=== PATIENT | female | born 1950 | race Caucasian/White ===

== ENCOUNTER → 2023-05-03 08:07 | Outpatient (REF) | payer OTHER, SELFPAY | LOC: HWRAD 08:07 | PROVIDERS: ATTENDING PHYSICIAN Orthopaedic Surgery; FAMILY PHYSICIAN Family Medicine | DX: M25.552 Pain in left hip (principal) | CPT/HCPCS: 72192 ==

== ENCOUNTER → 2023-05-06 12:30 | Outpatient (REF) | payer OTHER, SELFPAY ==
--- NOTE | 2023-05-03 11:25 | CM ---
Addendum entered by PERCY Rojas 05/05/23 14:08:
Referral sent to [facility] to inquire about SNF bed if patient cannot go home with home care.
Original Note:
Patient is scheduled for an elective L AMILCAR conversion on 05/12/23. Spoke with patient prior to surgery via telephone. Introduced role of Orthopedic Navigator. Patient reports that she lives with her sister in a one level home. There are 3 steps
up to porch, 2 more to front door and once inside the house 7 steps up to one level living. She currently functions independently.
She had Left femur fracture and Left hip gamm nail, by Dr. Lin, 02/15/23. She was discharged to [facility] for short term rehab.
She went home and had [facility] home care. Her list visit will be on 05/04/23.
She has w/c, quad cane, rolling walker, grabber, leg agronomy supervisor, gait belt, shower seat with rails, raised toilet seat with rails.
PCP is Dr. Celaya
Pharmacy: [facility]
Discussed orthopedic program and post surgical plans. Reviewed anticipated length of stay and that goal is for her to return home at discharge. Also reviewed outpatient PT. Patient prefers to have [facility] home care again at discharge. If she
needed SNF rehab she would agree to go back to [facility].
Patient will complete online education.
PLAN: Orthopedic Navigator will remain available to assist with the care of patient and will reassess discharge needs after surgery.
[2023-05-06 12:24] VITALS: BMI 39.4
[2023-05-06 14:29] LABS: Hematocrit 33.4 % (37.0-47.0); Hemoglobin 10.1 g/dL (12.0-16.0); Mean Corp Hgb Conc. 30.2 g/dL (33.0-37.0); Mean Corpuscular Hgb 27.4 pg (27.0-31.0); Mean Corpuscular Volume 90.8 fL (81.0-99.0); Mean Platelet Volume 9.4 fL (7.4-10.4); Platelet Count 454 10^3/uL (130-400); Red Blood Cell Count 3.68 10^6/uL (4.20-5.40); Red Cell Dist. Width 15.3 % (11.5-14.5); White Blood Cell Count 8.9 10^3/uL (4.8-10.8)
[2023-05-06 14:50] LABS: ALT (SGPT) 14 U/L (0-35); AST (SGOT) 20 U/L (14-36); Albumin 3.6 g/dl (3.5-5.0); Alkaline Phosphatase 125 U/L (38-126); Blood Urea Nitrogen 15 mg/dl (7-17); Calcium 8.7 mg/dl (8.4-10.2); Carbon Dioxide 26 mmol/L (22-30); Chloride 102 mmol/L (98-107); Estimated Creatinine Clearance 49 ml/min; Glucose 189 mg/dl (70-99); Potassium 4.8 mmol/L (3.5-5.1); Sodium 134 mmol/L (135-145); Total Bilirubin 0.6 mg/dl (0.2-1.3); Total Protein 6.3 g/dl (6.3-8.2); eGFR 59.12
[2023-05-06 15:03] LABS: Vitamin D, 25-OH*** 25.5 ng/mL (30-80)
[2023-05-06 15:04] LABS: Erythrocyte Sed Rate 24 mm/hour (0-20)
[2023-05-06 15:17] LABS: TSH 0.57 uIU/ml (0.47-4.68)
[2023-05-06 15:42] VITALS: BMI 39.4
[2023-05-06 16:37] LABS: Iron 43 ug/dl (37-170)
[2023-05-06 16:46] LABS: Percent Saturation 13 % (20-50); Total Iron Binding Capacity 313 ug/dl (265-497)
[2023-05-06 17:17] LABS: Ferritin 60.7 ng/ml (11.1-264.0)
[2023-05-06 17:31] LABS: Vitamin B12 424 pg/ml (239-931)
[2023-05-07 08:44] LABS: Glycohemoglobin (HgbA1c) 6.2 % (4.0-5.6)
--- NOTE | 2023-05-10 11:41 | CM ---
Spoke to Maricarmen in admissions at [facility] today. From looking at her referrals she will have bed Tuesday if needed. Navigator to send updated clinical day of surgery.
--- NOTE | 2023-05-12 13:05 | CM ---
Addendum entered by PERCY Rojas 05/12/23 16:51:
Patient surgery moved to 05/13/23.
Original Note:
Spoke to Maricarmen at [facility]. She will have bed Tuesday or Tuesday for patient. Patient will need [employer] auth.
NPI Dr. Daniel Mattson [id number]
NPI s to use for [facility] [id number] or [id number].
Patient updated by phone that bed available and that there are residents at [facility] with COVID. Patient and sister to discuss if patient will go to SNF or try to go home.
== END ==
LOC: SDSPAT 12:30
PROVIDERS: ATTENDING PHYSICIAN Orthopaedic Surgery; FAMILY PHYSICIAN Family Medicine; OTHER PHYSICIAN Physician Assistant Medical
DX: Z01.810 Encounter for preprocedural cardiovascular examination (principal); Z01.812 Encounter for preprocedural laboratory examination; Z01.818 Encounter for other preprocedural examination; S72.22XA Displaced subtrochanteric fracture of left femur, initial encounter for closed fracture
CPT/HCPCS: 36415; 80053; 82306; 82607; 82728; 83036; 83540; 83550; 84443; 85027; 85652; 86140; 86850; 86900; 86901; 87070; 93005

== ENCOUNTER → 2023-05-10 11:54 | Outpatient (REF) | payer OTHER, SELFPAY ==
[2023-05-10 12:34] VITALS: BP 168/77; BP_SYST 104
[2023-05-10 14:13] LABS: Body Fluid Mononuclear 32.2 %; Body Fluid Polymorphonuclear 67.8 %; Body Fluid WBC 736 /CUMM
[2023-05-10 14:22] LABS: Body Fluid Second Tech SD
== END ==
LOC: RADI 11:54
PROVIDERS: ATTENDING PHYSICIAN Orthopaedic Surgery
DX: T84.52XA Infection and inflammatory reaction due to internal left hip prosthesis, initial encounter (principal); Y79.2 Prosthetic and other implants, materials and accessory orthopedic devices associated with adverse incidents
CPT/HCPCS: 20610; 77002; 87015; 87070; 87075; 87205; 89051

== ENCOUNTER 2023-05-13 12:31 | Inpatient (IN) | payer OTHER, SELFPAY ==
[2023-05-12 15:18] VITALS: BP 181/85
--- NOTE | 2023-05-12 16:38 | ED.ATTNOTE ---
ED Attending Note
ED Attending Note
ED Attending Note:
Pt [facility] because her scheduled procedure was bumped until tomorrow. Pt has severe limitations in her ability to ambulate due to complications from surgery to repair right hip fracture in January. Given
the severe ambulatory dysfx and multiple steps to get into her home ortho feels it is not appropriate for her to be discharged. There is no acute complaint but [facility] could not accommodate her in their area any longer. Pt should not be
billed for ER physician evaluation
-
Portions of this chart may have been created with voice recognition software.� Occasional wrong word or��sound alike� substitutions may have occurred due to the inherent limitations of voice recognition software.
[2023-05-12 17:33] VITALS: BP 144/58
[2023-05-12 17:38] LABS: Glucose - Point of Care 141 mg/dl (70-99)
--- NOTE | 2023-05-12 18:11 | W.PN.UPDATE ---
Update Note
Progress Note Update
Admission orders to observation placed. Plan for OR tomorrow 13 May 2023 w/ Dr. Velasquez
-NWB to LLE; bedrest
-DVT PPX: ASA resume base dose tonight, hold tomorrow; venous foot pumps
-pain regimen placed
-Diet: reg diet, NPO at MN
-HTN: continue current home meds, hold diuretics and GUSTABO/ARBS preop tomorrow
-DM2: continue basal insluin, hold oral diabetic meds, sliding scale and accuchecks.
-Plan for OR tomorrow- ANN-MARIE MARSHALLOR, irrigation ordered, NPO @ MI.
[2023-05-12 19:30] VITALS: BP 169/83
--- NOTE | 2023-05-12 19:30 | PTCARENOTE ---
Pt admitted to 2117 from ED. AAOx3, ambulated with RW from stretcher to bed. Family at bedside. Plan of care discussed. NPO after midnight for OR tomorrow. Call montejo within reach.
[2023-05-12 19:44] VITALS: BMI 41.1
[2023-05-12] MEDS: ASPIR LOW (ENTERIC COATED) 81 MG PO (19:59)
[2023-05-12] MEDS: NORVASC 2.5 MG PO (19:59)
[2023-05-12] MEDS: ROXICODONE 5 MG PO (20:00)
[2023-05-12] MEDS: LIPITOR 10 MG PO (20:04)
[2023-05-12] MEDS: ORETIC 25 MG PO (20:04)
[2023-05-12] MEDS: BACTROBAN 2% OINTMENT 1 APPLIC TOPICAL (21:25)
[2023-05-12] MEDS: LANTUS 0.100000000000000006 UNITS SC (21:25)
[2023-05-12 21:28] LABS: Glucose - Point of Care 166 mg/dl (70-99)
[2023-05-12 23:30] VITALS: BP 165/85
[2023-05-13] VITALS (11 sets, daily range): BP systolic 90–146; BP diastolic 50–69
[2023-05-13] MEDS: TYLENOL 975 MG PO
[2023-05-13] MEDS: NOVOLOG FLEXPEN-MODERATE RESISTANCE SC ×2 (06:14→20:40)
[2023-05-13 06:15] LABS: Glucose - Point of Care 144 mg/dl (70-99)
[2023-05-13 06:30] LABS: Hematocrit 32.8 % (37.0-47.0); Hemoglobin 10.2 g/dL (12.0-16.0)
[2023-05-13 07:02] LABS: Blood Urea Nitrogen 13 mg/dl (7-17); Carbon Dioxide 28 mmol/L (22-30); Chloride 101 mmol/L (98-107); Estimated Creatinine Clearance 49 ml/min; Glucose 142 mg/dl (70-99); Potassium 3.9 mmol/L (3.5-5.1); Sodium 134 mmol/L (135-145); eGFR 59.12
--- NOTE | 2023-05-13 08:11 | CM ---
Addendum entered by Sparkle Hernandez 05/13/23 12:30:
Inpatient admission order noted in medical record. IMM reviewed with, and signed by, patient. Discharge plans were reviewed with patient's sister.
Addendum entered by Sparkle Hernandez 05/13/23 10:13:
Per [facility] at [facility]; weekend Lace Winder to call ict help desk officer ([phone]) at [facility] and ask for nursing egg processing supervisor to provide auth and confirm discharge.
Original Note:
Reviewed chart and discussed with RN. Patient was to have elective L AMILCAR conversion yesterday however surgery postponed to today. Patient is currently observation status.
Met with patient at bedside. Patient reports that she lives with her sister in a one level home. There are 3 steps up to porch, 2 more to front door and once inside the house 7 steps up to one level living. She functioned independently prior to
coming to the hospital. She had Left femur fracture and Left hip gamma nail by Dr. Lin on 02/15/23. She went to [facility] for short term rehab following this. She then had [facility] care. She has w/c, quad cane, rolling walker, grabber, leg welder setter electron beam machine,
shower seat with rails, raised toilet seat with rails. PCP is Dr. Celaya
Pharmacy: [facility]
Observation status explained to patient and form signed.
Discussed orthopedic program and post surgical plans. Reviewed anticipated length of stay and discussed discharge plans. Patient feels she will need SNF rehab due to the steps she has to enter her home. She [facility] to go back to [facility].
Referral and completed PASRR were sent to [facility] at [facility]. Bed will be available on Tuesday, 05/14. Patient will need [employer] auth. (attending will be: Dr. Daniel Mattson ; NPI for [facility] [id number] or [phone].
Patient will need stretcher transport due to hip precautions (medical necessity and transport forms placed on chart). If copay needs to be paid prior to transport; patient's sister, Yaneli. can be contacted for patient.
--- NOTE | 2023-05-13 09:17 | W.PN.UPDATE ---
Update Note
Progress Note Update
Patient for LEFT conversion AMILCAR later today via Dr. Velasquez (~1400). Surgical and blood consents have been signed. Operative site has been marked. She is NPO. Hgb this AM @ 10.2. T&S not entered, therefore placed this AM. ABX/irrigation products on
call.
[2023-05-13] MEDS: ROXICODONE 5 MG PO ×2 (09:20→19:09)
[2023-05-13] MEDS: BACTROBAN 2% OINTMENT 1 APPLIC TOPICAL ×2 (09:21→20:46)
[2023-05-13 11:50] LABS: Glucose - Point of Care 174 mg/dl (70-99)
--- NOTE | 2023-05-13 12:19 | W.PN.ORTHO ---
Today's Communication / Plan
-
d/c when stable
Assessment
.
Distal Motor Intact: Yes
Dressing:
Clean, dry and intact.
Assessment:
L Hip ORIF w/ gamma nail Dr. Lin 01/2023-displacement of hardware due to severe osteoporosis + end stage arthritis--proposed L AMILCAR Conversion Dr. Velasquez 05/13/23
Osteoporosis-recent fracture-TSH in range-Vit D low--supplement Rx pre-op--bone density advised OP w/ Rheumatology ciro; advised
Type 2 IDDM-increase Lantus dosing due to potential for post op hyperglycemia and infection-SSI and resume home meds
-Cefadroxil ppx OP
Anemia-multifactorial due to renal disease and borderliine low iron-Ferrous Sulfate advised to improve stores in the setting of surgery
[id number] prn
Plan
.
Surgery / Date: L AMILCAR Conversion Dr. Velasquez 05/13/23
DVT Prophylaxis: Aspirin
Activity:
Out of bed.
PT/OT
Subjective
.
.:
Patient resting comfortably.
Vital Signs and Labs
.
Vital Signs and Labs:
Lab Results
05/13/23 04:40
05/13/23 04:40
Temp Pulse Resp BP Pulse Ox
98.1 F 94 18 146/65 94
05/13/23 07:45 05/13/23 07:45 05/13/23 07:45 05/13/23 07:45 05/13/23 07:45
[2023-05-13] MEDS: NOVOLOG FLEXPEN-MODERATE RESISTANCE 1 UNITS SC (12:20)
[2023-05-13] MEDS: DILAUDID 0.25 MG IV ×2 (18:33→19:00)
--- NOTE | 2023-05-13 18:36 | OR.RPT ---
Operative Report
Operative Report
Orthopaedic Surgery Operative Note
DATE OF OPERATION: 05/13/2023
PREOPERATIVE DIAGNOSES: Mechanical failure of mechanical device, intertrochanteric femur fracture with cutout of cephalomedullary nail
POSTOPERATIVE DIAGNOSES: Same
OPERATION PERFORMED:
1. Left conversion total hip arthroplasty (CPT 82590 with 22 modifier)
2. Removal of hardware
SURGEON: Jason Velasquez MD
VOLUNTEER SERVICES COORDINATOR: Hector Garrett PA-C who helped with patient and limb positioning and retraction
ANESTHESIA: General
COMPLICATIONS: None.
ESTIMATED BLOOD LOSS: 500 mL.
DRAINS: None
SPECIMEN: None
FINDINGS: Cutout of cephallomedullary device with displacement of head and neck fragments
IMPLANTS:
Biomet G7 Acetabular shell, multihole, size 48
Biomet G7 dual mobility acetabular liner
Radha Trilogy acetabular bone screw x1
Biomet Nataly STS distal stem 150 x 13mm
Biomet Nataly Proximal body A, 60mm, extended offset
Biolox Ceramic Head, size 28mm +0
Biomet G7 dual mobility head 38mm
EXPLANTS:
[place] Gamma nail with lag screw and distal interlocking screw
INDICATIONS: The patient is an sustained a left subtrochanteric femur fracture January 2023 and underwent surgical fixation with a cephalomedullary nail with a colleague. She healed the subtrochanteric fracture but was noted to have cutout of the
lag screw from the femoral head. I reviewed the x-rays with the patient and with her family who were present with her. We discussed treatment options. We discussed that based on her preinjury level of function that nonoperative treatment would
likely lead to persistent pain and rapid degeneration of the joint if not erosion into the pelvis. Shared decision was to proceed with surgical treatment with conversion to a total hip arthroplasty with removal of hardware.
The patient understood the risks which included, but were not limited to, bleeding, infection, failure to relieve pain, more pain than preop, damage to blood vessels and nerves, need for reoperation, mechanical failure of the implants, wound healing
problems, stiffness, instability, blood clot, pulmonary embolism, myocardial infarction, pneumonia, arrhythmia, CVA, and . The patient accepted these risks and wished to proceed. All questions were answered, and informed consent was obtained.
PROCEDURE IN DETAIL: The patient was identified in the preoperative holding area. The left hip was identified as the operative site. The patient was taken in the operating room and transferred to the operative table. General anesthesia was
performed. IV antibiotics and tranexamic acid were administered. The patient was placed in the lateral position with Stulberg hip positioners. Axillary roll was placed. The down leg was well padded. All bony prominences were well padded. The
operative limb was prepped and draped in the usual sterile fashion.
Time out was performed. A posterolateral approach to the hip was used incorporating prior incisions. The skin incision was centered over the greater trochanter. This was taken down sharply through subcutaneous tissues. Marked hematoma was evacuated.
Meticulous hemostasis was achieved throughout the case with electrocautery. We split the fascia marilyn in line with skin incision. I split the gluteus paula bluntly. We cauterized all crossing vessels as we split it. I palpated the sciatic nerve and
made sure it was well posterior in the operative field. It was protected throughout the case. The operative field below the ITB was irregular due to the fracture and healing and granulation tissue. The gluteus medius and minimus were identified and
retracted anteriorly with a cobra retractor. I performed a posterior capsulotomy intact the edge of the capsule to aid in retraction.
Dissection was complicated by the fracture. The lag screw was removed from the femoral head. The distal interlocking screw was removed. The gamma nail was removed. Dissection was carried down to the femoral head. Once the hip capsule was resected, I
gently dislocated the hip posteriorly. The head and neck fragments were identified and mobilized gently so as not to damage surrounding structures. There was a defect in the anterior superior acetabular dome from the lag screw perforation. The
capsule was removed from around the head neck and the head and neck were removed.
I placed a curve hohmann retractor over the anterior lip of the acetabulum between the labrum and the anterior hip capsule. A second retractor was placed inferiorly just distal to the transverse acetabular ligament. Circumferential view of the
acetabulum was achieved. I incised the labrum and pulvinar with electrocautery. I started with a 43 mm reamer and reamed gently down to the medial wall. I then sequentially reamed up to a 47mm reamer. This gave a nice bed of bleeding bone with
excellent column support anteriorly and posteriorly. I impacted the acetabular shell in approximately 40 degrees of abduction and 20 degrees of anteversion. I matched the anteversion of the transverse acetabular ligament. I also made sure that the
anterior rim of the socket was not proud of the anterior wall to minimize the chance of iliopsoas tendinitis. I confirmed the cup was well-seated. I placed 1 ileal screw in the posterior superior quadrant. I then impacted the dual mobility liner and
confirmed it was well seated with the locking mechanism.
On the femoral side, I used a rongeur to open up the medullary canal. I reamed the canal after using long currettes to debride out fibrinous tissue. The size 13 came to a solid stop in the femoral diaphysis and had excellent rotational and axial
stability. The proximal body was reamed and trial was placed over the distal stem. Trial femoral head was placed, and the hip was taken through a complete range of motion. It was noted to be stable in extension without impingement. It was stable in
the position of sleep and in flexion with internal rotation.
I removed the trials. I impacted the proximal femoral body to match the trial version. It had excellent axial and rotational stability. Trial ball head was placed, and I reduced the hip and took the hip through a complete range of motion. There was
no impingement in external rotation and extension. Position of sleep was stable. At 90 degrees of flexion and slight adduction, the hip could be internally rotated to 90 degrees with no subluxation. I palpated the sciatic nerve, which was tension
free and unharmed. The trial ball head was removed, and the final dual mobility head was assembled. The head was impacted onto a clean and dry Chauhan taper. The hip was reduced.
A dilute betadine soak was performed for approximately 3 minutes, and then the hip was copiously irrigated. I repaired the capsule with #2 Ethibond to the abductor tendon and posterior trochanter. Local anesthetic was injected. The vastus lateralis
fascia and tensor fascia were closed with #1 PDS in running fashion. Abductor tendon was repaired side to side with 0 Vicryl. The subcutaneous tissues were closed with 2-0 PDS in running fashion. The skin was reapproximated with 3-0 Monocryl
subcuticular suture. I placed a Prineo dressing followed by a Mepilex Ag dressing. The patient awoke from anesthesia without difficulty. Sponge and instrument counts were correct x2 at the end of the case.
I was present and participated in the entire procedure. I checked leg length at the ankles after transfer on the bed which was equal. The patient was sent to the recovery room in stable condition.
Of note, 22 modifier was added for complexity due to BMI >40kg/m2 which added about 30 minutes of additional time for exposure, positioning, and implanting the components.
Ervin Velasquez MD
[2023-05-13 18:38] LABS: Glucose - Point of Care 228 mg/dl (70-99)
[2023-05-13 18:45] LABS: Hematocrit 32.7 % (37.0-47.0); Hemoglobin 10.7 g/dL (12.0-16.0)
[2023-05-13] MEDS: NOVOLOG vial 4 UNITS SC (18:52)
--- NOTE | 2023-05-13 19:02 | W.PN.UPDATE ---
Update Note
Progress Note Update
Immediate postoperative x-rays were reviewed by me. Fermoal componet appears well fixed and well aligned. The film shows signs of a fracture of the medial wall of the acetabulum. Intraoperatively there was cut out of the cephalomedullary screw
into the anterior column without clear signs of apparent fracture. Acetabular component was stable prior to screw fixation, and the screw was added for added fixation given the context of conversion total hip arthroplasty and osteoporotic bone.
Based on the x-ray findings, recommendation is for touchdown weightbearing of the left lower extremity for 6 weeks with a walker.
[2023-05-13] MEDS: NSS 1000 IV (19:04)
--- NOTE | 2023-05-13 19:45 | PTCARENOTE ---
Received report from [employer] [facility]. Patient transferred into room via bed without difficulties, family updated at bedside. Call ball in place, VSS, safe environment maintained, care ongoing.
--- NOTE | 2023-05-13 19:57 | SUR.PHASEI ---
191 - patient in pacu post op - L total hip, removal of gamma nail. Medicated for pain with dilaudid and Roxicodone 5mg as ordered, lab work drawn and results to Dr Velasquez. glucose post op to Dr Rogel and coverage ordered and given, discharge
to [place] with report, tele, hand off at bedside, family at bedside and updated.
[2023-05-13] MEDS: FARXIGA 10 MG PO (20:43)
[2023-05-13] MEDS: ASPIRIN 325 MG PO (20:43)
[2023-05-13] MEDS: NEURONTIN 300 MG PO (20:43)
[2023-05-13] MEDS: ANCEF 5 IV (20:44)
[2023-05-13] MEDS: COLACE 100 MG PO (20:44)
[2023-05-13] MEDS: LIPITOR 10 MG PO (20:44)
[2023-05-13] MEDS: GLUCOPHAGE 1000 MG PO (20:45)
[2023-05-13] MEDS: NORVASC PO (21:07)
[2023-05-13] MEDS: LIPITOR PO (21:07)
[2023-05-13 22:05] LABS: Glucose - Point of Care 257 mg/dl (70-99)
[2023-05-13] MEDS: LANTUS 0.160000000000000003 UNITS SC (22:30)
[2023-05-14] VITALS (13 sets, daily range): BP systolic 87–140; BP diastolic 48–64; O2SAT 98
[2023-05-14] MEDS: NOVOLOG FLEXPEN-MODERATE RESISTANCE SC ×2 (01:18→06:07)
[2023-05-14] MEDS: ANCEF 5 IV (05:12)
[2023-05-14 06:03] LABS: Glucose - Point of Care 204 mg/dl (70-99)
[2023-05-14] MEDS: NSS 1000 IV ×2 (06:05→20:47)
[2023-05-14 07:13] LABS: % Basophils 0.1 % (0-2); % Immature Granulocytes 0.7 % (0-0.5); % Lymphocytes 5.9 % (20.5-51.1); % Monocytes 6.9 % (1.7-9.3); % Neutrophils 86.4 % (42.2-75.2); Absolute Immature Granulocytes 0.2 10^3/uL (0-0.05); Absolute Lymphocytes 1.3 10^3/uL (1.2-3.4); Absolute Monocytes 1.5 10^3/uL (0.1-0.6); Absolute Neutrophils 18.6 10^3/uL (1.4-6.5); Hematocrit 24.9 % (37.0-47.0); Mean Corp Hgb Conc. 31.7 g/dL (33.0-37.0); Mean Corpuscular Hgb 28.1 pg (27.0-31.0); Mean Corpuscular Volume 88.6 fL (81.0-99.0); Mean Platelet Volume 9.6 fL (7.4-10.4); Nucleated Red Blood Cells % 0 %; Platelet Count 317 10^3/uL (130-400); Red Blood Cell Count 2.81 10^6/uL (4.20-5.40); Red Cell Dist. Width 15.5 % (11.5-14.5); White Blood Cell Count 21.5 10^3/uL (4.8-10.8)
[2023-05-14 07:24] LABS: Blood Urea Nitrogen 20 mg/dl (7-17); Calcium 7.6 mg/dl (8.4-10.2); Carbon Dioxide 22 mmol/L (22-30); Chloride 101 mmol/L (98-107); Estimated Creatinine Clearance 31 ml/min; Glucose 225 mg/dl (70-99); Potassium 5.5 mmol/L (3.5-5.1); Sodium 129 mmol/L (135-145); eGFR 33.63
[2023-05-14 07:56] LABS: Hemoglobin 7.9 g/dL (12.0-16.0)
[2023-05-14 08:35] LABS: Glucose - Point of Care 250 mg/dl (70-99)
--- NOTE | 2023-05-14 11:14 | W.PN.ORTHO ---
Today's Communication / Plan
-
Patient has a symptomatic Hgb of 7.9 this AM (10.7 in PACU yesterday)
Will request 2 units PRBC with a H&H check later today
For now would remain in bed, based on orthostatics this AM
PT/OT tomorrow based on patient's symptoms
THPs x 12 weeks when PT resumed
Anticipate SNF when stable, appreciate CM
ASA 325mg daily x 4 weeks for ppx
Dressings to remain
Pain control
Will continue to follow along
Assessment
.
Distal Motor Intact: Yes
Dressing:
Clean, dry and intact. Dressings in place left thigh
Assessment:
POD#1 Left hip conversion AMILCAR
Not feeling so well this AM
Calf soft, nontender
Plan
.
Surgery / Date: Left Hip conversion AMILCAR May 21 (Eva)
DVT Prophylaxis: Aspirin
Activity:
Out of bed. TDWB x 6 weeks on walker
PT/OT, THPs x 12 weeks
Discharge Plan: SNF
Subjective
.
.:
Patient resting comfortably. A bit lightheaded this AM with PT. Also with orthostatics. Feels better in bed
Vital Signs and Labs
.
Vital Signs and Labs:
Lab Results
05/14/23 06:36
Temp Pulse Resp BP Pulse Ox
98.1 F 107 16 108/59 98
05/14/23 08:15 05/14/23 08:15 05/14/23 08:15 05/14/23 08:15 05/14/23 08:15
Non-invasive Hgb result: 9.9
[2023-05-14 12:08] LABS: Glucose - Point of Care 269 mg/dl (70-99)
[2023-05-14] MEDS: AMARYL 4 MG PO (12:46)
[2023-05-14] MEDS: BACTROBAN 2% OINTMENT 1 APPLIC TOPICAL ×2 (12:47→21:00)
[2023-05-14] MEDS: ASPIRIN 325 MG PO (12:47)
[2023-05-14] MEDS: FEOSOL 325 MG PO (12:48)
[2023-05-14] MEDS: NORVASC 2.5 MG PO (12:48)
[2023-05-14] MEDS: FARXIGA 10 MG PO (12:48)
[2023-05-14] MEDS: COLACE 100 MG PO ×2 (12:48→20:48)
[2023-05-14] MEDS: GLUCOPHAGE 1000 MG PO ×2 (12:48→17:43)
[2023-05-14] MEDS: VITAMIN D3 (cholecalciferol) 25 MCG PO (12:49)
[2023-05-14] MEDS: ORETIC 12.5 MG PO (12:49)
[2023-05-14] MEDS: NOVOLOG FLEXPEN-MODERATE RESISTANCE 5 UNITS SC (13:14)
[2023-05-14] MEDS: MAALOX 30 ML PO (15:41)
[2023-05-14] MEDS: DILAUDID 0.5 MG IV (15:41)
[2023-05-14] MEDS: LIPITOR 10 MG PO (17:43)
[2023-05-14 18:04] LABS: Glucose - Point of Care 213 mg/dl (70-99)
[2023-05-14] MEDS: NOVOLOG FLEXPEN-MODERATE RESISTANCE 3 UNITS SC (18:06)
--- NOTE | 2023-05-14 19:58 | PTCARENOTE ---
Blood infusion: VS were taken at 1754 for the 2nd unit. the 1810 VS that were placed after the 15min of staying with her were some how duplicated for the time of 1724 (have no idea how that happened) All the times were entered correctly at the
appropriate times.
[2023-05-14] MEDS: NEURONTIN 300 MG PO (20:48)
[2023-05-14] MEDS: LANTUS 0.160000000000000003 UNITS SC (20:51)
[2023-05-14 21:31] LABS: Glucose - Point of Care 170 mg/dl (70-99)
[2023-05-14 23:25] LABS: Hemoglobin 9.3 g/dL (12.0-16.0)
[2023-05-15] VITALS (7 sets, daily range): BP systolic 104–162; BP diastolic 46–69; PULSE 104; BMI 43.5
[2023-05-15] MEDS: ROXICODONE 5 MG PO ×2 (01:14→08:55)
[2023-05-15] MEDS: NOVOLOG FLEXPEN-MODERATE RESISTANCE SC (01:42)
[2023-05-15 07:14] LABS: Glucose - Point of Care 148 mg/dl (70-99)
[2023-05-15] MEDS: FARXIGA 10 MG PO (08:51)
[2023-05-15] MEDS: ASPIRIN 325 MG PO (08:51)
[2023-05-15] MEDS: ORETIC 12.5 MG PO (08:52)
[2023-05-15] MEDS: NORVASC 2.5 MG PO (08:52)
[2023-05-15] MEDS: VITAMIN D3 (cholecalciferol) 25 MCG PO (08:52)
[2023-05-15] MEDS: GLUCOPHAGE 1000 MG PO ×2 (08:52→18:15)
[2023-05-15] MEDS: COLACE 100 MG PO ×2 (08:52→20:12)
[2023-05-15] MEDS: FEOSOL 325 MG PO (08:52)
[2023-05-15] MEDS: AMARYL 4 MG PO (08:52)
[2023-05-15] MEDS: BACTROBAN 2% OINTMENT 1 APPLIC TOPICAL ×2 (08:53→20:12)
--- NOTE | 2023-05-15 09:30 | W.PN.ORTHO ---
Today's Communication / Plan
-
Patient feeling better this AM. Some lightheaded after PM PT session yesterday
Hgb 9.3 this AM, will recheck shortly
Will see how PT session tolerated today
When medically stable (Mon/Tu) D/c to [facility] likely, appreciate CM
PT/OT, THPs x 12 weeks
TDWB/partial (flat foot allow)- discussed with PT
ASA 325mg daily x 4 weeks for ppx
Dressings to remain 2 weeks
Outpatient Ortho follow-up in [address] Velasquez
Assessment
.
Distal Motor Intact: Yes
Dressing:
Clean, dry and intact. Mepilex dressing in place left hip. Aquacel dressing distal thigh with mild strikethrough, contained
Assessment:
POD#2 Left conversion AMILCAR
Overall feeling better this AM
Calf soft, nontender
Plan
.
Surgery / Date: Left Hip conversion AMILCAR May 21 (Eva)
DVT Prophylaxis: Aspirin
Activity:
Out of bed. TDWB/partial LLE (july plant full foot)
PT/OT, THPs x 12 weeks
Discharge Plan: SNF
Discharge Information:
[facility]
Subjective
.
.:
Patient resting comfortably. Feels much better this AM. Still a bit dizzy after PT session post transfusion. PT/OT should be in soon
Vital Signs and Labs
.
Vital Signs and Labs:
Lab Results
05/14/23 23:19
05/14/23 06:36
Temp Pulse Resp BP Pulse Ox
97.5 F 107 18 134/59 93
05/15/23 07:20 05/15/23 08:52 05/15/23 07:20 05/15/23 08:52 05/15/23 07:20
Non-invasive Hgb result: 9.9
[2023-05-15 10:06] LABS: Hemoglobin 8.4 g/dL (12.0-16.0)
[2023-05-15] MEDS: NSS 1000 IV (11:15)
[2023-05-15] MEDS: DILAUDID 0.5 MG IV (11:16)
[2023-05-15 11:23] LABS: Glucose - Point of Care 93 mg/dl (70-99)
[2023-05-15] MEDS: ROXICODONE 10 MG PO (15:14)
[2023-05-15] MEDS: MILK OF MAGNESIA 30 ML PO (15:16)
[2023-05-15 17:06] LABS: Glucose - Point of Care 115 mg/dl (70-99)
[2023-05-15] MEDS: LIPITOR 10 MG PO (18:13)
[2023-05-15 21:47] LABS: Glucose - Point of Care 68 mg/dl (70-99)
[2023-05-15] MEDS: NEURONTIN 300 MG PO (21:48)
[2023-05-15] MEDS: LANTUS 0.160000000000000003 UNITS SC (21:48)
[2023-05-15 22:04] LABS: Glucose - Point of Care 60 mg/dl (70-99)
[2023-05-15 22:21] LABS: Glucose - Point of Care 51 mg/dl (70-99)
[2023-05-15] MEDS: DEXTROSE 50% SYRINGE 12.5 GRAMS IV (22:25)
[2023-05-15 22:51] LABS: Glucose - Point of Care 102 mg/dl (70-99)
--- NOTE | 2023-05-15 23:03 | PTCARENOTE ---
Bedside glucose 68, Hypoglycemic protocol initiated. 15min repeat bedside glucose 60, Hypoglycemic protocol in place, 15 min repeat bedside glucose 51. D50 administered as ordered per protocol. Monique NICOLAS notified. Will repeat bedside glucose
Q15min until glucose >100. Bedside glucose currently 102. Will repeat in 2 Hours per protocol. Pt denies any symptoms and remains asymptomatic. Will continue to monitor.
[2023-05-16] VITALS (12 sets, daily range): BP systolic 114–162; BP diastolic 48–69; PULSE 2–105; O2SAT 80–96; BMI 41.3
[2023-05-16 00:21] LABS: Glucose - Point of Care 84 mg/dl (70-99)
[2023-05-16 02:01] LABS: Glucose - Point of Care 76 mg/dl (70-99)
[2023-05-16 05:13] LABS: Glucose - Point of Care 58 mg/dl (70-99)
[2023-05-16] MEDS: ROXICODONE 10 MG PO (05:28)
[2023-05-16 05:51] LABS: Glucose - Point of Care 70 mg/dl (70-99)
--- NOTE | 2023-05-16 05:57 | PTCARENOTE ---
Close glucose monitoring overnight. Pt hypoglycemic this am, and protocol followed accordingly. Repeat glucose 70. Pt sitting up in bed eating penut butter crackers. Pt denies complaints at this time. Pt noted to be drowsy, needs reminders to eat
and drink. POx drops to 88% intermittently while sleeping, 93% while awake. PT complaining of 8/10 left hip pain, pain medication administered as ordered. Pt inc of multiple loose bm overnight. Pt inc of urine. Frequent lashon care provided. NO other
changes in assessment. Will monitor.
[2023-05-16 06:25] LABS: % Basophils 0.2 % (0-2); % Eosinophils 0.1 % (0-6); % Immature Granulocytes 0.8 % (0-0.5); % Lymphocytes 7.3 % (20.5-51.1); % Monocytes 8.2 % (1.7-9.3); % Neutrophils 83.4 % (42.2-75.2); Absolute Immature Granulocytes 0.2 10^3/uL (0-0.05); Absolute Lymphocytes 1.4 10^3/uL (1.2-3.4); Absolute Monocytes 1.5 10^3/uL (0.1-0.6); Absolute Neutrophils 15.6 10^3/uL (1.4-6.5); Hematocrit 26.3 % (37.0-47.0); Hemoglobin 8.4 g/dL (12.0-16.0); Mean Corp Hgb Conc. 31.9 g/dL (33.0-37.0); Mean Corpuscular Hgb 29.1 pg (27.0-31.0); Mean Platelet Volume 9.4 fL (7.4-10.4); Nucleated Red Blood Cells % 0.2 %; Platelet Count 260 10^3/uL (130-400); Red Blood Cell Count 2.89 10^6/uL (4.20-5.40); White Blood Cell Count 18.7 10^3/uL (4.8-10.8)
[2023-05-16 07:50] LABS: Glucose - Point of Care 85 mg/dl (70-99)
[2023-05-16] MEDS: ORETIC 12.5 MG PO (08:04)
[2023-05-16] MEDS: FARXIGA 10 MG PO (08:04)
[2023-05-16] MEDS: FEOSOL 325 MG PO (08:05)
[2023-05-16] MEDS: NORVASC 2.5 MG PO (08:05)
[2023-05-16] MEDS: VITAMIN D3 (cholecalciferol) 25 MCG PO (08:05)
[2023-05-16] MEDS: ASPIRIN 325 MG PO (08:05)
[2023-05-16] MEDS: BACTROBAN 2% OINTMENT 1 APPLIC TOPICAL (08:06)
[2023-05-16] MEDS: AMARYL PO (08:09)
[2023-05-16] MEDS: ROXICODONE 5 MG PO (08:11)
--- NOTE | 2023-05-16 10:02 | W.PN.ORTHO ---
Today's Communication / Plan
-
D/c when clinically stable
Assessment
.
Distal Motor Intact: Yes
Dressing:
Dressings with small areas of old incisional bleeding, unchanged since prior assessment.
Assessment:
Mechanical failure of L hip mechanical device s/p Conversion to L AMILCAR, removal of hardware with Dr. Velasquez 05/13/23
- Previous L intertrochanteric femur fracture due to mechanical fall s/p L hip ORIF with gamma nail, 02/14/2023, by Dr. Lin
- PT/OT, THPs x 12 weeks
- TDWB/partial (flat foot allow)- discussed with PT
- ASA 325mg daily x 4 weeks for ppx
- Dressings to remain 2 weeks
- Outpatient Ortho follow-up in [address] Velasquez
Tachycardia and hypoxia post-op - could be due to underlying anemia - pt denies symptoms
- Will order Chest PE study due to this, changes noted on EKG, and periods of prolonged immobility pre-op
- BNP, weight ordered to r/o fluid overload
- IS, continuous pulse ox, supplemental O2 HS, and referral to sleep study center sent (probable [facility] - pt told by rehab in past her O2 runs low at night)
- Hypoxia could also be result of 15 mg of Oxycodone given within 2.5 hours this AM d/t significant pain - did advise RN and pt to use this narcotic sparingly
- Continue to monitor on tele
HTN - + parameters - monitor BP
CKD 3 - minimize nephrotoxins such as NSAIDs
IDDM w/ associated neuropathy and nephropathy - continue to monitor BS
- Hypoglycemic overnight improving w/ hypoglycemic protocol. Did hold AM Metformin and Glimepiride in light of hypoglycemia. Also decreased Lantus HS back to pre-op dosing (was increased initially to accommodate for surgical stress/IV Decadron in
OR).
- Continue low dose Gabapentin
IBS with diarrhea - loose stools reported 05/16 AM - likely multifactorial due to this, Colace and MOM given yesterday, and Metformin
- Stop Colace. MOM only to be used for constipation prn.
- Metformin held this AM
- Loperamide offered this AM
- Did add low lactose diet to avoid further diarrhea
Anemia - did require 4 units PRBCs during admission - hgb stable today at 8.4 (asymptomatic)
- Repeat CBC in AM
- Continue oral iron daily
Chronic leukocytosis in the setting of fx, surgery - WBC trending down during admission - will continue to trend
- Synovial fluid cultures negative
- Afebrile, asymptomatic
HLD
PAD, mild on ABIs
Osteopenia
Vitamin D deficiency
Morbid obesity, BMI 39.4
Plan
.
Surgery / Date: Left Hip conversion AMILCAR May 21 ([facility])
DVT Prophylaxis: Aspirin
Activity:
Out of bed.
PT/OT
Discharge Plan: SNF
Subjective
.
.:
Patient resting comfortably in bed this AM.
Hypoglycemia overnight - improving w/ hypoglycemic protocol.
Loose stools reported overnight - likely multifactorial.
Tachycardia and hypoxia - work-up ongoing.
Vital Signs and Labs
.
Vital Signs and Labs:
Lab Results
05/16/23 05:14
05/14/23 06:36
Temp Pulse Resp BP Pulse Ox
98.2 F 106 18 158/55 90
05/16/23 07:00 05/16/23 08:05 05/16/23 07:00 05/16/23 08:05 05/16/23 07:00
Non-invasive Hgb result: 9.9
Physical Exam
-
HEENT: No pallor, cyanosis, or jaundice. Throat clear.
NECK: Supple. No JVD.
RESPIRATORY: Lungs clear to auscultation.
CVS: Sinus tachycardia.
ABDOMEN: Soft, non-tender. No distension.
EXTREMITIES: Strength equal, no calf pain with palpation/dorsiflexion. Calves soft. Venous stasis changes noted.
CANE FLUME FEEDING MACHINE OPERATOR: AOx3. No focal deficits. inhalation therapist grossly intact
--- NOTE | 2023-05-16 10:35 | SLEEP.APNEA ---
Sleep Apnea Order
-
Patient screened as High Risk for Sleep Apnea on Stop Bang Questionnaire. Patient referred to [facility] for Pre-Study.

Name: VIKRAM HARRIS
: 1950
Home Phone: Use [email or web address] instead
Cell Phone: [f_Reg Other Phone]
Work Phone:
Address: [address] [place] [address]
City: [facility]
State: [place]
Zip: [f_[facility] Zip]
Family Physician: Gilda Celaya
Height 4 ft 11 in
Actual Weight 92.125 kg
Body Mass Index (BMI) 41.1
Ordering Provider: Kimberley Casas PA-C
[2023-05-16 10:37] LABS: NT-proBNP 6110 pg/ml
--- NOTE | 2023-05-16 10:39 | CM ---
Reviewed chart and discussed with PT, OT and ANN Winters. Met with patient at bedside. Discussed discharge plans. The plan continues to be for patient to go to [facility].
Update provided to Maricarmen at [facility]. Bed will be available for patient tomorrow, 05/17 if patient is medically cleared. Patient will need [employer] auth. (attending will be: Dr. Daniel Mattson ; NPI for [facility] [id number] or [id number].
Patient will need stretcher transport due to hip precautions (medical necessity and transport forms placed on chart). If copay needs to be paid prior to transport; patient's sister, Yaneli. can be contacted for patient.
[2023-05-16 12:02] LABS: Glucose - Point of Care 75 mg/dl (70-99)
--- NOTE | 2023-05-16 12:39 | CON.PUL ---
Consultation
Consultation Request
Date/Time Consultation Requested: 05-16-23
Date/Time Consultation Performed: 05-16-23
Requesting Provider: Hospitalist
Performing Provider: Dr Khoury
Reason for Consultation: hypoxemia
Medical History
-
Chief Complaint: hypoxia
History of Present Illness:
Mrs Rosi Kinney is a 73/W adm 05-12 for planned L hip surgery, received surgery on 05-13, developed postop moderate to severe anemia, received up to 4 U PRBCs.
Pulm consulted for hypoxemia, chest CTA todasy with no PE
Given dose of diuretic earlier today, noted ^BNP, noted above PRBCs tx earlier this adm
Per RN, hypoglycemia earlier today, decreasing frequency of use of oxycodone, dilaudid d/c'ed
At time of visit, eating some lunch, MS still decreased but improving, able to follow commands
LLNS, not on home O2 or BDs
Past Medical History
Past Medical History: Other (see A&P for PMH/PSH)
Social History
Tobacco: Non-smoker
Alcohol: None
Drug: None
Living: With Family
Family History
Family History: Reviewed & Not Pertinent
Allergies / Home Medications
Allergies
Allergy/AdvReac Type Severity Reaction Status Date / Time
ciprofloxacin Allergy Rash Verified 05/12/23 15:48
doxycycline Allergy Rash Verified 05/12/23 15:48
lactose Allergy Diarrhea Verified 05/12/23 15:48
Quinolones Allergy Rash Verified 05/12/23 15:48
Tetracyclines Allergy Rash Verified 05/12/23 15:48
Home Medications
Medication Instructions Recorded Confirmed Last Taken Type
acetaminophen 325 mg tablet 975 mg PO DAILYPRN PRN mild pain 02/14/23 05/12/23 05/12/23 History
(Tylenol)
amlodipine 2.5 mg tablet 2.5 mg PO DAILY Blood Pressure 02/14/23 05/12/23 05/11/23 History
atorvastatin 10 mg tablet 10 mg PO DAILY High Cholesterol 02/14/23 05/12/23 05/11/23 History
dapagliflozin propanediol 10 mg 10 mg PO DAILY Diabetes 02/14/23 05/12/23 05/11/23 History
tablet (Farxiga)
hydrochlorothiazide 25 mg tablet 25 mg PO DAILY Blood Pressure 02/14/23 05/12/23 05/11/23 History
loperamide 2 mg capsule 2 mg PO DAILYPRN PRN diarrhea 02/16/23 05/12/23 2 Days Ago History
~05/10/23
aspirin 81 mg tablet,delayed 81 mg PO QPM 05/04/23 05/12/23 05/11/23 History
release
cholecalciferol (vitamin D3) 25 25 mcg PO DAILY 05/12/23 05/12/23 05/11/23 History
mcg (1,000 unit) tablet
ferrous sulfate 325 mg (65 mg 325 mg PO DAILY 05/12/23 05/12/23 05/11/23 History
iron) tablet
glimepiride 4 mg tablet 4 mg PO DAILY 05/12/23 05/12/23 05/11/23 History
insulin glargine 100 unit/mL (3 10 unit SC DAILY@1999 Diabetes 05/12/23 05/12/23 05/11/23 History
mL) subcutaneous pen (Basaglar
KwikPen U-100 Insulin)
metformin 850 mg tablet 1,700 mg PO DAILY 05/12/23 05/12/23 05/11/23 History
metformin 850 mg tablet 850 mg PO QPM 05/12/23 05/12/23 05/11/23 History
mupirocin 2 % topical ointment 1 applic topical BID apply to B/L 05/12/23 05/12/23 05/12/23 History
nostrils
oxycodone 5 mg tablet 5 mg PO Q4HPRN PRN severe pain 05/12/23 05/12/23 05/12/23 00:00 History
Review of Systems
-
History Source: Patient
All other systems: Negative unless noted
Respiratory: Trouble Breathing
Musculoskeletal: Edema (JESSE since Jan 2023 after L hip fx) and Other (L hip postop pain)
Neuro: Weakness
Vitals / Labs / Diagnostic Testing
Vital Signs
Temp Pulse Resp BP Pulse Ox
98.2 F 92 19 162/57 100
05/16/23 11:28 05/16/23 11:28 05/16/23 11:28 05/16/23 11:28 05/16/23 11:28
Lab Data
05/16/23 05:14
05/14/23 06:36
Diagnostic Testing:
Physical Exam
-
HEENT: Normocephalic and Moist Mucous Membranes
Cardiovascular: Regular Rhythm, Murmur (n), Peripheral Edema (JESSE), Calf Tenderness (n) and JVD (n)
Respiratory: Rhonchi and Accessory Resp Muscle Use (n)
GI: Soft, Non Distended and Non Tender
Neurology: Awake, Oriented and No Motor Deficits
Skin: Dry
General: Respiratory Distress (trace on O2)
Assessment
-
Assessment:
Mrs Rosi Kinney is a 73/W adm 05-12 for planned L hip surgery, received surgery on 05-13, developed postop moderate to severe anemia, received up to 4 U PRBCs.
Impression:
Hypoxemia
Basilar atelectasis
Fluid overload, ^BNP
Left conversion total hip arthroplasty, removal of hardware 05-13
Moderate postop anemia
S/p 4U PRBCS on 05-13 and
Very small pleural effusions
Mild mediastinal LAD
Morbid obesity BNO 43.5
Reported hypoglycemia
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
1. Osteoarthritis.
2. Osteopenia.
3. Morbid obesity, BMI 39.4.
4. 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
5. CKD 3.
6. Anemia.
7. Peripheral arterial disease. Mild on ABIs.
8. Hypertension.
9. Hyperlipidemia.
10. Irritable bowel with diarrhea.
11. Vitamin D deficiency.
12. Left hip ORIF with gamma nail 02/14/2023
Bladder sling
Hysterectomy
Cholecystectomy
Nonsmoker
Plan:
Multifactorial hypoxemia: anemia, atelectasis, fluid overload, opiate, gabapentin
Chest CTA reviewed, no PE, very small pleural effusions and basilar atelectasis
Continue O2 protocol
Not on home O2 or BDs
O2 2L, POx 96% at rest
Asp precs, keep HOB elevated at 30 degree at least
IS: patient and family instructed on correct use of IS
Albuterol nebs prn
Noted s/p 4U PRBCs post surgery and elevated BNP
Some evidence of mosaic pattern on chest CT which indicates increased lung water content
Agree with furosemide dose from earlier today
Check TTE
Rec to use opiate meds judiciously as they will compromise breathing effort, decrease mentation, increase asp risk
Update blood work
Consider IM comanagement, noted rising Cr, reported hypoglycemia
Suspected sleep disorder breathing, will need outpatient evaluation and PSG
D/w patient, RN and family at bedside
TT recs to [facility]
[2023-05-16] MEDS: LASIX 40 MG IV (12:59)
[2023-05-16] MEDS: TYLENOL 500 MG PO (13:00)
[2023-05-16] MEDS: IMODIUM 2 MG PO (13:00)
--- NOTE | 2023-05-16 15:11 | CON.HOSP ---
Consultation
-
Date/Time Consultation Requested: 05/16/23 230 pm
Date/Time Consultation Performed: 05/16/23 3pm
Requesting Provider: Eva
Performing Provider: Chana
Reason for Consultation: Medical co-management, transfer to Medical service
Family Physician
-
Family Physician: Gilda Celaya
Chief Complaint
-
medical co-management
History of Present Illness
73 y/o F, hx of L hip ORIF 02/17 complicated by osteoporosis, end stage arthritis, Type 2 DM, Anemia, Obesity, CKD stage 3, PAD, HTN, HLD, IBS admitted for conversion of prior ORIF to L AMILCAR on 05/13/23. Her postop course was complicated by anemia
requiring 4 units PRBC, increasing O2 requirements. Volume overload, STEPHANIE and hyponatremia along with hypoglycemia. Hospitalist service was consulted for medical management and transfer of service. Patient seen this afternoon, on 2L. Denies any
complaints.
Medical History
Past Medical History
Past Medical History: Reports Other (L hip ORIF 02/17 complicated by osteoporosis, end stage arthritis, Type 2 DM, Anemia, Obesity, CKD stage 3, PAD, HTN, HLD, IBS)
Past Surgical History: Reports Orthopedic
Social History
Tobacco: Non-smoker
Alcohol: None
Drug: None
Family History
Family History: Reviewed & Not Pertinent
Allergies / Home Medications
Allergies reflects when Allergies were last updated in [facility].
Home Medications with original date entered in [facility]
Allergy/Medication List:
Allergies
Allergy/AdvReac Type Severity Reaction Status Date / Time
ciprofloxacin Allergy Rash Verified 05/12/23 15:48
doxycycline Allergy Rash Verified 05/12/23 15:48
lactose Allergy Diarrhea Verified 05/12/23 15:48
Quinolones Allergy Rash Verified 05/12/23 15:48
Tetracyclines Allergy Rash Verified 05/12/23 15:48
Home Medications
acetaminophen 325 mg tablet (Tylenol) 975 mg PO DAILYPRN PRN mild pain 02/14/23
amlodipine 2.5 mg tablet 2.5 mg PO DAILY Blood Pressure 02/14/23
atorvastatin 10 mg tablet 10 mg PO DAILY High Cholesterol 02/14/23
dapagliflozin propanediol 10 mg tablet (Farxiga) 10 mg PO DAILY Diabetes 02/14/23
hydrochlorothiazide 25 mg tablet 25 mg PO DAILY Blood Pressure 02/14/23
loperamide 2 mg capsule 2 mg PO DAILYPRN PRN diarrhea 02/16/23
aspirin 81 mg tablet,delayed release 81 mg PO QPM 05/04/23
cholecalciferol (vitamin D3) 25 mcg (1,000 unit) tablet 25 mcg PO DAILY 05/12/23
ferrous sulfate 325 mg (65 mg iron) tablet 325 mg PO DAILY 05/12/23
glimepiride 4 mg tablet 4 mg PO DAILY 05/12/23
insulin glargine 100 unit/mL (3 mL) subcutaneous pen (Basaglar KwikPen U-100 Insulin) 10 unit SC DAILY@1999 Diabetes 05/12/23
metformin 850 mg tablet 1,700 mg PO DAILY 05/12/23
metformin 850 mg tablet 850 mg PO QPM 05/12/23
mupirocin 2 % topical ointment 1 applic topical BID apply to B/L nostrils 05/12/23
oxycodone 5 mg tablet 5 mg PO Q4HPRN PRN severe pain 05/12/23
Review of Systems
-
A 12 point Review of Systems was completed except as noted: Yes
Physical Exam
Vital Signs
Vital Signs
Temp Pulse Resp BP Pulse Ox
98.2 F 106 19 162/57 96
05/16/23 11:28 05/16/23 12:59 05/16/23 11:28 05/16/23 12:59 05/16/23 13:38
Physical Exam
General: Well Developed and Well Nourished
Respiratory: Negative Wheezes
Cardiac: S1/S2, Regular Rhythm and Tachycardia
Genito-urinary: No Costovertebral Tend
Musculoskeletal: Edema
Neuro: AO x 3
Psych: Calm
Laboratory Results
-
Laboratory Results
05/16/23 05:14
Data Reviewed
-
Total Time Spent with Patient (in minutes): 60
Lab Data: Labs Reviewed
Impression / Plan
-
Assessment:
Acute hypoxic respiratory insufficiency on 2L
- multi-factorial from pain meds, volume overload, post-op atelectasis
- CTA study without PE, small effusions, atelectasis
- start IS/Acapella
- prn nebs
- limit pain meds (see below)
- Pulmonary following
STEPHANIE on CKD stage 3b
Hyponatremia, hypervolemic from volume overload
Hyperkalemia
- hold nephrotoxins as able
- bladder scans
- IV Lasix - requires intensive monitoring, follow BMP
- Lokelma stat now with K+ 6.6
- BNP elevated; check TTE
- Nephrology consulted
Post-op acute blood loss anemia
- s/p 4 units PRBCs
- monitor Hb and signs of bleeding
- will utilize IV iron infusions; noted to be on oral iron
Hypoglycemia likely related to STEPHANIE and poor clearance of meds
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
- holding Glimepiride/Metformin/Farxiga
- hold Lantus
- utilize SSI only for now
- A1c: 6.2 2 weeks ago
Leucocytosis, attributed to stress reaction lashon-operatively
- joint synovial fluid no growth
- check UA, and blood cultures
Hx of Left hip ORIF with gamma nail 02/14/2023; now admitted with Left conversion total hip arthroplasty, removal of hardware 05-13
Underlying osteoarthritis, osteopenia, Vit D deficiency
- follow orthopedics recs
- minimize opiates, gabapentin. use Tylenol TID + prn. Use Tramadol instead of Oxycodone
- continue Vit D
- continue ASA for DVT ppx
- eventual SNF when medically cleared
Super Morbid Obesity d/t excess calories
PAD
- continue ASA/Statin
Essential HTN
- continue Amlodipine
- hold HCTZ
HLD
- statin
IBS with diarrhea
- prn Imodium
Suspected sleep disorder breathing-will need outpatient evaluation and PSG
DVT ppx: ASA
Code: Full
hospitalist service will take over as primary team. TT'd orthopedics service to make aware.
[2023-05-16 15:57] LABS: Blood Urea Nitrogen 56 mg/dl (7-17); Calcium 7.7 mg/dl (8.4-10.2); Carbon Dioxide 20 mmol/L (22-30); Chloride 95 mmol/L (98-107); Glucose 63 mg/dl (70-99); Sodium 125 mmol/L (135-145)
[2023-05-16 16:00] LABS: Potassium 6.6 mmol/L (3.5-5.1)
--- NOTE | 2023-05-16 16:09 | W.CON.NEPH ---
Consultation
-
Date/Time Consultation Requested: 05/16/23 1600
Date/Time Consultation Performed: 05/16/23 1615
Requesting Provider: Dr Chana Williamson
Performing Provider: Claudia Herrera
Reason for Consultation: STEPHANIE, hyperkalemia
Medical History
-
Chief Complaint: A/w hip arthroplasy now STEPHANIE
History of Present Illness:
73 y/o F, hx of L hip ORIF 02/17 complicated by osteoporosis, end stage arthritis, Type 2 DM, Anemia, Obesity, CKD stage 3 baseline cr 1.2-1.5 Dr Etienne, PAD, HTN, HLD, IBS admitted for conversion of prior ORIF to L AMILCAR on 05/13/23 EBL 500cc. Her postop
course was complicated by anemia requiring 4 units PRBC, increasing O2 requirements. TOday she underwent CTA which show no PE. Repeat labs today show cr 4.7, k 6.6. Sodium 125. She recieved lasix this afternoon for Volume overload. She also noted to
have hypoglycemia. Pt reports of decreased UOP with out dysuria. No CP or sob at rest. No h/o NSAIDs or hypotension.
Past Medical History
L hip ORIF 02/17 complicated by osteoporosis, end stage arthritis, Type 2 DM, Anemia, Obesity, CKD stage 3, PAD, HTN, HLD, IBS
Social History
Tobacco: Non-Smoker
Alcohol: None
Family History
no CKD
Family History: Not Pertinent
Allergies / Home Medications
Allergy/AdvReac Type Severity Reaction Status Date / Time
ciprofloxacin Allergy Rash Verified 05/12/23 15:48
doxycycline Allergy Rash Verified 05/12/23 15:48
lactose Allergy Diarrhea Verified 05/12/23 15:48
Quinolones Allergy Rash Verified 05/12/23 15:48
Tetracyclines Allergy Rash Verified 05/12/23 15:48
Medication Instructions Recorded Confirmed Type
acetaminophen 325 mg tablet 975 mg PO DAILYPRN PRN mild pain 02/14/23 05/12/23 History
(Tylenol)
amlodipine 2.5 mg tablet 2.5 mg PO DAILY Blood Pressure 02/14/23 05/12/23 History
atorvastatin 10 mg tablet 10 mg PO DAILY High Cholesterol 02/14/23 05/12/23 History
dapagliflozin propanediol 10 mg 10 mg PO DAILY Diabetes 02/14/23 05/12/23 History
tablet (Farxiga)
hydrochlorothiazide 25 mg tablet 25 mg PO DAILY Blood Pressure 02/14/23 05/12/23 History
loperamide 2 mg capsule 2 mg PO DAILYPRN PRN diarrhea 02/16/23 05/12/23 History
aspirin 81 mg tablet,delayed 81 mg PO QPM 05/04/23 05/12/23 History
release
cholecalciferol (vitamin D3) 25 25 mcg PO DAILY 05/12/23 05/12/23 History
mcg (1,000 unit) tablet
ferrous sulfate 325 mg (65 mg 325 mg PO DAILY 05/12/23 05/12/23 History
iron) tablet
glimepiride 4 mg tablet 4 mg PO DAILY 05/12/23 05/12/23 History
insulin glargine 100 unit/mL (3 10 unit SC DAILY@1999 Diabetes 05/12/23 05/12/23 History
mL) subcutaneous pen (Basaglar
KwikPen U-100 Insulin)
metformin 850 mg tablet 1,700 mg PO DAILY 05/12/23 05/12/23 History
metformin 850 mg tablet 850 mg PO QPM 05/12/23 05/12/23 History
mupirocin 2 % topical ointment 1 applic topical BID apply to B/L 05/12/23 05/12/23 History
nostrils
oxycodone 5 mg tablet 5 mg PO Q4HPRN PRN severe pain 05/12/23 05/12/23 History
Review of Systems
-
All complete 12 point ROS inquired and found negative other than statd in HPI
History Source: Patient
Physical Exam
Vital Signs
Vital Signs
Temp Pulse Resp BP Pulse Ox
98.1 F 97 17 157/69 96
05/16/23 15:45 05/16/23 15:45 05/16/23 15:45 05/16/23 15:45 05/16/23 15:45
Lab Results
WBC 18.7 10^3/uL (4.8-10.8) H 05/16/23 05:14
RBC 2.89 10^6/uL (4.20-5.40) L 05/16/23 05:14
Hgb 8.4 g/dL (12.0-16.0) L 05/16/23 05:14
Hct 26.3 % (37.0-47.0) L 05/16/23 05:14
Plt Count 260 10^3/uL (130-400) 05/16/23 05:14
Sodium 125 mmol/L (135-145) L 05/16/23 14:50
Potassium 6.6 mmol/L (3.5-5.1) H* 05/16/23 14:50
Chloride 95 mmol/L (98-107) L 05/16/23 14:50
Carbon Dioxide 20 mmol/L (22-30) L 05/16/23 14:50
BUN 56 mg/dl (7-17) H 05/16/23 14:50
eGFR 33.63 05/14/23 06:36
Glucose 63 mg/dl (70-99) L 05/16/23 14:50
Calcium 7.7 mg/dl (8.4-10.2) L 05/16/23 14:50
Oje-S-Pyiihmtpgxo Pept 6110 pg/ml 05/16/23 10:06
CT chest PE 05/16:
IMPRESSION:
�
1. � No CT evidence for pulmonary embolism. No right heart strain.
2. � Tiny bilateral pleural effusions with adjacent atelectasis within both posterior lower lobes.
3. � Small focus of tree-in-bud opacities within the posterior right upper lobe suspicious for bronchiolitis, likely inflammatory infectious in nature.
4. � Subtle areas of mosaic attenuation within both lungs which can be associated with small airways disease/air trapping.
5. � Several isolated pulmonary nodules identified measuring up to 3.5 mm. Patient referred to the Pulmonary Nodule Advisory Board for follow-up.
Physical Exam
General: Awake, Alert, Oriented and AOx3
HEENT: EOMI and Anicteric
Respiratory: Wheezes
Cardiac: S1/S2 and Edema
Abdomen: Soft, Nontender and Other (obese)
Musculoskeletal: No Cyanosis and Edema (left 3+, right 2+)
Neuro: Nonfocal/Grossly Intact
Psych: Mood/afflect pleasant and Insight/judgement good
Assessment/Plan
-
IMP:
Acute hypoxic respiratory insufficiency
STEPHANIE on CKD stage 3, baseline cr 1.2-1.5 Dr Etienne
Hyponatremia, hypervolemic from volume overload
severe Hyperkalemia
Post-op acute blood loss anemia- s/p 4 units PRBCs
Hypoglycemia likely related to STEPHANIE and poor clearance of meds
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
Leucocytosis,
Hx of Left hip ORIF with gamma nail 02/14/2023, Left conversion total hip arthroplasty, removal of hardware 05-13
Underlying osteoarthritis, osteopenia, Vit D deficiency
Super Morbid Obesity d/t excess calories
PAD
Essential HTN
HLD
IBS with diarrhea
Suspected sleep disorder breathing-will need outpatient evaluation and PSG
Plan:
Admit for left hip arthroplasty on 05/13
STEPHANIE-no clear etiology
cr sig increase to 4.7, no NSAIDs, no hypotension
but noted sig blood loss in OR and subsequent PRBCs
follow bladder scan, was only 20cc before and check renal US
Pt contrast exposure today too
place [place] suspect need of HD in next 24-48hrs if no improvement seen
hyperkalemia, s/p lasix this am, redose again
insulin, Lokelma course and low k diet
also Kayexalte OR
check Lactic acid
avoid nephrotoxins, holding farxiga and metformin
Hyponatremia-suspect hypervolemia, check U osmo, U na
FR 48 ounces/day
BP are stable with out hypotension
check echo for hypervolemia
follow h/h , IV Fe per primary
d/w pt in detail and she accepts HD if needed
d/w primary, nursing-move pt to IMU
repeat labs later tonight-if k is increasing likely need HD tonight
CC time spent 40min
Data Reviewed
-
Radiology: Image Personally Visualized and interpreted and Report Reviewed by me
Labs: Labs Reviewed by me, Discussed with Physician, Discussed with Nurse and Discussed with Patient
[2023-05-16 16:29] LABS: Estimated Creatinine Clearance 11 ml/min; eGFR 9.23
[2023-05-16 16:59] LABS: ALT (SGPT) 12 U/L (0-35); AST (SGOT) 38 U/L (14-36); Albumin 2.3 g/dl (3.5-5.0); Alkaline Phosphatase 110 U/L (38-126); Total Bilirubin 0.4 mg/dl (0.2-1.3); Total Protein 4.6 g/dl (6.3-8.2)
[2023-05-16] MEDS: LASIX 80 MG IV (17:08)
[2023-05-16] MEDS: LOKELMA 10 GRAM PO ×2 (17:08→18:09)
[2023-05-16 17:27] LABS: Troponin I 0.046 ng/ml
[2023-05-16 17:36] LABS: Glucose - Point of Care 238 mg/dl (70-99)
[2023-05-16] MEDS: FERRLECIT 110 MG IV (17:40)
[2023-05-16] MEDS: NEURONTIN 200 MG PO (17:41)
[2023-05-16] MEDS: LIPITOR 10 MG PO (17:41)
[2023-05-16] MEDS: NOVOLOG FLEXPEN-LOW RESISTANCE SC (17:43)
[2023-05-16] MEDS: TYLENOL 650 MG PO (17:46)
[2023-05-16 17:52] LABS: Lactic Acid 1.9 mmol/L (0.7-2.0)
--- NOTE | 2023-05-16 18:12 | PTCARENOTE ---
Pt drowsy throughout the day, labs drawn and abnormal. MD notified. Meds given per order. Pt to be upgraded per order awaiting bed. Will cont to assess.
[2023-05-16 18:28] LABS: Urine Albumin Trace (Neg - Trace); Urine Bilirubin Negative (Negative); Urine Character Clear (Clear); Urine Color Yellow; Urine Glucose Negative (Negative); Urine Ketone Negative (Negative); Urine Leukocyte 2+ (Negative); Urine Nitrite Negative (Negative); Urine Occult Blood 2+ (Negative); Urine Specific Gravity 1.015 (<1.030); Urine Urobilinogen Negative (Neg - 1+)
[2023-05-16 18:30] LABS: Osmolality Urine 307 mOsm/kg (300-900)
[2023-05-16 18:38] LABS: Urine Red Blood Cell 0-2 /HPF (0-2); Urine White Cell 30-40 /HPF (0-5)
[2023-05-16 18:39] LABS: Urine Bacteria Moderate (Negative); Urine Yeast Many (Negative)
[2023-05-16 18:50] LABS: Protein/creatinine Ratio 1.2; Urine Protein 36 mg/dl; Urine Sodium 111 mmol/L (30-90)
--- NOTE | 2023-05-16 19:10 | PTCARENOTE ---
Pt transferred to IMU due to decline in condition. Assessed on monitor and pulse ox while transporting. Report given to IMU RN.
[2023-05-16 19:26] LABS: Glucose - Point of Care 48 mg/dl (70-99)
[2023-05-16 19:50] LABS: Glucose - Point of Care 47 mg/dl (70-99)
[2023-05-16] MEDS: CALCIUM GLUCONATE 100 IV (19:52)
[2023-05-16] MEDS: NOVOLIN R 0.100000000000000006 UNITS IV (19:53)
[2023-05-16] MEDS: DEXTROSE 50% SYRINGE 25 GRAMS IV (19:53)
[2023-05-16] MEDS: DEXTROSE 50% SYRINGE 12.5 GRAMS IV ×2 (19:53→21:28)
--- NOTE | 2023-05-16 20:03 | PTCARENOTE ---
Received pt from [facility] at change of shift. Pt lethargic and pale. Pt arousable and oriented but when at rest pt appears to just be staring at the wall. Blood sugar check d/t lethargy. Accucheck was 48. Pt drank some juice and ate crackers with
peanut butter. Rechecked sugar 15 mins later per protocol, resulted at 47. Pt too lethargic to drink more juice. Administered 12.5 g IV dextrose per hypoglycemic protocol. Pt was also ordered IV insulin and an additional 12.5 g dextrose to
decreased potassium levels. Will monitor blood sugar levels per protocol.
[2023-05-16 20:28] LABS: Glucose - Point of Care 108 mg/dl (70-99)
[2023-05-16 21:38] LABS: Glucose - Point of Care 45 mg/dl (70-99)
--- NOTE | 2023-05-16 21:49 | PTCARENOTE ---
Rechecked pts sugar after 1 hr. came down from 108 to 45. Administered more dextrose per protocol. Accucheck at 21:45 was 125. [employer] notified. Pt non responsive. BP 114/48 MAP 67 HR 84 pulse ox 98% on 2 L. [employer] ordered 500 ml D10 at 60 ml/hr.
[2023-05-16 21:54] LABS: Blood Urea Nitrogen 56 mg/dl (7-17); Calcium 7.5 mg/dl (8.4-10.2); Carbon Dioxide 20 mmol/L (22-30); Chloride 97 mmol/L (98-107); Glucose 36 mg/dl (70-99); Sodium 125 mmol/L (135-145)
[2023-05-16] MEDS: D10W 500 IV (21:56)
[2023-05-16 21:57] LABS: Glucose - Point of Care 125 mg/dl (70-99)
[2023-05-16 22:03] LABS: Troponin I 0.039 ng/ml
[2023-05-16 22:06] LABS: Estimated Creatinine Clearance 11 ml/min; eGFR 9.47
[2023-05-16] MEDS: KAYEXALATE SUSPENSION 30 GRAMS RECTAL (22:14)
[2023-05-16 22:38] LABS: B.E. -5.5 mmol/L; HCO3 22.8 mmol/L (21-28); O2 Saturation % 98.7 % (94-98); PCO2 61 mmHg (32-35); PO2 92 mmHg (83-108)
[2023-05-16 22:39] LABS: pH 7.18 (7.35-7.45)
[2023-05-16] MEDS: NEURONTIN PO (22:39)
[2023-05-16] MEDS: TYLENOL PO (22:39)
[2023-05-16 23:30] LABS: Glucose - Point of Care 89 mg/dl (70-99)
--- NOTE | 2023-05-16 23:54 | W.PN.UPDATE ---
Addendum entered and electronically signed by FIDENCIO Beatty 05/17/23 06:21:
CT head noted no acute findings. 0500 ABG continues to improve. Blood sugar readings beginning to stabilize. Potassium continues elevated. Kayexalate enema ordered. Creatinine 5.2.
Addendum entered and electronically signed by FIDENCIO Beatty 05/17/23 02:00:
0100 ABG with pH 7.22 and CO2 improved to 56. Bipap increased to 18/8 and will recheck at 0500. Sent for CT head due to only slight improvement in responsiveness. Blood glucose continues to be tenuous. She did receive Farxiga at 0800 05/16 which has
half life of 12.5 hours. Hypoglycemic protocol followed.
Original Note:
Update Note
Progress Note Update
nursing noting a change in patient's responsiveness. VS are stable as is pulse oximetry. ABG done and CO2 61. BIPAP ordered and will recheck ABG at 0100.
[2023-05-17] VITALS (48 sets, daily range): BP systolic 101–154; BP diastolic 44–71; PULSE 2–94; BMI 41.1
[2023-05-17] MEDS: BACTROBAN 2% OINTMENT TOPICAL ×2 (00:39→10:39)
[2023-05-17 00:42] LABS: Glucose - Point of Care 82 mg/dl (70-99)
[2023-05-17 01:05] LABS: B.E. -4.8 mmol/L; HCO3 22.9 mmol/L (21-28); O2 Saturation % 99.5 % (94-98); PCO2 56 mmHg (32-35); PO2 120 mmHg (83-108); pH 7.22 (7.35-7.45)
[2023-05-17] MEDS: DEXTROSE 50% SYRINGE 12.5 GRAMS IV ×2 (01:39→10:39)
[2023-05-17 01:44] LABS: Glucose - Point of Care 74 mg/dl (70-99)
[2023-05-17 03:22] LABS: Glucose - Point of Care 105 mg/dl (70-99)
[2023-05-17 04:08] LABS: Hematocrit 24.6 % (37.0-47.0); Hemoglobin 8.2 g/dL (12.0-16.0); Mean Corp Hgb Conc. 33.3 g/dL (33.0-37.0); Mean Corpuscular Hgb 29.6 pg (27.0-31.0); Mean Corpuscular Volume 88.8 fL (81.0-99.0); Mean Platelet Volume 9.2 fL (7.4-10.4); Platelet Count 258 10^3/uL (130-400); Red Blood Cell Count 2.77 10^6/uL (4.20-5.40); Red Cell Dist. Width 14.9 % (11.5-14.5); White Blood Cell Count 14.3 10^3/uL (4.8-10.8)
[2023-05-17 04:38] LABS: ALT (SGPT) < 10 U/L (0-35); AST (SGOT) 40 U/L (14-36); Albumin 2.4 g/dl (3.5-5.0); Alkaline Phosphatase 113 U/L (38-126); Blood Urea Nitrogen 58 mg/dl (7-17); Calcium 7.7 mg/dl (8.4-10.2); Carbon Dioxide 23 mmol/L (22-30); Chloride 93 mmol/L (98-107); Estimated Creatinine Clearance 10 ml/min; Glucose 120 mg/dl (70-99); Potassium 6.1 mmol/L (3.5-5.1); Sodium 125 mmol/L (135-145); Total Bilirubin 0.4 mg/dl (0.2-1.3); Total Protein 4.7 g/dl (6.3-8.2); eGFR 8.18
[2023-05-17 05:02] LABS: B.E. -3.7 mmol/L; HCO3 23.3 mmol/L (21-28); O2 Saturation % 99.2 % (94-98); PCO2 52 mmHg (32-35); PO2 103 mmHg (83-108); pH 7.26 (7.35-7.45)
[2023-05-17] MEDS: LOKELMA PO ×3 (05:04→17:01)
[2023-05-17 05:35] LABS: Glucose - Point of Care 114 mg/dl (70-99)
[2023-05-17] MEDS: KAYEXALATE SUSPENSION 30 GRAMS RECTAL (06:32)
[2023-05-17 07:11] LABS: Glucose - Point of Care 88 mg/dl (70-99)
--- NOTE | 2023-05-17 07:16 | PN.CDI ---
CDI
- -
CDI:
Physician Documentation Request
Admit Date: 05/13/23 12:31
Dear Doctor Eva,
Please review the following and provide your response in the progress notes.
Clinical Indicators:
H+P:
#CKD 3
#...Anemia, multifactorial due to renal disease and borderline low iron stores.
Surgery, 05/13
EBL: 500 ml
PN, 05/14
#...symptomatic Hgb of 7.9 this AM (10.7 in PACU yesterday)
#Will request 2 units PRBC with a H&H check later today
PN, 05/16
#Anemia - did require 4 units PRBCs during admission - hgb stable today at 8.4
Based on the above, please clarify, in the progress note, which of the following is the most likely type of anemia evaluated, monitored and treated?
Acute blood loss anemia
Acute blood loss anemia with baseline chronic anemia (Specify type)
Anemia of chronic disease - indicate if neoplastic disease, CKD or other
Chronic iron deficiency anemia due to blood loss
Other
Use of terms such as suspected, likely, concern for, or probable (associated with a specific diagnosis that is being evaluated, monitored, or treated as if it exists) are acceptable and can be coded in the inpatient setting, when documented at the
time of discharge.
Thank you,
Sharifa Welsh RN BSN CCDS
CDI Specialist
please contact via tiger text
Please use your independent medical judgment in providing your response.
--- NOTE | 2023-05-17 07:25 | PN.CDI ---
CDI
- -
CDI:
Physician Documentation Request
Admit Date: 05/13/23 12:31
Dear Doctor Eva,
Please review the following and provide your response in the progress notes.
Clinical Indicators:
H+P:
#CKD 3
Laboratory Tests
05/13/23 05/13/23 05/14/23
04:40 04:40 06:36
Creatinine 1.0 1.6 H
eGFR 59.12
05/14/23 05/16/23 05/16/23
06:36 14:50 14:50
Creatinine 4.7 H*
eGFR 33.63 9.23
05/16/23 05/17/23
21:29 03:59
Creatinine 4.6 H* 5.2 H*
eGFR 9.47 8.18
Bases on the above information and the clinical indicators in the record, please clarify in the Progress Notes which of the following most accurately represents the patient's renal status:
Acute kidney injury on baseline CKD, (specify stage of CKD)
Chronic stable CKD, (specify stage)
Progression of underlying CKD, (specify current stage of CKD)
Other
Criteria for STEPHANIE*
1 Increase in serum creatinine by > or = to 0.3 mg/dL (> or = to 26.5 micromol/L) within 48 hours, OR
2 Increase in serum creatinine to > or = to 1.5 times baseline, which is known or presumed to have occurred within 7 days, OR
3 Urine volume < 0.5 nL/kg/hour for six hours
Stages of Chronic Kidney Disease*
Level Description GFR
G1 Normal or High >90
G2 Mildly decreased 60-89
G3a Mildly to moderately decreased 45-59
G3b Moderately to severely decreased 30-44
G4 Severely decreased 15-29
G5 Kidney failure <15
Use of terms such as suspected, likely, concern for, or probable (associated with a specific diagnosis that is being evaluated, monitored, or treated as if it exists) are acceptable and can be coded in the inpatient setting, when documented at the
time of discharge.
Thank you,
Sharifa Welsh RN BSN CCDS
CDI Specialist
please contact via tiger text
Please use your independent medical judgment in providing your response.
*Source: Kidney Disease: Improving Global Outcomes (KDIGO) 2012
--- NOTE | 2023-05-17 07:29 | PN.CDI ---
CDI
- -
CDI:
Physician Documentation Request
Admit Date: 05/13/23 12:31
Dear Doctor Eva,
Please review the following and provide your response in the progress notes.
Clinical Indicators:
Laboratory Tests
05/13/23 05/14/23 05/16/23
04:40 06:36 14:50
Sodium 134 L 129 L 125 L
05/16/23 05/17/23
21:29 03:59
Sodium 125 L 125 L
Based on the above and your clinical assessment, please clarify in the progress notes, the appropriate diagnosis, if significant, that supports the above abnormalities and additional evaluation, monitoring and/or treatment rendered:
Hyponatremia
Abnormal lab value, clinically insignificant
Other
Use of terms such as suspected, likely, concern for, or probable (associated with a specific diagnosis that is being evaluated, monitored, or treated as if it exists) are acceptable and can be coded in the inpatient setting, when documented at the
time of discharge.
Thank you,
Sharifa Welsh RN BSN CCDS
CDI Specialist
please contact via tiger text
Please use your independent medical judgment in providing your response.
--- NOTE | 2023-05-17 07:32 | PN.CDI ---
CDI
- -
CDI:
Physician Documentation Request
Admit Date: 05/13/23 12:31
Dear Doctor Eva,
Please review the following and provide your response in the progress notes.
Clinical Indicators:
Laboratory Tests
05/13/23 05/14/23 05/16/23
04:40 06:36 14:50
Potassium 3.9 5.5 H D 6.6 H*
05/16/23 05/17/23
21:29 03:59
Potassium 6.0 H 6.1 H*
Based on the above and your clinical assessment, please clarify in the progress notes, the appropriate diagnosis, if significant, that supports the above abnormalities and additional evaluation, monitoring and/or treatment rendered:
Hyperkalemia
Abnormal lab value, clinically insignificant
Other
Use of terms such as suspected, likely, concern for, or probable (associated with a specific diagnosis that is being evaluated, monitored, or treated as if it exists) are acceptable and can be coded in the inpatient setting, when documented at the
time of discharge.
Thank you,
Sharifa Welsh RN BSN CCDS
CDI Specialist
please contact via tiger text
Please use your independent medical judgment in providing your response.
--- NOTE | 2023-05-17 07:35 | PN.CDI ---
CDI
- -
CDI:
Physician Documentation Request
Admit Date: 05/13/23 12:31
Dear Doctor Eva,
Please review the following and provide your response in the progress notes.
Clinical Indicators:
Laboratory Tests
05/16/23 05/16/23
16:41 21:29
Troponin I 0.046 H* 0.039 H*
Based on the above and your clinical assessment, please clarify the etiology of the elevated troponin:
Non MS troponin elevation
Abnormal lab value, clinically insignificant
Other
Use of terms such as suspected, likely, concern for, or probable (associated with a specific diagnosis that is being evaluated, monitored, or treated as if it exists) are acceptable and can be coded in the inpatient setting, when documented at the
time of discharge.
Thank you,
Sharifa Welsh RN BSN CCDS
CDI Specialist
please contact via tiger text
Please use your independent medical judgment in providing your response.
[2023-05-17 08:11] LABS: Glucose - Point of Care 78 mg/dl (70-99)
[2023-05-17] MEDS: NOVOLOG FLEXPEN-LOW RESISTANCE SC ×3 (09:24→17:01)
--- NOTE | 2023-05-17 09:30 | W.PN.NEPH.PH ---
Today's Communication / Plan
-
see plan
Assessment/Plan
-
IMP:
Acute hypoxic respiratory insufficiency
STEPHANIE on CKD stage 3, baseline cr 1.2-1.5 Dr Etienne
Hyponatremia, hypervolemic from volume overload
severe Hyperkalemia
Post-op acute blood loss anemia- s/p 4 units PRBCs
Hypoglycemia likely related to STEPHANIE and poor clearance of meds
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
Leucocytosis,
Hx of Left hip ORIF with gamma nail 02/14/2023, Left conversion total hip arthroplasty, removal of hardware 05-13
Underlying osteoarthritis, osteopenia, Vit D deficiency
Super Morbid Obesity d/t excess calories
PAD
Essential HTN
HLD
IBS with diarrhea
Suspected sleep disorder breathing-will need outpatient evaluation and PSG
Plan:
Admit for left hip arthroplasty on 05/13
STEPHANIE-no clear etiology, UA with ?UTI, pending cx and renal US
subnephrotic proteinuria 1.2gm/gm of cr-send serologies and paraprotein w/u
cr cont to peak at 5.2 but UOP improving and non oliguric with plaomino
NOte contrast exposure on 05/16
hyperkalemia, persists, cont recheck, can not take Lokelma with AMS
avoid nephrotoxins, holding farxiga and metformin
Hyponatremia-suspect hypervolemia, U osmo 300, U high with lasix
no change in sodium level
Acute hypercarbic resp failure on BIPAP since last night, remains altered
CT head neg, ABG noted this am mild improvement -may need to be intubated
hypoglycemia-stable now, was on D10 overnight
BP are stable with out hypotension
check echo for hypervolemia
follow h/h , IV Fe course
repeat labs if worsens HD today
d/w nursing
d/w primary and pulm
transfer to ICU
CC time spent 45min
-
-
Date of Service: May 17, 2023
CC / HPI / ROS
-
Chief Complaint:
STEPHANIE, hyperkalemia
History of Present Illness:
cr up at 5.2, non oliguric with palomino 3lit overnight
wt decreasing, sodium unchanged at 125, k 6.1
hypoglycemia neto 36 stable now off IVF , last BG 78 this am
pt remained unresponsive since last night, hypercapnic resp failure PH 7.26, pCO2 52 on BIPAP
3lit if palomino since last night
no fever, WBC improving, penidng cx
Review of Systems:
pt unresponsive
Labs
-
Labs:
WBC 14.3 10^3/uL (4.8-10.8) H 05/17/23 03:59
RBC 2.77 10^6/uL (4.20-5.40) L 05/17/23 03:59
Hgb 8.2 g/dL (12.0-16.0) L 05/17/23 03:59
Hct 24.6 % (37.0-47.0) L 05/17/23 03:59
Plt Count 258 10^3/uL (130-400) 05/17/23 03:59
Sodium 125 mmol/L (135-145) L 05/17/23 03:59
Potassium 6.1 mmol/L (3.5-5.1) H* 05/17/23 03:59
Chloride 93 mmol/L (98-107) L 05/17/23 03:59
Carbon Dioxide 23 mmol/L (22-30) 05/17/23 03:59
BUN 58 mg/dl (7-17) H 05/17/23 03:59
Creatinine 5.2 mg/dL (0.6-1.0) H* 05/17/23 03:59
eGFR 8.18 05/17/23 03:59
Glucose 120 mg/dl (70-99) H 05/17/23 03:59
Calcium 7.7 mg/dl (8.4-10.2) L 05/17/23 03:59
Npg-C-Ylneokkbfzz Pept 6110 pg/ml 05/16/23 10:06
Albumin 2.4 g/dl (3.5-5.0) L 05/17/23 03:59
Physical Exam
-
Vital Signs:
Vital Signs
Temp Pulse Resp BP Pulse Ox
98.2 F 93 14 138/46 98
05/17/23 07:45 05/17/23 06:00 05/17/23 06:00 05/17/23 06:00 05/17/23 04:00
Cardiovascular:: Regular rate and rhythm
Lung Excursion:: Abnormal (decreased on BIPAP)
Abdomen:: Nontender and Soft
Extremity Edema:: +2: Right: and +3: Left:
Palomino Catheter: Yes
[2023-05-17 09:52] LABS: Glucose - Point of Care 123 mg/dl (70-99)
--- NOTE | 2023-05-17 09:54 | W.PN.PUL3 ---
Addendum entered and electronically signed by Cornelius Khoury MD 05/17/23 10:47:
Slowly improving resp acidosis
BPAP increased to 22/8, kept at 4L
D/w Ortho, can AC if needed (pending JESSE doppler report, had negative CTA 05-16)
Original Note:
Today's Communication / Plan
-
BPAP
ABG
TTE
JESSE doppler report
Assessment
-
Assessment:
Mrs Rosi Kinney is a 73/W adm 05-12 for planned L hip surgery, received surgery on 05-13, developed postop moderate to severe anemia, received up to 4 U PRBCs. Pulm consulted 05-16 for hypoxemia, noted need for IM evaluation given worsening renal
function, hyperkalemia, hypoglycemia. Seen by Hospitalist antione and Nephrology on 05-16, adjustment of inpatient regimen, renal management consultant suspected potential need for HD which was discussed and accepted by patient and family. MS deteriorated in late
afternoon/early evening 05-16, transferred to IMU, severe resp acidosis, negative head CT, started on BPAP
Impression:
Respiratory failure
Respiratory acidosis
Basilar atelectasis
Fluid overload, ^BNP
Left conversion total hip arthroplasty, removal of hardware 05-13
Moderate postop anemia
S/p 4U PRBCS on 05-13 and
Very small pleural effusions
Mild mediastinal LAD
Morbid obesity BMI 43.5
Reported hypoglycemia
Conditions [employer]:
1. Osteoarthritis.
2. Osteopenia.
3. Morbid obesity, BMI 39.4.
4. 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
5. CKD 3.
6. Anemia.
7. Peripheral arterial disease. Mild on ABIs.
8. Hypertension.
9. Hyperlipidemia.
10. Irritable bowel with diarrhea.
11. Vitamin D deficiency.
12. Left hip ORIF with gamma nail 02/14/2023
Bladder sling
Hysterectomy
Cholecystectomy
Nonsmoker
Plan:
Multifactorial respiratory failure: anemia, atelectasis, fluid overload, opiate, gabapentin, resp acidosis, worsening renal function
Chest CTA reviewed, no PE, very small pleural effusions and basilar atelectasis
Head CT s/c with no acute findings
Not on home O2 or BDs
Holding opiate meds and gabapentin
Keep asp precs
Remains afebrile and hemodyn stable
Blood and UCx pending
Continue BPAP, currently at 18/8, 4L, POx at high 90s
ABG: pending
CXR: portable, mild pulm vasc congestion, prominent R hilar vessels (no change c/w 2016), no gross infiltrates, no effusion or free air
JESSE doppler: in progress, suspected R posterior tibial DVT, limited study due to JESSE edema, pending official report
TTE: pending
Noted s/p 4U PRBCs post surgery and elevated BNP
Some evidence of mosaic pattern on chest CT which indicates increased lung water content
Diuresed earlier 05-16
Adm wt 203, peaked to 215 on 05-15, currently 210 lb
Following renal function closely
Nephrology following, may need acute HD
D/w Dr Zayas, Dr Huerta and IMU RN
Transfer to ICU, TT Ortho team
Dr Zayas notified family
Full code
Critical care time: 35 min
Subjective Data
-
Date of Service:
Date of Service: May 17, 2023
Chief Complaint: Pulmonary Follow Up
Subjective:
Events noted, decreasing MS in late afternoon, moved to IMU towards change of evening shift, respiratory acidosis, started on BPAP
Hospitalist svce consulted
Evolving case with worsening renal function
Seen at bedside with Dr Zayas and Dr Huerta
Review of Systems
General: Other (lethargic, attempts to follow few simple commands)
Objective Data
Data Reviewed
Vital Signs / I&O / Oxygen:
Vital Signs
Temp Pulse Resp BP Pulse Ox
98.2 F 93 14 138/46 98
05/17/23 07:45 05/17/23 06:00 05/17/23 06:00 05/17/23 06:00 05/17/23 04:00
Intake and Output
05/16/23 05/17/23 05/18/23
06:59 06:59 06:59
Intake Total 800 / 800 1000 / 1000
Output Total 3000 / 3000
Balance 800 / 800 -2000 / -2000
SaO2 98
Nasal Cannula flow liters per 2
minute
Physical Exam
General: Other (acutely ill)
HEENT: Normocephalic and Other (BPAP FFM)
Cardiovascular: Regular Rhythm, Murmur (n) and Peripheral Edema (JESSE)
Respiratory: Crackles (trace basilar ), Accessory Resp Muscle Use (n) and Stridor
GI: Soft and Non Distended
Neurology: Lethargic (attempts to follow simple commands)
Skin: Dry
Labs/Micro/Reports
Lab Data
05/17/23 03:59
Laboratory Results
05/16/23 05/17/23 05/17/23
22:33 00:58 04:55
pH 7.18 L* 7.22 L 7.26 L
pCO2 61 H 56 H 52 H
pO2 92 120 H 103
HCO3 22.8 22.9 23.3
O2 Delivery Level
[2023-05-17 10:18] LABS: HCO3 23.6 mmol/L (21-28); O2 Saturation % 98.8 % (94-98); PCO2 49 mmHg (32-35); PO2 86 mmHg (83-108); pH 7.29 (7.35-7.45)
--- NOTE | 2023-05-17 10:19 | W.PN.HOSP.TC ---
Addendum entered and electronically signed by Clay Zayas MD 05/17/23 15:44:
Volume overload only
Toxic Metabolic Encephalopathy� from opiates, STEPHANIE, hypoxia/hypercapnia
Original Note:
Today's Communication/Plan
-
transfer to ICU
stat XRay, ABG, Echo, venous dopplers
follow stat BMP for potential HD
family updated
Assessment / Plan
Assessment / Plan
Assessment:
Acute hypoxic and hypercarbic respiratory failure
- multi-factorial from pain meds, volume overload, post-op atelectasis
- CTA study without PE, small effusions, atelectasis
- required BIPAP 05/16 into 05/17 for acidosis; serial ABGs with improvement.
- prn nebs
- stop pain meds (see below)
- Pulmonary following
STEPHANIE on CKD stage 3b, worsening
Hyponatremia, hypervolemic from volume overload
Hyperkalemia, worsening
- hold nephrotoxins as able
- bladder scans
- s/p IV Lasix
- s/p severe doses of Lokelma and Kayexalate, K remains high. Repeat labs pending
- BNP elevated; check TTE
- Nephrology consulted
- pending repeat labs, may need acute HD
Post-op acute blood loss anemia
- s/p 4 units PRBCs; Hb 8.2
- monitor Hb and signs of bleeding
- will utilize IV iron infusions; noted to be on oral iron
Hypoglycemia likely related to STEPHANIE and poor clearance of meds
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
- holding Glimepiride/Metformin/Farxiga
- hold Lantus
- utilize SSI only for now
- A1c: 6.2% 2 weeks ago
Leucocytosis, attributed to stress reaction lashon-operatively
- joint synovial fluid no growth
- check UA, and blood cultures
Hx of Left hip ORIF with gamma nail 02/14/2023; now admitted with Left conversion total hip arthroplasty, removal of hardware 05-13
Underlying osteoarthritis, osteopenia, Vit D deficiency
- follow orthopedics recs
- stop all sedating opiates/pain meds with development of hypercarbia. use Tylenol TID + prn.
- continue Vit D
- continue ASA for DVT ppx
- eventual SNF when medically cleared
Super Morbid Obesity d/t excess calories
PAD
- continue ASA/Statin
Essential HTN
- continue Amlodipine
- hold HCTZ
HLD
- statin
IBS with diarrhea
- prn Imodium
Suspected sleep disorder breathing-will need outpatient evaluation and PSG
DVT ppx: ASA
Code: Full
d/w Nephrology and Pulmonary 05/17 AM and with BiPAP requirements, persistent worsening STEPHANIE - will transfer to ICU. Follow repeat labs/ABG.
updated Yaneli (sister) and she states patient has a living will that would allow for full measures in the short term but would not want prolonged intubation/vegetative states if prognosis poor.
Total Critical Care Time 45 minutes. I was immediately available to the patient and staff. I personally examined, reviewed labs, diagnostic images/reports, interpretations, treatment plans, discussed patient care with other providers and family
or caregivers (if patient is unable to make decisions), entered orders as appropriate and documented the medical record.
Anticipated Discharge: > 48 hours
Subjective/Interval History
-
Date of Service: May 17, 2023
overnight events reviewed; patient transferred to IMU around 7pm, noted to be more lethargic, glucose low, stat head CT negative ABG with CO2 retention. BIPAP Was placed
serial ABGs showed some improvement, patient remains on BiPAP currently somnolent.
Objective Data
-
Labs:
Laboratory Results
05/16/23 05/17/23 05/17/23
22:33 00:58 03:59
WBC 14.3 H
Hgb 8.2 L
Hct 24.6 L
Plt Count 258
HCO3 22.8 22.9
Sodium 125 L
Potassium 6.1 H*
Chloride 93 L
Carbon Dioxide 23
BUN 58 H
Creatinine 5.2 H*
Glucose 120 H
Calcium 7.7 L
Total Bilirubin 0.4
AST 40 H
ALT < 10
Alkaline Phosphatase 113
05/17/23 05/17/23 05/17/23
04:55 10:00 10:10
WBC
Hgb
Hct
Plt Count
HCO3 23.3 Pending
Sodium Pending
Potassium Pending
Chloride Pending
Carbon Dioxide Pending
BUN Pending
Creatinine Pending
Glucose Pending
Calcium Pending
Total Bilirubin
AST
ALT
Alkaline Phosphatase
Vital Signs:
Vital Signs
Temp Pulse Resp BP Pulse Ox
98.2 F 91 13 143/55 99
05/17/23 07:45 05/17/23 10:00 05/17/23 10:00 05/17/23 10:00 05/17/23 09:27
I&O
05/16/23 05/17/23 05/18/23
06:59 06:59 06:59
Intake Total 800 / 800 1000 / 1000 0 / 0
Output Total 3000 / 3000 700 / 700
Balance 800 / 800 -2000 / -2000 -700 / -700
Physical Exam
-
General: Appears Chronically Ill and Obese
HEENT: Normocephalic, Atraumatic and Other (+BIPAP)
Respiratory: Rales and Decreased Breath Sounds (shallow)
Cardiac: Regular Rhythm and S1/S2
GI: Soft
Musculoskeletal: Edema, Right Lower Extrem and Edema, Left Lower Extrem
Neuro: Other (arousable, on BiPAP)
Psych: Calm
Data Reviewed
-
Critical Care Time (in minutes): 45
Labs: Labs Reviewed by me
[2023-05-17 10:34] LABS: Blood Urea Nitrogen 54 mg/dl (7-17); Calcium 7.7 mg/dl (8.4-10.2); Carbon Dioxide 25 mmol/L (22-30); Chloride 95 mmol/L (98-107); Estimated Creatinine Clearance 10 ml/min; Glucose 48 mg/dl (70-99); Potassium 6.4 mmol/L (3.5-5.1); Sodium 125 mmol/L (135-145); eGFR 8.57
[2023-05-17] MEDS: ASPIRIN PO (10:38)
[2023-05-17] MEDS: TYLENOL PO (10:38)
[2023-05-17] MEDS: NORVASC PO (10:38)
[2023-05-17] MEDS: NEURONTIN PO (10:38)
[2023-05-17] MEDS: VITAMIN D3 (cholecalciferol) PO (10:39)
[2023-05-17 10:46] LABS: Glucose - Point of Care 43 mg/dl (70-99)
[2023-05-17 11:04] LABS: Glucose - Point of Care 82 mg/dl (70-99)
--- NOTE | 2023-05-17 11:36 | STATUS ---
SITUATION:
Critical labs noted and mentation poor all d/w Dr. Zayas at change of shift
BACKGROUND:
recent left hip repair, DM2, multiple medical hx
ASSESSMENT:
Received this am on Bipap, BP 140s/50s ST 90s on tele afebrile. Lethargic/ Drowsy - she nods intermittently. Shallow / diminished breath sounds 98% on bipap. Abdomen distended / non tender. Marrufo maintained -over adequate clear yellow urine
output. Incontinent mod amt brown loose stool. Dressings left hip were reinforced overnight and remain CDI. Weak pp- marked.
RECOMMENDATION: Transfer to ICU
--- NOTE | 2023-05-17 11:38 | CM ---
Chart reviewed.
Increased oxygen needs/renal failure
Pt transferred to ICU
CM will follow for needs
[2023-05-17 12:02] LABS: Glucose - Point of Care 102 mg/dl (70-99)
[2023-05-17 12:31] LABS: INR 1.09; PT 13.9 Sec (11.4-14.6)
[2023-05-17 12:33] LABS: APTT 34.8 Sec (23.4-35.0)
--- NOTE | 2023-05-17 12:36 | W.PN.UPDATE ---
Update Note
Progress Note Update
Reviewed clinical course
Reviewed with primary service, nephrology and pulmonary (Trista Zayas, Iraida, Bradley)
Patient currently is more awake, following commands, moving extremities. Remains on BiPAP /, Vt 500, RR 12
Vt ranges between 200-700
Chest exam with adequate breath sounds
Chest x-ray with very mild left basilar effusion
Small effusions on CT chest 05/16, no PE
Doppler study with small segment occlusive thrombus right posterior tibial vein
Presently, saturation 99%
ABG 7.29/49/86
EKG with normal sinus rhythm, low voltage
Blood sugar 102--->54
Moving forward
Calcium carbonate, D50, insulin will be given as able. Given persistent hypoglycemia, insulin therapy will be difficult. Patient was receiving metformin over the last few days, now held.
Start D10 with saline, follow blood sugars closely
Follow potassium, sodium
Fortunately, urine output is good
Will consider heparin therapy without bolus given short segment occlusive thrombus
Patient is complaining of shortness of breath, but denies chest pain. Will plan to start heparin therapy post HD catheter placement
For HD catheter placement today
Continue to hold all narcotic therapy
Continue to hold all nephrotoxic agents, hypoglycemic agents, sedation
Reviewed with critical care nursing, respiratory care
Reviewed at length with multiple family members at bedside (daughter, sister, son, friend)
TCCT 35 min
[2023-05-17] MEDS: DEXTROSE 50% SYRINGE 25 GRAMS IV (12:37)
[2023-05-17] MEDS: OFIRMEV 100 IV ×3 (12:41→23:35)
[2023-05-17] MEDS: CALCIUM GLUCONATE 100 IV (12:42)
[2023-05-17 12:43] LABS: Glucose - Point of Care 54 mg/dl (70-99)
[2023-05-17] MEDS: SODIUM CHLORIDE 1038.5 MEQ IV (12:52)
[2023-05-17 13:17] LABS: Glucose - Point of Care 133 mg/dl (70-99)
--- NOTE | 2023-05-17 13:24 | W.PN.UPDATE ---
Update Note
Progress Note Update
met family at bedside
reviewed recent labs cr remains high and persistent hyperkalemia though non oliguric
s/p Lokelma, Kayexalate and lasix last night made no difference in K
She remains altered but responding better now
family agrees with HD , expect it is temporary
IR consulted for temp catheter
d/w primary, Dr Burgess
[2023-05-17 14:19] LABS: Glucose - Point of Care 115 mg/dl (70-99)
--- NOTE | 2023-05-17 14:37 | PN.CDI ---
CDI
- -
CDI:
Physician Documentation Request
Admit Date: 05/13/23 12:31
Dear Doctor Chana,
Please review the following and provide your response in the progress notes.
Clinical Indicators:
Pt admitted with hardware failure of left hip s/p surgical removal of hardware/ replacement 05/13
Pulm consult 05/16, ' MS still decreased but improving, able to follow commands....'
Update note 05/16 @ 3106,' nursing noting a change in patient's responsiveness....0100 ABG with pH 7.22 and CO2 improved to 56. Bipap increased to 18/8 and will recheck at 0500. Sent for CT head due to only slight improvement in responsiveness. ...'
Update note 05/17,'reviewed recent labs cr remains high and persistent hyperkalemia though non oliguric She remains altered but responding better now ..'
Patient care note 05/16 @ 0557,' Pt noted to be drowsy, needs reminders to eat and drink. POx drops to 88% intermittently while sleeping, 93% while awake...'
patent care note @ 2002, ' Pt lethargic and pale. Pt arousable and oriented but when at rest pt appears to just be staring at the wall. Blood sugar check d/t lethargy...'
Based on the above, could you clarify in the Progress Notes and Discharge Summary which, if any of the following, is the most likely etiology of the lethargy /altered mental status.
Toxic Metabolic Encephalopathy
Metabolic Encephalopathy
Other
Use of terms such as suspected, likely, concern for, or probable (associated with a specific diagnosis that is being evaluated, monitored, or treated as if it exists) are acceptable and can be coded in the inpatient setting, when documented at the
time of discharge.
Thank you,
Nichole Tse RN
CDI Specialist
[place] [facility]
Please use your independent medical judgment in providing your response.
--- NOTE | 2023-05-17 14:40 | PN.CDI ---
CDI
- -
CDI:
Physician Documentation Request
Admit Date: 05/13/23 12:31
Dear Doctor Bradley,
Please review the following and provide your response in the progress notes.
Clinical Indicators:
Pt admitted with hardware failure of left hip s/p surgical removal of hardware/ replacement 05/13
Nephrology consult, ' Pt reports of decreased UOP with out dysuria...STEPHANIE on CKD stage 3, baseline cr 1.2-1.5 Dr Etienne...'
Nephrology note 05/17 update note,' reviewed recent labs cr remains high and persistent hyperkalemia though non oliguric...family agrees with HD , expect it is temporary IR consulted for temp catheter ....'
05/13/23 05/14/23 05/16/23
04:40 06:36 14:50
Creatinine 1.0 1.6 H 4.7 H*
05/16/23 05/17/23 05/17/23
21:29 03:59 10:00
Creatinine 4.6 H* 5.2 H* 5.0 H*
Clarify which of the following accurately represents the patient's renal status/Need for HD:
STEPHANIE with ATN on CKD 3
STEPHANIE on CKD 3 only
Other
Use of terms such as suspected, likely, concern for, or probable (associated with a specific diagnosis that is being evaluated, monitored, or treated as if it exists) are acceptable and can be coded in the inpatient setting, when documented at the
time of discharge.
Thank you,
Nichole Tse RN
CDI Specialist
[place] [facility]
Please use your independent medical judgment in providing your response.
*Source: Kidney Disease: Improving Global Outcomes (KDIGO) 2012
[2023-05-17] MEDS: FERRLECIT 110 MG IV (14:43)
--- NOTE | 2023-05-17 14:51 | PN.CDI ---
CDI
- -
CDI:
Physician Documentation Request
Admit Date: 05/13/23 12:31
Dear Doctor Chana,
Please review the following and provide your response in the progress notes.
Clinical Indicators:
Pt admitted with hardware failure of left hip s/p surgical removal of hardware/ replacement 05/13
Pulmonology consult, ' Pulm consulted for hypoxemia, chest CTA today with no PE Given dose of diuretic earlier today, noted ^BNP, noted above PRBCs tx earlier this adm...'
Progress note 05/17, ' Acute hypoxic and hypercarbic respiratory failure multi-factorial from pain meds, volume overload, post-op atelectasis CTA study without PE, small effusions, atelectasis... BNP elevated..'
ECHO 05/17,' LV ejection fraction is 55-60%....'
Per MAR did get IV Lasix 40 mg x1 on 05/16 and 80 mg IV Lasix x 1 on 05/16 /BNP 6110
Please provide a diagnosis for the above findings and treatment of IV Lasix :
Acute Diastolic CHF
Volume overload only
Other
Use of terms such as suspected, likely, concern for, or probable (associated with a specific diagnosis that is being evaluated, monitored, or treated as if it exists) are acceptable and can be coded in the inpatient setting, when documented at the
time of discharge.
Thank you,
Nichole Tse RN
CDI Specialist
[place] [facility]
Please use your independent medical judgment in providing your response.
--- NOTE | 2023-05-17 15:04 | PTCARENOTE ---
Pt admitted as an upgrade from IMU. Awakens to touch but drifts off without stimulation. Follows commands, nods appropriately. On BiPAP 22/8/4L NC. Tachypneic with shallow breaths. Crackles in bases. Sinus rhythm with 2+ anasarca. BP WNL. BG 54. 1
amp D50, calcium gluconate given. Started D10NS @80/hr. Family at bedside. Nephrology, President & Founder to bedside. Discussed plan of care with family.
[2023-05-17 15:12] LABS: Glucose - Point of Care 115 mg/dl (70-99)
--- NOTE | 2023-05-17 15:25 | W.PN.UPDATE ---
Update Note
Progress Note Update
Did attempt to see patient earlier; however, she was being transferred from IMU to ICU.
Unfortunately, the patient's post operative course has been complicated due to post-op anemia requiring 4 units PRBCs, fluid overload, ongoing hypoglycemia, STEPHANIE w/ underlying CKD, multifactorial respiratory failure/respiratory acidosis, electrolyte
abnormalities, and now an occlusive thrombus of the right posterior tibial vein dx by U/S 05/17.
We appreciate the hospitalist service for taking this patient onto their service.
We also appreciate pulmonary, nephrology, and the hand tapper in their care of this patient.
Given her newly diagnosed right posterior tibial vein and prolonged immobility, ortho is OK with switch from ASA 325 to a stronger form of OAC. Pulmonary made aware.
Continue pain relief w/ Tylenol. Minimize opioids and gabapentin due to her current mental status and respiratory failure. No NSAIDs w/ STEPHANIE.
With clinical improvement, will plan to have patient work with both PT and OT again. Likely will need new orders if remaining in ICU/IMU.
[2023-05-17 16:04] LABS: Potassium 6.1 mmol/L (3.5-5.1)
[2023-05-17 16:38] LABS: Hepatitis B Surface Antigen Negative (Negative)
[2023-05-17 16:57] LABS: Hepatitis B Core Ab, Total Negative (Negative); Hepatitis C Antibody Negative (Negative)
[2023-05-17 17:09] LABS: Glucose - Point of Care 157 mg/dl (70-99)
[2023-05-17] MEDS: HEPARIN 500 UNITS IV ×2 (17:10→18:11)
[2023-05-17] MEDS: RETACRIT 6000 UNITS IV (17:19)
[2023-05-17] MEDS: FLEXBUMIN 25% FOR HEMODIALYSIS 12.5 GRAMS IV ×2 (17:19→18:12)
[2023-05-17] MEDS: MANNITOL 12.5 GRAMS IV ×2 (17:19→18:11)
--- NOTE | 2023-05-17 17:43 | W.PN.NEPH.HD ---
Assessment
-
pt seen during HD
she remains on BIPAP and awake
follow labs post HD
HD again tomorrow
since she is non oliguric no UF is done
ok to use IVF if needed
Progress Note - Hemodialysis
-
Date of Service: May 17, 2023
Duration: 2 hours
Potassium Bath: 2
Calcium Bath: 2.5
Opti-Dialyzer: 160
Ultrafiltration: Other (0)
Blood Flow: 250
Dialysate Flow: Other (400)
Heparin: yesx2
EPO: 6000
[2023-05-17] MEDS: HEPARIN 25000 UNITS/250 ML IV (17:52)
[2023-05-17 17:58] LABS: Hematocrit 24.2 % (37.0-47.0); Hemoglobin 7.9 g/dL (12.0-16.0); Mean Corp Hgb Conc. 32.6 g/dL (33.0-37.0); Mean Corpuscular Hgb 28.5 pg (27.0-31.0); Mean Corpuscular Volume 87.4 fL (81.0-99.0); Platelet Count 270 10^3/uL (130-400); Red Blood Cell Count 2.77 10^6/uL (4.20-5.40); White Blood Cell Count 11.7 10^3/uL (4.8-10.8)
[2023-05-17 18:00] LABS: Hepatitis B Surface Antibody Indeterminate
--- NOTE | 2023-05-17 18:16 | PTCARENOTE ---
Trialysis cath placed by IR in [facility]. Pt tolerated well. HD began at bedside.
[2023-05-17] MEDS: HEPARIN 3000 UNITS INTRACATH (19:25)
[2023-05-17 19:35] LABS: Glucose - Point of Care 125 mg/dl (70-99)
--- NOTE | 2023-05-17 20:00 | PTCARENOTE ---
Rec'd pt resting in bed, lethargic but arousable, follows simple commands- moves toes, + hand grasps, denies pain at present dialysis finished, SR, bp stable, weak distal pulses, + anasarca,O2 via BIPAP 22/8 w/ 4 liters, decr breath sounds, sat 99,
hypo bowel sounds, abd obese/soft, npo, palomino draining yellow urine, hep gtt at 1700 units
[2023-05-17] MEDS: BACTROBAN 2% OINTMENT 1 APPLIC TOPICAL (20:09)
--- NOTE | 2023-05-17 20:34 | PTCARENOTE ---
report given to floor RN, transferred to rm [id number] via on tele pack accomp by self
[2023-05-17 21:49] LABS: Hematocrit 21.9 % (37.0-47.0); Hemoglobin 7.3 g/dL (12.0-16.0)
--- NOTE | 2023-05-17 22:11 | PTCARENOTE ---
Rene Mae NP aware of hgb 7.3
--- NOTE | 2023-05-17 23:37 | PTCARENOTE ---
Addendum entered by Hilaria Leon RN 05/17/23 23:52:
Bipap 14/11 w/ 4 liters by resp
Original Note:
sys reviewed, changes noted
[2023-05-17 23:52] LABS: Glucose - Point of Care 106 mg/dl (70-99)
[2023-05-18] VITALS (28 sets, daily range): BP systolic 123–172; BP diastolic 46–86; PULSE 2–100; O2SAT 99; BMI 39.8
[2023-05-18 00:10] LABS: APTT > 200 Sec (23.4-35.0)
--- NOTE | 2023-05-18 00:15 | PTCARENOTE ---
ptt > 200- B LAMBERTO Mae notified, hep gtt off x 2 hr per protocal
[2023-05-18] MEDS: SODIUM CHLORIDE 1038.5 MEQ IV ×2 (00:38→14:17)
--- NOTE | 2023-05-18 04:16 | DOWNTIME ---
There was a [employer] Client Straight Ruling Machine Operator Downtime on 05/18/2023 from 0111 to 05/18/2023 at 0405. Downtime documentation of patient's care, including medication administrations, has been reconciled in the electronic record per guidelines. Refer to the
patient's paper chart under the miscellaneous tab to see printed paper medication records and downtime forms.
--- NOTE | 2023-05-18 04:16 | PTCARENOTE ---
sys reviewed, changes noted, CHG bath done, linens changed
[2023-05-18 04:17] LABS: Hematocrit 21.1 % (37.0-47.0)
[2023-05-18 04:20] LABS: Glucose - Point of Care 87 mg/dl (70-99)
[2023-05-18 05:16] LABS: Blood Urea Nitrogen 33 mg/dl (7-17); Calcium 7.1 mg/dl (8.4-10.2); Carbon Dioxide 29 mmol/L (22-30); Chloride 96 mmol/L (98-107); Estimated Creatinine Clearance 18 ml/min; Glucose 74 mg/dl (70-99); Potassium 4.3 mmol/L (3.5-5.1); Sodium 128 mmol/L (135-145); eGFR 17.18
[2023-05-18 06:03] LABS: B.E. 3.6 mmol/L; HCO3 30.4 mmol/L (21-28); O2 Saturation % 98.3 % (94-98); PCO2 55 mmHg (32-35); PO2 88 mmHg (83-108); pH 7.35 (7.35-7.45)
[2023-05-18] MEDS: OFIRMEV 100 IV (06:04)
[2023-05-18] MEDS: LOKELMA PO (06:07)
[2023-05-18 06:10] LABS: Mean Corpuscular Volume 89.8 fL (81.0-99.0); Red Blood Cell Count 2.35 10^6/uL (4.20-5.40); White Blood Cell Count 9.5 10^3/uL (4.8-10.8)
[2023-05-18 06:11] LABS: % Basophils 0.3 % (0-2); % Eosinophils 4.1 % (0-6); % Immature Granulocytes 0.7 % (0-0.5); % Neutrophils 72.9 % (42.2-75.2); Absolute Eosinophils 0.4 10^3/uL (0-0.7); Absolute Immature Granulocytes 0.1 10^3/uL (0-0.05); Absolute Lymphocytes 1.1 10^3/uL (1.2-3.4); Absolute Monocytes 1.1 10^3/uL (0.1-0.6); Absolute Neutrophils 6.9 10^3/uL (1.4-6.5); Mean Corp Hgb Conc. 33.2 g/dL (33.0-37.0); Mean Corpuscular Hgb 29.8 pg (27.0-31.0); Mean Platelet Volume 9.3 fL (7.4-10.4); Nucleated Red Blood Cells % 0.3 %; Platelet Count 271 10^3/uL (130-400)
--- NOTE | 2023-05-18 07:49 | W.PN.INTV ---
Today's Communication / Plan
Recommendations
BiPAP intermittently
Continue to avoid narcotics/sedation as able
Tylenol for pain
Follow-up hemoglobin, continue heparin drip
Discontinue Lokelma
Assessment
-
Mrs Rosi Kinney is a 73/W adm 05-12 for planned L hip surgery, received surgery on 05-13, developed postop moderate to severe anemia, received up to 4 U PRBCs. Pulm consulted 05-16 for hypoxemia, noted need for IM evaluation given worsening renal
function, hyperkalemia, hypoglycemia. Seen by Hospitalist antione and Nephrology on 05-16, adjustment of inpatient regimen, renal sap plant maintenance consultant suspected potential need for HD which was discussed and accepted by patient and family. MS deteriorated in late
afternoon/early evening 05-16, transferred to IMU, severe resp acidosis, negative head CT, started on BPAP
Acute hypercapnic respiratory failure
Required BiPAP
Transferred to ICU 05/17/2023
Acute right lower extremity DVT
Heparin started without bolus 05/17/2023
Acute renal failure requiring hemodialysis 05/17/2023
S/p Left conversion total hip arthroplasty, removal of hardware 05-13
Moderate postop anemia
S/p 4U PRBCS on 05-13 and
Mild mediastinal LAD
Morbid obesity BMI 43.5
Persistent hypoglycemia
Requiring D10 IV fluids
Conditions JOCKEY VALET:
1. Osteoarthritis.
2. Osteopenia.
3. Morbid obesity, BMI 39.4.
4. 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
5. CKD 3.
6. Anemia.
7. Peripheral arterial disease. Mild on ABIs.
8. Hypertension.
9. Hyperlipidemia.
10. Irritable bowel with diarrhea.
11. Vitamin D deficiency.
12. Left hip ORIF with gamma nail 02/14/2023
Bladder sling
Hysterectomy
Cholecystectomy
Nonsmoker
Plan/recommendations
At this time, patient remains critically ill but overall improved objectively and subjectively
Mental status has improved, has been maintained on BiPAP now for 24 hours
ABG reviewed, improved respiratory acidemia
Completed HD 05/17, creatinine improved
Hypoglycemia stabilized on D10/normal saline
Sodium slightly improved to 128
Weight down 5 kg since yesterday
Hemoglobin trending down but stabilized at 7.2
Moving forward
Okay to continue BiPAP intermittently during the day, nightly
Minimize narcotic therapy as able
Incentive spirometry, PT/OT, out of bed to chair as able
Reconsulted PT
Tylenol for pain [id number], will ramp up as able noting risk for hypercapnia
Continue to hold gabapentin
Urine output brisk
Creatinine improved, potassium improved
Right IJ HD catheter/pigtail in place
Nephrology following. No plans for HD today
Hypoglycemic agents have been held
Discontinue Lokelma
Blood sugar stabilized, remains on D10/normal saline
Okay to advance diet
Continue to follow blood sugars closely, will discontinue/modify fluids when able
Remains afebrile and hemodyn stable
Blood and UCx pending
No indication for antibiotics at this time
Echocardiogram normal biventricular function, technically difficult, normal PA pressure
Follow weights, nephrology following
Noted s/p 4U PRBCs post surgery and elevated BNP
Follow hemoglobin, prefer not to transfuse unless absolutely necessary, hemoglobin less than 7
Maintain active type and screen
Encourage PT/OT, out of bed per orthopedic surgery
Reviewed with critical care nursing, respiratory care, pharmacy
TCCT 31 min
Subjective Dataa
Subjective Data
Date of Service:
Date of Service: May 18, 2023
Subjective:
Overall, patient appears to be improved. Mental status improved, tolerated BiPAP since yesterday. Completed dialysis yesterday. Remains on D10/normal saline, blood sugars has stabilized. Patient complaining of mild left hip discomfort but denies
chest pain
Objective Data
Data Reviewed
Vital Signs / I&O / Oxygen:
Vital Signs
Temp Pulse Resp BP Pulse Ox
98.8 F 99 15 146/53 98
05/18/23 07:02 05/18/23 06:00 05/18/23 06:00 05/18/23 06:00 05/18/23 06:00
Intake and Output
05/17/23 05/18/23 05/19/23
06:59 06:59 06:59
Intake Total 1000 / 1000 2204 / 2204
Output Total 3000 / 3000 3015 / 3015
Balance -2000 / -2000 -811 / -811
SaO2 98
Nasal Cannula flow liters per 4
minute
Physical Exam
General: Comfortable, Other (Right IJ/pigtail catheter) and Other (Large neck)
HEENT: Normocephalic and Anicteric
Cardiovascular: S1-S2, Regular Rhythm, Murmur (n), Rub (n), Peripheral Edema (n) and Calf Tenderness (n)
Respiratory: Wheeze (n), Crackles (n), Rhonchi (n), Stridor (n) and Egophony (n)
GI: Soft, Non Distended (Obese) and Non Tender
Neurology: Awake, Alert, Oriented and No Motor Deficits (Moves all extremities, generally weak)
Skin: Cyanosis (n), Jaundice (n) and Rash (n)
Labs/Micro/Reports
Lab Data
05/18/23 03:20
Laboratory Results
05/17/23 05/17/23 05/17/23
10:10 12:15 17:26
PT 13.9
INR 1.09
APTT 34.8 Cancelled
pH 7.29 L
pCO2 49 H
pO2 86
HCO3 23.6
O2 Delivery Level Not Reportable
05/17/23 05/18/23
23:33 05:51
PT
INR
APTT > 200 H*
pH 7.35
pCO2 55 H
pO2 88
HCO3 30.4 H
O2 Delivery Level
Microbiology
05/16/23 17:30 Blood/Venous Blood Culture - Preliminary
No Growth in 24 hours- Final report to follow
05/16/23 16:41 Blood/Venous Blood Culture - Preliminary
No Growth in 24 hours- Final report to follow
05/16/23 18:19 Urine Urine Culture - Preliminary
Sparse growth, too young to be identified. Further results
to follow.
--- NOTE | 2023-05-18 08:01 | W.PN.UPDATE ---
Addendum entered and electronically signed by Jason Velasquez MD 05/19/23 16:55:
I agree with above note. I evaluated the patient at bedside evening of 05/18/23. Dressing CDI after change 05/18/23. She was mobilized upright with PT. Pain well controlled.
Original Note:
Update Note
Progress Note Update
Ms. Kinney is resting comfortably in bed this morning. She is sleepy, but arousable. She denied any pain at rest, but did grimace when left lower extremity was moved. Proximal dressing saturated, but this did not appear to be fresh blood. The
dressing was removed to reveal well approximated surgical incision with Prineo intact. No active drainage, bleeding or purulence. New Aquacel dressing was placed. Thigh soft and compressible. Calf soft and nontender. Patient able to wiggle toes,
plantar and dorsiflex ankle. NVID.
[2023-05-18 08:09] LABS: Glucose - Point of Care 90 mg/dl (70-99)
[2023-05-18 08:10] LABS: Hematocrit 21.7 % (37.0-47.0); Hemoglobin 7.2 g/dL (12.0-16.0)
--- NOTE | 2023-05-18 08:30 | PTCARENOTE ---
Rec'd pt resting in bed, lethargic but arousable, follows simple commands- moves toes, + hand grasps, denies pain at present. SR, bp stable, weak distal pulses, +3 anasarca,O2 via BIPAP 22/8 w/ 4 liters, Rhonchi, crackles, wheezes. sat 99, hypo
bowel sounds, abd obese/soft, npo, palomino draining yellow urine, hep gtt at 1300 units. L hip dressing changed by Ortho team.
[2023-05-18 08:41] LABS: APTT > 200 Sec (23.4-35.0)
[2023-05-18 08:55] LABS: Iron 49 ug/dl (37-170)
[2023-05-18 09:04] LABS: Percent Saturation 24 % (20-50); Total Iron Binding Capacity 201 ug/dl (265-497)
[2023-05-18] MEDS: NOVOLOG FLEXPEN-LOW RESISTANCE SC ×3 (09:13→16:17)
[2023-05-18] MEDS: NORVASC PO (09:39)
[2023-05-18] MEDS: ASPIRIN PO (09:39)
[2023-05-18] MEDS: VITAMIN D3 (cholecalciferol) PO (09:39)
[2023-05-18] MEDS: BACTROBAN 2% OINTMENT TOPICAL (09:51)
[2023-05-18 10:09] LABS: Folate 6.3 ng/ml (2.76-20); Vitamin B12 405 pg/ml (239-931)
--- NOTE | 2023-05-18 10:26 | PTCARENOTE ---
PiPAP removed to 5L NC. Pt verbalizing needs, no complaints of SOB. tolerating ice chips, Juice. Family at bedside, updated on care plan. HD on hold for today due to improving labs and UOP.
[2023-05-18] MEDS: LASIX 60 MG IV (10:53)
--- NOTE | 2023-05-18 11:26 | W.PN.HOSP.TC ---
Today's Communication/Plan
-
Monitor vital signs and see plan
Monitor hemoglobin
HD per nephrology
BiPAP as needed
Assessment / Plan
Assessment / Plan
Assessment:
Acute hypoxic and hypercarbic respiratory failure
- multi-factorial from pain meds, volume overload, post-op atelectasis
- CTA study without PE, small effusions, atelectasis
- required BIPAP for acidosis; serial ABGs with improvement. now bipap prn
- prn nebs
- stop pain meds (see below)
- Pulmonary following; transfer to ICU 05/17 due to persistent worsening acute kidney injury now requiring dialysis
STEPHANIE With suspected ATN on CKD stage 3b, worsening
Hyponatremia, hypervolemic from volume overload
Hyperkalemia, worsening
- hold nephrotoxins as able
- bladder scans
- s/p IV Lasix
Now started on hemodialysis
- BNP elevated; TTE 05/17 with normal EF. Volume overloaded only. No signs of CHF
- Nephrology following
Toxic Metabolic Encephalopathy� from opiates, STEPHANIE, hypoxia/hypercapnia
suspect acute on chronic as on PO iron; exacerbated by Post-op acute blood loss anemia
- s/p 4 units PRBCs; Hb 7.2
- monitor Hb and signs of bleeding
- will utilize IV iron infusions; noted to be on oral iron
check iron panel
Hyponatremia
Being managed by dialysis
Hypoglycemia likely related to STEPHANIE and poor clearance of meds
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
- holding Glimepiride/Metformin/Farxiga
- hold Lantus
- utilize SSI only for now
- A1c: 6.2% 2 weeks ago
Acute right lower extremity DVT
Heparin started without bolus 05/17/2023
Leukocytosis, attributed to stress reaction lashon-operatively
- joint synovial fluid no growth
-UA dirty with some yeast, gram-negative bacilli but only 6000. Will monitor off antibiotic
Hx of Left hip ORIF with gamma nail 02/14/2023; now admitted with Left conversion total hip arthroplasty, removal of hardware 05-13
Underlying osteoarthritis, osteopenia, Vit D deficiency
- follow orthopedics recs
- stop all sedating opiates/pain meds with development of hypercarbia. use Tylenol TID + prn.
- continue Vit D
- continue ASA for DVT ppx
- eventual SNF when medically cleared
Super Morbid Obesity d/t excess calories
PAD
- continue ASA/Statin
Essential HTN
- continue Amlodipine
- hold HCTZ
HLD
- statin
IBS with diarrhea
- prn Imodium
Suspected sleep disorder breathing-will need outpatient evaluation and PSG
DVT ppx: ASA
Code: Full
General: Appears Chronically Ill and Obese
HEENT: Normocephalic, Atraumatic and O2 (NC)
Respiratory: CTA; no wheezing
Cardiac: Regular Rhythm and S1/S2
GI: Soft
Musculoskeletal: Edema, Right Lower Extrem and Edema, Left Lower Extrem
Neuro: AAOX2
Psych: Calm
I spent a total of 53 minutes with the patient or on the floor. More than 50% of this time involved counseling and coordination of care.
Anticipated Discharge: > 48 hours
Subjective/Interval History
-
Date of Service: May 18, 2023
Denies pain, complaining of fatigue
Objective Data
-
Labs:
Laboratory Results
05/17/23 05/18/23 05/18/23
23:33 03:20 05:51
WBC 9.5
Hgb 7.0 L
Hct 21.1 L
Plt Count 271
APTT > 200 H*
HCO3 30.4 H
Sodium 128 L
Potassium 4.3 D
Chloride 96 L
Carbon Dioxide 29
BUN 33 H
Creatinine 2.8 H
Glucose 74
Calcium 7.1 L
05/18/23 05/18/23 05/18/23
06:00 07:56 15:15
WBC Cancelled
Hgb Cancelled 7.2 L Pending
Hct Cancelled 21.7 L Pending
Plt Count Cancelled
APTT > 200 H*
HCO3
Sodium
Potassium
Chloride
Carbon Dioxide
BUN
Creatinine
Glucose
Calcium
05/18/23
18:00
WBC
Hgb
Hct
Plt Count
APTT Pending
HCO3
Sodium
Potassium
Chloride
Carbon Dioxide
BUN
Creatinine
Glucose
Calcium
Vital Signs:
Vital Signs
Temp Pulse Resp BP Pulse Ox
98.8 F 95 20 145/62 98
05/18/23 07:02 05/18/23 10:00 05/18/23 10:00 05/18/23 10:00 05/18/23 10:00
I&O
05/17/23 05/18/23 05/19/23
06:59 06:59 06:59
Intake Total 1000 / 1000 2204 / 2297 361 / 361
Output Total 3000 / 3000 3015 / 3015 525 / 525
Balance -2000 / -2000 -811 / -718 -164 / -164
[2023-05-18 11:53] LABS: Glucose - Point of Care 151 mg/dl (70-99)
[2023-05-18] MEDS: TYLENOL 650 MG PO ×2 (12:17→17:05)
[2023-05-18] MEDS: FERRLECIT 110 MG IV (14:17)
--- NOTE | 2023-05-18 14:54 | W.PN.NEPH.PH ---
Today's Communication / Plan
-
- no HD today
- eval for tomorrow
Assessment/Plan
-
IMP:
Acute hypoxic respiratory insufficiency
STEPHANIE on CKD stage 3, baseline cr 1.2-1.5 Dr Etienne
Hyponatremia, hypervolemic from volume overload
severe Hyperkalemia
Post-op acute blood loss anemia- s/p 4 units PRBCs
Hypoglycemia likely related to STEPHANIE and poor clearance of meds
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
Leucocytosis,
Hx of Left hip ORIF with gamma nail 02/14/2023, Left conversion total hip arthroplasty, removal of hardware 05-13
Underlying osteoarthritis, osteopenia, Vit D deficiency
Super Morbid Obesity d/t excess calories
PAD
Essential HTN
HLD
IBS with diarrhea
Suspected sleep disorder breathing-will need outpatient evaluation and PSG
Plan:
Admit for left hip arthroplasty on 05/13
STEPHANIE-no clear etiology, UA with ?UTI, pending cx and renal US
subnephrotic proteinuria 1.2gm/gm of cr-send serologies and paraprotein w/u
cr cont to peak at 5.2 but UOP improving and non oliguric with palomino. Cr downtrended to 5.0 yesterday, recieved HD and down to 2.8 today
note contrast exposure on 05/16
hyperK improved s/p HD, given 1 dose lasix today to augment UOP
avoid nephrotoxins, holding farxiga and metformin
Hyponatremia-suspect hypervolemia, U osmo 300, U high with lasix
Na improved to 128 s/p HD
Acute hypercarbic resp failure
previously on BiPAP, on midflow NC this AM
hypoglycemia-stable now, was on D10 overnight
BP are stable with out hypotension
check echo for hypervolemia
follow h/h , IV Fe course
recieved HD x1 on 05/17, held today as UOP improving significantly
CTM
-
-
Date of Service: May 18, 2023
CC / HPI / ROS
-
Chief Complaint:
STEPHANIE, hyperkalemia
History of Present Illness:
cr improved to 2.8, non oliguric with palomino 3lit overnight
wt down, Na imporved at 128, K at 4.8
pt mentation improved
3lit if palomino since last night
no fever, WBC improving, penidng cx
Review of Systems:
patient feeling improved this AM
Labs
-
Labs:
WBC Cancelled 05/18/23 06:00
RBC Cancelled 05/18/23 06:00
Hgb Cancelled 05/18/23 15:15
Hct Cancelled 05/18/23 15:15
Plt Count Cancelled 05/18/23 06:00
Sodium 128 mmol/L (135-145) L 05/18/23 03:20
Potassium 4.3 mmol/L (3.5-5.1) D 05/18/23 03:20
Chloride 96 mmol/L (98-107) L 05/18/23 03:20
Carbon Dioxide 29 mmol/L (22-30) 05/18/23 03:20
BUN 33 mg/dl (7-17) H 05/18/23 03:20
Creatinine 2.8 mg/dL (0.6-1.0) H 05/18/23 03:20
eGFR 17.18 05/18/23 03:20
Glucose 74 mg/dl (70-99) 05/18/23 03:20
Calcium 7.1 mg/dl (8.4-10.2) L 05/18/23 03:20
Sxw-N-Bxtziyxhcdq Pept 6110 pg/ml 05/16/23 10:06
Albumin 2.4 g/dl (3.5-5.0) L 05/17/23 03:59
Physical Exam
-
Vital Signs:
Vital Signs
Temp Pulse Resp BP Pulse Ox
99.8 F 97 18 166/55 99
05/18/23 13:00 05/18/23 14:00 05/18/23 14:00 05/18/23 14:00 05/18/23 13:00
Cardiovascular:: Regular rate and rhythm
Respiratory:: Bilateral: Coarse
Lung Excursion:: Normal
Abdomen:: Nontender and Soft
Bowel Sounds:: Normal
Extremity Edema:: None: Bilateral:
Palomino Catheter: Yes
[2023-05-18 16:12] LABS: Glucose - Point of Care 214 mg/dl (70-99)
--- NOTE | 2023-05-18 16:19 | PTCARENOTE ---
Pt increasingly alert and interactive. Sat on side of bed with PT-see note. D10 gtt stopped after BG 214.
[2023-05-18] MEDS: HEPARIN 25000 UNITS/250 ML IV (17:09)
[2023-05-18 18:27] LABS: APTT 61.9 Sec (23.4-35.0)
--- NOTE | 2023-05-18 21:00 | PTCARENOTE ---
Pt resting comfortably with no c/o pain. Alert/oriented/following commands. CAICEDO with generalized weakness. Afebrile. NSR on monitor. Anasarca. IV lines flushed/patent. Right trialysis capped. Heparin gtt as ordered. Bipap ordered HS, RT made aware.
Tolerating diet. Marrufo to gravity with 850cc clear yellow urine. Will monitor.
[2023-05-18] MEDS: TYLENOL PO (22:48)
[2023-05-19] VITALS (31 sets, daily range): BP systolic 101–157; BP diastolic 47–97; PULSE 2–101; O2SAT 94; BMI 38.4
[2023-05-19] MEDS: TYLENOL 650 MG PO ×5 (00:27→21:00)
[2023-05-19 00:36] LABS: % Basophils 0.5 % (0-2); % Eosinophils 6.3 % (0-6); % Immature Granulocytes 2.8 % (0-0.5); % Lymphocytes 16.7 % (20.5-51.1); % Monocytes 11.9 % (1.7-9.3); % Neutrophils 61.8 % (42.2-75.2); Absolute Basophils 0.1 10^3/uL (0-0.2); Absolute Eosinophils 0.7 10^3/uL (0-0.7); Absolute Immature Granulocytes 0.3 10^3/uL (0-0.05); Absolute Lymphocytes 1.8 10^3/uL (1.2-3.4); Absolute Monocytes 1.3 10^3/uL (0.1-0.6); Absolute Neutrophils 6.6 10^3/uL (1.4-6.5); Hematocrit 22.9 % (37.0-47.0); Hemoglobin 7.6 g/dL (12.0-16.0); Mean Corp Hgb Conc. 33.2 g/dL (33.0-37.0); Mean Corpuscular Hgb 29.1 pg (27.0-31.0); Mean Corpuscular Volume 87.7 fL (81.0-99.0); Mean Platelet Volume 8.7 fL (7.4-10.4); Nucleated Red Blood Cells % 0.2 %; Platelet Count 308 10^3/uL (130-400); Red Blood Cell Count 2.61 10^6/uL (4.20-5.40); Red Cell Dist. Width 14.9 % (11.5-14.5); White Blood Cell Count 10.6 10^3/uL (4.8-10.8)
[2023-05-19 00:47] LABS: APTT 96.6 Sec (23.4-35.0); Blood Urea Nitrogen 41 mg/dl (7-17); Calcium 7.7 mg/dl (8.4-10.2); Carbon Dioxide 32 mmol/L (22-30); Chloride 89 mmol/L (98-107); Estimated Creatinine Clearance 19 ml/min; Glucose 209 mg/dl (70-99); Potassium 3.9 mmol/L (3.5-5.1); Sodium 127 mmol/L (135-145); eGFR 17.95
--- NOTE | 2023-05-19 04:00 | PTCARENOTE ---
No change in previous assessment. PTT within normal limits. Tolerating Bipap. Will monitor.
[2023-05-19] MEDS: TYLENOL PO (05:00)
[2023-05-19 05:16] LABS: Complement C3 95 mg/dl (88-165)
[2023-05-19 06:59] LABS: APTT 98.2 Sec (23.4-35.0)
[2023-05-19 07:01] LABS: Blood Urea Nitrogen 37 mg/dl (7-17); Calcium 7.8 mg/dl (8.4-10.2); Carbon Dioxide 32 mmol/L (22-30); Chloride 93 mmol/L (98-107); Estimated Creatinine Clearance 20 ml/min; Glucose 161 mg/dl (70-99); Potassium 3.6 mmol/L (3.5-5.1); Sodium 130 mmol/L (135-145); eGFR 19.69
--- NOTE | 2023-05-19 07:38 | W.PN.INTV ---
Today's Communication / Plan
Recommendations
Continue nocturnal BiPAP decrease pressure
PT/OT, out of bed to chair
Continue heparin without bolus
Tylenol for pain
Follow blood sugars
Assessment
-
Mrs Rosi Kinney is a 73/W adm 05-12 for planned L hip surgery, received surgery on 05-13, developed postop moderate to severe anemia, received up to 4 U PRBCs. Pulm consulted 05-16 for hypoxemia, noted need for IM evaluation given worsening renal
function, hyperkalemia, hypoglycemia. Seen by Hospitalist antione and Nephrology on 05-16, adjustment of inpatient regimen, renal travel consultant suspected potential need for HD which was discussed and accepted by patient and family. MS deteriorated in late
afternoon/early evening 05-16, transferred to IMU, severe resp acidosis, negative head CT, started on BPAP
Acute hypercapnic respiratory failure
Required BiPAP
Transferred to ICU 05/17/2023
Acute right lower extremity DVT
Heparin started without bolus 05/17/2023
Acute renal failure requiring hemodialysis 05/17/2023
S/p Left conversion total hip arthroplasty, removal of hardware 05-13
Moderate postop anemia
S/p 4U PRBCS on 05-13 and
Mild mediastinal LAD
Morbid obesity BMI 43.5
Persistent hypoglycemia
Requiring D10 IV fluids
Conditions CLOTH BALER:
1. Osteoarthritis.
2. Osteopenia.
3. Morbid obesity, BMI 39.4.
4. 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
5. CKD 3.
6. Anemia.
7. Peripheral arterial disease. Mild on ABIs.
8. Hypertension.
9. Hyperlipidemia.
10. Irritable bowel with diarrhea.
11. Vitamin D deficiency.
12. Left hip ORIF with gamma nail 02/14/2023
Bladder sling
Hysterectomy
Cholecystectomy
Nonsmoker
Plan/recommendations
At this time, patient appears to be improved objectively and subjectively
Mental status has improved, tolerated BiPAP overnight
[place] pressures were high
Completed HD 05/17, creatinine improved since
Hypoglycemia stabilized, now off D10
Sodium level noted at 127
Hemoglobin trending down but stabilized at 7.6
Remains on heparin drip without bolus
Moving forward
Hopefully out of bed to chair, PT/OT per orthopedic protocol
Minimize narcotic therapy as able
Continue Tylenol for pain
Incentive spirometry, PT/OT, out of bed to chair as able
will ramp up as able noting risk for hypercapnia
Continue to hold gabapentin
Continue nocturnal BiPAP, will decrease pressures
Check ABG in a.m. on room air
Mild wheezing on exam, improved with cough
Incentive spirometry
Urine output brisk
Creatinine improved, potassium improved
Right IJ HD catheter/pigtail in place
Nephrology following. No plans for HD today
Hyperglycemia noted
Restart standing insulin
Follow blood sugars
Off D10
Tolerating diet
Remains afebrile and hemodyn stable
Blood and UCx pending
No indication for antibiotics at this time
Echocardiogram normal biventricular function, technically difficult, normal PA pressure
Follow weights, nephrology following
Noted s/p 4U PRBCs post surgery and elevated BNP
Follow hemoglobin, prefer not to transfuse unless absolutely necessary, hemoglobin less than 7
Maintain active type and screen
Encourage PT/OT, out of bed per orthopedic surgery
Reviewed with critical care nursing, respiratory care, pharmacy
Keep in ICU for now
Subjective Dataa
Subjective Data
Date of Service:
Date of Service: May 19, 2023
Subjective:
Patient appears to be improved. She has an adequate cough. She tolerated BiPAP overnight. Hemoglobin noted at 7.6, no evidence of active bleeding. Elevated blood sugars noted. Remains on heparin drip
Objective Data
Data Reviewed
Vital Signs / I&O / Oxygen:
Vital Signs
Temp Pulse Resp BP Pulse Ox
98.6 F 90 15 123/56 95
05/19/23 04:00 05/19/23 06:00 05/19/23 06:00 05/19/23 06:00 05/19/23 06:00
Intake and Output
05/18/23 05/19/23 05/20/23
06:59 06:59 06:59
Intake Total 2204 / 2297 1260 / 1260
Output Total 3015 / 3015 5360 / 5360
Balance -811 / -718 -4100 / -4100
SaO2 95
Nasal Cannula flow liters per 3
minute
Physical Exam
General: Comfortable, Other (Right IJ/pigtail catheter) and Other (Large neck)
HEENT: Normocephalic and Anicteric
Cardiovascular: S1-S2, Regular Rhythm, Murmur (n), Rub (n), Peripheral Edema (tr) and Calf Tenderness (n)
Respiratory: Wheeze (Mild with cough), Crackles (n), Rhonchi (n), Stridor (n) and Egophony (n)
GI: Soft, Non Distended (Obese) and Non Tender
Neurology: Awake, Alert, Oriented and No Motor Deficits (Moves all extremities, generally weak)
Skin: Cyanosis (n), Jaundice (n) and Rash (n)
Labs/Micro/Reports
Lab Data
05/19/23 00:26
05/19/23 06:30
Laboratory Results
05/18/23 05/18/23 05/19/23
07:56 18:04 00:26
APTT > 200 H* 61.9 H 96.6 H
05/19/23
06:30
APTT 98.2 H
Microbiology
05/16/23 17:30 Blood/Venous Blood Culture - Preliminary
No Growth in 48 hours- Final report to follow
05/16/23 16:41 Blood/Venous Blood Culture - Preliminary
No Growth in 48 hours- Final report to follow
05/16/23 18:19 Urine Urine Culture - Final
Yeast
Gram negative bacilli
[2023-05-19 07:39] LABS: Glucose - Point of Care 183 mg/dl (70-99)
[2023-05-19] MEDS: VITAMIN D3 (cholecalciferol) 25 MCG PO (08:33)
[2023-05-19] MEDS: NORVASC 2.5 MG PO (08:34)
[2023-05-19] MEDS: NOVOLOG FLEXPEN-LOW RESISTANCE 1 UNITS SC (09:43)
[2023-05-19 11:49] LABS: Glucose - Point of Care 272 mg/dl (70-99)
--- NOTE | 2023-05-19 11:52 | W.PN.HOSP.TC ---
Today's Communication/Plan
-
monitor vitals
see plan
lantus
wean o2 as tolerated
HD per nephro
bipap as needed
Assessment / Plan
Assessment / Plan
Assessment:
Acute hypoxic and hypercarbic respiratory failure
- multi-factorial from pain meds, volume overload, post-op atelectasis
- CTA study without PE, small effusions, atelectasis
- required BIPAP for acidosis; serial ABGs with improvement. now bipap prn and mainly at night
- prn nebs
- stop pain meds (see below)
- Pulmonary following; transfer to ICU 05/17 due to persistent worsening acute kidney injury now requiring dialysis
STEPHANIE With suspected ATN on CKD stage 3b, worsening
Hyponatremia, hypervolemic from volume overload
Hyperkalemia, worsening
- hold nephrotoxins as able
- bladder scans
- s/p IV Lasix
Now started on hemodialysis
- BNP elevated; TTE 05/17 with normal EF. Volume overloaded only. No signs of CHF
- Nephrology following; will see if needed further dialysis
Toxic Metabolic Encephalopathy� from opiates, STEPHANIE, hypoxia/hypercapnia
suspect acute on chronic as on PO iron; exacerbated by Post-op acute blood loss anemia
- s/p 4 units PRBCs; Hb 7.6
- monitor Hb and signs of bleeding
- will utilize IV iron infusions; noted to be on oral iron
good iron stores
Hyponatremia
Being managed by dialysis
Hypoglycemia likely related to STEPHANIE and poor clearance of meds
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
- holding Glimepiride/Metformin/Farxiga
- utilize SSI only for now
- A1c: 6.2% 2 weeks ago
now off D10; started back on lantus
Acute right lower extremity DVT
Heparin started without bolus 05/17/2023
Leukocytosis, attributed to stress reaction lashon-operatively
- joint synovial fluid no growth
-UA dirty with some yeast, gram-negative bacilli but only 6000. Will monitor off antibiotic
Hx of Left hip ORIF with gamma nail 02/14/2023; now admitted with Left conversion total hip arthroplasty, removal of hardware 05-13
Underlying osteoarthritis, osteopenia, Vit D deficiency
- follow orthopedics recs
- stop all sedating opiates/pain meds with development of hypercarbia. use Tylenol TID + prn.
- continue Vit D
- on hep gtt for DVT ppx
- eventual SNF when medically cleared
Super Morbid Obesity d/t excess calories
PAD
- continue ASA/Statin
Essential HTN
- continue Amlodipine
- hold HCTZ
HLD
- statin
IBS with diarrhea
- prn Imodium
Suspected sleep disorder breathing-will need outpatient evaluation and PSG
DVT ppx: heparin
Code: Full
General: Appears Chronically Ill and Obese
HEENT: Normocephalic, Atraumatic and O2 (NC)
Respiratory: CTA; no wheezing
Cardiac: Regular Rhythm and S1/S2
GI: Soft
Musculoskeletal: Edema, Right Lower Extrem and Edema, Left Lower Extrem
Neuro: AAOX2
Psych: Calm
I spent a total of 53 minutes with the patient or on the floor. More than 50% of this time involved counseling and coordination of care.
Anticipated Discharge: > 48 hours
Subjective/Interval History
-
Date of Service: May 19, 2023
denies pain
Objective Data
-
Labs:
Laboratory Results
05/19/23 05/19/23
00:26 06:30
WBC 10.6
Hgb 7.6 L
Hct 22.9 L
Plt Count 308
APTT 96.6 H 98.2 H
Sodium 127 L 130 L
Potassium 3.9 3.6
Chloride 89 L 93 L
Carbon Dioxide 32 H 32 H
BUN 41 H 37 H
Creatinine 2.7 H 2.5 H
Glucose 209 H 161 H
Calcium 7.7 L 7.8 L
Vital Signs:
Vital Signs
Temp Pulse Resp BP Pulse Ox
98.7 F 96 17 136/63 97
05/19/23 11:17 05/19/23 09:00 05/19/23 09:00 05/19/23 09:00 05/19/23 09:00
I&O
05/18/23 05/19/23 05/20/23
06:59 06:59 06:59
Intake Total 2204 / 2297 1260 / 1271 33 / 33
Output Total 3015 / 3015 5360 / 5360 400 / 400
Balance -811 / -718 -4100 / -4089 -367 / -367
[2023-05-19] MEDS: NOVOLOG FLEXPEN-LOW RESISTANCE 3 UNITS SC ×2 (13:02→17:54)
--- NOTE | 2023-05-19 13:29 | CM ---
CM following re: discharge planning.
Discussed in Rounds, reviewed pt's chart, met with pt. Per Rounds meeting, pt is treating for Acute hypercapnic respiratory failure. Required BiPA. Transferred to ICU 05/17/2023. Requires 2L NC of O2.
PT and OT recommend SNF level of care.
The plan continues to be for patient to go to [facility] and according to [facility] admissions department [facility] pt will be accepted when medically stable and based on bed availability on the day of discharge.
NPI for [facility]: [id number] or [id number].
Admitting physician: Dr. Daniel Mattson
Patient will need stretcher transport due to hip precautions (medical necessity and transport forms on chart).
D/C plan: [facility]
CM will follow to assist pt with discharge to [facility]
[2023-05-19] MEDS: FERRLECIT 110 MG IV (14:05)
--- NOTE | 2023-05-19 14:14 | W.PN.NEPH.PH ---
Today's Communication / Plan
-
- continue to monitor
- likely in autodiuretic phase of ATN
Assessment/Plan
-
IMP:
Acute hypoxic respiratory insufficiency
STEPHANIE on CKD stage 3, baseline cr 1.2-1.5 Dr Etienne
Hyponatremia, hypervolemic from volume overload
severe Hyperkalemia
Post-op acute blood loss anemia- s/p 4 units PRBCs
Hypoglycemia likely related to STEPHANIE and poor clearance of meds
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
Leucocytosis,
Hx of Left hip ORIF with gamma nail 02/14/2023, Left conversion total hip arthroplasty, removal of hardware 05-13
Underlying osteoarthritis, osteopenia, Vit D deficiency
Super Morbid Obesity d/t excess calories
PAD
Essential HTN
HLD
IBS with diarrhea
Suspected sleep disorder breathing-will need outpatient evaluation and PSG
Plan:
Admit for left hip arthroplasty on 05/13
STEPHANIE-no clear etiology, KUS unremarkable
subnephrotic proteinuria 1.2gm/gm of cr-send serologies and paraprotein w/u. complements wnl. hep B negative
Cr down to 2.5 today (peak 5.2)
excellent UOP with almost 4L out over 24 hours
hold off on lasix
no further hyperK
avoid nephrotoxins, holding farxiga and metformin
Hyponatremia-suspect hypervolemia, U osmo 300, U high with lasix
Na improved to 128 s/p H, now up to 130.
likely autodiuresing in the setting of ATN
Acute hypercarbic resp failure
previously on BiPAP, on midflow NC this AM
hypoglycemia-stable now
BP are stable with out hypotension
check echo for hypervolemia
follow h/h , IV Fe course
recieved HD x1 on 05/17, held today as UOP improving significantly
CTM
-
-
Date of Service: May 19, 2023
CC / HPI / ROS
-
Chief Complaint:
STEPHANIE, hyperkalemia
History of Present Illness:
cr improved to 2.5, non oliguric with palomino 4L overnight
wt down, Na imporved at 130, K 3.6
pt mentation improved
4L via palomino
no fever, WBC improving, penidng cx
Review of Systems:
patient feeling improved this AM
Labs
-
Labs:
WBC 10.6 10^3/uL (4.8-10.8) 05/19/23 00:26
RBC 2.61 10^6/uL (4.20-5.40) L 05/19/23 00:26
Hgb 7.6 g/dL (12.0-16.0) L 05/19/23 00:26
Hct 22.9 % (37.0-47.0) L 05/19/23 00:26
Plt Count 308 10^3/uL (130-400) 05/19/23 00:26
Sodium 130 mmol/L (135-145) L 05/19/23 06:30
Potassium 3.6 mmol/L (3.5-5.1) 05/19/23 06:30
Chloride 93 mmol/L (98-107) L 05/19/23 06:30
Carbon Dioxide 32 mmol/L (22-30) H 05/19/23 06:30
BUN 37 mg/dl (7-17) H 05/19/23 06:30
Creatinine 2.5 mg/dL (0.6-1.0) H 05/19/23 06:30
eGFR 19.69 05/19/23 06:30
Glucose 161 mg/dl (70-99) H 05/19/23 06:30
Calcium 7.8 mg/dl (8.4-10.2) L 05/19/23 06:30
Ljp-G-Enmrvoizihx Pept 6110 pg/ml 05/16/23 10:06
Albumin 2.4 g/dl (3.5-5.0) L 05/17/23 03:59
Physical Exam
-
Vital Signs:
Vital Signs
Temp Pulse Resp BP Pulse Ox
98.7 F 91 17 143/55 97
05/19/23 11:17 05/19/23 12:00 05/19/23 12:00 05/19/23 12:00 05/19/23 12:00
Cardiovascular:: Regular rate and rhythm
Respiratory:: Bilateral: Coarse
Lung Excursion:: Normal
Abdomen:: Nontender and Soft
Bowel Sounds:: Normal
Extremity Edema:: +2: Bilateral:
[place] Catheter: Yes
[2023-05-19] MEDS: HEPARIN 25000 UNITS/250 ML IV (16:00)
--- NOTE | 2023-05-19 16:55 | W.PN.UPDATE ---
Update Note
Progress Note Update
I evaluated the patient at bedside today
The patient reports well controlled pain in left hip. Was able to mobilize with physical therapy. No HD today as labs are improving
Dressing CDI. Fires ehl/fhl/ta/gs. Brisk cap refill
AP:
73F sp left conversion AMILCAR 05/13/2023
- Pain control
- Touch down weight bearing LLE x6 weeks
- She may follow up 2 weeks post operatively for xrays and incision check. Keep dressings in place until then.
- DVT: Eliquis
- ABX: ancef complete
- Continue PT/OT while inpatient
[2023-05-19 17:09] LABS: Glucose - Point of Care 257 mg/dl (70-99)
--- NOTE | 2023-05-19 17:51 | PTCARENOTE ---
Patient received in AM with assessment as noted. Continues alert, oriented and pleasant. OOB to chair for 1.5 hrs and transfers with 2 person moderate assist and left foot partial weight bearing maintained. NSR on monitor. Afebrile. B/P's stable.
Lungs coarse with scattered exp wheezes. Sao2 95% on 2lnc. Occasional loose cough. Hypo BS. Appetite fair. No bowel movement today. Marrufo draining yellow urine. Family into visit and updated to patient condition. Patient currently in bed with call
montejo and telephone in reach.
--- NOTE | 2023-05-19 20:30 | PTCARENOTE ---
Pt resting comfortably with family at bedside. More alert/oriented. No c/o pain, Tylenol ordered atc. Afebrile. NSR on monitor. IV lines flushed and patent. Heparin gtt therapeutic at this time. PTT in am. Anasarca +2. Bipap HS. Lungs
coarse/diminished. Tolerating diet. Marrufo to gravity. Skin as documented. Will monitor.
[2023-05-19] MEDS: LANTUS 0.100000000000000006 UNITS SC (21:30)
[2023-05-19 23:23] LABS: Glucose - Point of Care 196 mg/dl (70-99)
[2023-05-20] VITALS (26 sets, daily range): BP systolic 112–151; BP diastolic 40–104; PULSE 2–98; O2SAT 90–98; BMI 38.2
[2023-05-20 00:07] LABS: Transferrin 142 mg/dL (200-360)
[2023-05-20] MEDS: TYLENOL PO ×2 (01:01→04:05)
[2023-05-20 01:10] LABS: ANA, IgG Reflex to HEp-2 None Detected (None Detected)
--- NOTE | 2023-05-20 04:00 | PTCARENOTE ---
Labs sent and resulted. PTT therapeutic. No change in previous assessment. Bipap off, ABG drawn on room air. Sat currently 88%, 2L placed NC. Will monitor.
[2023-05-20 06:03] LABS: B.E. 9.3 mmol/L; HCO3 33.5 mmol/L (21-28); O2 Saturation % 96.4 % (94-98); PCO2 44 mmHg (32-35); PO2 69 mmHg (83-108); pH 7.49 (7.35-7.45)
[2023-05-20 06:09] LABS: % Basophils 0.3 % (0-2); % Eosinophils 4.1 % (0-6); % Immature Granulocytes 4.1 % (0-0.5); % Lymphocytes 19.4 % (20.5-51.1); % Monocytes 8.7 % (1.7-9.3); % Neutrophils 63.4 % (42.2-75.2); Absolute Basophils 0.1 10^3/uL (0-0.2); Absolute Eosinophils 0.6 10^3/uL (0-0.7); Absolute Immature Granulocytes 0.6 10^3/uL (0-0.05); Absolute Lymphocytes 2.8 10^3/uL (1.2-3.4); Absolute Monocytes 1.3 10^3/uL (0.1-0.6); Absolute Neutrophils 9.2 10^3/uL (1.4-6.5); Hematocrit 23.1 % (37.0-47.0); Hemoglobin 7.7 g/dL (12.0-16.0); Mean Corp Hgb Conc. 33.3 g/dL (33.0-37.0); Mean Corpuscular Hgb 29.8 pg (27.0-31.0); Mean Corpuscular Volume 89.5 fL (81.0-99.0); Mean Platelet Volume 8.9 fL (7.4-10.4); Nucleated Red Blood Cells % 0.1 %; Platelet Count 357 10^3/uL (130-400); Red Blood Cell Count 2.58 10^6/uL (4.20-5.40); Red Cell Dist. Width 14.8 % (11.5-14.5); White Blood Cell Count 14.5 10^3/uL (4.8-10.8)
[2023-05-20 06:09] LABS: O2 Therapy ROOM AIR
[2023-05-20 06:15] LABS: APTT 85.7 Sec (23.4-35.0)
[2023-05-20 06:34] LABS: Blood Urea Nitrogen 38 mg/dl (7-17); Calcium 8.3 mg/dl (8.4-10.2); Carbon Dioxide 34 mmol/L (22-30); Chloride 90 mmol/L (98-107); Estimated Creatinine Clearance 27 ml/min; Glucose 147 mg/dl (70-99); Potassium 3.5 mmol/L (3.5-5.1); Sodium 130 mmol/L (135-145)
--- NOTE | 2023-05-20 07:14 | W.PN.INTV ---
Today's Communication / Plan
Recommendations
Out of bed to chair, PT/OT
Consider discontinuing Marrufo catheter
Heparin therapy continues, eventual transition to oral anticoagulation for right DVT
Follow blood sugars, consider restarting glipizide
Okay for transfer out of ICU. Pulmonary will continue to follow
Assessment
-
Mrs Rosi Kinney is a 73/W adm 05-12 for planned L hip surgery, received surgery on 05-13, developed postop moderate to severe anemia, received up to 4 U PRBCs. Pulm consulted 05-16 for hypoxemia, noted need for IM evaluation given worsening renal
function, hyperkalemia, hypoglycemia. Seen by Hospitalist antione and Nephrology on 05-16, adjustment of inpatient regimen, renal pci security consultant suspected potential need for HD which was discussed and accepted by patient and family. MS deteriorated in late
afternoon/early evening 05-16, transferred to IMU, severe resp acidosis, negative head CT, started on BPAP
Acute hypercapnic respiratory failure
Required BiPAP
Transferred to ICU 05/17/2023
Acute right lower extremity DVT
Heparin started without bolus 05/17/2023
Acute renal failure requiring hemodialysis 05/17/2023
S/p Left conversion total hip arthroplasty, removal of hardware 05-13
Moderate postop anemia
S/p 4U PRBCS on 05-13 and
Mild mediastinal LAD
Morbid obesity BMI 43.5
Persistent hypoglycemia
Requiring D10 IV fluids
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
1. Osteoarthritis.
2. Osteopenia.
3. Morbid obesity, BMI 39.4.
4. 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
5. CKD 3.
6. Anemia.
7. Peripheral arterial disease. Mild on ABIs.
8. Hypertension.
9. Hyperlipidemia.
10. Irritable bowel with diarrhea.
11. Vitamin D deficiency.
12. Left hip ORIF with gamma nail 02/14/2023
Bladder sling
Hysterectomy
Cholecystectomy
Nonsmoker
Plan/recommendations
At this time, patient appears to be improved objectively and subjectively
Tolerating BiPAP overnight, mental status improved
Hemoglobin stable, acid-base status improved
ABG this morning 7.49// on room air
Completed HD 05/17, creatinine improved, no HD since
Hypoglycemia stabilized, now off D10
Sodium improved to 130
Remains on heparin drip without bolus
Moving forward
Continue with out of bed to chair, PT/OT per orthopedic protocol
Minimize narcotic therapy as able
Continue Tylenol for pain, patient feels this is adequate
Incentive spirometry, PT/OT, out of bed to chair as able
Continue to hold gabapentin, would discontinue
If she does not require narcotic therapy, gabapentin, will discontinue BiPAP
Mild wheezing on exam, improved with cough
Incentive spirometry
Strongly recommend outpatient sleep evaluation
Remains on heparin drip for right DVT
Eventual transition to oral anticoagulation. Hold for now given ongoing renal issues
Urine output brisk
Creatinine improved, potassium improved
Right IJ HD catheter/pigtail in place
Nephrology following. No plans for HD today
Hyperglycemia noted
Restarted standing insulin, consider restarting glipizide
Follow blood sugars
Off D10 for greater than 48 hours
Tolerating diet
Remains afebrile and hemodyn stable
Blood culture pending
Urine culture yeast with gram-negative bacilli. Marrufo catheter in place
Consider discontinuing Marrufo if okay with nephrology
Defer any antibiotics to primary service
Echocardiogram normal biventricular function, technically difficult, normal PA pressure
Follow weights, nephrology following
Noted s/p 4U PRBCs post surgery and elevated BNP
Follow hemoglobin, prefer not to transfuse unless absolutely necessary, hemoglobin less than 7
Maintain active type and screen
Encourage PT/OT, out of bed per orthopedic surgery
Reviewed with critical care nursing, respiratory care, pharmacy
Okay for transfer out of ICU from pulmonary standpoint
Pulmonary will continue to follow
Subjective Dataa
Subjective Data
Date of Service:
Date of Service: May 20, 2023
Subjective:
Patient appears to be comfortable. She denies chest pain. She does have a mild cough. Denies nausea, abdominal pain. Tolerated BiPAP overnight. Negative fluid status noted
Objective Data
Data Reviewed
Vital Signs / I&O / Oxygen:
Vital Signs
Temp Pulse Resp BP Pulse Ox
97.6 F 90 18 131/60 96
05/20/23 03:22 05/20/23 07:00 05/20/23 07:00 05/20/23 07:00 05/20/23 07:00
Intake and Output
05/19/23 05/20/23 05/21/23
06:59 06:59 06:59
Intake Total 1260 / 1271 914 / 914
Output Total 5360 / 5360 2125 / 2125
Balance -4100 / -4089 -1211 / -1211
SaO2 96
Nasal Cannula flow liters per 2
minute
Physical Exam
General: Comfortable, Other (Right IJ/pigtail catheter) and Other (Large neck)
HEENT: Normocephalic and Anicteric
Cardiovascular: S1-S2, Regular Rhythm, Murmur (n), Rub (n), Peripheral Edema (tr) and Calf Tenderness (n)
Respiratory: Wheeze (Mild with cough), Crackles (n), Rhonchi (n) and Stridor (n)
GI: Soft, Non Distended (Obese) and Non Tender
Neurology: Awake, Alert and No Motor Deficits (Moves all extremities, generally weak)
Skin: Cyanosis (n), Jaundice (n) and Rash (n)
Labs/Micro/Reports
Lab Data
05/20/23 05:28
05/20/23 05:28
Laboratory Results
05/20/23 05/20/23
05:28 05:52
APTT 85.7 H
pH 7.49 H
pCO2 44 H
pO2 69 L
HCO3 33.5 H
O2 Delivery Level Room air
Microbiology
05/16/23 17:30 Blood/Venous Blood Culture - Preliminary
No Growth in 72 hours- Final report to follow
05/16/23 16:41 Blood/Venous Blood Culture - Preliminary
No Growth in 72 hours- Final report to follow
05/16/23 18:19 Urine Urine Culture - Final
Yeast
Gram negative bacilli
[2023-05-20 07:44] LABS: Glucose - Point of Care 172 mg/dl (70-99)
[2023-05-20] MEDS: NORVASC PO (07:55)
[2023-05-20] MEDS: VITAMIN D3 (cholecalciferol) 25 MCG PO (07:55)
[2023-05-20] MEDS: TYLENOL 650 MG PO ×4 (07:55→20:47)
[2023-05-20] MEDS: ASPIR LOW (ENTERIC COATED) 81 MG PO (07:56)
[2023-05-20] MEDS: NOVOLOG FLEXPEN-LOW RESISTANCE 1 UNITS SC (08:14)
--- NOTE | 2023-05-20 08:19 | WOUNDNOTE ---
[facility] RN NOTE: Patient visited for new stage 3 PI of left upper posterior thigh. On assessment patient has +2-+3 edema from radiating from thighs to feet. There is a .5x.5.x.1 stage 3 PI on thigh that is likely a combination of pressure and moisture
as the wound as found in the thigh fold. Base of wound is white, no erythema or induration noted around wound. No drainage noted on foam dressing. Wound was appropriately treated by RN who noted the wound on 05/17. Patient has several co-morbidities
including hypoxia, DM, and obesity, and poor mobility. She requires the assistance of 2 people to turn in bed. Will recommend PRN medi-honey and foam dressing to wound. Patient remains on air bed and was positioned on left-semi side lying position.
Marrufo intact for moisture management and heels intact. Patient is on a low sodium diet and states her appetite is fair. Will continue to follow as needed.
--- NOTE | 2023-05-20 08:35 | PTCARENOTE ---
Rec'd pt at 0730 awake alert and oriented resting in bed. Overall states she feels ok. Speech is clear. Denies dizziness or headache. CAICEDO but is generally weak. Limited movement of the L lower leg but good CMS checks to L leg. Skin is pale pink wm
and dry. L hip aquacell dressing is D+I. L knee aquacell dressing with small area of old drainage. L posterior thigh wound with pink wound bed. Respirs are unlabored- Initally rec'd pt on 2L nc- with sats of 96%- tried on RA initally sats 90-91% but
then was dipping down to 87-88% and 1L NC applied with sats of 96%. Pt with moist non-prod cough. BS are sl coarse with exp wheezing posteriorly. Getting about [id number] on IS. Encouraged pt to do IS q1hr. Monitior SR with PAC's . + pulses. PT and
DP pulses with the doppler. +1 generalized anasarca. Denies chest pain. VS as documented. Abd is obese/round with + SL hypoactive BS. Denies nausea. Marrufo intact for yellow urine. Capped RIJ HD cath with pigtail intact-site wnl. Heparin gtt infusing
via R forearm int at 1100 units/hr. Capped int inact L arm. Sites wnl. Pt turned and repositioned. Will admit to L hip/leg soreness with movement but not so much at rest. Did not want anything stronger this am then her scheduled Tylenol. Ready to
eat breakfast currently. Call montejo in reach. Plan of care reviewed with pt. Will monitor.
--- NOTE | 2023-05-20 09:43 | W.PN.UPDATE ---
Update Note
Progress Note Update
Pt underwent a Conversion to L AMILCAR w/ Dr Velasquez 05/13/23.
Pt appears to be doing very well this AM. Is conversational and pleasant.
Notable improvement in her BMP compared to previous assessments.
Hgb remaining stable at 7.6. Would prefer not to transfuse unless hgb <7 or patient symptomatic.
Proximal dressing remaining C/D/I. Distal dressing w/ area of old incisional bleeding, unchanged since prior assessment (circled for comparison).
L thigh and calf soft/NTTP. No pain w/ dorsiflexion of L foot. No visible hematoma. Able to wiggle toes b/l.
She should continue touch down weight bearing LLE x6 weeks.
She may follow up w/ [facility] 2 weeks post operatively for x-rays and an incision check. Keep dressings in place until then.
Currently on Heparin 2* right posterior tibial thrombus. Consider alternative forms of anti-coagulation once d/c.
Laura-op antibiotics w/ Ancef complete.
Continue PT/OT as able. Would encourage OOB as much as tolerated.
Probable move off ICU floor today considering how well shes doing. I commended her for her significant progress.
--- NOTE | 2023-05-20 10:18 | W.PN.NEPH.PH ---
Today's Communication / Plan
-
d/c palomino and HD catheter
Assessment/Plan
-
IMP:
Acute hypoxic respiratory insufficiency
STEPHANIE on CKD stage 3, baseline cr 1.2-1.5 Dr Etienne
Hyponatremia, hypervolemic from volume overload
severe Hyperkalemia
Post-op acute blood loss anemia- s/p 4 units PRBCs
Hypoglycemia likely related to STEPHANIE and poor clearance of meds
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
Leucocytosis,
Hx of Left hip ORIF with gamma nail 02/14/2023, Left conversion total hip arthroplasty, removal of hardware 05-13
Underlying osteoarthritis, osteopenia, Vit D deficiency
Super Morbid Obesity d/t excess calories
PAD
Essential HTN
HLD
IBS with diarrhea
Suspected sleep disorder breathing-will need outpatient evaluation and PSG
Plan:
Admit for left hip arthroplasty on 05/13
STEPHANIE-no clear etiology, KUS unremarkable , HD x1 05/17
subnephrotic proteinuria 1.2gm/gm of cr-send serologies and paraprotein w/u. FÁTIMA and complements wnl. hep B negative
Cr down to 1.8 today (peak 5.2)
post ATN diuresis phase seem to improving, non oliguric
ok to d/c palomino and HD catheter
may resume lasix in next 1-2days
avoid nephrotoxins, holding farxiga and metformin
Hyponatremia-suspect hypervolemia, U osmo 300, U high with lasix
Na stable at 130.
BP are stable with out hypotension, echo normal EF
follow h/h , IV Fe course
on heparin gtt per ICU for DVT
d/w nursing and ICU
-
-
Date of Service: May 20, 2023
CC / HPI / ROS
-
Chief Complaint:
STEPHANIE, hyperkalemia
History of Present Illness:
cr improved to 1.8, non oliguric with palomino
wt down, Na stable at 130,
pt mentation improved to baseline
WBC up today
hb remains low 7.7
sodium at 130
Review of Systems:
no cp
slept well last night with BIPAP
no fever
Labs
-
Labs:
WBC 14.5 10^3/uL (4.8-10.8) H 05/20/23 05:28
RBC 2.58 10^6/uL (4.20-5.40) L 05/20/23 05:28
Hgb 7.7 g/dL (12.0-16.0) L 05/20/23 05:28
Hct 23.1 % (37.0-47.0) L 05/20/23 05:28
Plt Count 357 10^3/uL (130-400) 05/20/23 05:28
Sodium 130 mmol/L (135-145) L 05/20/23 05:28
Potassium 3.5 mmol/L (3.5-5.1) 05/20/23 05:28
Chloride 90 mmol/L (98-107) L 05/20/23 05:28
Carbon Dioxide 34 mmol/L (22-30) H 05/20/23 05:28
BUN 38 mg/dl (7-17) H 05/20/23 05:28
Creatinine 1.8 mg/dL (0.6-1.0) H 05/20/23 05:28
eGFR 29.20 05/20/23 05:28
Glucose 147 mg/dl (70-99) H 05/20/23 05:28
Calcium 8.3 mg/dl (8.4-10.2) L 05/20/23 05:28
Irg-F-Xriybstdfbg Pept 6110 pg/ml 05/16/23 10:06
Albumin 2.4 g/dl (3.5-5.0) L 05/17/23 03:59
Physical Exam
-
Vital Signs:
Vital Signs
Temp Pulse Resp BP Pulse Ox
98.9 F 91 18 148/55 93
05/20/23 08:00 05/20/23 09:00 05/20/23 09:00 05/20/23 09:00 05/20/23 09:00
Cardiovascular:: Regular rate and rhythm
Respiratory:: Bilateral: Coarse and Bilateral: Wheeze
Lung Excursion:: Normal
Abdomen:: Nontender and Soft
Extremity Edema:: +1: Right: and +2: Left:
Palomino Catheter: Yes
--- NOTE | 2023-05-20 10:36 | WOUNDNOTE ---
[facility] RN NOTE: Patient visited for a stage 3 PI of left upper posterior thigh. On assessment patient has +2-+3 edema from radiating from thighs to feet. There is a .5x.5.x.1 stage 3 PI on thigh that is likely a combination of pressure and moisture as
the wound as found in the thigh fold. Patient stated she has had this wound since January. Base of wound is white, no erythema or induration noted around wound. No drainage noted on foam dressing. Wound was appropriately treated by RN who noted the
wound on 05/17. Patient has several co-morbidities including hypoxia, DM, and obesity, and poor mobility. She requires the assistance of 2 people to turn in bed. Will recommend PRN medi-honey and foam dressing to wound. Patient remains on air bed
and was positioned on left-semi side lying position. Marrufo intact for moisture management and heels intact. Patient is on a low sodium diet and states her appetite is fair. Will continue to follow as needed.
--- NOTE | 2023-05-20 10:38 | WOUNDNOTE ---
LEFT POSTERIOR THIGH
--- NOTE | 2023-05-20 10:43 | W.PN.HOSP.TC ---
Today's Communication/Plan
-
Monitor vital signs see plan
Continue with heparin drip for now, switch to oral anticoagulation when hemoglobin stable
Monitor renal function, Marrufo per nephrology
Renal function improving
Wean oxygen as tolerated
BiPAP as necessary
Restart glimepiride, continue Lantus
PT/OT
Transfer out of ICU
Assessment / Plan
Assessment / Plan
Assessment:
Acute hypoxic and hypercarbic respiratory failure
- multi-factorial from pain meds, volume overload, post-op atelectasis
- CTA study without PE, small effusions, atelectasis
- required BIPAP for acidosis; serial ABGs with improvement. now bipap prn and mainly at night; wean o2 as tolerated
- prn nebs
- stop pain meds (see below)
- Pulmonary following; slowly getting better. Wean oxygen as tolerated. Transfer out of ICU
STEPHANIE With suspected ATN on CKD stage 3b
Hyponatremia, hypervolemic from volume overload
Hyperkalemia,now improving
- hold nephrotoxins as able
-DC Marrufo catheter per nephrology
- s/p IV Lasix
Received HD 05/17. Now appears to be auto diuresing and creatinine improving. No plans for further dialysis.
- BNP elevated; TTE 05/17 with normal EF. Volume overloaded only. No signs of CHF
- Nephrology following
Toxic Metabolic Encephalopathy� from opiates, STEPHANIE, hypoxia/hypercapnia
improved
suspect acute on chronic as on PO iron; exacerbated by Post-op acute blood loss anemia
- s/p 4 units PRBCs; Hb 7.7
- monitor Hb and signs of bleeding
- will utilize IV iron infusions; noted to be on oral iron
good iron stores
Hyponatremia
monitor
Hypoglycemia likely related to STEPHANIE and poor clearance of meds
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
- holding Glimepiride/Metformin/Farxiga
- utilize SSI only for now
- A1c: 6.2% 2 weeks ago
now off D10; started back on lantus. would stop metformin at this time. Slowly restart farxiga and glimepiride
Acute right lower extremity DVT
Heparin started without bolus 05/17/2023
Leukocytosis, attributed to stress reaction lashon-operatively
- joint synovial fluid no growth
-UA dirty with some yeast, gram-negative bacilli but only 6000. Will monitor off antibiotic
Hx of Left hip ORIF with gamma nail 02/14/2023; now admitted with Left conversion total hip arthroplasty, removal of hardware 05-13
Underlying osteoarthritis, osteopenia, Vit D deficiency
- follow orthopedics recs
- stop all sedating opiates/pain meds with development of hypercarbia. use Tylenol TID + prn.
- continue Vit D
- on hep gtt for DVT ppx; switch to PO AC if hgb continues to be stable
- eventual SNF when medically cleared
Super Morbid Obesity d/t excess calories
PAD
- continue ASA/Statin
Essential HTN
- continue Amlodipine
- hold HCTZ
HLD
- statin
IBS with diarrhea
- prn Imodium
Suspected sleep disorder breathing-will need outpatient evaluation and PSG
DVT ppx: heparin
Code: Full
General: Appears Chronically Ill and Obese
HEENT: Normocephalic, Atraumatic
Respiratory: CTA; no wheezing
Cardiac: Regular Rhythm and S1/S2
GI: Soft
Musculoskeletal: Edema, Right Lower Extrem and Edema, Left Lower Extrem
Neuro: AAOX2
Psych: Calm
I spent a total of 52 minutes with the patient or on the floor. More than 50% of this time involved counseling and coordination of care.
Anticipated Discharge: > 48 hours
Subjective/Interval History
-
Date of Service: May 20, 2023
Denies pain
Objective Data
-
Labs:
Laboratory Results
05/20/23 05/20/23
05:28 05:52
WBC 14.5 H
Hgb 7.7 L
Hct 23.1 L
Plt Count 357
APTT 85.7 H
HCO3 33.5 H
Sodium 130 L
Potassium 3.5
Chloride 90 L
Carbon Dioxide 34 H
BUN 38 H
Creatinine 1.8 H
Glucose 147 H
Calcium 8.3 L
Vital Signs:
Vital Signs
Temp Pulse Resp BP Pulse Ox
98.9 F 91 18 148/55 93
05/20/23 08:00 05/20/23 09:00 05/20/23 09:00 05/20/23 09:00 05/20/23 09:00
I&O
05/19/23 05/20/23 05/21/23
06:59 06:59 06:59
Intake Total 1260 / 1271 914 / 925 233 / 233
Output Total 5360 / 5360 2125 / 2125 250 / 250
Balance -4100 / -4089 -1211 / -1200 -
--- NOTE | 2023-05-20 10:45 | PTCARENOTE ---
Good appetite overall for breakfast. Talked to her sister via phone in [place]. Wound RN here and wound care done to L posterior thigh wound as documented. Complete CHG bath given as pt was sweaty. Hair washed and pt did her own oral care.
Bradley in and candelario dc'd at 1030 per md order. Purewick placed for now. Will dc HD cath this afternoon after her dose of Venofer. Turned and repositioned. Awaiting PT/OT. No other changes.
[2023-05-20 11:08] LABS: Myeloperoxidase Antibody 0 AU/mL (0-19); Serine Protease-3, IgG 3 AU/mL (0-19)
[2023-05-20 11:41] LABS: Glucose - Point of Care 215 mg/dl (70-99)
[2023-05-20] MEDS: GLUCOTROL 2.5 MG PO (12:32)
[2023-05-20] MEDS: NOVOLOG FLEXPEN-LOW RESISTANCE 300 UNITS SC (12:33)
--- NOTE | 2023-05-20 13:00 | PTCARENOTE ---
Assessment overall is unchanged. Currently PT in to see pt and with assist of 2-3 assisted pt oob to the chair. Gait is very weak. Used a walker. Limited movement of the L leg. Per MD order. Partial wt bearing on the L leg. Currently ready to have
lunch. Call montejo in reach. Will continue to monitor.
--- NOTE | 2023-05-20 13:40 | PTCARENOTE ---
Has taken O2 back off when pt got oob as she was on 1l and sats remained 90-92% however dozed off in the chair and sats dipped to 80%- placed back on the 1l nc with sats up to 95%
--- NOTE | 2023-05-20 13:44 | CM ---
CM following re: discharge planning.
Discussed in Rounds, reviewed pt's chart, met with pt. Per Rounds meeting, pt is treating for Acute hypercapnic respiratory failure. Required BiPAP. Requires 2L NC of O2, has been improving and will be downgraded from ICU level of care.
PT and OT recommend SNF level of care.
The plan continues to be for patient to go to [facility] and according to [facility] admissions department [facility] pt will be accepted when medically stable and based on bed availability on the day of discharge.
NPI for [facility]: [phone] or [phone].
Admitting physician: Dr. Daniel Mattson
Patient will need stretcher transport due to hip precautions (medical necessity and transport forms on chart).
D/C plan: [facility] based on bed availability on the day of discharge.
CM will follow to assist pt with discharge to [facility]
[2023-05-20] MEDS: FERRLECIT 110 MG IV (14:31)
[2023-05-20] MEDS: FLUSH (NSS) 2 FLUSH IV (14:31)
--- NOTE | 2023-05-20 14:46 | PTCARENOTE ---
Remains sitting oob in the chair. No complaints offered currently. Chary sen and when infusion is completed will get pt back to bed and have RIJ Hemodialyis catheter removed. HNV since palomino removed
[2023-05-20] MEDS: HEPARIN 25000 UNITS/250 ML IV (15:46)
--- NOTE | 2023-05-20 16:00 | PTCARENOTE ---
Assisted with Assist of 2 back to bed using a walker. Gait remains weak and is doing the partial wt bearing on the L leg although need direction when she is standing to move her feet- especially her L foot. VS as documented. Pt has not voided since
palomino removed BLadder scanned for 114 mls-Aware that pt is on a 1500 ml fluid restriction but did encourage pt to drink a little more than what she has been today. Purewick replaced. Repositioned. Will continue to monitor.
[2023-05-20 16:38] LABS: Glucose - Point of Care 243 mg/dl (70-99)
[2023-05-20] MEDS: NOVOLOG FLEXPEN-LOW RESISTANCE 2 UNITS SC (17:55)
--- NOTE | 2023-05-20 18:00 | PTCARENOTE ---
No changes in assessment. Family in to visit. Eating dinner currently
--- NOTE | 2023-05-20 18:00 | PTCARENOTE ---
IV team in at 1700 and RIJ HD removed per MD request. Pt flat for 30-40 min and now HOB elevated. Dressing with small amt of blood but no swelling. No other changes in assessment. Family at the bedside. Ready to eat dinner.
--- NOTE | 2023-05-20 21:15 | PTCARENOTE ---
Assumed care of pt at 1900. Pt is IMU level of care. Pt is A/O x4, pleasant and cooperative with care. Received pt on Heparin drip at 1100 units/hr, PTT has been therapeutic and will be drawn next in AM. Pt reports pain to left hip with
movement/turning, medicated with scheduled Tylenol, see EMAR. SR 70s-80s on monitor, SpO2 94% on 1LNC. Pt attempted to have BM on bedpan but was unsuccessful. Laura care done and new Purewick placed on patient. Left hip and left lateral thigh
dressings are dry and intact, distal dressing with old drainage noted. Physical assessment completed, see nursing shift assessment flowsheet for full details. Call montejo and personal items within reach.
[2023-05-20] MEDS: LANTUS 0.100000000000000006 UNITS SC (21:46)
[2023-05-20 21:49] LABS: Glucose - Point of Care 183 mg/dl (70-99)
[2023-05-21] VITALS (17 sets, daily range): BP systolic 117–147; BP diastolic 45–60; PULSE 2–78; BMI 37.7
[2023-05-21] MEDS: TYLENOL PO (00:29)
[2023-05-21] MEDS: ROBITUSSIN 200 MG PO (01:48)
[2023-05-21 02:56] LABS: 24 Hour Urine Total Volume Random mL; Urine Collection Length Random hr; Urine Free Kappa Light Chains 102.02 mg/L (0.00-32.90); Urine Free Lambda Light Chains 34.73 mg/L (0.00-3.79)
[2023-05-21] MEDS: TYLENOL 650 MG PO ×5 (03:55→20:45)
[2023-05-21 04:11] LABS: Hematocrit 22.7 % (37.0-47.0); Hemoglobin 7.7 g/dL (12.0-16.0); Mean Corp Hgb Conc. 33.9 g/dL (33.0-37.0); Mean Corpuscular Hgb 29.4 pg (27.0-31.0); Mean Corpuscular Volume 86.6 fL (81.0-99.0); Mean Platelet Volume 8.4 fL (7.4-10.4); Platelet Count 369 10^3/uL (130-400); Red Blood Cell Count 2.62 10^6/uL (4.20-5.40); Red Cell Dist. Width 15.2 % (11.5-14.5); White Blood Cell Count 18.1 10^3/uL (4.8-10.8)
[2023-05-21 04:27] LABS: APTT 138.4 Sec (23.4-35.0)
[2023-05-21 04:29] LABS: Absolute Neutrophils -Man Diff 13.2 10^3/uL (1.4-6.5); Band Neutrophils 3 % (0-3); Eosinophils 1 % (0-6); Lymphocytes 20 % (20-51); Metamyelocytes 2 % (-); Monocytes 2 % (2-9); Myelocytes 2 % (-); Segmented Neutrophils 70 % (42-75)
[2023-05-21 04:30] LABS: Anisocytosis Slight; Normal RBC Morphology No; Platelets Checked Yes; Polychromasia Slight; Total Cells Counted 100
[2023-05-21 04:43] LABS: Blood Urea Nitrogen 35 mg/dl (7-17); Calcium 8.5 mg/dl (8.4-10.2); Carbon Dioxide 33 mmol/L (22-30); Chloride 93 mmol/L (98-107); Estimated Creatinine Clearance 32 ml/min; Glucose 132 mg/dl (70-99); Potassium 3.2 mmol/L (3.5-5.1); Sodium 131 mmol/L (135-145); eGFR 36.34
--- NOTE | 2023-05-21 05:14 | PTCARENOTE ---
Throughout the shift pt has gotten very little sleep. On and off bedpan 3 or 4 times to attempt to have a BM with no success. Laura care done and purewick changed again at around 0415, this has been working well and draining serena urine. SR 70s on
monitor. Was on bipap for part of shift but wanted to come off around 0130 and remain off, has been on 1LNC. Remains on heparin drip, supratherapeutic with AM labs and is currently on hold, will resume at 800 units/hr when restarted.
--- NOTE | 2023-05-21 07:10 | W.PN.INTV ---
Today's Communication / Plan
Recommendations
Leukocytosis noted, follow-up per primary
Marrufo catheter removed
Urine culture noted, defer antibiotics to primary
Continue BiPAP
Follow-up in the sleep clinic, information left in chart
We will sign off. Please call with questions
Assessment
-
Mrs Rosi Kinney is a 73/W adm 05-12 for planned L hip surgery, received surgery on 05-13, developed postop moderate to severe anemia, received up to 4 U PRBCs. Pulm consulted 05-16 for hypoxemia, noted need for IM evaluation given worsening renal
function, hyperkalemia, hypoglycemia. Seen by Hospitalist antione and Nephrology on 05-16, adjustment of inpatient regimen, renal parts consultant suspected potential need for HD which was discussed and accepted by patient and family. MS deteriorated in late
afternoon/early evening 05-16, transferred to IMU, severe resp acidosis, negative head CT, started on BPAP
Acute hypercapnic respiratory failure
Required BiPAP
Transferred to ICU 05/17/2023
Acute right lower extremity DVT
Heparin started without bolus 05/17/2023
Acute renal failure requiring hemodialysis 05/17/2023
S/p Left conversion total hip arthroplasty, removal of hardware 05-13
Moderate postop anemia
S/p 4U PRBCS on 05-13 and
Mild mediastinal LAD
Morbid obesity BMI 43.5
Persistent hypoglycemia
Requiring D10 IV fluids
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
1. Osteoarthritis.
2. Osteopenia.
3. Morbid obesity, BMI 39.4.
4. 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
5. CKD 3.
6. Anemia.
7. Peripheral arterial disease. Mild on ABIs.
8. Hypertension.
9. Hyperlipidemia.
10. Irritable bowel with diarrhea.
11. Vitamin D deficiency.
12. Left hip ORIF with gamma nail 02/14/2023
Bladder sling
Hysterectomy
Cholecystectomy
Nonsmoker
Plan/recommendations
At this time, patient appears to be improved objectively and subjectively
Tolerating BiPAP overnight, mental status improved
Hemoglobin stable, acid-base status improved
White count noted
Right IJ HD catheter removed
Hypoglycemia stabilized, now off D10
Sodium improved to 130
Remains on heparin drip without bolus
Moving forward
Continue with out of bed to chair, PT/OT per orthopedic protocol
Minimize narcotic therapy as able
Continue Tylenol for pain, patient feels this is adequate
Incentive spirometry, PT/OT, out of bed to chair as able
Continue to hold gabapentin, would discontinue
Wheezing improved on exam
Incentive spirometry
Strongly recommend outpatient sleep evaluation
Leukocytosis noted. Follow
Remains on heparin drip for right DVT
Eventual transition to oral anticoagulation. Hold for now given ongoing renal issues
Urine output brisk
Creatinine improved, potassium improved
Right IJ HD catheter/pigtail in place
Nephrology following. No plans for HD today
Hyperglycemia noted
Restarted standing insulin, and glimepiride
Follow blood sugars
Remains afebrile and hemodyn stable
Blood culture pending
Urine culture yeast with gram-negative bacilli. Marrufo catheter in place
Consider discontinuing Marrufo if okay with nephrology
Defer any antibiotics to primary service, leukocytosis noted
Echocardiogram normal biventricular function, technically difficult, normal PA pressure
Follow weights, nephrology following
Noted s/p 4U PRBCs post surgery and elevated BNP
Follow hemoglobin, prefer not to transfuse unless absolutely necessary, hemoglobin less than 7
Maintain active type and screen
Encourage PT/OT, out of bed per orthopedic surgery
Reviewed with critical care nursing, respiratory care, pharmacy
Follow-up in the sleep clinic, information left in chart
We will sign off. Please call with questions
Subjective Dataa
Subjective Data
Date of Service:
Date of Service: May 21, 2023
Subjective:
Patient is subjectively improved. Sitting in chair, eating lunch with family at bedside. Denies chest pain, abdominal pain, nausea. Tolerating Tylenol for pain control. Tolerating BiPAP at night
Objective Data
Data Reviewed
Vital Signs / I&O / Oxygen:
Vital Signs
Temp Pulse Resp BP Pulse Ox
98.5 F 71 15 142/50 94
05/21/23 04:20 05/21/23 06:00 05/21/23 06:00 05/21/23 06:00 05/21/23 06:00
Intake and Output
05/20/23 05/21/23 05/22/23
06:59 06:59 06:59
Intake Total 914 / 925 982.25 / 982.25
Output Total 2125 / 2125 800 / 800
Balance -1211 / -1200 182.25 / 182.25
SaO2 94
Nasal Cannula flow liters per 1
minute
Physical Exam
General: Comfortable, Other (Right IJ/pigtail catheter) and Other (Large neck)
HEENT: Normocephalic and Anicteric
Cardiovascular: S1-S2, Regular Rhythm, Murmur (n), Rub (n), Peripheral Edema (tr) and Calf Tenderness (n)
Respiratory: Wheeze (Mild with cough), Crackles (n), Rhonchi (n) and Stridor (n)
GI: Soft, Non Distended (Obese) and Non Tender
Neurology: Awake, Alert and No Motor Deficits (Moves all extremities, generally weak)
Skin: Cyanosis (n), Jaundice (n) and Rash (n)
Labs/Micro/Reports
Lab Data
05/21/23 04:02
05/21/23 04:02
Laboratory Results
05/21/23
04:02
APTT 138.4 H
Microbiology
05/16/23 17:30 Blood/Venous Blood Culture - Preliminary
No Growth in 4 days- Final report to follow
05/16/23 16:41 Blood/Venous Blood Culture - Preliminary
No Growth in 4 days- Final report to follow
05/16/23 18:19 Urine Urine Culture - Final
Yeast
Gram negative bacilli
[2023-05-21 07:14] LABS: Glucose - Point of Care 124 mg/dl (70-99)
[2023-05-21] MEDS: NOVOLOG FLEXPEN-LOW RESISTANCE SC (08:18)
[2023-05-21] MEDS: GLUCOTROL 2.5 MG PO (08:19)
[2023-05-21] MEDS: ASPIR LOW (ENTERIC COATED) 81 MG PO (08:19)
[2023-05-21] MEDS: ELIQUIS 10 MG PO ×2 (08:19→20:45)
[2023-05-21] MEDS: VITAMIN D3 (cholecalciferol) 25 MCG PO (08:20)
[2023-05-21] MEDS: NORVASC 2.5 MG PO (08:21)
[2023-05-21] MEDS: KCL 40 MEQ PO (08:21)
--- NOTE | 2023-05-21 10:43 | W.PN.NEPH.PH ---
Today's Communication / Plan
-
reaplce k
follow labs
Assessment/Plan
-
IMP:
Acute hypoxic respiratory insufficiency
STEPHANIE on CKD stage 3, baseline cr 1.2-1.5 Dr Etienne
Hyponatremia, hypervolemic from volume overload
severe Hyperkalemia
Post-op acute blood loss anemia- s/p 4 units PRBCs
Hypoglycemia likely related to STEPHANIE and poor clearance of meds
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
Leucocytosis,
Hx of Left hip ORIF with gamma nail 02/14/2023, Left conversion total hip arthroplasty, removal of hardware 05-13
Underlying osteoarthritis, osteopenia, Vit D deficiency
Super Morbid Obesity d/t excess calories
PAD
Essential HTN
HLD
IBS with diarrhea
Suspected sleep disorder breathing-will need outpatient evaluation and PSG
Plan:
Admit for left hip arthroplasty on 05/13
STEPHANIE-no clear etiology, KUS unremarkable , HD x1 05/17
subnephrotic proteinuria 1.2gm/gm of cr-send serologies and paraprotein w/u. FÁTIMA and complements wnl. hep B negative
Cr down to 1.5 today at baseline, off foely
lasix prn, wt decreasing
avoid nephrotoxins, holding farxiga and metformin for now, may resume at d/c
Hyponatremia-suspect hypervolemia, sodium better at 131, FR 48 ounces/day
BP are stable with out hypotension, echo normal EF
follow h/h , IV Fe course, prn trasnfusion
On Eliquis per ICU for DVT
d/w pt
-
-
Date of Service: May 21, 2023
CC / HPI / ROS
-
Chief Complaint:
STEPHANIE, hyperkalemia
History of Present Illness:
cr improved to 1.5, off palomino
wt down, Na stable at 131,
WBC up today 18k
hb remains low 7.7
sodium at 131
Review of Systems:
no cp or sob
no fever
Labs
-
Labs:
WBC 18.1 10^3/uL (4.8-10.8) H 05/21/23 04:02
RBC 2.62 10^6/uL (4.20-5.40) L 05/21/23 04:02
Hgb 7.7 g/dL (12.0-16.0) L 05/21/23 04:02
Hct 22.7 % (37.0-47.0) L 05/21/23 04:02
Plt Count 369 10^3/uL (130-400) 05/21/23 04:02
Sodium 131 mmol/L (135-145) L 05/21/23 04:02
Potassium 3.2 mmol/L (3.5-5.1) L 05/21/23 04:02
Chloride 93 mmol/L (98-107) L 05/21/23 04:02
Carbon Dioxide 33 mmol/L (22-30) H 05/21/23 04:02
BUN 35 mg/dl (7-17) H 05/21/23 04:02
Creatinine 1.5 mg/dL (0.6-1.0) H 05/21/23 04:02
eGFR 36.34 05/21/23 04:02
Glucose 132 mg/dl (70-99) H 05/21/23 04:02
Calcium 8.5 mg/dl (8.4-10.2) 05/21/23 04:02
Uzc-N-Pzqhbgonzrs Pept 6110 pg/ml 05/16/23 10:06
Albumin 2.4 g/dl (3.5-5.0) L 05/17/23 03:59
Physical Exam
-
Vital Signs:
Vital Signs
Temp Pulse Resp BP Pulse Ox
98.5 F 78 15 139/47 94
05/21/23 07:34 05/21/23 08:21 05/21/23 06:00 05/21/23 08:21 05/21/23 06:00
Cardiovascular:: Regular rate and rhythm
Respiratory:: Bilateral: CTA
Lung Excursion:: Normal
Abdomen:: Nontender and Soft
Extremity Edema:: +1: Right: and +2: Left:
Palomino Catheter: No
[2023-05-21] MEDS: NOVOLOG FLEXPEN-LOW RESISTANCE 2 UNITS SC ×2 (12:03→18:16)
[2023-05-21 12:13] LABS: Glucose - Point of Care 211 mg/dl (70-99)
--- NOTE | 2023-05-21 12:18 | PTCARENOTE ---
pt awake and alert this am , pleasant , NSR on monitor , on heparin gtt , pt was switched to OAC this am , pt off heparin since 0900 , BP adequate , oob in chair with x 2 assist , tolerating well , labs noted K 3.2 med with 40kcl po , pt sister in
room and updated on current condition and plan of care, pt is now telemetry level of care
--- NOTE | 2023-05-21 13:10 | W.PN.HOSP.TC ---
Today's Communication/Plan
-
empiric rocephin x3 days
start eliquis
transfer tele
rehab on Tuesday
Assessment / Plan
Assessment / Plan
Acute hypoxic and hypercarbic respiratory failure
- multi-factorial from pain meds, volume overload, post-op atelectasis
- CTA study without PE, small effusions, atelectasis
- required BIPAP for acidosis; serial ABGs with improvement. now bipap prn and mainly at night
- pulmonology evaluated and help appreciated .
STEPHANIE With suspected ATN on CKD stage 3b
Hyponatremia - hypervolemic from volume overload
Hyperkalemia
- hold nephrotoxins as able
- DC Marrufo catheter per nephrology
- s/p IV Lasix
- Received HD 05/17. Now appears to be auto diuresing and creatinine improving. No plans for further dialysis.
- BNP elevated; TTE 05/17 with normal EF. Volume overloaded only. No signs of CHF
- Nephrology help appreciated.
Toxic Metabolic Encephalopathy�-resolved
- from opiates, STEPHANIE, hypoxia/hypercapnia
Acute blood loss anemia
- s/p 4 units PRBCs this admit, hbg stabilized ~ 7.5
- monitor Hb and signs of bleeding
- normal ferritin level
Hyponatremia
monitor
Hypoglycemia likely related to STEPHANIE and poor clearance of meds
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
- holding Glimepiride/Metformin/Farxiga
- utilize SSI only for now
- A1c: 6.2% 2 weeks ago
-Continue Lantus/glimepiride and ISS. metformin held with worsening renal function
Acute right lower extremity DVT
- GFR 35, improving renal function - started eliquis 2/24 AM
Leukocytosis
- Trending up - Urine cs showing 6k CFU gram neg bacilli - not a true UTI - give 3 days Rocephin course
- joint synovial fluid no growth
Hx of Left hip ORIF with gamma nail 02/14/2023; now admitted with Left conversion total hip arthroplasty, removal of hardware 05-13
Underlying osteoarthritis, osteopenia, Vit D deficiency
- follow orthopedics recs
- stop all sedating opiates/pain meds with development of hypercarbia. use Tylenol TID + prn.
- continue Vit D
- eventual SNF when medically cleared
Super Morbid Obesity d/t excess calories
PAD
Essential HTN
HLD
IBS with diarrhea
Suspected sleep disorder breathing-will need outpatient evaluation and PSG
DVT ppx: eliquis
Code: Full
Anticipated Discharge: 24 - 48 hours
Subjective/Interval History
-
Date of Service: May 21, 2023
Not worsening any complaints
Discussed importance of using BiPAP
Remains on oxygen through nasal cannula
No reported pain issue in left hip
Objective Data
-
Labs:
Laboratory Results
05/21/23 05/21/23
04:02 11:50
WBC 18.1 H
Hgb 7.7 L
Hct 22.7 L
Plt Count 369
APTT 138.4 H Pending
Sodium 131 L
Potassium 3.2 L
Chloride 93 L
Carbon Dioxide 33 H
BUN 35 H
Creatinine 1.5 H
Glucose 132 H
Calcium 8.5
Vital Signs:
Vital Signs
Temp Pulse Resp BP Pulse Ox
98.5 F 74 17 132/59 93
05/21/23 12:00 05/21/23 12:00 05/21/23 09:49 05/21/23 11:44 05/21/23 12:00
I&O
05/20/23 05/21/23 05/22/23
06:59 06:59 06:59
Intake Total 914 / 925 982.25 / 990.25 516 / 516
Output Total 5 / 5 800 / 800 200 / 200
Balance -1211 / -1200 182.25 / 190.25 316 / 316
Review of Systems
-
Respiratory: Reports No Symptoms
Cardiac: Reports No Symptoms
Abdomen/GI: Reports No Symptoms
Physical Exam
-
General: Comfortable
HEENT: Oxygen
Respiratory: Clear to Auscultation
Cardiac: Regular Rhythm and S1/S2; Negative Murmur or Rub
GI: Soft, Nontender and Nondistended
Musculoskeletal: No Edema and Other (Left hip dressing in place, no bleeding at site)
Neuro: Awake, Alert, Oriented, No Motor Deficits and Nonfocal/Grossly Intact
Psych: Calm
[2023-05-21] MEDS: STERILE WATER FOR INJECTION 10 ML IV (15:27)
[2023-05-21] MEDS: ROCEPHIN 1000 MG IV (15:27)
--- NOTE | 2023-05-21 15:48 | PTCARENOTE ---
pt to transfer to room 2108 , report given to receiving RN
[2023-05-21 16:54] LABS: Glucose - Point of Care 219 mg/dl (70-99)
--- NOTE | 2023-05-21 18:04 | PTCARENOTE ---
pt received to room 2109 from the ICU at 1600. telemetry placed and reading SR in 80's. pt awake and alert, oriented to room, and plan of care w/verbalized understanding. will observe.
[2023-05-21] MEDS: FLUSH (NSS) 2 FLUSH IV (20:53)
[2023-05-21 21:13] LABS: Albumin 2.37 g/dL (3.75-5.01); Alpha 1 Globulin 0.59 g/dL (0.19-0.46); Alpha 2 Globulin 0.71 g/dL (0.48-1.05); SPEP IFE Reflex IFE Done; Total Protein-Electrophoresis 4.7 g/dL (6.3-8.2)
[2023-05-21 21:44] LABS: Glucose - Point of Care 191 mg/dl (70-99)
[2023-05-21] MEDS: LANTUS 0.100000000000000006 UNITS SC (22:56)
[2023-05-22] VITALS (9 sets, daily range): BP systolic 125–154; BP diastolic 51–67; PULSE 2–80; O2SAT 96; BMI 37.8
[2023-05-22] MEDS: TYLENOL 650 MG PO ×7 (00:38→23:44)
[2023-05-22 05:14] LABS: % Basophils 0.2 % (0-2); % Eosinophils 2.9 % (0-6); % Immature Granulocytes 7.5 % (0-0.5); % Lymphocytes 20.5 % (20.5-51.1); % Monocytes 8.3 % (1.7-9.3); % Neutrophils 60.6 % (42.2-75.2); Absolute Eosinophils 0.4 10^3/uL (0-0.7); Absolute Immature Granulocytes 1.1 10^3/uL (0-0.05); Absolute Lymphocytes 3.1 10^3/uL (1.2-3.4); Absolute Monocytes 1.3 10^3/uL (0.1-0.6); Absolute Neutrophils 9.3 10^3/uL (1.4-6.5); Hematocrit 23.4 % (37.0-47.0); Hemoglobin 7.5 g/dL (12.0-16.0); Mean Corpuscular Hgb 28.4 pg (27.0-31.0); Nucleated Red Blood Cells % 0 %; Platelet Count 402 10^3/uL (130-400); Red Blood Cell Count 2.64 10^6/uL (4.20-5.40); White Blood Cell Count 15.3 10^3/uL (4.8-10.8)
[2023-05-22 05:18] LABS: Mean Corp Hgb Conc. 32.1 g/dL (33.0-37.0); Mean Corpuscular Volume 88.6 fL (81.0-99.0)
[2023-05-22 05:19] LABS: Red Cell Dist. Width 15.1 % (11.5-14.5)
[2023-05-22 05:37] LABS: Blood Urea Nitrogen 33 mg/dl (7-17); Calcium 8.7 mg/dl (8.4-10.2); Carbon Dioxide 32 mmol/L (22-30); Chloride 95 mmol/L (98-107); Estimated Creatinine Clearance 35 ml/min; Glucose 147 mg/dl (70-99); Potassium 3.2 mmol/L (3.5-5.1); Sodium 133 mmol/L (135-145); eGFR 39.48
[2023-05-22 07:13] LABS: Glucose - Point of Care 165 mg/dl (70-99)
[2023-05-22] MEDS: NOVOLOG FLEXPEN-LOW RESISTANCE 1 UNITS SC (08:40)
[2023-05-22] MEDS: VITAMIN D3 (cholecalciferol) 25 MCG PO (08:41)
[2023-05-22] MEDS: GLUCOTROL 2.5 MG PO (08:41)
[2023-05-22] MEDS: ASPIR LOW (ENTERIC COATED) 81 MG PO (08:43)
[2023-05-22] MEDS: ELIQUIS 10 MG PO ×2 (08:43→20:11)
[2023-05-22] MEDS: NORVASC 2.5 MG PO (08:48)
[2023-05-22 11:26] LABS: Glucose - Point of Care 216 mg/dl (70-99)
[2023-05-22] MEDS: KCL 20 MEQ PO (11:38)
--- NOTE | 2023-05-22 12:06 | W.PN.HOSP.TC ---
Today's Communication/Plan
-
snf rehab tomorrow
continue current meds
Assessment / Plan
Assessment / Plan
Acute hypoxic and hypercarbic respiratory failure
- multi-factorial from pain meds, volume overload, post-op atelectasis
- CTA study without PE, small effusions, atelectasis
- required BIPAP for acidosis; serial ABGs with improvement. now bipap prn and mainly at night
- pulmonology evaluated and help appreciated .
STEPHANIE With suspected ATN on CKD stage 3b
Hyponatremia - hypervolemic from volume overload
Hyperkalemia
- hold nephrotoxins as able
- DC Marrufo catheter per nephrology
- s/p IV Lasix
- Received HD 05/17. Now appears to be auto diuresing and creatinine improving. No plans for further dialysis.
- BNP elevated; TTE 05/17 with normal EF. Volume overloaded only. No signs of CHF
- Nephrology help appreciated.
Toxic Metabolic Encephalopathy�-resolved
- from opiates, STEPHANIE, hypoxia/hypercapnia
Acute blood loss anemia
- s/p 4 units PRBCs this admit, hbg stabilized ~ 7.5
- monitor Hb and signs of bleeding
- normal ferritin level
Hyponatremia
monitor
Hypoglycemia likely related to STEPHANIE and poor clearance of meds
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
- holding Glimepiride/Metformin/Farxiga
- utilize SSI only for now
- A1c: 6.2% 2 weeks ago
-Continue Lantus/glimepiride and ISS. metformin held with worsening renal function
Acute right lower extremity DVT
- GFR 35, improving renal function - started eliquis 224 AM
Leukocytosis
- Trending up - Urine cs showing 6k CFU gram neg bacilli -low concern of true UTI - give 3 days Rocephin course
- joint synovial fluid no growth
Hx of Left hip ORIF with gamma nail 02/14/2023; now admitted with Left conversion total hip arthroplasty, removal of hardware 05-13
Underlying osteoarthritis, osteopenia, Vit D deficiency
- follow orthopedics recs
- stop all sedating opiates/pain meds with development of hypercarbia. use Tylenol TID + prn.
- continue Vit D
- eventual SNF when medically cleared
Super Morbid Obesity d/t excess calories
PAD
Essential HTN
HLD
IBS with diarrhea
Suspected sleep disorder breathing-will need outpatient evaluation and PSG
DVT ppx: eliquis
Code: Full
Anticipated Discharge: Within 24 hours
Subjective/Interval History
-
Date of Service: May 22, 2023
resting comfortable in bed
have cough on deep inspiration
no reported problems overnight
Objective Data
-
Labs:
Laboratory Results
05/22/23
04:26
WBC 15.3 H
Hgb 7.5 L
Hct 23.4 L
Plt Count 402 H
Sodium 133 L
Potassium 3.2 L
Chloride 95 L
Carbon Dioxide 32 H
BUN 33 H
Creatinine 1.4 H
Glucose 147 H
Calcium 8.7
Vital Signs:
Vital Signs
Temp Pulse Resp BP Pulse Ox
98.9 F 84 16 138/53 94
05/22/23 12:00 05/22/23 12:00 05/22/23 12:00 05/22/23 12:00 05/22/23 12:00
I&O
05/21/23 05/22/23 05/23/23
06:59 06:59 06:59
Intake Total 982.25 / 990.25 516 / 516 600 / 600
Output Total 800 / 800 450 / 450
Balance 182.25 / 190.25 66 / 66 600 / 600
Review of Systems
-
Respiratory: Reports Cough; Denies Trouble Breathing or Wheezing
Cardiac: Reports No Symptoms
Abdomen/GI: Reports No Symptoms
Physical Exam
-
General: Comfortable
HEENT: Oxygen
Respiratory: Clear to Auscultation
Cardiac: Regular Rhythm and S1/S2; Negative Murmur or Rub
GI: Soft, Nontender and Nondistended
Musculoskeletal: No Edema and Other (Left hip dressing in place, no bleeding at site)
Neuro: Awake, Alert, Oriented, No Motor Deficits and Nonfocal/Grossly Intact
Psych: Calm
[2023-05-22] MEDS: NOVOLOG FLEXPEN-LOW RESISTANCE 2 UNITS SC ×2 (12:33→17:51)
[2023-05-22] MEDS: STERILE WATER FOR INJECTION 10 ML IV (14:30)
[2023-05-22] MEDS: ROCEPHIN 1000 MG IV (14:30)
--- NOTE | 2023-05-22 15:49 | W.PN.NEPH.PH ---
Today's Communication / Plan
-
replace k, check mg level
liberate k in diet
Assessment/Plan
-
IMP:
Acute hypoxic respiratory insufficiency
STEPHANIE on CKD stage 3, baseline cr 1.2-1.5 Dr Etienne
Hyponatremia, hypervolemic from volume overload
severe Hyperkalemia
Post-op acute blood loss anemia- s/p 4 units PRBCs
Hypoglycemia likely related to STEPHANIE and poor clearance of meds
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
Leucocytosis,
Hx of Left hip ORIF with gamma nail 02/14/2023, Left conversion total hip arthroplasty, removal of hardware 05-13
Underlying osteoarthritis, osteopenia, Vit D deficiency
Super Morbid Obesity d/t excess calories
PAD
Essential HTN
HLD
IBS with diarrhea
Suspected sleep disorder breathing-will need outpatient evaluation and PSG
Plan:
Admit for left hip arthroplasty on 05/13
STEPHANIE-no clear etiology, KUS unremarkable , HD x1 05/17
subnephrotic proteinuria 1.2gm/gm of cr-neg serologies and paraprotein w/u.
Cr down to 1.4 today at baseline, off foely
lasix prn, wt decreasing slowly
liberate k in diet , replace k total 60meq today
avoid nephrotoxins, holding farxiga, may resume metformin if needed
Hyponatremia-suspect hypervolemia, sodium better at 133, FR 48 ounces/day
BP are stable with out hypotension, echo normal EF
follow h/h , IV Fe course, prn trasnfusion
On Eliquis for DVT
d/w pt
d/c plan
d/w family
-
-
Date of Service: May 22, 2023
CC / HPI / ROS
-
Chief Complaint:
STEPHANIE, hyperkalemia
History of Present Illness:
cr improved to 1.4, off palomino
Bp stable, k low at 3.2
Na stable at 133,
WBC better at 15k
hb remains low 7.5
Review of Systems:
no cp or sob
no fever
Labs
-
Labs:
WBC 15.3 10^3/uL (4.8-10.8) H 05/22/23 04:26
RBC 2.64 10^6/uL (4.20-5.40) L 05/22/23 04:26
Hgb 7.5 g/dL (12.0-16.0) L 05/22/23 04:26
Hct 23.4 % (37.0-47.0) L 05/22/23 04:26
Plt Count 402 10^3/uL (130-400) H 05/22/23 04:26
Sodium 133 mmol/L (135-145) L 05/22/23 04:26
Potassium 3.2 mmol/L (3.5-5.1) L 05/22/23 04:26
Chloride 95 mmol/L (98-107) L 05/22/23 04:26
Carbon Dioxide 32 mmol/L (22-30) H 05/22/23 04:26
BUN 33 mg/dl (7-17) H 05/22/23 04:26
Creatinine 1.4 mg/dL (0.6-1.0) H 05/22/23 04:26
eGFR 39.48 05/22/23 04:26
Glucose 147 mg/dl (70-99) H 05/22/23 04:26
Calcium 8.7 mg/dl (8.4-10.2) 05/22/23 04:26
Qjg-W-Btadqzlparc Pept 6110 pg/ml 05/16/23 10:06
Albumin 2.4 g/dl (3.5-5.0) L 05/17/23 03:59
Physical Exam
-
Vital Signs:
Vital Signs
Temp Pulse Resp BP Pulse Ox
98.9 F 84 16 138/53 94
05/22/23 12:00 05/22/23 12:00 05/22/23 12:00 05/22/23 12:00 05/22/23 12:00
Cardiovascular:: Regular rate and rhythm
Respiratory:: Bilateral: Rhonchi
Lung Excursion:: Normal
Abdomen:: Nontender and Soft
Extremity Edema:: +1: Right: and +2: Left:
Palomino Catheter: No
[2023-05-22] MEDS: KCL 40 MEQ PO (16:29)
[2023-05-22 16:52] LABS: Glucose - Point of Care 228 mg/dl (70-99)
[2023-05-22 21:22] LABS: Glucose - Point of Care 241 mg/dl (70-99)
[2023-05-22] MEDS: LANTUS 0.100000000000000006 UNITS SC (21:56)
[2023-05-23] VITALS (7 sets, daily range): BP systolic 123–164; BP diastolic 53–94; PULSE 2–80; BMI 37.2
[2023-05-23] MEDS: TYLENOL PO (04:10)
[2023-05-23 05:15] LABS: Hematocrit 24.6 % (37.0-47.0); Hemoglobin 7.9 g/dL (12.0-16.0); Mean Corp Hgb Conc. 32.1 g/dL (33.0-37.0); Mean Corpuscular Hgb 29.2 pg (27.0-31.0); Mean Corpuscular Volume 90.8 fL (81.0-99.0); Mean Platelet Volume 8.9 fL (7.4-10.4); Platelet Count 420 10^3/uL (130-400); Red Blood Cell Count 2.71 10^6/uL (4.20-5.40); Red Cell Dist. Width 15.9 % (11.5-14.5); White Blood Cell Count 15.8 10^3/uL (4.8-10.8)
[2023-05-23 05:27] LABS: Blood Urea Nitrogen 29 mg/dl (7-17); Calcium 8.9 mg/dl (8.4-10.2); Carbon Dioxide 30 mmol/L (22-30); Chloride 98 mmol/L (98-107); Estimated Creatinine Clearance 40 ml/min; Glucose 162 mg/dl (70-99); Potassium 3.7 mmol/L (3.5-5.1); Sodium 133 mmol/L (135-145)
[2023-05-23 07:17] LABS: IgA 160 mg/dL (68-408); IgG 462 mg/dL (768-1632); IgM 22 mg/dL (35-263)
[2023-05-23 07:33] LABS: Glucose - Point of Care 180 mg/dl (70-99)
[2023-05-23] MEDS: TYLENOL 650 MG PO ×4 (08:48→21:42)
[2023-05-23] MEDS: NOVOLOG FLEXPEN-LOW RESISTANCE 1 UNITS SC ×3 (08:48→18:04)
[2023-05-23] MEDS: NORVASC 2.5 MG PO (08:49)
[2023-05-23] MEDS: ASPIR LOW (ENTERIC COATED) 81 MG PO (08:49)
[2023-05-23] MEDS: ELIQUIS 10 MG PO ×2 (08:49→21:41)
[2023-05-23] MEDS: GLUCOTROL 2.5 MG PO (08:49)
[2023-05-23] MEDS: VITAMIN D3 (cholecalciferol) 25 MCG PO (08:50)
--- NOTE | 2023-05-23 11:24 | W.PN.NEPH.PH ---
Today's Communication / Plan
-
farxgia
Assessment/Plan
-
IMP:
Acute hypoxic respiratory insufficiency
STEPHANIE on CKD stage 3, baseline cr 1.2-1.5 Dr Etienne
Hyponatremia, hypervolemic from volume overload
severe Hyperkalemia
Post-op acute blood loss anemia- s/p 4 units PRBCs
Hypoglycemia likely related to STEPHANIE and poor clearance of meds
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
Leucocytosis,
Hx of Left hip ORIF with gamma nail 02/14/2023, Left conversion total hip arthroplasty, removal of hardware 05-13
Underlying osteoarthritis, osteopenia, Vit D deficiency
Super Morbid Obesity d/t excess calories
PAD
Essential HTN
HLD
IBS with diarrhea
Suspected sleep disorder breathing-will need outpatient evaluation and PSG
Plan:
-restart farxiga
-ok to restart metformin if desired
-BMP in 1-2 weeks
-dc planning
-
-
Date of Service: May 23, 2023
CC / HPI / ROS
-
Chief Complaint:
STEPHANIE, hyperkalemia
History of Present Illness:
cr improved to 1.2 off palomino
BP stable
Na stable
Review of Systems:
no cp or sob
no fever
Labs
-
Labs:
WBC 15.8 10^3/uL (4.8-10.8) H 05/23/23 04:43
RBC 2.71 10^6/uL (4.20-5.40) L 05/23/23 04:43
Hgb 7.9 g/dL (12.0-16.0) L 05/23/23 04:43
Hct 24.6 % (37.0-47.0) L 05/23/23 04:43
Plt Count 420 10^3/uL (130-400) H 05/23/23 04:43
Sodium 133 mmol/L (135-145) L 05/23/23 04:43
Potassium 3.7 mmol/L (3.5-5.1) 05/23/23 04:43
Chloride 98 mmol/L (98-107) 05/23/23 04:43
Carbon Dioxide 30 mmol/L (22-30) 05/23/23 04:43
BUN 29 mg/dl (7-17) H 05/23/23 04:43
Creatinine 1.2 mg/dL (0.6-1.0) H 05/23/23 04:43
eGFR 47.50 05/23/23 04:43
Glucose 162 mg/dl (70-99) H 05/23/23 04:43
Calcium 8.9 mg/dl (8.4-10.2) 05/23/23 04:43
Lev-J-Rojprzjbvyf Pept 6110 pg/ml 05/16/23 10:06
Albumin 2.4 g/dl (3.5-5.0) L 05/17/23 03:59
Physical Exam
-
Vital Signs:
Vital Signs
Temp Pulse Resp BP Pulse Ox
98.2 F 99 16 164/78 98
05/23/23 07:30 05/23/23 07:30 05/23/23 07:30 05/23/23 07:30 05/23/23 07:30
Cardiovascular:: Regular rate and rhythm
Respiratory:: Bilateral: Coarse
Lung Excursion:: Normal
Abdomen:: Nontender and Soft
Bowel Sounds:: Normal
Extremity Edema:: +2: Bilateral:
[2023-05-23 12:08] LABS: Glucose - Point of Care 190 mg/dl (70-99)
--- NOTE | 2023-05-23 12:54 | W.PN.HOSP.TC ---
Today's Communication/Plan
-
resume Metformin and observe labs
DC planning to SNF
Assessment / Plan
Assessment / Plan
Assessment:
Acute hypoxic and hypercarbic respiratory failure
- multi-factorial from pain meds, volume overload, post-op atelectasis
- CTA study without PE, small effusions, atelectasis
- required BIPAP for acidosis; serial ABGs with improvement. now bipap prn and mainly at night
- pulmonology evaluated and help appreciated .
STEPHANIE With suspected ATN on CKD stage 3b
Hyponatremia - hypervolemic from volume overload
Hyperkalemia
- hold nephrotoxins as able
- s/p IV Lasix
- Received HD 05/17. Now appears to be auto diuresing and creatinine improving. No plans for further dialysis.
- BNP elevated; TTE 05/17 with normal EF. Volume overloaded only. No signs of CHF
- Nephrology help appreciated.
- repeat BMP in 1-2 weeks
Toxic Metabolic Encephalopathy�- resolved
- from opiates, STEPHANIE, hypoxia/hypercapnia
Acute blood loss anemia
- s/p 4 units PRBCs this admit, hbg stabilized ~ 7.5.
- s/p IV iron course
- monitor Hb and signs of bleeding
- normal ferritin level
Hyponatremia
- monitor
Hypoglycemia likely related to STEPHANIE and poor clearance of meds
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
- resume Metformin/Farxiga
- continue Lantus
- A1c: 6.2% 2 weeks ago
Acute right lower extremity DVT
- continue Eliquis, day 3 of loading sequence
Gram neg UTI
- continue IV Rocephin, 3 day course
- joint synovial fluid no growth
Hx of Left hip ORIF with gamma nail 02/14/2023; now admitted with Left conversion total hip arthroplasty, removal of hardware -
Underlying osteoarthritis, osteopenia, Vit D deficiency
- follow orthopedics recs
- stop all sedating opiates/pain meds with development of hypercarbia. use Tylenol TID + prn.
- continue Vit D
- eventual SNF when medically cleared
Super Morbid Obesity d/t excess calories
PAD
Essential HTN
HLD
IBS with diarrhea
Suspected sleep disorder breathing-will need outpatient evaluation and PSG
DVT ppx: Eliquis
Code: Full
Anticipated Discharge: Within 24 hours
Subjective/Interval History
-
Date of Service: May 23, 2023
feels well no complaints presently
Objective Data
-
Labs:
Laboratory Results
05/23/23
04:43
WBC 15.8 H
Hgb 7.9 L
Hct 24.6 L
Plt Count 420 H
Sodium 133 L
Potassium 3.7
Chloride 98
Carbon Dioxide 30
BUN 29 H
Creatinine 1.2 H
Glucose 162 H
Calcium 8.9
Vital Signs:
Vital Signs
Temp Pulse Resp BP Pulse Ox
98.2 F 96 18 123/61 95
05/23/23 11:05 05/23/23 11:05 05/23/23 11:05 05/23/23 11:05 05/23/23 11:05
I&O
05/22/23 05/23/23 05/24/23
06:59 06:59 06:59
Intake Total 516 / 516 3520 / 3520
Output Total 450 / 450
Balance 66 / 66 3520 / 3520
Physical Exam
-
General: No Apparent Distress
HEENT: Normocephalic and Atraumatic
Respiratory: Negative Wheezes or Rales
Cardiac: Regular Rhythm and S1/S2
GI: Soft
Genito-urinary: No Costovertebral Tender
Neuro: AO x 3
Psych: Calm
Data Reviewed
-
Total Time Spent with Patient (in minutes): 45
Labs: Labs Reviewed by me
[2023-05-23] MEDS: ROCEPHIN 1000 MG IV (14:15)
[2023-05-23] MEDS: STERILE WATER FOR INJECTION 10 ML IV (14:15)
--- NOTE | 2023-05-23 16:26 | CM ---
CM following for d/c planning
Pt accepted to [facility] pending bed availability
MD indicating pt may be ready in am
Called [facility] to check on bed availability - LM with return #
Plan - Anticipate transfer to [facility] - will need auth
[2023-05-23] MEDS: LIPITOR PO (17:24)
[2023-05-23 18:01] LABS: Glucose - Point of Care 186 mg/dl (70-99)
[2023-05-23] MEDS: IMODIUM 2 MG PO (18:04)
[2023-05-23] MEDS: LIPITOR 10 MG PO (18:04)
[2023-05-23 21:38] LABS: Glucose - Point of Care 197 mg/dl (70-99)
[2023-05-23] MEDS: LANTUS 0.100000000000000006 UNITS SC (21:43)
[2023-05-24] VITALS (8 sets, daily range): BP systolic 118–151; BP diastolic 46–67; PULSE 86–87; O2SAT 98; BMI 37.7
[2023-05-24] MEDS: TYLENOL PO ×3 (00:26→17:38)
[2023-05-24] MEDS: TYLENOL 650 MG PO ×5 (01:28→20:56)
[2023-05-24 06:41] LABS: Hemoglobin 7.9 g/dL (12.0-16.0); Mean Corp Hgb Conc. 31.6 g/dL (33.0-37.0); Mean Corpuscular Hgb 28.8 pg (27.0-31.0); Mean Corpuscular Volume 91.2 fL (81.0-99.0); Mean Platelet Volume 8.9 fL (7.4-10.4); Platelet Count 443 10^3/uL (130-400); Red Blood Cell Count 2.74 10^6/uL (4.20-5.40); Red Cell Dist. Width 16.6 % (11.5-14.5); White Blood Cell Count 15.6 10^3/uL (4.8-10.8)
[2023-05-24 07:07] LABS: Blood Urea Nitrogen 29 mg/dl (7-17); Calcium 8.8 mg/dl (8.4-10.2); Carbon Dioxide 28 mmol/L (22-30); Chloride 98 mmol/L (98-107); Estimated Creatinine Clearance 44 ml/min; Glucose 172 mg/dl (70-99); Potassium 3.5 mmol/L (3.5-5.1); Sodium 134 mmol/L (135-145); eGFR 52.73
[2023-05-24 07:22] LABS: Glucose - Point of Care 226 mg/dl (70-99)
[2023-05-24] MEDS: NOVOLOG FLEXPEN-LOW RESISTANCE 2 UNITS SC (08:44)
[2023-05-24] MEDS: NORVASC 2.5 MG PO (08:47)
[2023-05-24] MEDS: ELIQUIS 10 MG PO ×2 (08:47→20:55)
[2023-05-24] MEDS: ASPIR LOW (ENTERIC COATED) 81 MG PO (08:47)
[2023-05-24] MEDS: FEOSOL 325 MG PO (08:48)
[2023-05-24] MEDS: VITAMIN D3 (cholecalciferol) 25 MCG PO (08:48)
[2023-05-24] MEDS: GLUCOPHAGE 1000 MG PO (08:48)
[2023-05-24] MEDS: FARXIGA 10 MG PO (08:48)
[2023-05-24] MEDS: GLUCOTROL 2.5 MG PO (08:48)
--- NOTE | 2023-05-24 09:43 | W.PN.UPDATE ---
Update Note
Progress Note Update
Patient resting comfortably in bed this AM. Feeling much better and axious for D/c. Hoping for D/c today/tomorrow. Dressing strikethrough is contained. Dressings may be changed prior to D/c, however patient is to follow-up in office 2 weeks post-op,
which would be later this week with Dr. Velasquez (where dressings will be removed for incision checks). Continue TDWB LLE x 6 weeks. PT/OT. Eliquis for DVT ppx per primary team
--- NOTE | 2023-05-24 10:38 | W.PN.HOSP.TC ---
Addendum entered and electronically signed by Jaycob Olson MD 05/24/23 13:28:
will change to Ultr[facility] from [place] due to need to avoid excess Tylenol
Original Note:
Today's Communication/Plan
-
hold dc pending evaluation of leukocytosis
cxr
reviewed with CM
pending on further evaluation, potential dc to SNF, CM to work on prior auth
Assessment / Plan
Assessment / Plan
Assessment:
Acute hypoxic and hypercarbic respiratory failure
- multi-factorial from pain meds, volume overload, post-op atelectasis
- CTA study without PE, small effusions, atelectasis
- required BIPAP for acidosis; serial ABGs with improvement. now bipap prn and mainly at night
- pulmonology evaluated and help appreciated . Signed off as of 05/21
STEPHANIE With suspected ATN on CKD stage 3b
Hyponatremia - hypervolemic from volume overload
Na better at 134
Hyperkalemia
resolved K 3.5
- hold nephrotoxins as able
- s/p IV Lasix
- Received HD 05/17. Now appears to be auto diuresing and creatinine improving. No plans for further dialysis.
- BNP elevated; TTE 05/17 with normal EF. Volume overloaded only. No signs of CHF
- Nephrology help appreciated.
- repeat BMP in 1-2 weeks
Toxic Metabolic Encephalopathy�- resolved
- from opiates, STEPHANIE, hypoxia/hypercapnia
Acute blood loss anemia
- s/p 4 units PRBCs this admit, hbg stabilized ~ 7.5-->7.9.
- s/p IV iron course
- monitor Hb and signs of bleeding
- normal ferritin level
Hypoglycemia likely related to STEPHANIE and poor clearance of meds
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
- resume Metformin/Farxiga
- continue Lantus
- A1c: 6.2% 2 weeks ago
glu 180-226
Acute right lower extremity DVT
- continue Eliquis, day 4 of loading sequence
Gram neg UTI
- continue IV Rocephin, 3 day course
- joint synovial fluid no growth
Leukocytosis persisting
CXR last done 05/17, will repeat and request ID input as to significance
Hx of Left hip ORIF with gamma nail 02/14/2023; now admitted with Left conversion total hip arthroplasty, removal of hardware 05-13
Underlying osteoarthritis, osteopenia, Vit D deficiency
- follow orthopedics recs
- stop all sedating opiates/pain meds with development of hypercarbia. use Tylenol TID + prn.
- continue Vit D
- eventual SNF when medically cleared
Super Morbid Obesity d/t excess calories
PAD
Essential HTN
HLD
IBS with diarrhea
Suspected sleep disorder breathing-will need outpatient evaluation and PSG
DVT ppx: Eliquis
Code: Full
time >45 minutes due to multiple aspects
Anticipated Discharge: 24 - 48 hours
Subjective/Interval History
-
Date of Service: May 24, 2023
Pt with significant pain, Tylenol not really helping, pain worse in left knee
Objective Data
-
Labs:
Laboratory Results
05/24/23
05:22
WBC 15.6 H
Hgb 7.9 L
Hct 25.0 L
Plt Count 443 H
Sodium 134 L
Potassium 3.5
Chloride 98
Carbon Dioxide 28
BUN 29 H
Creatinine 1.1 H
Glucose 172 H
Calcium 8.8
Vital Signs:
Vital Signs
Temp Pulse Resp BP Pulse Ox
98.1 F 85 16 144/65 96
05/24/23 07:34 05/24/23 07:34 05/24/23 07:34 05/24/23 07:34 05/24/23 07:34
I&O
05/23/23 05/24/23 05/25/23
06:59 06:59 06:59
Intake Total 3520 / 3520 1120 / 1120 240 / 240
Balance 3520 / 3520 1120 / 1120 240 / 240
Review of Systems
-
History Source: Patient and Coordinated Provider
Constitutional: Denies Fever
EENT: Reports No Symptoms Reported
Respiratory: Reports No Symptoms
Cardiac: Reports No Symptoms
Abdomen/GI: Reports No Symptoms
Musculoskeletal: Reports Joint Pain
Physical Exam
-
General: No Apparent Distress
HEENT: Normocephalic and Atraumatic
Respiratory: Negative Wheezes or Rales
Cardiac: Regular Rhythm and S1/S2
GI: Soft
Genito-urinary: No Costovertebral Tender
Musculoskeletal: Other (left knee soft, chronic arthritic changes noted)
Neuro: AO x 3
Psych: Calm
--- NOTE | 2023-05-24 11:12 | CON.ID ---
Consultation
-
Date/Time Consultation Requested: 05/24/23 10:52
Date/Time Consultation Performed: 05/24/23 11:12
Requesting Provider: Dr Olson
Performing Provider: Dr Capone
Reason for Consultation: leukocytosis
Chief Complaint / Past History
Chief Complaint
displacement of L hip hardwear
History of Present Illness
Ms Kinney is a 73 year old female with history of L hip ORIF with gamma nail 01/2023 subsequently readmitted for displacemetn of hardwear attributed to severe osteoporosis and underwent L AMILCAR conversion with Dr Velasquez here 05/13/23 which was
uncomplicated. Failure of gamma nail attributed to osteoporosis. No evidence of infection intraoperatively; there was marked hematoma; there was healing and granulation tissue. Synovial fluid cultured and negative. Required 4 units of PRBC for
post operative anemia. STEPHANIE noted to cr 2.5 - required HD. Course notable for hypoglycemia. Both pulmonology and IM services were consulted and managed mild hypoxemic resp failure, stephanie on ckd, leukocytosis (thought to be reactive). 05/16 UA mild
pyuria urine culture on 9K GNR (not clinically relevant), Patient had ceftriaxone 1 gm x3 days from 05/21-05/23. blood cultures finalized negative. Patient has had persistent leukocytosis since 04/29 overall declining now 15.6, hgb 7.9, plts
increasing, no L shift when last assessed 05/22, cr slowly improving now 1.1, lfts not reassessed since 05/18, hep b/c serologies negative.
Today reporting no fevers, chills, malaise, sinus tenderness, sore throat, sputum production, nausea, vomiting, constipation, new rashes, new joint pains, tenderness over the lines. Did have a PIV begin leaking in the L arm yesterday - no
phlebitis. Has minimal, nonproductive cough. Chronic diarrhea is unchanged. Sister also with minimal cough. Feels well and requesting discharge.
Past History
Additional Past Medical History:
1. Osteoarthritis.
2. Osteopenia.
3. Class II Obesity
4. 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
5. CKD 3.
6. Anemia.
7. Peripheral arterial disease. Mild on ABIs.
8. Hypertension.
9. Hyperlipidemia.
10. Irritable bowel with diarrhea.
11. Vitamin D deficiency.
Additional Past Surgical History:
Left hip ORIF with gamma nail 02/14/2023
Bladder sling
Hysterectomy
Cholecystectomy
Allergy History:
ciprofloxacin Allergy (Verified 05/12/23 15:48)
Rash
doxycycline Allergy (Verified 05/12/23 15:48)
Rash
lactose Allergy (Verified 05/12/23 15:48)
Diarrhea
Quinolones Allergy (Verified 05/12/23 15:48)
Rash
Tetracyclines Allergy (Verified 05/12/23 15:48)
Rash
Medications Reviewed: Yes
Social History
Tobacco: Non-Smoker
Alcohol: None
Drug: None
Family History
Family History: Not Pertinent
Review of Systems
Review of Systems
General: Negative Fever or Chills
All systems: All other systems were reviewed and were negative
Vital Signs
Temp Pulse Resp BP Pulse Ox
98.1 F 93 18 131/61 98
05/24/23 10:57 05/24/23 10:57 05/24/23 10:57 05/24/23 10:57 05/24/23 10:57
Physical Exam
Physical Exam
Constitutional: No Acute Distress and Obese
Cardiovascular: Regular Rate and S1/S2; Negative Murmur or Rub
Pulmonary: Clear and Symmetric; Negative Wheezes, Rales or Rhonchi
Gastrointestinal: Soft, Non Tender, Non Distended and Normal Bowel Sounds
Skin: Warm and Dry; Negative Rash or Jaundice
Wound: Other (dressings in place - small amount of dried blood visible through the dressing)
Lines: PIV
Lab / Diagnostic Study Results
05/24/23 05:22
Abs Immat Gran (auto) 1.1 10^3/uL (0-0.05) H 05/22/23 04:26
Absolute Neuts (auto) 9.3 10^3/uL (1.4-6.5) H 05/22/23 04:26
Absolute Lymphs (auto) 3.1 10^3/uL (1.2-3.4) 05/22/23 04:26
Absolute Monos (auto) 1.3 10^3/uL (0.1-0.6) H 05/22/23 04:26
Absolute Basos (auto) 0.0 10^3/uL (0-0.2) 05/22/23 04:26
Total Counted 100 05/21/23 04:02
Immature Gran % 7.5 % (0-0.5) H 05/22/23 04:26
Neutrophils % 60.6 % (42.2-75.2) 05/22/23 04:26
Lymphocytes % 20.5 % (20.5-51.1) 05/22/23 04:26
Monocytes % 8.3 % (1.7-9.3) 05/22/23 04:26
Eosinophils % 2.9 % (0-6) 05/22/23 04:26
Basophils % 0.2 % (0-2) 05/22/23 04:26
Abs Neuts (Manual) 13.2 10^3/uL (1.4-6.5) H 05/21/23 04:02
Segmented Neutrophils 70 % (42-75) 05/21/23 04:02
Band Neutrophils 3 % (0-3) 05/21/23 04:02
Lymphocytes (Manual) 20 % (20-51) 05/21/23 04:02
Eosinophils (Manual) 1 % (0-6) 05/21/23 04:02
PT 13.9 Sec (11.4-14.6) 05/17/23 12:15
INR 1.09 05/17/23 12:15
Lactic Acid 1.9 mmol/L (0.7-2.0) 05/16/23 17:30
Ur Squamous Epith Cells 11-15 /LPF (Few) 05/16/23 18:19
Microbiology Results
Micro:
05/16/23 17:30 Blood Culture - Final
Blood/Venous No Growth - Final Report
05/16/23 16:41 Blood Culture - Final
Blood/Venous No Growth - Final Report
05/16/23 18:19 Urine Culture - Final
Urine Yeast
Gram negative bacilli
Assessment / Plan
Persistent Leukocytosis
Nonproductive Cough
- patient clinically feels very well, incidentally notes a mild, nonproductive cough; sister visiting also with mild cough without malaise
- comprehensive exam otherwise nonrevealing; agree that leukocytosis may be reactive
- urine culture was not consistent with a UTI
- negative procalcitonin also reassuring
- will check covid ag - beyond that no need for further testing
- stable for dc from ID perspective.
Care Review
Plan reviewed with: Physician (Dr George - covid ag)
--- NOTE | 2023-05-24 11:28 | W.PN.NEPH.PH ---
Today's Communication / Plan
-
follow BMP
Assessment/Plan
-
IMP:
Acute hypoxic respiratory insufficiency
STEPHANIE on CKD stage 3, baseline cr 1.2-1.5 Dr Etienne
Hyponatremia, hypervolemic from volume overload
severe Hyperkalemia
Post-op acute blood loss anemia- s/p 4 units PRBCs
Hypoglycemia likely related to STEPHANIE and poor clearance of meds
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
Leucocytosis,
Hx of Left hip ORIF with gamma nail 02/14/2023, Left conversion total hip arthroplasty, removal of hardware 05-13
Underlying osteoarthritis, osteopenia, Vit D deficiency
Super Morbid Obesity d/t excess calories
PAD
Essential HTN
HLD
IBS with diarrhea
Suspected sleep disorder breathing-will need outpatient evaluation and PSG
Plan:
-back on farxiga
-back on metformin
-BMP in 1-2 weeks
-dc planning
-
-
Date of Service: May 24, 2023
CC / HPI / ROS
-
Chief Complaint:
STEPHANIE, hyperkalemia
History of Present Illness:
cr improved to 1.1 off palomino
BP stable
Na stable
Hgb stable 7.9
Review of Systems:
no cp or sob
no fever
Labs
-
Labs:
Sodium 134 mmol/L (135-145) L 05/24/23 05:22
Potassium 3.5 mmol/L (3.5-5.1) 05/24/23 05:22
Chloride 98 mmol/L (98-107) 05/24/23 05:22
Carbon Dioxide 28 mmol/L (22-30) 05/24/23 05:22
BUN 29 mg/dl (7-17) H 05/24/23 05:22
Creatinine 1.1 mg/dL (0.6-1.0) H 05/24/23 05:22
eGFR 52.73 05/24/23 05:22
Glucose 172 mg/dl (70-99) H 05/24/23 05:22
Calcium 8.8 mg/dl (8.4-10.2) 05/24/23 05:22
Xhp-J-Buiogencyih Pept 6110 pg/ml 05/16/23 10:06
Albumin 2.4 g/dl (3.5-5.0) L 05/17/23 03:59
Physical Exam
-
Vital Signs:
Vital Signs
Temp Pulse Resp BP Pulse Ox
98.1 F 93 18 131/61 98
05/24/23 10:57 05/24/23 10:57 05/24/23 10:57 05/24/23 10:57 05/24/23 10:57
Cardiovascular:: Regular rate and rhythm
Respiratory:: Bilateral: Coarse
Lung Excursion:: Normal
Abdomen:: Nontender and Soft
Bowel Sounds:: Normal
Extremity Edema:: +1: Bilateral:
[2023-05-24 11:30] LABS: % Basophils 0.4 % (0-2); % Eosinophils 2.4 % (0-6); % Immature Granulocytes 5.3 % (0-0.5); % Lymphocytes 15.4 % (20.5-51.1); % Neutrophils 70.5 % (42.2-75.2); Absolute Basophils 0.1 10^3/uL (0-0.2); Absolute Eosinophils 0.4 10^3/uL (0-0.7); Absolute Immature Granulocytes 0.8 10^3/uL (0-0.05); Absolute Lymphocytes 2.4 10^3/uL (1.2-3.4); Absolute Monocytes 0.9 10^3/uL (0.1-0.6); Hematocrit 26.4 % (37.0-47.0); Hemoglobin 8.4 g/dL (12.0-16.0); Mean Corp Hgb Conc. 31.8 g/dL (33.0-37.0); Mean Corpuscular Hgb 29.4 pg (27.0-31.0); Mean Corpuscular Volume 92.3 fL (81.0-99.0); Mean Platelet Volume 8.8 fL (7.4-10.4); Nucleated Red Blood Cells % 0.2 %; Platelet Count 458 10^3/uL (130-400); Red Blood Cell Count 2.86 10^6/uL (4.20-5.40); Red Cell Dist. Width 16.4 % (11.5-14.5); White Blood Cell Count 15.6 10^3/uL (4.8-10.8)
[2023-05-24 11:49] LABS: Glucose - Point of Care 169 mg/dl (70-99)
--- NOTE | 2023-05-24 11:56 | PN.CDI ---
CDI
- -
CDI:
Physician Documentation Request
Admit Date: 05/13/23 12:31
Dear Doctor Whitney,
Please review the following and provide your response in the progress notes.
Clinical Indicators:
Pt admitted with left hip hardware displacement for removal on 05/13
Documented per [facility] note 05/20 , ' Patient visited for a stage 3 PI of left upper posterior thigh. ..... There is a .5x.5.x.1 stage 3 PI on thigh that is likely a combination of pressure and moisture as the wound as found in the thigh fold. Patient
stated she has had this wound since January.... Will recommend PRN medi-honey and foam dressing to wound....'
Physician documentation of the type and location of wounds is required for compliant documentation. Based on the above clinical findings and your assessment, please provide the following in your progress note:
1. Location of the ulcer/wound, including laterality.
2. Type (etiology) of ulcer/wound:
- Pressure (decubitus) ulcer
- Non-pressure ulcer
- Other
Use of terms such as suspected, likely, concern for, or probable (associated with a specific diagnosis that is being evaluated, monitored, or treated as if it exists) are acceptable and can be coded in the inpatient setting, when documented at the
time of discharge.
Thank you,
Nichole Tse RN
CDI Specialist
[place] [facility]
Please use your independent medical judgment in providing your response.
*Source: National Pressure Ulcer Advisory Panel (NPUAP)
--- NOTE | 2023-05-24 12:01 | PN.CDI ---
CDI
- -
CDI:
Physician Documentation Request
Admit Date: 05/13/23 12:31
Dear Doctor Whitney,
Please review the following and provide your response in the progress notes.
Clinical Indicators:
Pt admitted with left hip hardware displacement for removal on 05/13
Nephrology note 05/21, ' reaplce k ...'
Potassium levels are as below /Per MAR 40 meq KCL PO ordered 05/21 &05/22 and 20 MEQ KCL PO ordered 05/22
05/21/23 05/22/23
04:02 04:26
Potassium 3.2 L 3.2 L
Based on the above, could you clarify in the progress notes, the appropriate diagnosis, if significant, that supports the above abnormalities and additional evaluation, monitoring and/or treatment rendered:
Hypokalemia
Abnormal lab value of clinical insignificance
Other
Use of terms such as suspected, likely, concern for, or probable (associated with a specific diagnosis that is being evaluated, monitored, or treated as if it exists) are acceptable and can be coded in the inpatient setting, when documented at the
time of discharge.
Thank you,
Nichole Tse RN
CDI Specialist
[place] [facility]
Please use your independent medical judgment in providing your response.
[2023-05-24 12:10] LABS: Procalcitonin 0.13 ng/ml (0.0-0.25)
[2023-05-24 12:13] LABS: ALT (SGPT) 15 U/L (0-35); AST (SGOT) 28 U/L (14-36); Albumin 3.2 g/dl (3.5-5.0); Alkaline Phosphatase 113 U/L (38-126); Direct Bilirubin 0.5 mg/dl (0.0-0.4); Total Bilirubin 0.8 mg/dl (0.2-1.3)
[2023-05-24] MEDS: NOVOLOG FLEXPEN-LOW RESISTANCE 1 UNITS SC (12:26)
[2023-05-24] MEDS: IMODIUM 2 MG PO ×2 (12:28→22:21)
--- NOTE | 2023-05-24 12:55 | CM ---
CM spoke with Maricarmen from [facility], request CM to call tomorrow morning to discuss bed availability/acceptance for SNF for tomorrow. Patient seen bedside, provided update. Patient inquiring about transportation, reports she will need ambulance
transport. Patient is [employer] patient, will require auth for SNF. CM will continue to follow for discharge planning needs.
Plan; [facility] SNF, will need auth/ambulance auth, call Maricarmen tomorrow for bed availability/confirmation of accepting patient.
[2023-05-24] MEDS: ULTRAM 50 MG PO ×2 (14:46→22:20)
[2023-05-24] MEDS: STERILE WATER FOR INJECTION IV (14:48)
[2023-05-24 16:49] LABS: Glucose - Point of Care 142 mg/dl (70-99)
--- NOTE | 2023-05-24 17:08 | PN.CDI ---
CDI
- -
CDI:
Physician Documentation Request
Admit Date: 05/13/23 12:31
Admit Date: 05/13/23 12:31
Dear Doctor Chana,
Please review the following and provide your response in the progress notes.
Clinical Indicators:
Pt admitted with left hip hardware displacement for removal on 05/13
Nephrology note 05/21, ' reaplce k ...'
Potassium levels are as below /Per MAR 40 meq KCL PO ordered 05/21 &05/22 and 20 MEQ KCL PO ordered 05/22
05/21/23 05/22/23
04:02 04:26
Potassium 3.2 L 3.2 L
Based on the above, could you clarify in the progress notes, the appropriate diagnosis, if significant, that supports the above abnormalities and additional evaluation, monitoring and/or treatment rendered:
Hypokalemia
Abnormal lab value of clinical insignificance
Other
Use of terms such as suspected, likely, concern for, or probable (associated with a specific diagnosis that is being evaluated, monitored, or treated as if it exists) are acceptable and can be coded in the inpatient setting, when documented at the
time of discharge.
Thank you,
Nichole Tse RN
CDI Specialist
[place] [employer]
Please use your independent medical judgment in providing your response.
--- NOTE | 2023-05-24 17:09 | PN.CDI ---
CDI
- -
CDI:
Physician Documentation Request
Admit Date: 05/13/23 12:31
Dear Doctor Chana,
Please review the following and provide your response in the progress notes.
Clinical Indicators:
Pt admitted with left hip hardware displacement for removal on 05/13
Documented per [facility] note 05/20 , ' Patient visited for a stage 3 PI of left upper posterior thigh. ..... There is a .5x.5.x.1 stage 3 PI on thigh that is likely a combination of pressure and moisture as the wound as found in the thigh fold. Patient
stated she has had this wound since January.... Will recommend PRN medi-honey and foam dressing to wound....'
Physician documentation of the type and location of wounds is required for compliant documentation. Based on the above clinical findings and your assessment, please provide the following in your progress note:
1. Location of the ulcer/wound, including laterality.
2. Type (etiology) of ulcer/wound:
- Pressure (decubitus) ulcer
- Non-pressure ulcer
- Other
Use of terms such as suspected, likely, concern for, or probable (associated with a specific diagnosis that is being evaluated, monitored, or treated as if it exists) are acceptable and can be coded in the inpatient setting, when documented at the
time of discharge.
Thank you,
Nichole Tse RN
CDI Specialist
[place] Text
Physician documentation of the type and location of wounds is required for compliant documentation. Based on the above clinical findings and your assessment, please provide the following in your progress note:
Please use your independent medical judgment in providing your response.
*Source: National Pressure Ulcer Advisory Panel (NPUAP)
[2023-05-24] MEDS: LIPITOR 10 MG PO (17:36)
[2023-05-24] MEDS: NOVOLOG FLEXPEN-LOW RESISTANCE SC (17:37)
[2023-05-24 21:47] LABS: Glucose - Point of Care 176 mg/dl (70-99)
[2023-05-24] MEDS: LANTUS 0.100000000000000006 UNITS SC (22:21)
[2023-05-24] MEDS: TESSALON PERLES 200 MG PO (22:21)
[2023-05-25] MEDS: TYLENOL 650 MG PO ×3 (00:05→12:08)
[2023-05-25] MEDS: TYLENOL PO (03:00)
[2023-05-25 03:39] VITALS: BP 136/58
[2023-05-25 03:42] VITALS: BMI 37.9
[2023-05-25 05:06] LABS: Hematocrit 24.8 % (37.0-47.0); Hemoglobin 7.9 g/dL (12.0-16.0); Mean Corp Hgb Conc. 31.9 g/dL (33.0-37.0); Mean Corpuscular Volume 91.2 fL (81.0-99.0); Mean Platelet Volume 8.7 fL (7.4-10.4); Platelet Count 438 10^3/uL (130-400); Red Blood Cell Count 2.72 10^6/uL (4.20-5.40); Red Cell Dist. Width 16.7 % (11.5-14.5); White Blood Cell Count 15.4 10^3/uL (4.8-10.8)
[2023-05-25 05:29] LABS: Blood Urea Nitrogen 27 mg/dl (7-17); Calcium 8.8 mg/dl (8.4-10.2); Carbon Dioxide 30 mmol/L (22-30); Chloride 100 mmol/L (98-107); Estimated Creatinine Clearance 44 ml/min; Glucose 125 mg/dl (70-99); Potassium 3.5 mmol/L (3.5-5.1); Sodium 134 mmol/L (135-145); eGFR 52.73
[2023-05-25] MEDS: ULTRAM 50 MG PO ×2 (05:36→12:08)
[2023-05-25 07:15] VITALS: BP 147/62
--- NOTE | 2023-05-25 07:19 | W.PN.UPDATE ---
Update Note
Progress Note Update
Ms. Kinney is resting comfortably in bed this morning. She reports aching pain in the hip, but is otherwise doing well. Hoping for d/c soon once medically cleared. Currently pending evaluation of leukocytosis by medicine.
Dressing strikethrough is contained. Dressings may be changed prior to D/c, however patient is to follow-up in office 2 weeks post-op, which would be later this week with Dr. Velasquez (where dressings will be removed for incision checks).
Continue TDWB LLE x 6 weeks. PT/OT. Eliquis for DVT ppx per primary team.
[2023-05-25 07:53] LABS: Glucose - Point of Care 145 mg/dl (70-99)
[2023-05-25] MEDS: NOVOLOG FLEXPEN-LOW RESISTANCE SC (08:39)
[2023-05-25] MEDS: ELIQUIS 10 MG PO (08:39)
[2023-05-25] MEDS: FARXIGA 10 MG PO ×2 (08:40→08:42)
[2023-05-25] MEDS: GLUCOTROL 2.5 MG PO (08:40)
[2023-05-25] MEDS: FEOSOL 325 MG PO (08:40)
[2023-05-25] MEDS: GLUCOPHAGE 1000 MG PO (08:42)
[2023-05-25] MEDS: ASPIR LOW (ENTERIC COATED) 81 MG PO (08:43)
[2023-05-25] MEDS: NORVASC 2.5 MG PO (08:43)
[2023-05-25] MEDS: VITAMIN D3 (cholecalciferol) 25 MCG PO (08:43)
[2023-05-25 09:21] LABS: COVID-19 Antigen Negative (Negative)
[2023-05-25 11:15] VITALS: BP 144/59
[2023-05-25 11:50] LABS: Glucose - Point of Care 205 mg/dl (70-99)
--- NOTE | 2023-05-25 11:55 | W.PN.NEPH.PH ---
Today's Communication / Plan
-
ok for d/c
Assessment/Plan
-
IMP:
Acute hypoxic respiratory insufficiency
STEPHANIE on CKD stage 3, baseline cr 1.2-1.5 Dr Hyatt
Hyponatremia, hypervolemic from volume overload
severe Hyperkalemia
Post-op acute blood loss anemia- s/p 4 units PRBCs
Hypoglycemia likely related to STEPHANIE and poor clearance of meds
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
Leucocytosis,
Hx of Left hip ORIF with gamma nail 02/14/2023, Left conversion total hip arthroplasty, removal of hardware 05-13
Underlying osteoarthritis, osteopenia, Vit D deficiency
Super Morbid Obesity d/t excess calories
PAD
Essential HTN
HLD
IBS with diarrhea
Suspected sleep disorder breathing-will need outpatient evaluation and PSG
Plan:
stable renal function at baseline
back on farxiga and metformin
mild hyponatremia likely driven by pain, would do FR 48 ounces/day at d/c
-BMP in 1-2 weeks, f/u Dr Hyatt as scheduled
-
-
Date of Service: May 25, 2023
CC / HPI / ROS
-
Chief Complaint:
STEPHANIE, hyperkalemia
History of Present Illness:
cr improved to 1.1 off palomino
BP stable
Na stable 134
Hgb stable 7.9
Review of Systems:
no cp or sob
no fever
Labs
-
Labs:
WBC 15.4 10^3/uL (4.8-10.8) H 05/25/23 04:44
RBC 2.72 10^6/uL (4.20-5.40) L 05/25/23 04:44
Hgb 7.9 g/dL (12.0-16.0) L 05/25/23 04:44
Hct 24.8 % (37.0-47.0) L 05/25/23 04:44
Plt Count 438 10^3/uL (130-400) H 05/25/23 04:44
Sodium 134 mmol/L (135-145) L 05/25/23 04:44
Potassium 3.5 mmol/L (3.5-5.1) 05/25/23 04:44
Chloride 100 mmol/L (98-107) 05/25/23 04:44
Carbon Dioxide 30 mmol/L (22-30) 05/25/23 04:44
BUN 27 mg/dl (7-17) H 05/25/23 04:44
Creatinine 1.1 mg/dL (0.6-1.0) H 05/25/23 04:44
eGFR 52.73 05/25/23 04:44
Glucose 125 mg/dl (70-99) H 05/25/23 04:44
Calcium 8.8 mg/dl (8.4-10.2) 05/25/23 04:44
Dvk-Q-Dvalapkxfpl Pept 6110 pg/ml 05/16/23 10:06
Albumin Cancelled 05/24/23 11:22
Physical Exam
-
Vital Signs:
Vital Signs
Temp Pulse Resp BP Pulse Ox
98.1 F 89 18 144/59 97
05/25/23 11:15 05/25/23 11:15 05/25/23 11:15 05/25/23 11:15 05/25/23 11:15
Cardiovascular:: Regular rate and rhythm
Respiratory:: Bilateral: CTA
Lung Excursion:: Normal
Abdomen:: Nontender and Soft
Extremity Edema:: +1: Right: and +2: Left:
Palomino Catheter: No
[2023-05-25] MEDS: NOVOLOG FLEXPEN-LOW RESISTANCE 2 UNITS SC (12:09)
--- NOTE | 2023-05-25 12:09 | CM ---
Addendum entered by Shwetha German 05/25/23 14:12:
[facility]
Report: [phone]

Original Note:
CM reviewed chart, auth obtained for 8 days, skilled level 1 (05/25-05/31) auth #[id number], ambulance auth #[id number]. Maricarmen at [facility] aware, ambulance transport scheduled for 3:30 p.m. Patient seen bedside with sister, discussed transportation
time. IMM reviewed, signed, placed in patients chart. CM will continue to follow for discharge planning needs.
Plan; [facility], 3:30 p.m. ambulance transport.
[2023-05-25] MEDS: IMODIUM 2 MG PO (12:28)
--- NOTE | 2023-05-25 13:00 | W.PN.ID1 ---
Date of Service
Date of Service: May 25, 2023
Today's Communication
- covid ag negative
- stable for dc from ID perspective; if she develops malaise, fever, chills, she will notify PCP
Assessment / Plan
Persistent Leukocytosis
Nonproductive Cough
- patient clinically feels very well, incidentally notes a mild, nonproductive cough; sister visiting also with mild cough without malaise
- comprehensive exam otherwise nonrevealing; agree that leukocytosis may be reactive
- covid ag negative
- stable for dc from ID perspective; if she develops malaise, fever, chills, she will notify PCP
Chief Complaint
-: Leukocytosis
Subjective / Review of Systems
afebrile
bp stable
nonproductive cough ongoing
no new complaints
asking about dc
Vital Signs / Physical Exam
Vital Signs
Vital Signs
Temp Pulse Resp BP Pulse Ox
98.1 F 89 18 144/59 97
05/25/23 11:15 05/25/23 11:15 05/25/23 11:15 05/25/23 11:15 05/25/23 11:15
Physical Exam
Constitutional: No Acute Distress
Cardiovascular: Regular Rate and S1/S2; Negative Murmur or Rub
Pulmonary: Clear and Symmetric; Negative Wheezes or Rales
Gastrointestinal: Soft, Non Tender, Non Distended and Normal Bowel Sounds
Skin: Warm and Dry; Negative Rash or Jaundice
Objective Data
Lab Data
Lab Results
05/25/23 04:44
05/25/23 04:44
PT 13.9 Sec (11.4-14.6) 05/17/23 12:15
INR 1.09 05/17/23 12:15
APTT Cancelled 05/21/23 11:50
Estimated Creat Clear 44 ml/min 05/25/23 04:44
Lactic Acid 1.9 mmol/L (0.7-2.0) 05/16/23 17:30
Total Bilirubin Cancelled 05/24/23 11:22
AST Cancelled 05/24/23 11:22
ALT Cancelled 05/24/23 11:22
Alkaline Phosphatase Cancelled 05/24/23 11:22
Most recent labs reviewed.
Micro Results:
05/16/23 17:30 Blood Culture - Final
Blood/Venous No Growth - Final Report
05/16/23 16:41 Blood Culture - Final
Blood/Venous No Growth - Final Report
05/16/23 18:19 Urine Culture - Final
Urine Yeast
Gram negative bacilli
--- NOTE | 2023-05-25 14:09 | W.PN.HOSP.TC ---
Today's Communication/Plan
-
dc to SNF
Assessment / Plan
Assessment / Plan
Assessment:
Acute hypoxic and hypercarbic respiratory failure
- multi-factorial from pain meds, volume overload, post-op atelectasis
- CTA study without PE, small effusions, atelectasis
- required BIPAP for acidosis; serial ABGs with improvement. now bipap prn and mainly at night
- pulmonology evaluated and help appreciated . Signed off as of 05/21
STEPHANIE With suspected ATN on CKD stage 3b
Hyponatremia - hypervolemic from volume overload
Hyperkalemia
- s/p IV Lasix
- Received HD 05/17. Now appears to be auto diuresing and creatinine improving. No plans for further dialysis.
- BNP elevated; TTE 05/17 with normal EF. Volume overloaded only. No signs of CHF
- Nephrology help appreciated.
- repeat BMP in 1-2 weeks
Toxic Metabolic Encephalopathy�- resolved
- from opiates, STEPHANIE, hypoxia/hypercapnia
Acute blood loss anemia
- s/p 4 units PRBCs this admit, hbg stabilized ~ 7.5-->7.9.
- s/p IV iron course
- monitor Hb and signs of bleeding
- normal ferritin level
Hypoglycemia likely related to STEPHANIE and poor clearance of meds
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
- resume Metformin/Farxiga
- continue Lantus
- A1c: 6.2% 2 weeks ago
Acute right lower extremity DVT
- continue Eliquis, day 6 of loading sequence
Gram neg UTI
- finished 3 day Rocephin course
- joint synovial fluid no growth
Leukocytosis persisting
- ID Cleared patient, no evidence of acute infection
Hx of Left hip ORIF with gamma nail 02/14/2023; now admitted with Left conversion total hip arthroplasty, removal of hardware 05-13
Underlying osteoarthritis, osteopenia, Vit D deficiency
- follow orthopedics recs
- stop all sedating opiates/pain meds with development of hypercarbia. use Tylenol TID + prn.
- continue Vit D
- eventual SNF when medically cleared
Super Morbid Obesity d/t excess calories
PAD
Essential HTN
HLD
IBS with diarrhea
Suspected sleep disorder breathing-will need outpatient evaluation and PSG
.5x.5.x.1 stage 3 PI on thigh that is likely a combination of pressure and moisture as the wound as found in the thigh fold
Hypokalemia
DVT ppx: Eliquis
Code: Full
More than 30 minutes spent in discharge including
Final examination of the patient
Summarizing hospital stay
Instructions for continuing care to all relevant caregivers
Preparation of discharge records, prescriptions, and referral forms
Total time spent (in minutes): 41
Anticipated Discharge: Today
Subjective/Interval History
-
Date of Service: May 25, 2023
no acute complaints
Objective Data
-
Labs:
Laboratory Results
05/25/23
04:44
WBC 15.4 H
Hgb 7.9 L
Hct 24.8 L
Plt Count 438 H
Sodium 134 L
Potassium 3.5
Chloride 100
Carbon Dioxide 30
BUN 27 H
Creatinine 1.1 H
Glucose 125 H
Calcium 8.8
Vital Signs:
Vital Signs
Temp Pulse Resp BP Pulse Ox
98.1 F 89 18 144/59 97
05/25/23 11:15 05/25/23 11:15 05/25/23 11:15 05/25/23 11:15 05/25/23 11:15
I&O
05/24/23 05/25/23 05/26/23
06:59 06:59 06:59
Intake Total 1120 / 1120 1200 / 1200 240 / 240
Balance 1120 / 1120 1200 / 1200 240 / 240
Physical Exam
-
General: No Apparent Distress
HEENT: Normocephalic and Atraumatic
Respiratory: Negative Wheezes or Rales
Cardiac: Regular Rhythm and S1/S2
GI: Soft
Genito-urinary: No Costovertebral Tender
Musculoskeletal: No Edema
Neuro: AO x 3
Hematologic / Lymphatic: No Lymphadenopathy
Psych: Calm
Data Reviewed
-
Total Time Spent with Patient (in minutes): 41
Labs: Labs Reviewed by me
--- NOTE | 2023-05-25 14:18 | W.DS.TRANS ---
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
-
Discharge Instructions:
Discharge Diagnosis/Procedures Left conversion AMILCAR, STEPHANIE resolved, Left leg DVT
on thinners, hyperkalemia, blood loss anemia,
TME, hypoxia resolved
Diet Diabetic, Carb Controlled,2 Gram Sodium
Activity With Walker,With assistance,Other activity
Additional Activity PWB (Touchdown)
Driving Restrictions No driving
Bathing Restrictions OK to Shower
Blood Work BMP in 1 week
Other Services PT,OT
Wound Care Dressings to remain until 2 week follow-up
Instructions:
Stand-Alone Forms: Total Hip/Knee Replacement D/C
Changes to Home Medications: Yes
Discharge Medications:
DC Medications w/original date entered in [employer]
acetaminophen 325 mg tablet (Tylenol) 975 mg PO DAILYPRN PRN mild pain 02/14/23
amlodipine 2.5 mg tablet 2.5 mg PO DAILY Blood Pressure 02/14/23
dapagliflozin propanediol 10 mg tablet (Farxiga) 10 mg PO DAILY Diabetes 02/14/23
loperamide 2 mg capsule 2 mg PO DAILYPRN PRN diarrhea 02/16/23
cholecalciferol (vitamin D3) 25 mcg (1,000 unit) tablet 25 mcg PO DAILY Supplement 05/12/23
ferrous sulfate 325 mg (65 mg iron) tablet 325 mg PO DAILY Supplement 05/12/23
insulin glargine 100 unit/mL (3 mL) subcutaneous pen (Basaglar KwikPen U-100 Insulin) 10 unit SC DAILY@1999 Diabetes 05/12/23
mupirocin 2 % topical ointment 1 applic topical BID apply to B/L nostrils 05/12/23
acetaminophen 325 mg tablet 650 mg PO Q4HWA #100 tabs 05/25/23
apixaban 5 mg tablet (Eliquis) 5 mg PO BID #60 tabs 05/25/23
aspirin 81 mg tablet,delayed release 81 mg PO DAILY #30 tabs 05/25/23
atorvastatin 10 mg tablet 10 mg PO QPM High Cholesterol #0 tabs 05/25/23
glipizide 5 mg tablet 2.5 mg PO DAILY #30 tabs 05/25/23
metformin 500 mg tablet 1,000 mg PO DAILY #60 tabs 05/25/23
tramadol 50 mg tablet 50 mg PO Q6HPRN PRN moderate pain #30 tabs 05/25/23
Home Medication Changes
HCTZ stopped, MFM reduced, now on Glipizide from [facility] for DVT
Pending Results: No
Total time spent discharging patient (in min): 41
--- NOTE | 2023-06-06 13:41 | OID.L.PAT ---
Pulmonary Nodule Pat Letter
- -
06/06/23
VIKRAM HARRIS
[address] [place], [place] [id number]
[facility]
[place], [place] [address]
Mihir SUE,
A pulmonary nodule was seen on an imaging study done by [facility]. This was reviewed by the [facility] Pulmonary Nodule Advisory Board and the following recommendation was made:
Recommendation: Based on current guidelines, no further follow up is necessary at this time
If you have any questions, please do not hesitate to contact your primary care physician. If you are in need of a Physician, you can go to [email or web address] and click on 'Find a Provider'. Type 'Family Medicine' in the search.
Oncology Nurse Navigator
[facility]
[phone]
--- NOTE | 2023-06-06 13:42 | OID.L.REC ---
Pulmonary Nodule Follow Up
- Recommendation
06/06/23
Pulmonary Nodule Review Recommendations
Your patient, VIKRAM HARRIS, had a pulmonary nodule seen on an imaging study done on 05/16/23 in the [facility] Radiology Department.
This was reviewed by the [facility] Pulmonary Nodule Advisory Board and the following recommendation was made:
Recommendation: Based on current guidelines, no further follow up is necessary at this time
If you have any questions please do not hesitate to contact us.
Sincerely,
Oncology Nurse Navigator
[facility]
[phone]
== END 2023-05-25 15:39 | DRG 469 ==
LOC: 2 SOUTH 12:31
PROVIDERS: Hospitalist; Internal Medicine; Internal Medicine Critical Care Medicine; Nurse Practitioner Family; Nurse Practitioner Primary Care; Physician Assistant; Physician Assistant Surgical; Radiology Vascular & Interventional Radiology; Registered Nurse; ADMITTING PHYSICIAN Orthopaedic Surgery; ATTENDING PHYSICIAN Internal Medicine; CONSULT PHYSICIAN Internal Medicine; CONSULT PHYSICIAN Internal Medicine Pulmonary Disease; CONSULT PHYSICIAN Student in an Organized Health Care Education/Training Program; EMERGENCY PHYSICIAN Emergency Medicine; FAMILY PHYSICIAN Family Medicine
PROC: 30233N1 Transfusion of Nonautologous Red Blood Cells into Peripheral Vein, Percutaneous Approach (ICD-10-PCS; 2023-05-13)
PROC: 0SRB04Z Replacement of Left Hip Joint with Ceramic on Polyethylene Synthetic Substitute, Open Approach (ICD-10-PCS; 2023-05-13)
PROC: 0QP704Z Removal of Internal Fixation Device from Left Upper Femur, Open Approach (ICD-10-PCS; 2023-05-13)
PROC: B5131ZA Fluoroscopy of Right Jugular Veins using Low Osmolar Contrast, Guidance (ICD-10-PCS; 2023-05-17)
PROC: 05HM33Z Insertion of Infusion Device into Right Internal Jugular Vein, Percutaneous Approach (ICD-10-PCS; 2023-05-17)
PROC: 5A1D70Z Performance of Urinary Filtration, Intermittent, Less than 6 Hours Per Day (ICD-10-PCS; 2023-05-17)
DX: T84.125A Displacement of internal fixation device of left femur, initial encounter (principal); G92.8 Other toxic encephalopathy; I82.441 Acute embolism and thrombosis of right tibial vein; L89.893 Pressure ulcer of other site, stage 3; J96.01 Acute respiratory failure with hypoxia; N17.0 Acute kidney failure with tubular necrosis; J96.02 Acute respiratory failure with hypercapnia; D62 Acute posthemorrhagic anemia; J98.11 Atelectasis; N39.0 Urinary tract infection, site not specified; E87.1 Hypo-osmolality and hyponatremia; Y79.8 Miscellaneous orthopedic devices associated with adverse incidents, not elsewhere classified; E66.01 Morbid (severe) obesity due to excess calories; N18.32 Chronic kidney disease, stage 3b; I12.9 Hypertensive chronic kidney disease with stage 1 through stage 4 chronic kidney disease, or unspecified chronic kidney disease; E11.22 Type 2 diabetes mellitus with diabetic chronic kidney disease; E11.649 Type 2 diabetes mellitus with hypoglycemia without coma; B96.89 Other specified bacterial agents as the cause of diseases classified elsewhere; E55.9 Vitamin D deficiency, unspecified; M81.0 Age-related osteoporosis without current pathological fracture; E11.51 Type 2 diabetes mellitus with diabetic peripheral angiopathy without gangrene; K58.0 Irritable bowel syndrome with diarrhea; E87.6 Hypokalemia; Z68.37 Body mass index [BMI] 37.0-37.9, adult; Z79.84 Long term (current) use of oral hypoglycemic drugs; Z79.82 Long term (current) use of aspirin; Z79.01 Long term (current) use of anticoagulants
CPT/HCPCS: 36556; 36600; 70450; 71045; 71046; 71275; 73502; 76770; 76937; 77001; 80048; 80053; 80076; 81003; 81015; 82570; 82607; 82728; 82746; 82784; 82805; 82962; 83516; 83521; 83540; 83550; 83605; 83735; 83880; 83935; 84132; 84145; 84155; 84156; 84165; 84300; 84466; 84484; 85014; 85018; 85025; 85027; 85610; 85730; 86038; 86160; 86334; 86335; 86704; 86706; 86803; 86850; 86900; 86901; 86920; 87040; 87086; 87340; 87811; 93005; 93306; 93970; 94660; 97110; 97116; 97163; 97167; 97530; 97535; C1713; C1752; C1776; G0257; J2916; P9016; P9047; Q5106; Q9967

== ENCOUNTER → 2023-05-27 09:28 | Outpatient (REF) | payer OTHER, SELFPAY ==
[2023-05-27 11:10] LABS: % Basophils 0.4 % (0-2); % Eosinophils 1.5 % (0-6); % Immature Granulocytes 1.8 % (0-0.5); % Lymphocytes 19.3 % (20.5-51.1); % Monocytes 4.7 % (1.7-9.3); % Neutrophils 72.3 % (42.2-75.2); Absolute Basophils 0.1 10^3/uL (0-0.2); Absolute Eosinophils 0.3 10^3/uL (0-0.7); Absolute Immature Granulocytes 0.4 10^3/uL (0-0.05); Absolute Neutrophils 15.1 10^3/uL (1.4-6.5); Hematocrit 26.7 % (37.0-47.0); Hemoglobin 8.2 g/dL (12.0-16.0); Mean Corp Hgb Conc. 30.7 g/dL (33.0-37.0); Mean Corpuscular Hgb 29.3 pg (27.0-31.0); Mean Corpuscular Volume 95.4 fL (81.0-99.0); Mean Platelet Volume 9.3 fL (7.4-10.4); Nucleated Red Blood Cells % 0 %; Platelet Count 699 10^3/uL (130-400); Red Cell Dist. Width 17.4 % (11.5-14.5); White Blood Cell Count 20.9 10^3/uL (4.8-10.8)
[2023-05-27 11:35] LABS: Blood Urea Nitrogen 32 mg/dl (7-17); Calcium 9.2 mg/dl (8.4-10.2); Carbon Dioxide 21 mmol/L (22-30); Chloride 102 mmol/L (98-107); Glucose 241 mg/dl (70-99); Potassium 4.5 mmol/L (3.5-5.1); Sodium 134 mmol/L (135-145)
== END ==
LOC: OLABP 09:28
PROVIDERS: ATTENDING PHYSICIAN Family Medicine
DX: N17.9 Acute kidney failure, unspecified (principal); E87.8 Other disorders of electrolyte and fluid balance, not elsewhere classified; E87.5 Hyperkalemia; G62.9 Polyneuropathy, unspecified; N39.0 Urinary tract infection, site not specified; A49.9 Bacterial infection, unspecified
CPT/HCPCS: 36415; 80048; 85025

== ENCOUNTER → 2023-05-30 13:56 | Outpatient (REF) | payer OTHER, SELFPAY ==
[2023-05-30 14:36] LABS: Blood Urea Nitrogen 28 mg/dl (7-17); Calcium 8.9 mg/dl (8.4-10.2); Carbon Dioxide 24 mmol/L (22-30); Chloride 102 mmol/L (98-107); Glucose 174 mg/dl (70-99); Iron 65 ug/dl (37-170); Potassium 4.2 mmol/L (3.5-5.1); Sodium 136 mmol/L (135-145); eGFR 52.73
[2023-05-30 14:58] LABS: % Basophils 0.5 % (0-2); % Eosinophils 2.3 % (0-6); % Immature Granulocytes 0.7 % (0-0.5); % Lymphocytes 16.1 % (20.5-51.1); % Monocytes 6.1 % (1.7-9.3); % Neutrophils 74.3 % (42.2-75.2); Absolute Basophils 0.1 10^3/uL (0-0.2); Absolute Eosinophils 0.2 10^3/uL (0-0.7); Absolute Immature Granulocytes 0.1 10^3/uL (0-0.05); Absolute Lymphocytes 1.7 10^3/uL (1.2-3.4); Absolute Monocytes 0.6 10^3/uL (0.1-0.6); Absolute Neutrophils 7.6 10^3/uL (1.4-6.5); Hematocrit 22.2 % (37.0-47.0); Hemoglobin 6.8 g/dL (12.0-16.0); Mean Corp Hgb Conc. 30.6 g/dL (33.0-37.0); Mean Corpuscular Hgb 30.4 pg (27.0-31.0); Mean Corpuscular Volume 99.1 fL (81.0-99.0); Mean Platelet Volume 8.9 fL (7.4-10.4); Nucleated Red Blood Cells % 0.2 %; Platelet Count 633 10^3/uL (130-400); Red Blood Cell Count 2.24 10^6/uL (4.20-5.40); Red Cell Dist. Width 19.1 % (11.5-14.5); White Blood Cell Count 10.3 10^3/uL (4.8-10.8)
== END ==
LOC: OLABP 13:56
PROVIDERS: ATTENDING PHYSICIAN Family Medicine
DX: N17.9 Acute kidney failure, unspecified (principal); E87.8 Other disorders of electrolyte and fluid balance, not elsewhere classified; E87.5 Hyperkalemia; G92.8 Other toxic encephalopathy; N39.0 Urinary tract infection, site not specified; A49.9 Bacterial infection, unspecified; N18.30 Chronic kidney disease, stage 3 unspecified
CPT/HCPCS: 36415; 80048; 82728; 83540; 85025

== ENCOUNTER → 2023-05-31 10:58 | Outpatient (REF) | payer OTHER, SELFPAY ==
[2023-05-31 11:11] LABS: % Basophils 0.5 % (0-2); % Eosinophils 2.2 % (0-6); % Immature Granulocytes 0.7 % (0-0.5); % Lymphocytes 14.8 % (20.5-51.1); % Monocytes 5.3 % (1.7-9.3); % Neutrophils 76.5 % (42.2-75.2); Absolute Basophils 0.1 10^3/uL (0-0.2); Absolute Eosinophils 0.2 10^3/uL (0-0.7); Absolute Immature Granulocytes 0.1 10^3/uL (0-0.05); Absolute Lymphocytes 1.5 10^3/uL (1.2-3.4); Absolute Monocytes 0.6 10^3/uL (0.1-0.6); Absolute Neutrophils 7.9 10^3/uL (1.4-6.5); Hematocrit 22.3 % (37.0-47.0); Mean Corp Hgb Conc. 31.4 g/dL (33.0-37.0); Mean Corpuscular Hgb 30.3 pg (27.0-31.0); Mean Corpuscular Volume 96.5 fL (81.0-99.0); Mean Platelet Volume 8.9 fL (7.4-10.4); Nucleated Red Blood Cells % 0 %; Platelet Count 631 10^3/uL (130-400); Red Blood Cell Count 2.31 10^6/uL (4.20-5.40); Red Cell Dist. Width 19.6 % (11.5-14.5); White Blood Cell Count 10.3 10^3/uL (4.8-10.8)
== END ==
LOC: OLABP 10:58
PROVIDERS: ATTENDING PHYSICIAN Family Medicine
DX: N17.9 Acute kidney failure, unspecified (principal); E87.8 Other disorders of electrolyte and fluid balance, not elsewhere classified; E87.5 Hyperkalemia; G92.8 Other toxic encephalopathy; N39.0 Urinary tract infection, site not specified; A49.9 Bacterial infection, unspecified
CPT/HCPCS: 36415; 85025

== ENCOUNTER 2023-06-01 10:29 | Outpatient (RCR) | payer OTHER, SELFPAY ==
[2023-06-01] VITALS (7 sets, daily range): BP systolic 114–155; BP diastolic 41–58
== END 2023-06-26 23:59 | disposition home or self-care (01) ==
LOC: OID 10:29
PROVIDERS: ATTENDING PHYSICIAN Family Medicine
DX: D64.9 Anemia, unspecified (principal); I25.10 Atherosclerotic heart disease of native coronary artery without angina pectoris; Z47.1 Aftercare following joint replacement surgery; Z86.718 Personal history of other venous thrombosis and embolism; Z79.01 Long term (current) use of anticoagulants
CPT/HCPCS: 36430; 86850; 86900; 86901; 86920; P9016

== ENCOUNTER → 2023-06-01 11:59 | Outpatient (REF) | payer OTHER, SELFPAY ==
[2023-06-01 12:35] LABS: % Basophils 0.6 % (0-2); % Eosinophils 3.5 % (0-6); % Immature Granulocytes 0.4 % (0-0.5); % Lymphocytes 23.5 % (20.5-51.1); % Monocytes 7.5 % (1.7-9.3); % Neutrophils 64.5 % (42.2-75.2); Absolute Basophils 0.1 10^3/uL (0-0.2); Absolute Eosinophils 0.3 10^3/uL (0-0.7); Absolute Lymphocytes 2.1 10^3/uL (1.2-3.4); Absolute Monocytes 0.7 10^3/uL (0.1-0.6); Absolute Neutrophils 5.8 10^3/uL (1.4-6.5); Hematocrit 22.8 % (37.0-47.0); Hemoglobin 6.9 g/dL (12.0-16.0); Mean Corp Hgb Conc. 30.3 g/dL (33.0-37.0); Mean Corpuscular Hgb 30.1 pg (27.0-31.0); Mean Corpuscular Volume 99.6 fL (81.0-99.0); Mean Platelet Volume 9.2 fL (7.4-10.4); Nucleated Red Blood Cells % 0 %; Platelet Count 622 10^3/uL (130-400); Red Blood Cell Count 2.29 10^6/uL (4.20-5.40); Red Cell Dist. Width 19.8 % (11.5-14.5); White Blood Cell Count 8.9 10^3/uL (4.8-10.8)
[2023-06-01 12:44] LABS: Blood Urea Nitrogen 20 mg/dl (7-17); Calcium 8.9 mg/dl (8.4-10.2); Carbon Dioxide 26 mmol/L (22-30); Chloride 105 mmol/L (98-107); Glucose 146 mg/dl (70-99); Sodium 134 mmol/L (135-145); eGFR 52.73
[2023-06-01 13:49] LABS: Folate 8.8 ng/ml (2.76-20); Vitamin B12 790 pg/ml (239-931)
== END ==
LOC: OLABP 11:59
PROVIDERS: ATTENDING PHYSICIAN Family Medicine
DX: N17.9 Acute kidney failure, unspecified (principal); E87.8 Other disorders of electrolyte and fluid balance, not elsewhere classified; E87.5 Hyperkalemia; G92.8 Other toxic encephalopathy; N39.0 Urinary tract infection, site not specified; Z79.899 Other long term (current) drug therapy
CPT/HCPCS: 36415; 80048; 82607; 82746; 85025

== ENCOUNTER → 2023-06-03 11:30 | Outpatient (REF) | payer OTHER, SELFPAY ==
[2023-06-03 12:03] LABS: Hematocrit 32.9 % (37.0-47.0); Mean Corp Hgb Conc. 31.3 g/dL (33.0-37.0); Mean Corpuscular Hgb 29.8 pg (27.0-31.0); Mean Corpuscular Volume 95.1 fL (81.0-99.0); Platelet Count 499 10^3/uL (130-400); Red Blood Cell Count 3.46 10^6/uL (4.20-5.40); Red Cell Dist. Width 19.5 % (11.5-14.5); White Blood Cell Count 9.2 10^3/uL (4.8-10.8)
[2023-06-03 12:06] LABS: Hemoglobin 10.3 g/dL (12.0-16.0)
[2023-06-03 12:14] LABS: Blood Urea Nitrogen 18 mg/dl (7-17); Calcium 8.7 mg/dl (8.4-10.2); Carbon Dioxide 25 mmol/L (22-30); Chloride 107 mmol/L (98-107); Glucose 119 mg/dl (70-99); Potassium 4.6 mmol/L (3.5-5.1); Sodium 134 mmol/L (135-145); eGFR 59.12
== END ==
LOC: OLABP 11:30
PROVIDERS: ATTENDING PHYSICIAN Family Medicine
DX: N17.9 Acute kidney failure, unspecified (principal); E87.8 Other disorders of electrolyte and fluid balance, not elsewhere classified; E87.5 Hyperkalemia; G92.8 Other toxic encephalopathy; N39.0 Urinary tract infection, site not specified; A49.9 Bacterial infection, unspecified
CPT/HCPCS: 36415; 80048; 85027

== ENCOUNTER → 2023-06-07 12:12 | Outpatient (REF) | payer OTHER, SELFPAY ==
[2023-06-07 12:34] LABS: Hematocrit 33.7 % (37.0-47.0); Hemoglobin 10.5 g/dL (12.0-16.0); Mean Corp Hgb Conc. 31.2 g/dL (33.0-37.0); Mean Corpuscular Hgb 30.3 pg (27.0-31.0); Mean Corpuscular Volume 97.1 fL (81.0-99.0); Mean Platelet Volume 9.2 fL (7.4-10.4); Platelet Count 326 10^3/uL (130-400); Red Blood Cell Count 3.47 10^6/uL (4.20-5.40); Red Cell Dist. Width 17.6 % (11.5-14.5); White Blood Cell Count 6.3 10^3/uL (4.8-10.8)
[2023-06-07 13:07] LABS: Blood Urea Nitrogen 17 mg/dl (7-17); Calcium 8.8 mg/dl (8.4-10.2); Carbon Dioxide 28 mmol/L (22-30); Chloride 104 mmol/L (98-107); Glucose 185 mg/dl (70-99); Potassium 4.8 mmol/L (3.5-5.1); Sodium 134 mmol/L (135-145); eGFR > 60.00
== END ==
LOC: OLABP 12:12
PROVIDERS: ATTENDING PHYSICIAN Family Medicine
DX: E11.00 Type 2 diabetes mellitus with hyperosmolarity without nonketotic hyperglycemic-hyperosmolar coma (NKHHC) (principal); E78.41 Elevated Lipoprotein(a); I10 Essential (primary) hypertension; N18.1 Chronic kidney disease, stage 1; I12.9 Hypertensive chronic kidney disease with stage 1 through stage 4 chronic kidney disease, or unspecified chronic kidney disease
CPT/HCPCS: 36415; 80048; 85027

== ENCOUNTER → 2023-06-14 16:52 | Outpatient (REF) | payer OTHER, SELFPAY ==
[2023-06-14 17:34] LABS: % Basophils 0.4 % (0-2); % Eosinophils 3.2 % (0-6); % Immature Granulocytes 0.2 % (0-0.5); % Lymphocytes 18.4 % (20.5-51.1); % Monocytes 7.2 % (1.7-9.3); % Neutrophils 70.6 % (42.2-75.2); Absolute Eosinophils 0.3 10^3/uL (0-0.7); Absolute Lymphocytes 1.5 10^3/uL (1.2-3.4); Absolute Monocytes 0.6 10^3/uL (0.1-0.6); Absolute Neutrophils 5.8 10^3/uL (1.4-6.5); Hematocrit 36.9 % (37.0-47.0); Hemoglobin 11.6 g/dL (12.0-16.0); Mean Corp Hgb Conc. 31.4 g/dL (33.0-37.0); Mean Corpuscular Hgb 29.4 pg (27.0-31.0); Mean Corpuscular Volume 93.7 fL (81.0-99.0); Mean Platelet Volume 9.8 fL (7.4-10.4); Nucleated Red Blood Cells % 0 %; Platelet Count 354 10^3/uL (130-400); Red Blood Cell Count 3.94 10^6/uL (4.20-5.40); Red Cell Dist. Width 15.9 % (11.5-14.5); White Blood Cell Count 8.2 10^3/uL (4.8-10.8)
[2023-06-14 17:49] LABS: Blood Urea Nitrogen 20 mg/dl (7-17); Calcium 9.3 mg/dl (8.4-10.2); Carbon Dioxide 29 mmol/L (22-30); Chloride 94 mmol/L (98-107); Glucose 154 mg/dl (70-99); Potassium 4.7 mmol/L (3.5-5.1); Sodium 132 mmol/L (135-145); eGFR > 60.00
== END ==
LOC: OLABP 16:52
PROVIDERS: ATTENDING PHYSICIAN Family Medicine
DX: E87.1 Hypo-osmolality and hyponatremia (principal); E87.5 Hyperkalemia; G92.8 Other toxic encephalopathy; N17.9 Acute kidney failure, unspecified
CPT/HCPCS: 80048; 85025

== ENCOUNTER → 2023-06-17 11:43 | Outpatient (REF) | payer OTHER, SELFPAY ==
[2023-06-17 12:29] LABS: Blood Urea Nitrogen 22 mg/dl (7-17); Calcium 8.8 mg/dl (8.4-10.2); Carbon Dioxide 28 mmol/L (22-30); Chloride 94 mmol/L (98-107); Glucose 199 mg/dl (70-99); Potassium 4.1 mmol/L (3.5-5.1); Sodium 130 mmol/L (135-145); eGFR 59.12
[2023-06-17 15:34] LABS: % Basophils 0.3 % (0-2); % Eosinophils 1.4 % (0-6); % Immature Granulocytes 0.5 % (0-0.5); % Lymphocytes 11.3 % (20.5-51.1); % Monocytes 9.5 % (1.7-9.3); Absolute Eosinophils 0.2 10^3/uL (0-0.7); Absolute Immature Granulocytes 0.1 10^3/uL (0-0.05); Absolute Lymphocytes 1.3 10^3/uL (1.2-3.4); Absolute Monocytes 1.1 10^3/uL (0.1-0.6); Absolute Neutrophils 8.5 10^3/uL (1.4-6.5); Hematocrit 35.1 % (37.0-47.0); Mean Corp Hgb Conc. 31.3 g/dL (33.0-37.0); Mean Corpuscular Hgb 29.3 pg (27.0-31.0); Mean Corpuscular Volume 93.4 fL (81.0-99.0); Mean Platelet Volume 9.6 fL (7.4-10.4); Nucleated Red Blood Cells % 0 %; Platelet Count 380 10^3/uL (130-400); Red Blood Cell Count 3.76 10^6/uL (4.20-5.40); Red Cell Dist. Width 15.8 % (11.5-14.5); White Blood Cell Count 11.1 10^3/uL (4.8-10.8)
== END ==
LOC: OLABP 11:43
PROVIDERS: ATTENDING PHYSICIAN Family Medicine
DX: M99.00 Segmental and somatic dysfunction of head region (principal); M48.00 Spinal stenosis, site unspecified; E66.01 Morbid (severe) obesity due to excess calories; E87.5 Hyperkalemia; N17.9 Acute kidney failure, unspecified; E87.1 Hypo-osmolality and hyponatremia; N18.4 Chronic kidney disease, stage 4 (severe)
CPT/HCPCS: 36415; 80048; 85025; 86140

== ENCOUNTER → 2023-06-19 20:26 | Outpatient (REF) | payer OTHER, SELFPAY | LOC: OLABP 20:26 | PROVIDERS: ATTENDING PHYSICIAN Family Medicine | DX: M25.552 Pain in left hip (principal); D72.829 Elevated white blood cell count, unspecified; A49.9 Bacterial infection, unspecified | CPT/HCPCS: 87070; 87077; 87186; 87205 ==

== ENCOUNTER 2023-06-21 03:54 | Inpatient (IN) | payer OTHER, SELFPAY ==
[2023-06-20 20:56] VITALS: BMI 41.1
[2023-06-20 21:00] VITALS: BP 144/61
--- NOTE | 2023-06-20 23:58 | ED.GENMED ---
History of Present Illness
General
Chief Complaint: Wound Check/Suture Removal
Source: patient
Exam Limitations: none
Time Seen by Provider: 06/20/23 23:31
Travel History
Have you had any contact with someone who has COVID-19?: No
Do you have any symptoms of coronavirus? Fever > 100 degrees, chills, cough, shortness of breath, sore throat, loss of taste or smell, muscle aches, or headache?: No
History of Present Illness
History of Present Illness:
73-year-old female with drainage and redness progressive to the left hip. Patient had a AMILCAR conversion done May 13. Has had drainage for 3 to 4 days. Currently on oral antibiotics. No fever.
Past History
Past History
ED Past Medical History: NIDDM and Renal failure
ED Past Surgical History: Cholecystectomy, Gynecological and Urological
Review of Systems
Review of Systems
All Other Systems: Not applicable
Respiratory: Reports no symptoms
Cardiac: Reports no symptoms
Phy Exam
Physical Exam
Physical Exam:
GENERAL: Alert and oriented in no apparent distress
EYE: Orbits normal.
NECK: Supple
CARDIAC: Regular rate and rhythm without any obvious murmurs.
LUNGS: Clear breath sounds,normal
ABDOMEN: Soft, without focal tenderness or distention
NEUROLOGICAL: Alert and oriented , grossly non-focal
SKIN: Warm and dry, large area of erythema and drainage at the left hip site. Induration. Swelling.
MUSCULOSKELETAL: Edema at the left hip surgical site.
PSYCH: Normal and appropriate interaction.
Course
Orders/Labs/Results
Orders:
Orders
06/20/23 23:43
Basic Metabolic Panel Urgent
Complete Blood Count/With Diff Urgent
06/20/23 23:45
Blood Culture Q30M
YAEL Source: Blood/Venous
Specimen Description:
06/20/23 23:57
Wound Culture [Wound/Abscess/Other Culture] Urgent
YAEL Source: Skin Surface
Specimen Description:
Date Specimen was Collected: 06/21/23
Time Specimen was Collected: 00:13
06/21/23 00:01
CR Hip - LT w/wo Pel 2-3 Vw* Urgent
Reason For Exam: Possible infected hip
Include a pelvis x-ray?: No
06/21/23 00:26
Piperacillin/Tazo 4.5 Gram [Zosyn] 4.5 gram in 100 ml IV NOW
06/21/23 00:41
Blood Culture Q30M
YAEL Source: Blood/Venous
Specimen Description:
06/21/23 01:18
Vancomycin [Vancocin] 2,000 mg 0.9% Sodium Chloride 500 ml [Nss] 500 ml IV NOW
Abnormal Lab Results
06/21/23
00:41
RBC 3.57 L 10^6/uL
(4.20-5.40)
Hgb 10.6 L g/dL
(12.0-16.0)
Hct 32.3 L %
(37.0-47.0)
MCHC 32.8 L g/dL
(33.0-37.0)
RDW 15.4 H %
(11.5-14.5)
Plt Count 431 H 10^3/uL
(130-400)
Absolute Neuts (auto) 7.0 H 10^3/uL
(1.4-6.5)
Absolute Monos (auto) 1.2 H 10^3/uL
(0.1-0.6)
Lymphocytes % 16.3 L %
(20.5-51.1)
Monocytes % 11.5 H %
(1.7-9.3)
Sodium 128 L mmol/L
(135-145)
Chloride 95 L mmol/L
(98-107)
BUN 26 H mg/dl
(7-17)
Creatinine 1.4 H mg/dL
(0.6-1.0)
Glucose 170 H mg/dl
(70-99)
06/21/23 00:41
06/21/23 00:41
Vital Signs
Initial and Last Documented VS:
Initial Vital Signs
Temp Pulse Resp BP Pulse Ox
99.7 F 88 18 144/61 98
06/20/23 21:00 06/20/23 21:00 06/20/23 21:00 06/20/23 21:00 06/20/23 21:00
Last Documented Vital Signs
Temp Pulse Resp BP Pulse Ox
99.7 F 102 18 147/53 94
06/20/23 21:00 06/21/23 01:45 06/21/23 01:45 06/21/23 01:00 06/21/23 01:45
*Pulse Oximetry
Patient hypoxic: no
*Critical Care Note
Total Time (30-74mins, 75-104mins- exclusive of procedures): Not Applicable
Data Reviewed
Review of Other/Old Records Reveals: Labs, Records, Radiology Studies and Discharge Summary
Update Note
Update Note:
Cellulitis over the left hip prosthesis with drainage. Possible hip prosthetic infection. Antibiotics. Wound culture. Hospitalist and orthopedics contacted
ED Attending Note
-
Portions of this chart may have been created with voice recognition software.� Occasional wrong word or��sound alike� substitutions may have occurred due to the inherent limitations of voice recognition software.
Discharge Plan
Departure
Patient Disposition: Admit
Date of Disposition: 06/21/23
Time of Disposition: 01:52
Presentation/result/management discussed w/ accepting MD/DO: Orthopedics
Discharge Problem:
Left hip cellulitis , Possible hip prosthesis infection prosta
Prescriptions:
No Action
amlodipine 2.5 mg Tablet
2.5 mg PO DAILY
dapagliflozin propanediol [Farxiga] 10 mg Tablet
10 mg PO DAILY
loperamide 2 mg Capsule
2 mg PO DAILYPRN PRN (Reason: diarrhea)
ferrous sulfate 325 mg (65 mg iron) Tablet
325 mg PO DAILY
cholecalciferol (vitamin D3) 25 mcg (1,000 unit) Tablet
25 mcg PO DAILY
mupirocin 2 % ointment
1 applic topical BID
insulin glargine [Basaglar KwikPen U-100 Insulin] 100 unit/mL (3 mL) insulin pen
10 unit SC DAILY@1999
Eliquis 5 mg Tablet
5 mg PO BID Qty: 60 0RF
Rx Instructions:
completed 7 day load in hospital
metformin 500 mg Tablet
1,000 mg PO DAILY Qty: 60 0RF
aspirin 81 mg Tablet,Delayed Release (Dr/Ec)
81 mg PO DAILY Qty: 30 0RF
glipizide 5 mg Tablet
2.5 mg PO DAILY Qty: 30 0RF
atorvastatin 10 mg Tablet
10 mg PO QPM Qty: 0 0RF
ondansetron HCl [Zofran] 4 mg Tablet
4 mg PO .Q8 PRN (Reason: NAUSEA)
oxycodone 5 mg Tablet
5 mg PO .Q8 PRN (Reason: PAIN)
Referrals:
Gilda Celaya MD [Family Provider] -
Interventions
Interventions:
ED-Skin Assessment Last Done: 06/21/23 00:55
[2023-06-21] VITALS (17 sets, daily range): BP systolic 99–157; BP diastolic 50–92; BMI 40.1
[2023-06-21] MEDS: ZOSYN 100 IV (00:47)
[2023-06-21 00:50] LABS: % Basophils 0.3 % (0-2); % Eosinophils 1.4 % (0-6); % Immature Granulocytes 0.4 % (0-0.5); % Lymphocytes 16.3 % (20.5-51.1); % Monocytes 11.5 % (1.7-9.3); % Neutrophils 70.1 % (42.2-75.2); Absolute Eosinophils 0.1 10^3/uL (0-0.7); Absolute Lymphocytes 1.6 10^3/uL (1.2-3.4); Absolute Monocytes 1.2 10^3/uL (0.1-0.6); Hematocrit 32.3 % (37.0-47.0); Hemoglobin 10.6 g/dL (12.0-16.0); Mean Corp Hgb Conc. 32.8 g/dL (33.0-37.0); Mean Corpuscular Hgb 29.7 pg (27.0-31.0); Mean Corpuscular Volume 90.5 fL (81.0-99.0); Mean Platelet Volume 8.8 fL (7.4-10.4); Nucleated Red Blood Cells % 0 %; Platelet Count 431 10^3/uL (130-400); Red Blood Cell Count 3.57 10^6/uL (4.20-5.40); Red Cell Dist. Width 15.4 % (11.5-14.5)
[2023-06-21 01:04] LABS: Blood Urea Nitrogen 26 mg/dl (7-17); Calcium 8.9 mg/dl (8.4-10.2); Carbon Dioxide 27 mmol/L (22-30); Chloride 95 mmol/L (98-107); Estimated Creatinine Clearance 35 ml/min; Glucose 170 mg/dl (70-99); Potassium 4.2 mmol/L (3.5-5.1); Sodium 128 mmol/L (135-145); eGFR 39.48
[2023-06-21] MEDS: VANCOCIN 540 MG IV (01:36)
--- NOTE | 2023-06-21 02:23 | EDRN ---
Pt pad on left hip was saturated in drainage. Serosanginous and odorous. Pt cleaned up and fresh linen given. Pt states when she moved certain directions in the bed feeling a 'gush' of drainage from time to time. Pt repositioned and states feeling
more comfortable. Pt laying on her back at this time. Pt had difficulty rolling from side to side in the bed and required assistance. Pt states she does not have pain at this time unless rolling and states she will ask for pain medicine if it
becomes necessary.
--- NOTE | 2023-06-21 03:41 | HPS.HSE ---
Addendum entered and electronically signed by Ernesto Sanchez DO 06/21/23 04:38:
Will hold on initiation of abx pending culture data / IR joint space aspiration.
Begin abx then based on culture / Gram stain data.
Original Note:
Family Physician
-
Family Physician: Gilda Celaya
Chief Complaint
-
Left Hip Drainage
History of Present Illness
Patient is a 73y F with PMH significant for DM-II, CKD and recent hospitalization for L hip surgery who presents to ED complaining of drainage from her L hip incision site. Patient was hospitalized here at from 05/13 - 05/25. She had
originally suffered a L hip fracture in 01/2023 and underwent gamma nail placement at that time. She was found to have cutout of cephalomedullary nail and was recommended for conversion to AMILCAR. Patient underwent surgery for conversion on 05/13/23.
She had a long and complicated hospitalization with elements of marked blood loss anemia, hypoxemia / anasarca, STEPHANIE requiring HD (one session) and RLE DVT.
Patient ultimately clinically improved and was discharged to SNF rehab.
Patient states that she noted drainage from the hip incision site about 3 days ago. This has steadily increased in frequency and volume. Patient states that drainage is purulent appearing and foul smelling.
She has noted some increase in pain in the L lateral thigh. Skin surrounding the incision is indurated and erythematous.
Patient remains toe-touch only following her surgery.
She denies any systemic complaints including chills, N/V/D, etc.
Medical History
Past Medical History
Past Medical History: Reports Other
Additional Past Medical History:
CKD III
DM-II
Morbid Obesity
Hypertension
RLE DVT
IBS
PAD
Past Surgical History: Reports Other
Additional Past Surgical History:
Cholecystectomy
MICHAEL
Bladder Sling
Left Femur ORIF (01/2023)
Left AMILCAR / Conversion (05/13/23)
Social History
Tobacco: Non-smoker
Alcohol: None
Drug: None
Family History
Family History: Other (Sister: DM)
Allergies / Home Medications
Allergies reflects when Allergies were last updated in [employer].
Home Medications with original date entered in [employer]
Allergy/Medication List:
Allergies
Allergy/AdvReac Type Severity Reaction Status Date / Time
ciprofloxacin Allergy Rash Verified 06/20/23 20:59
doxycycline Allergy Rash Verified 06/20/23 20:59
lactose Allergy Diarrhea Verified 06/20/23 20:59
Quinolones Allergy Rash Verified 06/20/23 20:59
Tetracyclines Allergy Rash Verified 06/20/23 20:59
Home Medications
amlodipine 2.5 mg tablet 2.5 mg PO DAILY Blood Pressure 02/14/23
dapagliflozin propanediol 10 mg tablet (Farxiga) 10 mg PO DAILY Diabetes 02/14/23
loperamide 2 mg capsule 2 mg PO DAILYPRN PRN diarrhea 02/16/23
cholecalciferol (vitamin D3) 25 mcg (1,000 unit) tablet 25 mcg PO DAILY Supplement 05/12/23
ferrous sulfate 325 mg (65 mg iron) tablet 325 mg PO DAILY Supplement 05/12/23
insulin glargine 100 unit/mL (3 mL) subcutaneous pen (Elidaagljyoti BegumPen U-100 Insulin) 10 unit SC DAILY@1999 Diabetes 05/12/23
mupirocin 2 % topical ointment 1 applic topical BID apply to B/L nostrils 05/12/23
apixaban 5 mg tablet (Eliquis) 5 mg PO BID #60 tabs 05/25/23
aspirin 81 mg tablet,delayed release 81 mg PO DAILY #30 tabs 05/25/23
atorvastatin 10 mg tablet 10 mg PO QPM High Cholesterol #0 tabs 05/25/23
glipizide 5 mg tablet 2.5 mg PO DAILY #30 tabs 05/25/23
metformin 500 mg tablet 1,000 mg PO DAILY #60 tabs 05/25/23
ondansetron HCl 4 mg tablet 4 mg PO .Q8 PRN NAUSEA 06/01/23
oxycodone 5 mg tablet 5 mg PO .Q8 PRN PAIN 06/01/23
Review of Systems
-
History Source: Patient
A 12 point ROS was completed and negative except as noted: Yes
Constitutional: Denies Fever, Fatigue or Chills
Respiratory: Denies Cough or Trouble Breathing
Cardiac: Denies Chest Pain or Palpitations
Abdomen/GI: Denies Abdominal Pain, Nausea, Vomiting or Diarrhea
: Denies Dysuria, Frequency or Flank Pain
Musculoskeletal: Reports Joint Pain, Joint Swelling and Edema
Skin: Reports Other (Redness. Purulent discharge from incision site.)
Neurological: Denies Headache
Psych: Denies Depression or Anxiety
Physical Exam
Vital Signs
Vital Signs
Temp Pulse Resp BP Pulse Ox
99.7 F 104 17 115/51 90
06/20/23 21:00 06/21/23 02:45 06/21/23 02:45 06/21/23 02:00 06/21/23 02:45
Physical Exam
General: Other (73y F in no acute distress.)
HEENT: Moist mucous membranes, PERRLA and Other (Thick neck.)
Respiratory: Clear; No Wheezes, Rales or Rhonchi
Cardiac: S1/S2 and Regular Rhythm; No Murmur
GI: Soft, Non Tender, Non Distended and Normal Bowel Sounds
Musculoskeletal: No Clubbing, No Cyanosis and Other (Induration and erythema surrounding lateral L hip incision site. Proximal aspect of incision with purulent drainage. Pos tenderness / fluctuance at incision.)
Neuro: AO x 3
Laboratory Results
-
06/21/23 00:41
06/21/23 00:41
Impression/Plan
-
A/P: Patient is a 73y F with PMH significant for DM-II, CKD and obesity who presents to ED complaining of drainage from her recent L AMILCAR site.
Left AMILCAR Infection
- Admit for further evaluation and treatment.
- At least localized skin infection at the incision site.
- Continue IV abx and adjust as needed based on culture data.
- Ortho evaluation for further recommendations.
- May benefit from wash out procedure or other intervention.
- ID evaluation for further recommendations.
- Pain control / supportive care.
STEPHANIE on CKD III
- SCr = 1.4 compared to baseline of 1.0 (despite noted history of CKD).
- Hold Farxiga acutely.
- Follow for changes in renal function / return to baseline.
- Marked STEPHANIE during prior admission with peak SCr = 5.2 requiring HD x a single session.
Hyponatremia
- Acute on subacute / chronic.
- Na = 128 compared to recent value of 130-135.
- Hold Farxiga as noted above.
- NPO pending potential intervention - fluid restrict when allowed diet.
- Follow for changes in labs / lytes.
Iron Deficiency Anemia
- Stable. Again, marked anemia during prior hospitalization requiring PRBCs x 4 units.
- Patient received an additional 2 units of PRBCs on 05/31.
- Follow for changes in H&H.
- Consider additional transfusion support if needed.
DM-II
- Stable. Hold oral medications including sulfonylurea and Farxiga.
- Decrease basal insulin while NPO.
- Follow glucose and cover with SSI as needed.
- A1C during 04/2023 admission was 6.2%.
RLE DVT
DVT Prophylaxis
- Hold Eliquis acutely given likely need for surgical intervention.
- Begin IV heparin for now and hold as needed for any procedures / interventions.
- No SCDs given known DVT.
Morbid Obesity
- Affects all aspects of care.
- Encourage healthy diet. Increase activity when able to do so with goal of weight reduction.
Code Status: Full
[2023-06-21] MEDS: HEPARIN 25000 UNITS/250 ML IV (05:35)
[2023-06-21] MEDS: DILAUDID 0.5 MG IV (05:41)
[2023-06-21] MEDS: TYLENOL 650 MG PO (05:55)
[2023-06-21 05:57] LABS: Hematocrit 29.3 % (37.0-47.0); Hemoglobin 9.7 g/dL (12.0-16.0); Mean Corp Hgb Conc. 33.1 g/dL (33.0-37.0); Mean Corpuscular Hgb 29.7 pg (27.0-31.0); Mean Corpuscular Volume 89.6 fL (81.0-99.0); Platelet Count 420 10^3/uL (130-400); Red Blood Cell Count 3.27 10^6/uL (4.20-5.40); Red Cell Dist. Width 15.2 % (11.5-14.5); White Blood Cell Count 9.2 10^3/uL (4.8-10.8)
[2023-06-21 06:09] LABS: APTT 45.5 Sec (23.4-35.0)
[2023-06-21 06:29] LABS: Blood Urea Nitrogen 23 mg/dl (7-17); Calcium 8.5 mg/dl (8.4-10.2); Carbon Dioxide 27 mmol/L (22-30); Chloride 99 mmol/L (98-107); Estimated Creatinine Clearance 41 ml/min; Glucose 123 mg/dl (70-99); Potassium 3.8 mmol/L (3.5-5.1); Sodium 129 mmol/L (135-145)
[2023-06-21 07:55] LABS: Glucose - Point of Care 129 mg/dl (70-99)
--- NOTE | 2023-06-21 08:31 | W.PN.UPDATE ---
Update Note
Progress Note Update
Full ortho consult to follow.
73 year old female who came to ED after experiencing increased drainage about her left hip.
S/p left hip removal of gamma nail and conversion to left AMILCAR with Dr. Velasquez on 05/13/23.
Has been in rehab at [facility] and noted to have bloody/purulent drainage for last 3 days. Increased redness and pain for the past day.
Concern for infection - IR has been consulted for aspiration.
Hold any antibiotics until culture obtained.
Medication management for pain control.
Continue TDWB status.
[2023-06-21] MEDS: NOVOLOG FLEXPEN-LOW RESISTANCE SC ×3 (09:10→16:07)
[2023-06-21] MEDS: NORVASC 2.5 MG PO (09:11)
[2023-06-21] MEDS: COLACE PO (09:11)
[2023-06-21] MEDS: NSS (PRESERVATIVE FREE) 10 ML IV (09:12)
[2023-06-21] MEDS: PROTONIX IV 40 MG IV (09:12)
[2023-06-21 11:42] LABS: Erythrocyte Sed Rate 80 mm/hour (0-20)
--- NOTE | 2023-06-21 11:59 | CON.ORTHO ---
Addendum entered and electronically signed by Jason Velasquez MD 06/21/23 16:46:
I evaluated the patient at bedside and agree with the above note. She was doing well until about 3 days ago she noted increased drainage from the incision. Incision she noted was previously closed. No trauma. She denies increased pain in the hip
but notes difficulty keeping the incision covered amid drainage. No subjective fevers or chills. She has been on oral anticoagulation for diagnosed DVT at her last admission.
The patient is resting comfortably in bed. She is intact motor and sensation distally on the left lower extremity. There are is some fibrinous changes along the central aspect of the incision without expressible drainage. There is localized
erythema about the lateral thigh.
Assessment and Plan
Will await IR aspiration. Recommending holding oral factor X anticoagulation in case of possible I&D later this week. Hold ABX pending IR aspiration then okay to start.
Ervin Velasquez
Original Note:
Consultation
-
Date/Time Consultation Requested: 06/21/2023
Date/Time Consultation Performed: 06/21/2023
Requesting Provider: Dr. Sanchez
Performing Provider: Breana Lemos PA-C, for Dr. Purvis
Reason for Consultation: Left hip wound drainage
Consultation - Orthopedics
History
History of present illness: This is a 73-year-old female with a past medical history significant for type 2 diabetes mellitus, CKD, and recent hospitalization being a left hip conversion to total hip arthroplasty.� Her initial surgery was on
05/13/2023 under the direction of Dr. Velasquez.� At that point, she had a gamma nail removed and a total hip arthroplasty put in.� Operatively, she was inpatient at [facility] until 05/25/2023 as she sustained several complications including
marked blood loss anemia, hypoxemia/anasarca, STEPHANIE requiring 1 session of hemodialysis, and a right lower extremity DVT.� Upon discharge from [facility], she was transferred to [facility], where she has remained.� She was seen in our
outpatient office on 06/08/2023 for her routine postop visit.� She was noted to be doing well at that time with no drainage about her incision, minimal swelling, and reports of typical postoperative discomfort.� Approximately 3 days ago, she noticed
increased drainage from the left hip incision.� Yesterday, she noticed more purulent appearing drainage, a foul-smelling odor, and increased erythema adjacent to the incision of her left hip.� She has noticed some increased lateral thigh pain, but
denies any groin pain.� She has been touchdown weightbearing since her surgery.� She presented to [facility] emergency department for further workup of her left hip drainage.
Past medical history: Significant for CKD 3, type 2 diabetes, morbid obesity, hypertension,�DVT right lower extremity, IBS, PAD.
Past surgical history: Significant for�cholecystectomy,�hysterectomy, bladder sling, left femur ORIF,��left hip removal of hardware and conversion to total hip arthroplasty.
Social history: Denies tobacco or alcohol use.� Currently in [employer].
Review of systems:� All systems reviewed and negative except for those mentioned in HPI.
Allergies / Home Medications
Allergy/AdvReac Type Severity Reaction Status Date / Time
ciprofloxacin Allergy Rash Verified 06/20/23 20:59
doxycycline Allergy Rash Verified 06/20/23 20:59
lactose Allergy Diarrhea Verified 06/20/23 20:59
Quinolones Allergy Rash Verified 06/20/23 20:59
Tetracyclines Allergy Rash Verified 06/20/23 20:59
Medication Instructions Recorded
amlodipine 2.5 mg tablet 2.5 mg PO DAILY Blood Pressure 02/14/23
dapagliflozin propanediol 10 mg 10 mg PO DAILY Diabetes 02/14/23
tablet (Farxiga)
loperamide 2 mg capsule 2 mg PO DAILYPRN PRN diarrhea 02/16/23
cholecalciferol (vitamin D3) 25 25 mcg PO DAILY Supplement 05/12/23
mcg (1,000 unit) tablet
ferrous sulfate 325 mg (65 mg 325 mg PO DAILY Supplement 05/12/23
iron) tablet
apixaban 5 mg tablet (Eliquis) 5 mg PO BID #60 tabs 05/25/23
aspirin 81 mg tablet,delayed 81 mg PO DAILY #30 tabs 05/25/23
release
atorvastatin 10 mg tablet 10 mg PO QPM High Cholesterol #0 05/25/23
tabs
glipizide 5 mg tablet 2.5 mg PO DAILY #30 tabs 05/25/23
metformin 500 mg tablet 1,000 mg PO DAILY #60 tabs 05/25/23
ondansetron HCl 4 mg tablet 4 mg PO Q8HPRN PRN NAUSEA 06/01/23
oxycodone 5 mg tablet 5 mg PO Q8HPRN PRN severe pain 06/01/23
acetaminophen 500 mg tablet 1,000 mg PO TID 06/21/23
(Tylenol Extra Strength)
bisacodyl 10 mg rectal suppository 10 mg [place] DAILYPRN PRN constipation 06/21/23
(Dulcolax (bisacodyl))
insulin glargine-yfgn 100 unit/mL 10 unit SC HS 06/21/23
(3 mL) subcutaneous pen
magnesium hydroxide 400 mg/5 mL 2,400 mg PO DAILYPRN PRN if no bm 06/21/23
oral suspension (Milk of Magnesia) by 4th day
sodium phosphates 19 gram-7 118 ml [place] DAILYPRN PRN constipation 06/21/23
gram/118 mL enema (Fleet Enema)
Vital Signs / Lab Results
Temp Pulse Resp BP Pulse Ox
98.3 F 90 20 149/59 96
06/21/23 11:16 06/21/23 11:16 06/21/23 11:16 06/21/23 11:16 06/21/23 11:16
06/21/23 05:21
06/21/23 05:21
Radiographic studies:
Left hip x-ray shows evidence of left lateral hip soft tissue gas, which may be on the basis of a soft tissue infection.� Left total hip arthroplasty hardware is in place with no evidence of acute fracture or dislocation.� Chronic displaced osseous
fragment of the greater and lesser tuberosities noted.
Examination:
General:�Obese female�in no acute distress at rest.� AAOx4.
HEENT:� AT/NC, neck supple.�
Lungs:� � Nonlabored breathing on room air.� No audible wheezing.
Heart: Regular rate and rhythm.
Left hip:�Moderate diffuse swelling about soft tissues of lateral hip.� There is associated erythema�adjacent to the incision.� There are 3 punctate areas of�granulation�tissue�about the incision�where it appears the purulent drainage is coming
from.� No active drainage, but chucks pad adjacent to patient completely saturated with sanguinous and purulent drainage.� ROM limited secondary to discomfort.� Diffusely tender to palpation about lateral hip.� N/v intact distally.
Assessment / Plan
Assessment: Left hip wound drainage, concern for post op infection.
Plan: Unfortunately, Ms. Kinney has been experiencing purulent drainage from her left hip incision for the past 3 days. With her recent surgery, our recommendation is to proceed with aspiration of the left hip with the assistance of interventional
radiology and send the fluid for analysis to include gram stain, cell count, culture and sensitivity. IV antibiotics should be held until left hip aspiration is performed.� I have also ordered CRP and ESR to be drawn to follow inflammatory markers
going forward.� ID has been consulted to help with antibiotic recommendations once initiated.� We will continue to follow aspiration results and provide further recommendations going forward.� In the meantime, keep incision covered with dry
dressing.� This should be changed frequently for saturation.��
[2023-06-21 12:05] LABS: Glucose - Point of Care 116 mg/dl (70-99)
[2023-06-21 13:03] LABS: APTT 86.3 Sec (23.4-35.0)
--- NOTE | 2023-06-21 14:10 | CON.ID ---
Consultation
-
Date/Time Consultation Requested: 06/21/2023 04:20
Date/Time Consultation Performed: 06/21/2023 1330
Requesting Provider: Dr. Sanchez
Performing Provider: Dr. Arciniega
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
Chief Complaint / Past History
History of Present Illness
Rosi Kinney is a 73-year-old female being evaluated Dr. Sanchez in regards to a left hip prosthetic joint infection. History is obtained from chart review, along with patient interview, and review of old records contained in the hospital EMR system.
The patient sustained a fall in January 2023, and underwent an ORIF with gamma nail placement. She subsequently underwent revision of the area on 05/13. She did well and has been at rehab since that time, but over the past 3 days has developed a
drainage from the incisional area. She also notes some increasing pain (6/10) over the past several days, and low-grade fever and increasing erythema of the area. Ultimately she was sent to the emergency room for further evaluation.
She has been evaluated by Orthopedics. IR has been consulted for aspiration.
Past History
Additional Past Medical History:
Osteoarthritis
Osteopenia
Obesity
DM
CKD stage III
Anemia
PAD
HTN
Dyslipidemia
IBS
Diverticulosis
Additional Past Surgical History:
Left hip ORIF with gamma nail (02/14/2023); revision (05/13/2023)
Bladder sling
MICHAEL
Cholecystectomy
Allergy History:
ciprofloxacin Allergy (Verified 06/20/23 20:59)
Rash
doxycycline Allergy (Verified 06/20/23 20:59)
Rash
lactose Allergy (Verified 06/20/23 20:59)
Diarrhea
Quinolones Allergy (Verified 06/20/23 20:59)
Rash
Tetracyclines Allergy (Verified 06/20/23 20:59)
Rash
Medications Reviewed: Yes
Current Antibiotics:
Currently none.
Received single dose of Zosyn and vancomycin in ER.
Social History
Tobacco: Non-Smoker
Alcohol: None
Drug: None
Employment: Retired
Family History
Family History: Not Pertinent
Review of Systems
Vital Signs
Temp Pulse Resp BP Pulse Ox
98.3 F 90 20 149/59 96
06/21/23 11:16 06/21/23 11:16 06/21/23 11:16 06/21/23 11:16 06/21/23 11:16
Physical Exam
Physical Exam
Constitutional: No Acute Distress, Comfortable, Chronically Ill and Non-toxic
Eyes: No Conjunctival Hemorrhage and Sclera Anicteric
Oral: No Thrush and No Ulcers
Cardiovascular: Regular Rate and S1/S2; Negative S3/S4
Pulmonary: Non Labored; Negative Wheezes, Rales or Rhonchi
Gastrointestinal: Soft, Non Tender and Non Distended
Extremities: Edema and Erythema
Wound: Other (Left hip incision with areas of purulent drainage. General area is erythema and warmth.)
Neurological: Awake and Alert
Psychological: Calm
Lab / Diagnostic Study Results
06/21/23 05:21
06/21/23 05:21
Abs Immat Gran (auto) 0.0 10^3/uL (0-0.05) 06/21/23 00:41
Absolute Neuts (auto) 7.0 10^3/uL (1.4-6.5) H 06/21/23 00:41
Absolute Lymphs (auto) 1.6 10^3/uL (1.2-3.4) 06/21/23 00:41
Absolute Monos (auto) 1.2 10^3/uL (0.1-0.6) H 06/21/23 00:41
Absolute Basos (auto) 0.0 10^3/uL (0-0.2) 06/21/23 00:41
Immature Gran % 0.4 % (0-0.5) 06/21/23 00:41
Neutrophils % 70.1 % (42.2-75.2) 06/21/23 00:41
Lymphocytes % 16.3 % (20.5-51.1) L 06/21/23 00:41
Monocytes % 11.5 % (1.7-9.3) H 06/21/23 00:41
Eosinophils % 1.4 % (0-6) 06/21/23 00:41
Basophils % 0.3 % (0-2) 06/21/23 00:41
ESR 80 mm/hour (0-20) H 06/21/23 11:27
Microbiology Results
Micro:
06/21/23 00:41 Wound Culture - Pending
Skin Surface Gram Stain - Preliminary
06/21/23 00:41 Blood Culture - Pending
Blood/Venous
06/21/23 00:41 Blood Culture - Pending
Blood/Venous
Assessment / Plan
Left hip cellulitis
Left hip SSTI
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
Elevated ESR and CRP
Osteoarthritis
Osteopenia
Obesity
DM
CKD stage III
Anemia
PAD
HTN
Dyslipidemia
IBS
Diverticulosis
Recommendations:
Await IR aspiration of the left hip area. Thereafter, begin vancomycin and cefepime.
Await further culture data to guide antimicrobial therapy.
Monitor white count and temperature curve.
Care Review
Plan reviewed with: Physician (Ortho)
[2023-06-21 15:41] LABS: Glucose - Point of Care 117 mg/dl (70-99)
--- NOTE | 2023-06-21 16:07 | PTCARENOTE ---
Osvaldo texted hospitalist Tio Mattson MD about plan of care update and diet order twice at 1509 and 1630. Awaiting response.
--- NOTE | 2023-06-21 16:51 | W.PN.HOSP.TC ---
Addendum entered and electronically signed by Tio Mattson MD 06/21/23 22:17:
Attending Addendum-
I saw and evaluated the patient. I reviewed the resident�s note and agree with findings and plan as documented in the resident�s note. Patient sent to ED due to left hip soft tissue infection. Had left AMILCAR on 05/13. Complains of feeling faigued and
warm. Pain well tolerated. continues to have drainage. Full 12 point ROS reviewed and negative except as documented Exam: GEN mild distress heart irreg irreg lungs clear abd soft obese Ext- b/l edema 2+ left hip incision draining purulent material.
Plan:
# Sepsis secondary to Left Hip probable soft tissue infection- for IR arthrocentesis 06/20-send for culture, eliquis held, cont zosyn and vancomycin post procedure check labs in am c/s ID c/s ortho
# LLE cellulitis- cont abx monitor for progression, ID cosult
# s/p Left AMILCAR- / Eva 05/13, doesn't appear to have hardware involvement on xray. appreciate ortho input, watch closely if needs to have surgery and removal of hardware
# DM- cont insulin check accucheck q ac q hs
# Hyponatremia- check urien studies, appears hypervolemic, cont to monitor BMP in am start fluid restrict
# H/O recent DVT- hold eliquis start heparin gtt due to possibly requiring procedure
Time spent coordinating care, review of plan of care with resident, review of records, med rec, consults, notes, labs, rads, d/w nursing � 59 mins
Original Note:
Today's Communication/Plan
-
see a/p
Assessment / Plan
Assessment / Plan
Assessment
Left hip infection
CKD 3
Hyponatremia
Cellulitis
Left finger paraesthesia
History of iron deficiency anemia
Type 2 diabetes
History of right lower extremity DVT
Morbid obesity
Plan
Left HIP Infection
�-X-ray of the hip shows left lateral hip soft tissue gas, which may be on the basis of a soft tissue infection.
-Left hip aspiration performed, synovial fluid drainage and analysis. awaiting wound culture and Gram stain
-ID input appreciated-will begin vancomycin and cefepime. Awaiting further culture data to guide antimicrobial therapy.
-Orthopedics input Appreciated
-Monitor CBC
STEPHANIE on CKD III
�- SCr = 1.4 compared to baseline of 1.0 (despite noted history of CKD).
�- Hold Farxiga acutely.
�- Follow for changes in renal function / return to baseline.
�- Marked STEPHANIE during prior admission with peak SCr = 5.2 requiring HD x a single session.
Hyponatremia
�- Acute on subacute / chronic.
�- Na = 129 compared to recent value of 130-135.
�- Hold Farxiga as noted above.
�-Urine studies.
-Urine culture
-Follow BMP
Left finger paraesthesia
-Patient reports numbness and tingling sensation in left finger
-Monitor glucose
Non-purulent Cellulitis b/l lower extremities
-Start antibiotics
-Blood cultures x 2
Iron Deficiency Anemia
�- Stable.� Again, marked anemia during prior hospitalization requiring PRBCs x 4 units.
�- Patient received an additional 2 units of PRBCs on 05/31.
�- Follow for changes in H&H.
�- Consider additional transfusion support if needed.
DM-II
�- Stable.� Hold oral medications including sulfonylurea and Farxiga.
�- Monitor on basal insulin regimen
�- Follow glucose and cover with SSI as needed.
�- A1C during 04/2023 admission was 6.2%.
RLE DVT
DVT Prophylaxis
�- Hold Eliquis acutely given likely need for surgical intervention.
�- Begin IV heparin for now and hold as needed for any procedures / interventions.
�- No SCDs given known DVT.
Morbid Obesity
�- Affects all aspects of care.
�- Encourage healthy diet.� Increase activity when able to do so with goal of weight reduction.
Code Status:� Full
Anticipated Discharge: > 48 hours
Objective Data
-
Labs:
Laboratory Results
06/21/23 06/21/23 06/21/23
05:21 05:21 05:21
WBC 9.2 Cancelled
Hgb 9.7 L Cancelled
Hct 29.3 L
Plt Count
APTT
Sodium
Potassium
Chloride
Carbon Dioxide
BUN
Creatinine
Glucose
Calcium
06/21/23 06/21/23 06/21/23
05:21 05:21 11:27
WBC
Hgb
Hct Cancelled
Plt Count 420 H Cancelled
APTT 45.5 H Cancelled
Sodium 129 L
Potassium 3.8
Chloride 99
Carbon Dioxide 27
BUN 23 H
Creatinine 1.2 H
Glucose 123 H
Calcium 8.5
06/21/23 06/21/23
12:16 18:30
WBC
Hgb
Hct
Plt Count
APTT 86.3 H Pending
Sodium
Potassium
Chloride
Carbon Dioxide
BUN
Creatinine
Glucose
Calcium
Vital Signs:
Vital Signs
Temp Pulse Resp BP Pulse Ox
98.4 F 97 20 137/61 94
06/21/23 15:13 06/21/23 15:13 06/21/23 15:13 06/21/23 15:13 06/21/23 15:13
I&O
06/20/23 06/21/23 06/22/23
06:59 06:59 06:59
Output Total 700 / 700
Balance -700 / -700
Review of Systems
-
All other systems: Reviewed and negative (Except as documented)
Physical Exam
-
General: Well Developed, Well Nourished and No Apparent Distress
HEENT: Normocephalic and Atraumatic
Respiratory: Non Labored Respirations; Negative Wheezes or Rales
Cardiac: Regular Rhythm and S1/S2
GI: Soft, Nontender and Nondistended
Musculoskeletal: Edema, Left Lower Extrem (1+ edema and erythema bilateral lower extremity) and Other (Erythema at the incision site on left hip, purulent drainage at incision site, tenderness to palpation at incisional site on left hip, )
Skin: Other
Neuro: Awake, Alert, Oriented and AO x 3
Psych: Calm
Data Reviewed
-
Labs: Labs Reviewed by me and Discussed with Physician
--- NOTE | 2023-06-21 17:10 | PTCARENOTE ---
Report called to receiving [facility] RN, pt transported with all belongings and on monitor. Sister left with pt for transport. Report called to receiving RN on [facility] also. Left hip dressing c/d/i. Voided via purewick this shift. Optifoam applied to open
blister on LLL. Relayed to [facility] RN that pt will need next aptt at 1815 per protocol
[2023-06-21 19:12] LABS: APTT 49.1 Sec (23.4-35.0); Osmolality Serum 283 mOsm/kg (275-300)
--- NOTE | 2023-06-21 19:19 | PHA.VAN.IN ---
Assessment
- Assessment
Renal Function: Appears elevated from baseline (0.9 - 1)
Maximum Temperature: 100.8 F oral 06/20 @ 0551
Concomitant Antimicrobials: cefepime
Plan
- Plan
Initial / Loading Dose: vanc 2000mg was administered 06/20 ~0130
Maintenance Regimen: dosing by level
Monitoring: random level 06/21 0600
will give vanc 1000mg x1 this evening (06/20)
Pharmacokinetics Vancomycin I
- -
Patient Age: 73
Patient Sex: Female
Vancomycin Day #: 1
Indication: Bone And Joint
Requesting Provider: Dr. Arciniega
Pertinent Antimicrobial Allergies:
ciprofloxacin - rash
doxycycline - rash
Height / Weight:
Height 4 ft 11 in
Actual Weight 89.993 kg
Pertinent Past Medical History: BMI ~40
- Vital Signs / Lab Results
Temp Pulse Resp BP Pulse Ox
98.3 F 102 16 124/65 95
06/21/23 19:11 06/21/23 19:11 06/21/23 19:11 06/21/23 19:11 06/21/23 19:11
Lab Results - Hematology
06/21/23 06/21/23 06/21/23
00:41 05:21 05:21
WBC 10.0 9.2 Cancelled
Lab Results - Chemistry
06/21/23 06/21/23
00:41 05:21
BUN 26 H 23 H
Creatinine 1.4 H 1.2 H
Estimated Creat Clear 35 41
Microbiology Results
06/21/23 00:41 Gram Stain - Preliminary
Skin Surface
[2023-06-21] MEDS: MAXIPIME 1000 MG IV (20:17)
[2023-06-21] MEDS: STERILE WATER FOR INJECTION 10 ML IV (20:17)
[2023-06-21] MEDS: LIPITOR 10 MG PO (20:17)
[2023-06-21] MEDS: COLACE 100 MG PO (20:17)
[2023-06-21 20:24] LABS: Glucose - Point of Care 169 mg/dl (70-99)
[2023-06-21] MEDS: LANTUS 0.0500000000000000028 UNITS SC (20:29)
[2023-06-21] MEDS: ROXICODONE 5 MG PO (20:29)
[2023-06-21] MEDS: VANCOCIN 200 IV (22:00)
[2023-06-21 23:38] LABS: Osmolality Urine 529 mOsm/kg (300-900)
[2023-06-21 23:41] LABS: Urine Albumin Trace (Neg - Trace); Urine Bilirubin Negative (Negative); Urine Character Clear (Clear); Urine Color Yellow; Urine Glucose 3+ (Negative); Urine Ketone 2+ (Negative); Urine Leukocyte Trace (Negative); Urine Nitrite Negative (Negative); Urine Occult Blood 2+ (Negative); Urine Urobilinogen Negative (Neg - 1+)
[2023-06-21 23:49] LABS: Urine Sodium 144 mmol/L (30-90)
[2023-06-21 23:54] LABS: Urine Red Blood Cell 30-40 /HPF (0-2); Urine Squamous Cell 21-25 /LPF (Few)
[2023-06-21 23:55] LABS: Urine Bacteria Moderate (Negative)
[2023-06-21 23:56] LABS: Urine Yeast Few (Negative)
[2023-06-22] MEDS: HEPARIN 25000 UNITS/250 ML IV ×2 (01:05→17:57)
[2023-06-22 03:00] VITALS: BP 123/70
[2023-06-22] MEDS: MAXIPIME 1000 MG IV ×3 (03:16→21:20)
[2023-06-22] MEDS: DILAUDID 0.5 MG IV (03:16)
[2023-06-22] MEDS: STERILE WATER FOR INJECTION 10 ML IV ×3 (03:16→21:20)
--- NOTE | 2023-06-22 03:33 | DOWNTIME ---
There was a [employer] Downtime on 06/22/2023 from 0100 to 06/22/2023 at 0322. Downtime documentation of patient's care, including medication administrations, has been reconciled in the electronic record per guidelines. Refer to the
patient's paper chart under the miscellaneous tab to see printed paper medication records and downtime forms.
[2023-06-22 03:48] LABS: % Basophils 0.5 % (0-2); % Eosinophils 4.1 % (0-6); % Immature Granulocytes 0.6 % (0-0.5); % Lymphocytes 22.8 % (20.5-51.1); % Monocytes 11.5 % (1.7-9.3); % Neutrophils 60.5 % (42.2-75.2); Absolute Eosinophils 0.4 10^3/uL (0-0.7); Absolute Immature Granulocytes 0.1 10^3/uL (0-0.05); Absolute Neutrophils 5.3 10^3/uL (1.4-6.5); Hematocrit 31.8 % (37.0-47.0); Hemoglobin 10.1 g/dL (12.0-16.0); Mean Corp Hgb Conc. 31.8 g/dL (33.0-37.0); Mean Corpuscular Hgb 29.3 pg (27.0-31.0); Mean Corpuscular Volume 92.2 fL (81.0-99.0); Mean Platelet Volume 8.9 fL (7.4-10.4); Nucleated Red Blood Cells % 0 %; Platelet Count 439 10^3/uL (130-400); Red Blood Cell Count 3.45 10^6/uL (4.20-5.40); Red Cell Dist. Width 15.4 % (11.5-14.5); White Blood Cell Count 8.8 10^3/uL (4.8-10.8)
[2023-06-22 03:59] LABS: Blood Urea Nitrogen 17 mg/dl (7-17); Calcium 8.3 mg/dl (8.4-10.2); Carbon Dioxide 27 mmol/L (22-30); Chloride 100 mmol/L (98-107); Estimated Creatinine Clearance 54 ml/min; Glucose 187 mg/dl (70-99); Potassium 4.1 mmol/L (3.5-5.1); Sodium 131 mmol/L (135-145); Vancomycin Random 23.1 ug/ml; eGFR > 60.00
[2023-06-22 04:02] LABS: APTT 174.8 Sec (23.4-35.0)
[2023-06-22 05:52] LABS: Glucose - Point of Care 160 mg/dl (70-99)
[2023-06-22 06:00] VITALS: BMI 39.6
[2023-06-22] MEDS: NOVOLOG FLEXPEN-LOW RESISTANCE 1 UNITS SC (06:15)
[2023-06-22] MEDS: COLACE 100 MG PO ×2 (07:47→21:20)
[2023-06-22] MEDS: PROTONIX IV 40 MG IV (07:47)
[2023-06-22] MEDS: NSS (PRESERVATIVE FREE) 10 ML IV (07:47)
[2023-06-22] MEDS: NORVASC 2.5 MG PO (07:47)
[2023-06-22 08:19] VITALS: BP 149/55
--- NOTE | 2023-06-22 08:31 | W.PN.HOSP.TC ---
Addendum entered and electronically signed by Tio Mattson MD 06/22/23 23:12:
Attending Addendum-
I saw and evaluated the patient. I reviewed the resident�s note and agree with findings and plan as documented in the resident�s note. feels fatigued and overall unwell. running low grade temps. Full 12 point ROS reviewed and negative except as
documented Exam: GEN mild distress heart irreg irreg lungs clear abd soft obese Ext- b/l edema 2+ left hip incision draining brown material. LLE red mild warm Plan:
# Sepsis secondary to Left Hip soft tissue infection- IR arthrocentesis 06/20-culture reviewed morganella-sens to cefepime, eliquis held-cont hep gtt, cont cefepime and vancomycin for now, reviewed ID and ortho consults- for OR in am- I and D ball
head and liner exchange left hip- 06/22 Dr. Velasquez. NPO after midnight cont hep gtt hold prior to OR
# LLE cellulitis- cont abx monitor for progression
# s/p Left AMILCAR- Elizabeth Velasquez 05/13, doesn't appear to have hardware involvement on xray. appreciate ortho input, for OR in am for exchange of hardware and I and D
# DM- cont insulin check accucheck q ac q hs- 1/2 dose BB while NPO
# Epyxrkzuadcj-eiqvouvvdbsq-cuahqppn, cont to monitor BMP in am cont fluid restrict
# H/O recent DVT- hold eliquis cont heparin gtt hold prior to procedure and restart after.
Time spent coordinating care, review of plan of care with resident, review of records, med rec, consults, notes, labs, rads, d/w nursing � 65 mins
Original Note:
Today's Communication/Plan
-
SEE A/P
Surgery for left hip irrigation and debridement with ball head and liner exchange tomorrow a.m.
N.p.o. midnight
Assessment / Plan
Assessment / Plan
Assessment
Left hip infection
CKD 3
Hyponatremia
Cellulitis
Left finger paraesthesia
History of iron deficiency anemia
Type 2 diabetes
History of right lower extremity DVT
Morbid obesity
Plan
Left HIP Infection
�-X-ray of the hip shows left lateral hip soft tissue gas, which may be on the basis of a soft tissue infection.
-Left hip aspiration performed using 10 mL of thin bloody nonpurulent fluid, awaiting culture and Gram stain
-ID input appreciated-will begin vancomycin and cefepime. Awaiting further culture data to guide antimicrobial therapy.
-Orthopedics input Appreciated. Patient for tentative left hip irrigation and debridement with ball head and liner exchange on 06/23/2023.
-N.p.o. at midnight
-Monitor CBC
STEPHANIE on CKD III
�- SCr = 0.9 (despite noted history of CKD).
�- Hold Farxiga acutely.
�- Follow for changes in renal function / return to baseline.
�- Marked STEPHANIE during prior admission with peak SCr = 5.2 requiring HD x a single session.
Hyponatremia
�- Na = 131 trending up
�- Hold Farxiga as noted above.
�-Urine studies including urine osmolality, serum osmolality checked, patient hypervolemic on presentation, fluid restrict
-Monitor BMP
Left finger paraesthesia
-Patient reports numbness and tingling sensation in left finger
-Monitor glucose
Non-purulent Cellulitis b/l lower extremities
-On antibiotics
-Blood cultures x 2
Iron Deficiency Anemia
�- Stable.� Again, marked anemia during prior hospitalization requiring PRBCs x 4 units.
�- Patient received an additional 2 units of PRBCs on 05/31.
�- Follow for changes in H&H.
�- Consider additional transfusion support if needed.
DM-II
�- Hold oral medications including sulfonylurea and Farxiga.
�- Monitor on basal insulin regimen. Patient was on 10 units glargine prior to admission, reduced to 5 units due to possible surgery
�- Follow glucose and cover with SSI as needed.
�- A1C during 04/2023 admission was 6.2%.
RLE DVT
DVT Prophylaxis
�- Hold Eliquis acutely given likely need for surgical intervention.
�- Begin heparin for now and hold as needed for any procedures / interventions.
�- No SCDs given known DVT.
Code Status:� Full
Anticipated Discharge: > 48 hours
Subjective/Interval History
-
Date of Service: June 22, 2023
Objective Data
-
Labs:
Laboratory Results
06/22/23 06/22/23
02:38 10:15
WBC 8.8
Hgb 10.1 L
Hct 31.8 L
Plt Count 439 H
APTT 174.8 H* Pending
Sodium 131 L
Potassium 4.1
Chloride 100
Carbon Dioxide 27
BUN 17
Creatinine 0.9
Glucose 187 H
Calcium 8.3 L
Vital Signs:
Vital Signs
Temp Pulse Resp BP Pulse Ox
98.5 F 85 16 149/55 95
06/22/23 08:19 06/22/23 08:19 06/22/23 08:19 06/22/23 08:19 06/22/23 08:19
I&O
06/21/23 06/22/23 06/23/23
06:59 06:59 06:59
Intake Total 480 / 480
Output Total 1100 / 1100
Balance -620 / -620
--- NOTE | 2023-06-22 09:50 | W.PN.UPDATE ---
Update Note
Progress Note Update
I evaluated the patient at bedside. I reviewed the clinical data in addition to the aspirate findings. There was not an aspirate-able collection in the hip joint. Some fluid was removed from the superficial soft tissues. Will follow the cultures.
Based on her clinical findings, she seems to have a superficial infection, likely also colonization of the hip versus prosthetic joint infection. Plan will be for left hip irrigation and debridement with ball head and liner exchange. She will
need 6 weeks of postoperative IV antibiotics. Will send deep cultures. Anticipated surgery date 06/23/2023 in the afternoon given her anemia and recent factor X administration yesterday. 2U type and cross on hold for OR. NPO at
midnight tonight. Hold IV heparin [employer] to the OR.
Ervin Velasquez MD
[2023-06-22 10:35] LABS: APTT 123.7 Sec (23.4-35.0)
[2023-06-22] MEDS: TYLENOL 650 MG PO ×2 (10:56→18:38)
[2023-06-22] MEDS: ROXICODONE 5 MG PO ×2 (10:56→18:38)
--- NOTE | 2023-06-22 11:01 | W.PN.ID1 ---
Date of Service
Date of Service: June 22, 2023
Today's Communication
Continue antibiotics
Assessment / Plan
Left hip cellulitis
Left hip SSTI
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
Elevated ESR and CRP
Osteoarthritis
Osteopenia
Obesity
DM
CKD stage III
Anemia
PAD
HTN
Dyslipidemia
IBS
Diverticulosis
Recommendations:
Continue vancomycin and cefepime.
Await further culture data to guide antimicrobial therapy.
Monitor white count and temperature curve.
Patient for tentative left hip irrigation and debridement with ball head and liner exchange on 06/23/2023.
����������������������������������������������������������
Chief Complaint
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
Subjective / Review of Systems
Review of Systems: No Fever and No Chills
Vital Signs / Physical Exam
Vital Signs
Vital Signs
Temp Pulse Resp BP Pulse Ox
98.5 F 85 16 149/55 95
06/22/23 08:19 06/22/23 08:19 06/22/23 08:19 06/22/23 08:19 06/22/23 08:19
Physical Exam
Constitutional: No Acute Distress, Comfortable and Non-toxic
Eyes: No Conjunctival Hemorrhage and Sclera Anicteric
Cardiovascular: S1/S2; Negative S3/S4
Pulmonary: Non Labored
Gastrointestinal: Soft and Non Tender
Extremities: Edema
Wound: Other (Left hip wound with serosanguineous drainage.)
Neurological: Awake and Alert
Psychological: Calm
Objective Data
Lab Data
Lab Results
06/22/23 02:38
06/22/23 02:38
ESR 80 mm/hour (0-20) H 06/21/23 11:27
APTT 123.7 Sec (23.4-35.0) H 06/22/23 10:01
Estimated Creat Clear 54 ml/min 06/22/23 02:38
C-Reactive Protein 211.20 mg/L (0.0-10.00) H 06/21/23 11:27
Most recent labs reviewed.
Micro Results:
06/21/23 00:41 Wound Culture - Preliminary
Skin Surface Morganella morganii
Diptheroids
Gram Stain - Preliminary
06/21/23 00:41 Blood Culture - Preliminary
Blood/Venous No Growth in 24 hours- Final report to follow
06/21/23 00:41 Blood Culture - Preliminary
Blood/Venous No Growth in 24 hours- Final report to follow
06/21/23 23:31 Urine Culture - Pending
Urine
06/21/23 18:00
Body Fluid Culture - Pending
Fluid Gram Stain - Many WBC
Many Gram Positive Cocci
Moderate Gram Negative Rods
06/21/23 15:26 MRSA Screen - Pending
Nose
[2023-06-22 11:30] VITALS: BP 143/61
[2023-06-22 11:57] LABS: Glucose - Point of Care 200 mg/dl (70-99)
[2023-06-22] MEDS: NOVOLOG FLEXPEN-LOW RESISTANCE 2 UNITS SC ×2 (12:10→17:19)
--- NOTE | 2023-06-22 13:32 | PHA.VAN.FU ---
Vancomycin Assessment / Plan
- Assessment
Renal Function: SCR Decreasing
WBC's are: WNL
In the past 24 hrs, patient has been: Afebrile
Concomitant Antimicrobials: cefepime
- Assessment - Therapeutic Drug Monitoring
Random Level: 23.1 - drawn ~4.5H after previous dose of 1000mg
- Dosing Plan
Dosing by Level: Re-dose today (vanc 1000mg x1 this afternoon)
renal function improving and level closer to peak
- Monitoring Plan
Random Level: 06/22 0600
- Follow Up
Pharmacy will continue to follow.
Vancomycin Follow UP
- -
Patient Age: 73
Patient Sex: Female
Vancomycin Day #: 2
Indication: Bone And Joint
Requesting Provider: Dr. Arciniega
Pertinent Antimicrobial Allergies:
ciprofloxacin - rash
doxycycline - rash
Height / Weight:
Height 4 ft 11 in
Actual Weight 88.904 kg
Pertinent Past Medical History: BMI ~40
- Vital Signs / Lab Results
Temp Pulse Resp BP Pulse Ox
99.3 F 78 16 143/61 95
06/22/23 11:30 06/22/23 11:30 06/22/23 11:30 06/22/23 11:30 06/22/23 11:30
Lab Results - Hematology
06/21/23 06/21/23 06/21/23
00:41 05:21 05:21
WBC 10.0 9.2 Cancelled
06/22/23
02:38
WBC 8.8
Lab Results - Chemistry
06/21/23 06/21/23 06/22/23
00:41 05:21 02:38
BUN 26 H 23 H 17
Creatinine 1.4 H 1.2 H 0.9
Estimated Creat Clear 35 41 54
Lab Results - Urine
06/21/23
23:31
Urine Nitrite (Reflex) Negative
Leukocyte Esterase Rfl Trace A
Ur Squamous Epith Cells
Microbiology Results
06/21/23 18:00 Body Fluid Culture - Preliminary
Fluid Morganella morganii
Gram Stain - Preliminary
06/21/23 00:41 Wound Culture - Preliminary
Skin Surface Morganella morganii
Diptheroids
Gram Stain - Preliminary
06/21/23 00:41 Blood Culture - Preliminary
Blood/Venous No Growth in 24 hours- Final report to follow
06/21/23 00:41 Blood Culture - Preliminary
Blood/Venous No Growth in 24 hours- Final report to follow
Therapeutic Drug Monitoring
Random Vancomycin 23.1 ug/ml 06/22/23 02:38
[2023-06-22] MEDS: VANCOCIN 200 IV (13:40)
[2023-06-22 15:55] VITALS: BP 134/59
--- NOTE | 2023-06-22 16:35 | CM ---
CM following re: d/c planning
Chart reviewed
CM met with the patient and her sister at bedside; IA completed
Pt states she was recently at [facility] for rehab and wishes to return for rehab post hospital d/c
Pt otherwise resides with her sister & son in a [facility] with [facility]
[employer] patient reports independence at baseline
Pt has recent home care hx with [facility], has been to [facility] x2, & has a w/c, hip kit, & r/w
Pt confirms prescription coverage and rx's are filled within the facility pharmacy while at [facility] and at [facility] on [address] [place] otherwise
Pt PCP-Dr. Gilda Celaya
Awaiting PT/OT evals for recommendations r/t to discharge planning; pt again hopes for SNF d/c to [facility]
CM will continue to follow patient progress and assist with needs at d/c as indicated
PLAN; CM following for needs
[2023-06-22 16:49] LABS: Glucose - Point of Care 204 mg/dl (70-99)
[2023-06-22 17:18] LABS: APTT 116.2 Sec (23.4-35.0)
[2023-06-22] MEDS: LIPITOR 10 MG PO (17:19)
[2023-06-22 19:30] VITALS: BP 143/65
[2023-06-22 22:39] LABS: Glucose - Point of Care 180 mg/dl (70-99)
[2023-06-22] MEDS: LANTUS 0.0500000000000000028 UNITS SC (22:43)
[2023-06-22 23:38] VITALS: BP 133/52
[2023-06-22 23:52] LABS: APTT 80.8 Sec (23.4-35.0)
[2023-06-23 03:34] VITALS: BP 162/70
[2023-06-23] MEDS: ROXICODONE 5 MG PO ×3 (03:38→23:45)
[2023-06-23] MEDS: STERILE WATER FOR INJECTION 10 ML IV ×3 (03:39→20:00)
[2023-06-23] MEDS: MAXIPIME 1000 MG IV ×3 (03:39→20:00)
[2023-06-23 06:00] VITALS: BMI 38.7
[2023-06-23 06:05] LABS: Glucose - Point of Care 179 mg/dl (70-99)
[2023-06-23 06:09] LABS: APTT 93.4 Sec (23.4-35.0)
[2023-06-23 06:15] LABS: % Basophils 0.6 % (0-2); % Immature Granulocytes 1.8 % (0-0.5); % Lymphocytes 16.8 % (20.5-51.1); % Monocytes 9.8 % (1.7-9.3); Absolute Basophils 0.1 10^3/uL (0-0.2); Absolute Eosinophils 0.5 10^3/uL (0-0.7); Absolute Immature Granulocytes 0.2 10^3/uL (0-0.05); Absolute Lymphocytes 1.5 10^3/uL (1.2-3.4); Absolute Monocytes 0.9 10^3/uL (0.1-0.6); Absolute Neutrophils 5.8 10^3/uL (1.4-6.5); Hematocrit 32.5 % (37.0-47.0); Hemoglobin 10.2 g/dL (12.0-16.0); Mean Corp Hgb Conc. 31.4 g/dL (33.0-37.0); Mean Corpuscular Hgb 28.9 pg (27.0-31.0); Mean Corpuscular Volume 92.1 fL (81.0-99.0); Mean Platelet Volume 8.8 fL (7.4-10.4); Nucleated Red Blood Cells % 0 %; Platelet Count 455 10^3/uL (130-400); Red Blood Cell Count 3.53 10^6/uL (4.20-5.40); Red Cell Dist. Width 15.4 % (11.5-14.5); White Blood Cell Count 8.9 10^3/uL (4.8-10.8)
[2023-06-23 06:16] LABS: Vancomycin Random 18.3 ug/ml
[2023-06-23] MEDS: NOVOLOG FLEXPEN-LOW RESISTANCE 1 UNITS SC ×2 (06:31→12:06)
[2023-06-23 06:43] LABS: Blood Urea Nitrogen 14 mg/dl (7-17); Calcium 8.6 mg/dl (8.4-10.2); Carbon Dioxide 26 mmol/L (22-30); Chloride 101 mmol/L (98-107); Estimated Creatinine Clearance 53 ml/min; Glucose 182 mg/dl (70-99); Sodium 132 mmol/L (135-145); eGFR > 60.00
[2023-06-23 08:00] VITALS: BP 153/73
[2023-06-23] MEDS: COLACE PO ×2 (08:00→19:56)
[2023-06-23] MEDS: NORVASC 2.5 MG PO (08:00)
[2023-06-23] MEDS: PROTONIX IV 40 MG IV (08:01)
[2023-06-23] MEDS: NSS (PRESERVATIVE FREE) 10 ML IV (08:01)
[2023-06-23] MEDS: TYLENOL 650 MG PO ×2 (11:32→23:44)
[2023-06-23 11:58] VITALS: BP 165/76
[2023-06-23 12:05] LABS: Glucose - Point of Care 176 mg/dl (70-99)
--- NOTE | 2023-06-23 12:33 | W.PN.UPDATE ---
Update Note
Progress Note Update
Evaluated patient earlier this am.
Plan for OR later today with Dr. Velasquez for Left hip I&D and ball head/liner exchange.
Consent in chart.
Patient is NPO.
All questions answered.
--- NOTE | 2023-06-23 14:58 | PHA.VAN.FU ---
Vancomycin Assessment / Plan
- Assessment
Renal Function: Stable
WBC's are: WNL
In the past 24 hrs, patient has been: Afebrile
Concomitant Antimicrobials: cefepime
- Assessment - Therapeutic Drug Monitoring
Random Level: 18.3 - drawn ~16H after previous dose of 1000mg
- Dosing Plan
Adjust Regimen to: Vanc 1000mg Q24H
Dosing Comments: give 500mg x1 today and start regimen 06/23 599
- Monitoring Plan
No level(s) ordered at this time: consider levels in next few days
- Follow Up
Pharmacy will continue to follow.
Vancomycin Follow UP
- -
Patient Age: 73
Patient Sex: Female
Vancomycin Day #: 3
Indication: Bone And Joint
Requesting Provider: Dr. Arciniega
Pertinent Antimicrobial Allergies:
ciprofloxacin - rash
doxycycline - rash
Height / Weight:
Height 4 ft 11 in
Actual Weight 86.835 kg
Pertinent Past Medical History: BMI ~40
- Vital Signs / Lab Results
Temp Pulse Resp BP Pulse Ox
98.6 F 84 14 165/76 94
06/23/23 11:58 06/23/23 11:58 06/23/23 11:58 06/23/23 11:58 06/23/23 11:58
Lab Results - Hematology
06/21/23 06/21/23 06/21/23
00:41 05:21 05:21
WBC 10.0 9.2 Cancelled
06/22/23 06/23/23
02:38 05:40
WBC 8.8 8.9
Lab Results - Chemistry
06/21/23 06/21/23 06/22/23
00:41 05:21 02:38
BUN 26 H 23 H 17
Creatinine 1.4 H 1.2 H 0.9
Estimated Creat Clear 35 41 54
06/23/23
05:40
BUN 14
Creatinine 0.9
Estimated Creat Clear 53
Microbiology Results
06/21/23 18:00 Body Fluid Culture - Preliminary
Fluid Morganella morganii
Gram Stain - Preliminary
06/21/23 00:41 Wound Culture - Final
Skin Surface Morganella morganii
Diptheroids
Gram Stain - Final
06/21/23 23:31 Urine Culture - Final
Urine Yeast
06/21/23 00:41 Blood Culture - Preliminary
Blood/Venous No Growth in 48 hours- Final report to follow
06/21/23 00:41 Blood Culture - Preliminary
Blood/Venous No Growth in 48 hours- Final report to follow
06/21/23 15:26 MRSA Screen - Final
Nose No Methicillin Resistant Staphylococcus aureus isolated.
Therapeutic Drug Monitoring
Random Vancomycin 18.3 ug/ml 06/23/23 05:40
--- NOTE | 2023-06-23 15:25 | W.PN.UPDATE ---
Update Note
Progress Note Update
I evaluated the patient at bedside. Surgery will need to be postponed due to ongoing heparin drip. Per anesthesia guidelines, heparin drip will need to be stopped 6 hours prior to procedure. Plan will be for OR tomorrow 06/24/2023 at noon, so heparin
drip will need to be stopped at 6am. May eat today, NPO at midnight.
Ervin Velasquez MD
[2023-06-23 15:26] VITALS: BP 137/61
[2023-06-23 15:41] LABS: Glucose - Point of Care 139 mg/dl (70-99)
[2023-06-23] MEDS: VANCOCIN HCL 500 MG 100 IV (16:05)
[2023-06-23] MEDS: LIPITOR 10 MG PO (16:38)
--- NOTE | 2023-06-23 16:40 | W.PN.HOSP.TC ---
Addendum entered and electronically signed by Tio Mattson MD 06/23/23 21:46:
Attending Addendum-
I saw and evaluated the patient. I reviewed the resident�s note and agree with findings and plan as documented in the resident�s note. Patient feels anxious about surgery. Sister present. Pain well controlled Full 12 point ROS reviewed and negative
except as documented Exam: GEN mild distress heart irreg irreg lungs clear abd soft obese Ext- b/l edema 2+ left hip incision pus present. LLE red mild warm Plan:
# Sepsis secondary to Left Hip soft tissue infection- IR arthrocentesis 06/20-culture reviewed morganella-sens to cefepime, eliquis held-restart hep gtt, cont cefepime and vancomycin for now, reviewed ID and ortho consults- OR postponed due to hep
ggt, OR scheduled for @ 12PM hold hep gtt @ 6AM- for I and D, ball head and liner exchange left hip- 06/23 Dr. Thomas. NPO after midnight cont hep gtt hold 6 hours prior to OR
# LLE cellulitis- cont abx monitor for progression
# s/p Left AMILCAR- Dr. Thomas 05/13, doesn't appear to have hardware involvement on xray. appreciate ortho input, for OR in am for exchange of hardware and I and D
# DM- cont insulin check accucheck q ac q hs- 1/2 dose BB while NPO add SSI, hold metformin glipizide and farxiga
# Bxnydkzbxbar-ryuqlocflsfv-hvtgwyuy, cont to monitor BMP in am cont fluid restrict
# H/O recent DVT- hold eliquis cont heparin gtt hold 6 hours prior to procedure and restart after.
Time spent coordinating care, review of plan of care with resident, review of records, med rec, consults, notes, labs, rads, d/w nursing, dr thomas, sister� 58 mins
Original Note:
Today's Communication/Plan
-
see a/p
Continue antibiotics
Keep n.p.o. at midnight for possible surgery tomorrow
D/C heparin 6 hours before surgery
Assessment / Plan
Assessment / Plan
Assessment
Left hip infection
CKD 3
Hyponatremia
Cellulitis
Left finger paraesthesia
History of iron deficiency anemia
Type 2 diabetes
History of right lower extremity DVT
Morbid obesity
Plan
Left HIP Infection
�-X-ray of the hip shows left lateral hip soft tissue gas, which may be on the basis of a soft tissue infection.
-Left hip aspiration performed using 10 mL of thin bloody nonpurulent fluid, awaiting culture and Gram stain
-ID input appreciated continue cefepime and vancomycin.
-Orthopedics input Appreciated. Patient for tentative left hip irrigation and debridement with ball head and liner exchange on 06/24/2023.
-N.p.o. at midnight
-Monitor CBC
STEPHANIE on CKD III
�- SCr = 0.9 (despite noted history of CKD).
�- Hold Farxiga acutely.
�- Follow for changes in renal function / return to baseline.
�- Marked STEPHANIE during prior admission with peak SCr = 5.2 requiring HD x a single session.
Hyponatremia
�- Na = 132 trending up
�- Hold Farxiga as noted above.
�-Urine studies including urine osmolality, serum osmolality checked, patient hypervolemic on presentation, fluid restrict
-Monitor BMP
Left finger paraesthesia
-Patient reports numbness and tingling sensation in left finger
-Monitor glucose
Non-purulent Cellulitis b/l lower extremities
-monitor, while On antibiotics
-Blood cultures x 2
DM-II
�- Hold oral medications including sulfonylurea and Farxiga.
�- Monitor on basal insulin regimen. Patient was on 10 units glargine prior to admission, reduced to 5 units due to possible surgery
�- Follow glucose and cover with SSI as needed.
�- A1C during 04/2023 admission was 6.2%.
RLE DVT
DVT Prophylaxis
�- Hold Eliquis acutely given likely need for surgical intervention.
�- Begin heparin for now and hold as needed for any procedures / interventions.
�- No SCDs given known DVT.
Code Status:� Full
Anticipated Discharge: > 48 hours
Objective Data
-
Labs:
Laboratory Results
06/23/23
05:40
WBC 8.9
Hgb 10.2 L
Hct 32.5 L
Plt Count 455 H
APTT 93.4 H
Sodium 132 L
Potassium 4.0
Chloride 101
Carbon Dioxide 26
BUN 14
Creatinine 0.9
Glucose 182 H
Calcium 8.6
Vital Signs:
Vital Signs
Temp Pulse Resp BP Pulse Ox
98.1 F 76 12 137/61 95
06/23/23 15:26 06/23/23 15:26 06/23/23 15:26 06/23/23 15:26 06/23/23 15:26
I&O
06/22/23 06/23/23 06/24/23
06:59 06:59 06:59
Intake Total 480 / 480 1520 / 1520
Output Total 1100 / 1100
Balance -620 / -620 1520 / 1520
Review of Systems
-
All other systems: Reviewed and negative (Except as documented)
Physical Exam
-
General: Well Developed
HEENT: Normocephalic
Respiratory: Clear to Auscultation; Negative Wheezes
Cardiac: S1/S2
GI: Soft and Nontender
Musculoskeletal: Other (Left hip incision draining, erythema improved in surrounding skin)
Neuro: Awake, Alert, Oriented and AO x 3
Psych: Calm
Data Reviewed
-
Labs: Labs Reviewed by me and Discussed with Physician
[2023-06-23 19:23] VITALS: BP 153/64
[2023-06-23] MEDS: HEPARIN 25000 UNITS/250 ML IV (19:32)
[2023-06-23 19:54] LABS: Glucose - Point of Care 216 mg/dl (70-99)
[2023-06-23] MEDS: LANTUS 0.0500000000000000028 UNITS SC (19:56)
[2023-06-23 21:50] LABS: Glucose - Point of Care 228 mg/dl (70-99)
[2023-06-23 23:25] VITALS: BP 157/73
[2023-06-24] VITALS (18 sets, daily range): BP systolic 50–171; BP diastolic 46–131; BMI 38.8
[2023-06-24 00:10] LABS: Glucose - Point of Care 208 mg/dl (70-99)
[2023-06-24] MEDS: NOVOLOG FLEXPEN-LOW RESISTANCE 2 UNITS SC (00:14)
[2023-06-24] MEDS: MAXIPIME 1000 MG IV ×3 (05:01→20:12)
[2023-06-24] MEDS: STERILE WATER FOR INJECTION 10 ML IV ×3 (05:01→20:12)
[2023-06-24] MEDS: VANCOCIN 200 IV (05:57)
[2023-06-24 06:24] LABS: Glucose - Point of Care 152 mg/dl (70-99)
[2023-06-24] MEDS: NOVOLOG FLEXPEN-LOW RESISTANCE 1 UNITS SC (06:25)
--- NOTE | 2023-06-24 08:00 | W.PN.HOSP.TC ---
Addendum entered and electronically signed by Tio Mattson MD 06/24/23 21:38:
Attending Addendum-
I saw and evaluated the patient. I reviewed the resident�s note and agree with findings and plan as documented in the resident�s note. seen post op patient groggy. Full 12 point ROS reviewed and negative except as documented Exam: GEN groggy heart
irreg irreg lungs clear abd soft obese Ext- b/l edema 2+ left hip incision aquacell in place. Plan:
# Sepsis secondary to Left Hip soft tissue infection- IR arthrocentesis 06/2029-lzviiohkhq-yvge to cefepime, cont cefepime and vancomycin, ID on board, IV abx x 6 weeks from 06/23.
# S/P Revision left total hip arthroplasty, Left hip I and D down to bone, Left femur shaft fracture open reduction and internal rotation on 06/23- cont TTWB LLE, ABX x6 weeks, resume eliquis in am, Marrufo okay to remove when able, Pain control,
Sutures to remain in place until follow up, Follow up xrays in 2 weeks, initial Left AMILCAR-05/13. PT OT, d/w Dr. Thomas.
# DM- restart full BB dose insulin check accucheck q ac q hs- 1/2 dose BB while NPO, cont SSI, cont to hold metformin glipizide and farxiga
# Xwkjzqanoexc-wwcaencktfag-ondaza, cont to monitor BMP in am cont fluid restrict
# H/O recent DVT- restart eliquis in am, DC heparin gtt at same time as dose of eliquis given cbc in am
Time spent coordinating care, review of plan of care with resident, review of records, med rec, consults, op notes, labs, rads, d/w nursing, dr thomas� 60 mins
Original Note:
Today's Communication/Plan
-
OR today.
Continue to antibiotics
Monitor glucose level
Assessment / Plan
Assessment / Plan
Assessment
Left hip infection
CKD 3
Hyponatremia
Cellulitis
Left finger paraesthesia
History of iron deficiency anemia
Type 2 diabetes
History of right lower extremity DVT
Morbid obesity
Plan
Left HIP Infection
�-X-ray of the hip shows left lateral hip soft tissue gas, which may be on the basis of a soft tissue infection.
-Left hip aspiration performed using 10 mL of thin bloody nonpurulent fluid, awaiting culture and Gram stain
-ID input appreciated continue cefepime and vancomycin.
-Orthopedics input Appreciated. Patient for tentative left hip irrigation and debridement with ball head and liner exchange on 06/24/2023.
-N.p.o. at midnight
-Monitor CBC
STEPHANIE on CKD III
�- SCr = 0.9 (despite noted history of CKD).
�- Hold Farxiga acutely.
�- Follow for changes in renal function / return to baseline.
�- Marked STEPHANIE during prior admission with peak SCr = 5.2 requiring HD x a single session.
Hyponatremia
�- Na = 132 trending up
�- Hold Farxiga as noted above.
�-Urine studies including urine osmolality, serum osmolality checked, patient hypervolemic on presentation, fluid restrict
-Monitor BMP
Left finger paraesthesia
-Patient reports numbness and tingling sensation in left finger
-Monitor glucose
Non-purulent Cellulitis b/l lower extremities
-monitor, while On antibiotics
-Blood cultures x 2
DM-II
�- Hold oral medications including sulfonylurea and Farxiga.
�- Monitor on basal insulin regimen. Patient was on 10 units glargine prior to admission, reduced to 5 units due to possible surgery
�- Follow glucose and cover with SSI as needed.
�- A1C during 04/2023 admission was 6.2%.
RLE DVT
DVT Prophylaxis
�- Hold Eliquis acutely given likely need for surgical intervention.
�- Begin heparin for now and hold as needed for any procedures / interventions.
�- No SCDs given known DVT.
Code Status:� Full
Anticipated Discharge: > 48 hours
Objective Data
-
Labs:
Laboratory Results
06/24/23
07:41
WBC Pending
Hgb Pending
Hct Pending
Plt Count Pending
Sodium Pending
Potassium Pending
Chloride Pending
Carbon Dioxide Pending
BUN Pending
Creatinine Pending
Glucose Pending
Calcium Pending
Vital Signs:
Vital Signs
Temp Pulse Resp BP Pulse Ox
97.9 F 79 16 150/64 96
06/24/23 03:04 06/24/23 03:04 06/24/23 03:04 06/24/23 03:04 06/24/23 03:04
I&O
06/23/23 06/24/23 06/25/23
06:59 06:59 06:59
Intake Total 1520 / 1520 580 / 580
Balance 1520 / 1520 580 / 580
Review of Systems
-
All other systems: Reviewed and negative (Except as documented)
Physical Exam
-
General: Well Developed
HEENT: Normocephalic
Respiratory: Clear to Auscultation; Negative Wheezes or Rales
Cardiac: S1/S2
GI: Soft and Nontender
Musculoskeletal: Other (Left hip incision draining pus)
Skin: Warm
Neuro: Awake, Alert, Oriented and AO x 3
Psych: Calm
[2023-06-24 08:16] LABS: Hemoglobin 11.1 g/dL (12.0-16.0); Mean Corp Hgb Conc. 31.7 g/dL (33.0-37.0); Mean Corpuscular Hgb 29.1 pg (27.0-31.0); Mean Corpuscular Volume 91.6 fL (81.0-99.0); Mean Platelet Volume 8.8 fL (7.4-10.4); Platelet Count 485 10^3/uL (130-400); Red Blood Cell Count 3.82 10^6/uL (4.20-5.40); Red Cell Dist. Width 15.2 % (11.5-14.5)
[2023-06-24] MEDS: NORVASC 2.5 MG PO (08:46)
[2023-06-24 08:47] LABS: Blood Urea Nitrogen 12 mg/dl (7-17); Calcium 8.9 mg/dl (8.4-10.2); Carbon Dioxide 29 mmol/L (22-30); Chloride 101 mmol/L (98-107); Estimated Creatinine Clearance 47 ml/min; Glucose 177 mg/dl (70-99); Sodium 132 mmol/L (135-145); eGFR 59.12
[2023-06-24] MEDS: NSS (PRESERVATIVE FREE) 10 ML IV (08:47)
[2023-06-24] MEDS: PROTONIX IV 40 MG IV (08:48)
[2023-06-24] MEDS: COLACE PO ×2 (08:53→22:28)
[2023-06-24] MEDS: ROXICODONE 5 MG PO (08:55)
[2023-06-24 11:12] LABS: Glucose - Point of Care 166 mg/dl (70-99)
--- NOTE | 2023-06-24 11:37 | PHA.VAN.FU ---
Vancomycin Assessment / Plan
- Assessment
Renal Function: Stable
WBC's are: WNL
In the past 24 hrs, patient has been: Afebrile
Concomitant Antimicrobials: cefepime
- Dosing Plan
Continue: vancomycin 1000 mg q24h
Dosing Comments: pt going to OR today
- Monitoring Plan
No level(s) ordered at this time: consider levels in a day or so
- Follow Up
Pharmacy will continue to follow.
Vancomycin Follow UP
- -
Patient Age: 73
Patient Sex: Female
Vancomycin Day #: 4
Indication: Bone And [facility]
Requesting Provider: Dr. Arciniega
Pertinent Antimicrobial Allergies:
ciprofloxacin - rash
doxycycline - rash
Height / Weight:
Height 4 ft 11 in
Actual Weight 87.175 kg
Pertinent Past Medical History: BMI ~40
- Vital Signs / Lab Results
Temp Pulse Resp BP Pulse Ox
98.0 F 94 18 171/89 95
06/24/23 07:00 06/24/23 08:46 06/24/23 07:00 06/24/23 08:46 06/24/23 07:00
Lab Results - Hematology
06/22/23 06/23/23 06/24/23
02:38 05:40 07:41
WBC 8.8 8.9 9.0
Lab Results - Chemistry
06/22/23 06/23/23 06/24/23
02:38 05:40 07:41
BUN 17 14 12
Creatinine 0.9 0.9 1.0
Estimated Creat Clear 54 53 47
Microbiology Results
06/21/23 18:00 Body Fluid Culture - Final
Fluid Morganella morganii
Gram Stain - Final
06/21/23 00:41 Blood Culture - Preliminary
Blood/Venous No Growth in 72 hours- Final report to follow
06/21/23 00:41 Blood Culture - Preliminary
Blood/Venous No Growth in 72 hours- Final report to follow
06/21/23 00:41 Wound Culture - Final
Skin Surface Morganella morganii
Diptheroids
Gram Stain - Final
06/21/23 23:31 Urine Culture - Final
Urine Yeast
06/21/23 15:26 MRSA Screen - Final
Nose No Methicillin Resistant Staphylococcus aureus isolated.
Therapeutic Drug Monitoring
Random Vancomycin 18.3 ug/ml 06/23/23 05:40
[2023-06-24] MEDS: NOVOLOG FLEXPEN-LOW RESISTANCE 300 UNITS SC (11:45)
--- NOTE | 2023-06-24 12:26 | CM ---
met with patient at bedside.patient with infected left hip on iv abx.npo for or for irrigation and debridement today.patient is hoping to return to [facility] for ip rehab.pillowcase folder to follow patient's progress.plan is snf rehab when
stable for discharge.
[2023-06-24 15:33] LABS: Glucose - Point of Care 396 mg/dl (70-99)
[2023-06-24 15:33] LABS: Glucose - Point of Care 303 mg/dl (70-99)
[2023-06-24 17:26] LABS: Glucose - Point of Care 282 mg/dl (70-99)
[2023-06-24] MEDS: DILAUDID 0.5 MG IV ×3 (17:35→20:12)
[2023-06-24] MEDS: NOVOLOG vial 4 UNITS SC (17:51)
[2023-06-24 18:00] LABS: Hematocrit 34.9 % (37.0-47.0); Hemoglobin 11.3 g/dL (12.0-16.0)
[2023-06-24 18:13] LABS: Blood Urea Nitrogen 14 mg/dl (7-17); Carbon Dioxide 23 mmol/L (22-30); Chloride 97 mmol/L (98-107); Estimated Creatinine Clearance 43 ml/min; Glucose 286 mg/dl (70-99); Potassium 4.6 mmol/L (3.5-5.1); Sodium 130 mmol/L (135-145); eGFR 52.73
--- NOTE | 2023-06-24 18:32 | OR.RPT ---
Operative Report
Operative Report
Orthopaedic Surgery Operative Note
DATE OF OPERATION: 06/24/2023
PREOPERATIVE DIAGNOSES: Left prosthetic hip infection
POSTOPERATIVE DIAGNOSES: Same
OPERATION PERFORMED:
1 Revision left total hip arthroplasty, both component
2 Left hip irrigation and debridement down to bone
3 Left femur shaft fracture open reduction and internal rotation
SURGEON: Jason Velasquez MD
MAIL CENSOR: Michael Gray PA-C who helped with patient and limb positioning and retraction
ANESTHESIA: General
COMPLICATIONS: Intraoperative femur fracture
ESTIMATED BLOOD LOSS: 1200 mL.
DRAINS: HV x1
FLUIDS: 2U PRBC
SPECIMEN: x5 for culture
FINDINGS: Purulence in subcutaneous space above ITB
IMPLANTS:
Radha SL Duncan 190 x 17mm femoral stem
Biomet G7 acetabular dual mobility liner for 48mm
Radha +7 metal head and polyethylene dual mobility ball head
Radha circlage cables x3
Radha NCB distal femoral locking plate with locking and nonlocking screws
INDICATIONS: 73-year-old female with a history of left proximal femur fracture treated with cephalomedullary nail February 15, 2023 complicated by screw cut out. She underwent subsequent conversion total hip arthroplasty May 13, 2023 and had
been doing well until 4 days ago when she was noted to have drainage from her incision. She had been seen in the office by me previously where she had a healed incision without complication. She underwent left hip aspiration which did not show
fluid. She was noted to have a fluid collection laterally which was aspirated and was concerning for infection. I discussed treatment options with the patient including local debridement and irrigation as well as ball head and liner exchange for
presumed PJI given the location of her infection. The patient understood the risks which included, but were not limited to, bleeding, infection, failure to relieve pain, more pain than preop, damage to blood vessels and nerves, need for reoperation,
mechanical failure of the implants, wound healing problems, stiffness, instability, blood clot, pulmonary embolism, myocardial infarction, pneumonia, arrhythmia, CVA, and . The patient accepted these risks and wished to proceed. All questions
were answered, and informed consent was obtained. 2U were type and crossmatched for the case.
PROCEDURE IN DETAIL: The patient was identified in the preoperative holding area. The left hip was identified as the operative site. The patient was taken in the operating room and transferred to the operative table. General anesthesia was
performed. IV antibiotics and tranexamic acid were administered. The patient was placed in the lateral position with Stulberg hip positioners. Axillary roll was placed. The down leg was well padded. All bony prominences were well padded. The
operative limb was prepped and draped in the usual sterile fashion.
Time out was performed. The prior posterolateral surgical scar was excised circumferentially. An extensile posterolateral approach to the hip was used. Dissection was carried sharply through subcutaneous tissues. Meticulous hemostasis was achieved
throughout the case with electrocautery. Upon opening the subcutaneous tissue, a large amount of purulent fluid was noted in the space between the tensor fascia marilyn and the skin. Previously in this area she had extensive hematoma at the time
of her conversion hip arthroplasty which was debrided at that time. The purulent material and involved tissue was thoroughly debrided using both electrocautery and a Nieves. Cultures were taken. The area was extensively irrigated. The fascia was
inspected for any kind of rent or defect going to the joint. I was unable to identify one. Once the area appeared completely free of infected or devitalized tissue, the IT band was split along its length. Dissection was carried down to the
lateral femur. The gluteus paula was identified and split in line with its fibers proximally. I cauterized crossing vessels. I palpated the sciatic nerve and made sure it was well posterior in the operative field. It was protected throughout the
case. Flaps were raised under the fascia anteriorly and superiorly to expose the lateral femur and trochanter as well as the hip capsule. The abductor insertion was identified. The hip capsule appeared intact without direct communication
superficially. There was no purulent or infectious appearing fluid or tissue about the hip joint. Electrocautery was used to dissect along the posterior aspect of the trochanter down to the hip joint. A capsulectomy was performed and tissue
cultures were sent.
The hip was dislocated without difficulty. While attempting to disimpact the ball head from the trunnion, the femoral stem came loose with the ball head and was removed en bloc. The femoral canal and proximal femur were debrided. Long back
scrapers were used to debride the femoral canal. The femoral canal was reamed to remove endosteal soft tissue as well as to prepare for the SL Duncan stem. The femur was gently reamed to a size 17mm. Attention was turned to the acetabulum.
Periacetabular soft tissue and capsule removed. Cultures were sent. The dual mobility extraction device was used to remove the dual mobility liner. At this time consideration was made to remove the acetabular component. The initial goal of the
surgery was ball head and liner exchange, and the patient had a subacute medial wall acetabular fracture from her prior surgery. Decision was made to keep the acetabular component in place per preoperative plan as well as to not disrupt the
acetabular fracture or cause other iatrogenic harm.
With the components removed, a thorough excisional debridement was performed of the surgical field from superficial to deep. The hip capsule was thoroughly debrided with electrocautery and resected. The edges of the IT band and the soft tissue
were also debrided with a Nieves and electrocautery. The debridement portion of the case took about an hour. Once the debridement was complete, healthy appearing bleeding tissue remained. The field was irrigated with 3 L of sterile saline with pulse
lavage. A 2-minute soak of hydrogen peroxide was then performed, hydrogen peroxide diluted by 50% with sterile saline. This was irrigated with another 3L of sterile saline. Non-dilute sterile Betadine was then soaked in the field for 3 minutes.
This is then irrigated with 3 additional liters of sterile saline.
Once the wound was thoroughly irrigated, the contaminated drapes were removed. The surgical team rescrubbed and radawned sterile gowns. The leg was re-prepped and re-drapped with new sterile drapes. The dirty surgical instruments were removed from
the room. Fresh instruments were available. While the leg was being prepped, I was holding the leg in abduction to permit sterile preparation of the leg with ChloraPrep. As the leg was being held against gravity, I felt a clunk and a give in the
leg. Once draped, I examined the leg and felt instability around the distal femur with rotation of the distal aspect of the limb. Due to concern about fracture, a flatplate x-ray was ordered and it was noted that there was a spiral fracture of the
distal femur. Fracture reduction and fixation instruments were made available. The incision was extended distally to permit a subvastus approach to the femur. Perforating vessels were tied off with silk ties. The lateral femur and fracture was
exposed. The fracture was reduced and provisionally secured with reduction clamps as well as cerclage cables. A distal femoral locking plate was selected and applied to the lateral femur. Plate balance was checked with fluoroscopy. The plate was
provisionally secured to bone with K wires and then sequentially transfixed with nonlocking screws as well as locking screws. Final reduction and plate position was checked with fluoroscopy.
Once the fracture was stabilized, attention was turned back to the hip. The hip and surgical field was irrigated with 3 L of dilute Betadine. The dual mobility liner was impacted into place. The SL Duncan stem was impacted into the femoral canal
which had excellent axial and rotational stability. The hip was gently trialed with trial ball heads and then the final ball head was assembled on the back table and impacted onto a clean dry trunnion. The hip was reduced and was stable in
extension without impingement. It was stable in the position of sleep and in flexion with internal rotation. Once the hip was reduced, additional proximal unicortical and bicortical screws were placed in the proximal femur to enhance proximal
fixation
A dilute betadine soak was performed for approximately 3 minutes, and then the hip was copiously irrigated. I repaired the vastus fascia and tensor fascia with #1 PDS in running fashion. The subcutaneous tissues were closed in layers with 2-0 PDS in
running fashion. A hemovac drain was placed in the deadspace between the subcutaneous tissue and the ITB. The skin was reapproximated with 2-0 Nylon suture. Mepilex Ag dressing was placed. The patient awoke from anesthesia without difficulty.
Sponge and instrument counts were correct x2 at the end of the case. A palomino catheter was placed at the end of the case.
I was present and participated in the entire procedure. I checked leg length at the ankles after transfer on the bed which was equal. The patient was sent to the recovery room in stable condition.
Plan:
TTWB LLE
ABX x6 weeks per ID team
May resume heparine drip POD1
HV to remain in place
Palomino okay to remove when stable and mobile
Pain control
Sutures to remain in place until follow up
Follow up xrays in 2 weeks
Ervin Velasquez MD
[2023-06-24] MEDS: NSS 1000 IV (21:19)
--- NOTE | 2023-06-24 21:45 | SUR.PHASEI ---
noted skin ' gutiérrez' from tape left thigh near dressings, OR aware, skin cool and diaphoretic throughout time in pacu. Dr Albright, Dr Velasquez updated on assess and labs. no new orders - lab results to hospital resident- dr Cruz.. Physicians
aware of BP and no IV orders for floor. Medicated with Dilaudid for pain - patient able to sleep.
[2023-06-24] MEDS: LIPITOR PO (22:28)
[2023-06-24] MEDS: NOVOLOG FLEXPEN-LOW RESISTANCE SC (22:28)
[2023-06-24] MEDS: COMPAZINE 5 MG IV (22:29)
[2023-06-24 22:30] LABS: Glucose - Point of Care 285 mg/dl (70-99)
--- NOTE | 2023-06-24 23:35 | PTCARENOTE ---
[employer] MANAGER covering house contacted reagarding low urine output via Marrufo catheter. 100 mL/5H. Instructed to bladder scan. Bladder scanned for 10 mL. No bladder distention or discomfort. No new orders obtained at this time. IVF infusing via #!8 RFA.
Monitoring continues.
--- NOTE | 2023-06-24 23:50 | PTCARENOTE ---
Pt received from PACU in bed around 190. AAOx3, drowsy. Arousable to voice. VSS. Telemetry placed - SR. L hip mepilex dressings intact, hemevac in place. Full physical assessment documented (refer to worklist). Medicated for pain per MD orders
(refer to MAY). Plan of care discussed, monitoring continues.
[2023-06-25] VITALS (8 sets, daily range): BP systolic 107–142; BP diastolic 45–67; PULSE 107; O2SAT 92; BMI 39.3
[2023-06-25] MEDS: LANTUS 0.100000000000000006 UNITS SC ×2 (00:02→22:47)
[2023-06-25] MEDS: LANTUS SC (00:03)
--- NOTE | 2023-06-25 02:10 | W.PN.UPDATE ---
Update Note
Progress Note Update
At 0200 reported by the nursing staff that per attending note and surgeon note to okay resuming heparin drip till am and to be d/c in am before Eliquis start. Chart reviewed, PTT ordered and Heparin drip restarted as instructed in the attending and
orthopedics notes.
[2023-06-25] MEDS: DILAUDID 0.5 MG IV ×3 (02:34→11:59)
[2023-06-25 03:25] LABS: APTT 29.7 Sec (23.4-35.0)
[2023-06-25] MEDS: HEPARIN 7400 UNITS IV (03:57)
[2023-06-25] MEDS: HEPARIN 25000 UNITS/250 ML IV (04:01)
--- NOTE | 2023-06-25 04:10 | PTCARENOTE ---
After reviewing hospitalist and surgical progress notes, [employer] SUPER[employer]OR covering house contacted regarding resuming heparin gtt as indicated. Pt was not received from PACU with IV heparin infusing or active orders. Instructed to resume heparin at previous
rate of 1000 units/hr. Baseline PTT obtained = 29.7. Notified [employer] SUPER[employer]OR covering house. Telephone order obtained for one time IV heparin bolus and resume heparin gtt per protocol (refer to MAR). Pt updated on plan of care. Monitoring continues.
[2023-06-25] MEDS: STERILE WATER FOR INJECTION 10 ML IV ×3 (04:50→20:44)
[2023-06-25] MEDS: MAXIPIME 1000 MG IV ×3 (04:50→20:44)
[2023-06-25] MEDS: VANCOCIN 200 IV (06:33)
[2023-06-25 07:50] LABS: Glucose - Point of Care 285 mg/dl (70-99)
[2023-06-25] MEDS: NOVOLOG FLEXPEN-LOW RESISTANCE SC (08:29)
[2023-06-25] MEDS: NORVASC 2.5 MG PO (08:30)
[2023-06-25] MEDS: COLACE 100 MG PO (08:30)
[2023-06-25] MEDS: PROTONIX IV 40 MG IV (08:30)
[2023-06-25] MEDS: ELIQUIS 5 MG PO (08:30)
[2023-06-25] MEDS: NSS (PRESERVATIVE FREE) 10 ML IV (08:31)
[2023-06-25] MEDS: COMPAZINE 5 MG IV (08:36)
--- NOTE | 2023-06-25 08:47 | CM ---
CM reviewed chart
POD#1 L hip I&D
Post op- PT/OT evals ordered
SNF referral sent to [facility] for continued rehab on dc
Pt will rewuire auth for anticipated SNF return
Discharge Disposition- [facility] (referral pending)
--- NOTE | 2023-06-25 09:16 | W.PN.UPDATE ---
Update Note
Progress Note Update
I saw and evaluated the patient at bedside.
The patient is resting comfortably in the chair. Pain is well-controlled. She feels some fatigue.
Dressings are clean dry and intact. Hemovac drain is in place to suction. Motor and sensation intact distally with intact EHL FHL TA GS and sensation intact throughout the foot and lower leg. The patient is able to actively extend the knee.
AM labs are pending
Assessment and plan: 73-year-old female status post left total hip arthroplasty I&D with ball head and liner exchange and femoral component revision and intraoperative femur fracture ORIF 06/24/2023.
- Continue abx per ID team, will need 6 weeks treatment for PJI
- Follow up cultures
- Pain control
- Dressings and Drain to remain in place
- Touch down weight bearing left lower extremity
- Okay to resume eliquis POD1
- Follow up in 2 weeks with xrays and for incision check
- Sutures to remain in place only to be removed by me, likely remain in place 4-6 weeks
Ervin Velasquez MD
[2023-06-25] MEDS: NOVOLOG FLEXPEN-LOW RESISTANCE 3 UNITS SC (09:20)
--- NOTE | 2023-06-25 10:01 | W.PN.ID1 ---
Date of Service
Date of Service: June 25, 2023
Today's Communication
Continue antibiotics.
Assessment / Plan
Left hip cellulitis
Left hip SSTI
Left hip PJI
- Cultures with Morganella morganii
Elevated ESR and CRP
Osteoarthritis
Osteopenia
Obesity
DM
CKD stage III
Anemia
PAD
HTN
Dyslipidemia
IBS
Diverticulosis
Recommendations:
Continue cefepime. Discontinue further vancomycin.
Monitor white count and temperature curve.
Patient s/p left hip irrigation and debridement with ball head and liner exchange on 06/23/2023.
����������������������������������������������������������
Chief Complaint
-: Cellulitis (left hip) and Other (Left hip PJI)
Subjective / Review of Systems
Review of Systems: No Fever and No Chills
Vital Signs / Physical Exam
Vital Signs
Vital Signs
Temp Pulse Resp BP Pulse Ox
98.0 F 103 18 112/77 99
06/25/23 07:40 06/25/23 08:30 06/25/23 07:40 06/25/23 08:30 06/25/23 07:40
Physical Exam
Constitutional: No Acute Distress, Comfortable and Non-toxic
Eyes: Sclera Anicteric
Pulmonary: Non Labored
Musculoskeletal: Other (Left hip area dressed. Hemovac in place.)
Skin: Warm and Dry; Negative Rash or Jaundice
Neurological: Awake and Alert
Psychological: Calm
Objective Data
Lab Data
ESR 80 mm/hour (0-20) H 06/21/23 11:27
APTT 29.7 Sec (23.4-35.0) 06/25/23 02:36
Estimated Creat Clear 43 ml/min 06/24/23 17:52
C-Reactive Protein 211.20 mg/L (0.0-10.00) H 06/21/23 11:27
Most recent labs reviewed.
Micro Results:
06/21/23 00:41 Blood Culture - Preliminary
Blood/Venous No Growth in 4 days- Final report to follow
06/21/23 00:41 Blood Culture - Preliminary
Blood/Venous No Growth in 4 days- Final report to follow
06/24/23 11:59 Tissue Culture - Pending
Hip - Left Gram Stain - Preliminary
06/24/23 13:58 Tissue Culture - Pending
Hip - Left Gram Stain - Preliminary
06/24/23 13:32 Tissue Culture - Pending
Hip - Left Gram Stain - Preliminary
06/24/23 13:30 Tissue Culture - Pending
Hip - Left Gram Stain - Preliminary
06/24/23 13:32 Wound Culture - Pending
Hip - Left Gram Stain - Preliminary
06/24/23 13:53 Anaerobic Culture - Pending
Hip - Left
06/24/23 13:32 Anaerobic Culture - Pending
Hip - Left
06/24/23 13:32 Anaerobic Culture - Pending
Hip - Left
06/24/23 13:55 Anaerobic Culture - Pending
Hip - Left
06/21/23 18:00 Body Fluid Culture - Final
Fluid Morganella morganii
Gram Stain - Final
06/21/23 00:41 Wound Culture - Final
Skin Surface Morganella morganii
Diptheroids
Gram Stain - Final
06/21/23 23:31 Urine Culture - Final
Urine Yeast
06/21/23 15:26 MRSA Screen - Final
Nose No Methicillin Resistant Staphylococcus aureus isolated.
Wound/abscess/other Cult Final 06/19/2023
Many Morganella morganii
Many Diptheroids
Organism 1 Morganella morganii
1. Morganella morganii
M.I.C. RX
--------- ---
Amoxicillin/Potas. Clavulanate >16/8 R
Ampicillin >16 R
Ampicillin/Sulbactam >16/8 R
Cefazolin >16 R
Cefepime <=2 S
Ceftazidime >16 R
Ceftriaxone >2 R
Ertapenem <=0.5 S
Ciprofloxacin <=0.25 S
Gentamicin <=4 S
Levofloxacin <=0.5 S
Meropenem <=1 S
Piperacillin/Tazobactam <=16 S
Tobramycin <=4 S
Trimethoprim/Sulfamethoxazole <=2/38 S
[2023-06-25 10:24] LABS: Hematocrit 28.3 % (37.0-47.0); Mean Corp Hgb Conc. 31.8 g/dL (33.0-37.0); Mean Corpuscular Hgb 28.5 pg (27.0-31.0); Mean Corpuscular Volume 89.6 fL (81.0-99.0); Mean Platelet Volume 9.1 fL (7.4-10.4); Platelet Count 451 10^3/uL (130-400); Red Blood Cell Count 3.16 10^6/uL (4.20-5.40); Red Cell Dist. Width 15.9 % (11.5-14.5); White Blood Cell Count 27.4 10^3/uL (4.8-10.8)
[2023-06-25] MEDS: NSS 1000 IV ×2 (10:28→22:46)
[2023-06-25] MEDS: ROXICODONE 5 MG PO ×2 (10:34→20:43)
[2023-06-25 10:35] LABS: APTT 113.3 Sec (23.4-35.0)
[2023-06-25 10:55] LABS: Blood Urea Nitrogen 23 mg/dl (7-17); Calcium 7.6 mg/dl (8.4-10.2); Carbon Dioxide 21 mmol/L (22-30); Chloride 100 mmol/L (98-107); Estimated Creatinine Clearance 30 ml/min; Glucose 297 mg/dl (70-99); Potassium 4.6 mmol/L (3.5-5.1); Sodium 127 mmol/L (135-145); eGFR 33.63
--- NOTE | 2023-06-25 12:02 | W.PN.HOSP.TC ---
Today's Communication/Plan
-
IV antibiotics. IV fluids. Insulin adjustments. Ultrasound kidneys. Urine tests;hyponatremia w/u; BMP; anemia workup.
Assessment / Plan
Assessment / Plan
Physical exam:
General: Acutely ill
HEENT: Normocephalic, Atraumatic and Moist Mucous Membranes
Respiratory: Clear to Auscultation; Negative Wheezes, Rales or Rhonchi
Cardiac: Regular Rhythm and S1/S2
GI: Soft, Nontender and Nondistended
Musculoskeletal: Left hip tenderness and wound VAC in place. No Clubbing, No Cyanosis and No Edema
Neuro: Awake, Alert and Oriented
Psych: Calm
A/P:
Assessment
Left hip infection
Acute postop anemia
STEPHANIE
Worsening hyponatremia
CKD 3
Cellulitis
Left finger paraesthesia
History of iron deficiency anemia
Type 2 diabetes
History of right lower extremity DVT
Morbid obesity
Plan
Left hip cellulitis:
-Status post left total hip arthroplasty I&D with bone head and liner exchange and femoral component revision and intraoperative femur fracture ORIF on 06/23 by orthopedic.
-Appreciated orthopedic follow-up and they are okay with resuming anticoagulant
-Continue IV antibiotics, IV cefepime. Discontinue vancomycin
-Cultures with Morganella morganii on 06/20, follow-up cultures pending.
-Blood cultures no growth
-Jump in WBC up to 27.4 today, follow-up trend along with temp curve
-Appreciated ID follow-up
Worsening anemia:
Acute blood loss postop versus dilutional component
-Repeat hemoglobin today
-Check iron studies B12 folate and reticulocyte count along with LFTs
-Reevaluate if to continue anticoagulation depending on workup
STEPHANIE on CKD III
Creatinine 1.6 today from 1.1-day before
-Continue IV fluids but increase from 80 to 100 cc/h
-Obtain urine lites to calculate FENa
-Obtain ultrasound of the kidneys and bladder
-Check vancomycin levels as well
-Avoid nephrotoxic
- Agree hold Farxiga acutely.
�- SCr = 0.9 (despite noted history of CKD).
�- Marked STEPHANIE during prior admission with peak SCr = 5.2 requiring HD x a single session.
Hyponatremia
�- Na = 127 from 130 yesterday
-Obtain urine sodium, urine osmolarity, serum osmolarity, TSH. Cortisol level in am
�-Repeat sodium today
-Monitor BMP
DM-II with hyperglycemia
-On 5 units of insulin before meals and continue insulin sliding scale
-Increase long-acting insulin back to 10 units
�-Agreed to hold oral medications including sulfonylurea and Farxiga initially due to n.p.o. for now especially in the setting of renal failure.
�- Follow glucose and further recommendations based on her clinical course
�- A1C during 04/2023 admission was 6.2%.
RLE DVT
DVT Prophylaxis
�-Previously on heparin drip and Eliquis has been restarted
Code Status:� Full
Total time spent on today's encounter was 52 minutes which included time spent in counseling the patient/family regarding diagnosis and treatment plan as listed above, goals of care, and symptom management. Case was discussed with nursing staff,
specialists, and care coordinators/case management. All labs and imaging personally reviewed by me. Remainder the time spent in detailed review of previous records, lab data, imaging, and other medical provider documentation.
Anticipated Discharge: > 48 hours
Subjective/Interval History
-
Date of Service: June 25, 2023
Patient complains of pain in the left lower extremity today but tolerable with pain medications. Denies chest pain or shortness of breath. She says she is moving her bowels okay and denies melena or hematemesis.
Objective Data
-
Labs:
Laboratory Results
06/25/23 06/25/23 06/25/23
02:36 09:48 11:59
WBC 27.4 H Pending
Hgb 9.0 L D Pending
Hct 28.3 L Pending
Plt Count 451 H Pending
APTT 29.7 113.3 H
Sodium 127 L Pending
Potassium 4.6 Pending
Chloride 100 Pending
Carbon Dioxide 21 L Pending
BUN 23 H Pending
Creatinine 1.6 H Pending
Glucose 297 H Pending
Calcium 7.6 L Pending
Vital Signs:
Vital Signs
Temp Pulse Resp BP Pulse Ox
98.0 F 103 18 112/77 99
06/25/23 07:40 06/25/23 08:30 06/25/23 07:40 06/25/23 08:30 06/25/23 07:40
I&O
06/24/23 06/25/23 06/26/23
06:59 06:59 06:59
Intake Total 580 / 580 1435 / 1435
Output Total 385 / 385
Balance 580 / 580 1050 / 1050
Review of Systems
-
All other systems: Reviewed and negative
[2023-06-25 12:16] LABS: Glucose - Point of Care 301 mg/dl (70-99)
[2023-06-25] MEDS: NOVOLOG FLEXPEN-LOW RESISTANCE 4 UNITS SC (12:16)
[2023-06-25] MEDS: NOVOLOG FLEXPEN 5 UNITS SC ×3 (13:36→22:47)
[2023-06-25 14:06] LABS: Hematocrit 26.8 % (37.0-47.0); Hemoglobin 8.5 g/dL (12.0-16.0); Mean Corp Hgb Conc. 31.7 g/dL (33.0-37.0); Mean Corpuscular Hgb 28.8 pg (27.0-31.0); Mean Corpuscular Volume 90.8 fL (81.0-99.0); Mean Platelet Volume 9.1 fL (7.4-10.4); Platelet Count 430 10^3/uL (130-400); Red Blood Cell Count 2.95 10^6/uL (4.20-5.40); Red Cell Dist. Width 15.9 % (11.5-14.5); Reticulocyte Count 2.1 % (0.4-2.8); White Blood Cell Count 26.8 10^3/uL (4.8-10.8)
[2023-06-25 14:20] LABS: Osmolality Serum 287 mOsm/kg (275-300)
[2023-06-25 14:25] LABS: ALT (SGPT) 22 U/L (0-35); AST (SGOT) 37 U/L (14-36); Albumin 2.6 g/dl (3.5-5.0); Alkaline Phosphatase 91 U/L (38-126); Blood Urea Nitrogen 24 mg/dl (7-17); Calcium 7.7 mg/dl (8.4-10.2); Carbon Dioxide 20 mmol/L (22-30); Chloride 94 mmol/L (98-107); Estimated Creatinine Clearance 26 ml/min; Glucose 270 mg/dl (70-99); Iron 51 ug/dl (37-170); Potassium 4.7 mmol/L (3.5-5.1); Sodium 126 mmol/L (135-145); Total Bilirubin 0.4 mg/dl (0.2-1.3); Total Protein 4.9 g/dl (6.3-8.2)
[2023-06-25 14:33] LABS: Direct Bilirubin 0.1 mg/dl (0.0-0.4)
[2023-06-25 14:44] LABS: Vancomycin Random 22.5 ug/ml
[2023-06-25 14:46] LABS: TSH Reflex To Free T4 2.89 uIU/ml (0.47-4.68)
[2023-06-25 15:21] LABS: Folate 12.4 ng/ml (2.76-20); Vitamin B12 704 pg/ml (239-931)
[2023-06-25 15:50] LABS: Osmolality Urine 324 mOsm/kg (300-900)
[2023-06-25 16:14] LABS: Urine Sodium 26 mmol/L (30-90)
[2023-06-25] MEDS: TYLENOL 650 MG PO (16:42)
[2023-06-25] MEDS: LIPITOR 10 MG PO (16:42)
[2023-06-25 17:05] LABS: Glucose - Point of Care 260 mg/dl (70-99)
[2023-06-25] MEDS: NOVOLOG FLEXPEN-LOW RESISTANCE 2 UNITS SC (17:10)
[2023-06-25] MEDS: COLACE PO (21:06)
[2023-06-25 21:40] LABS: Glucose - Point of Care 330 mg/dl (70-99)
[2023-06-26] VITALS (9 sets, daily range): BP systolic 114–136; BP diastolic 42–59; BMI 40.1
[2023-06-26] MEDS: DILAUDID 0.5 MG IV ×3 (00:20→20:35)
[2023-06-26] MEDS: MAXIPIME 1000 MG IV ×3 (04:01→20:34)
[2023-06-26] MEDS: STERILE WATER FOR INJECTION 10 ML IV ×3 (04:02→20:34)
[2023-06-26 07:14] LABS: % Basophils 0.2 % (0-2); % Eosinophils 0.5 % (0-6); % Lymphocytes 14.7 % (20.5-51.1); % Neutrophils 74.6 % (42.2-75.2); Absolute Eosinophils 0.1 10^3/uL (0-0.7); Absolute Immature Granulocytes 0.4 10^3/uL (0-0.05); Absolute Lymphocytes 2.7 10^3/uL (1.2-3.4); Absolute Monocytes 1.5 10^3/uL (0.1-0.6); Absolute Neutrophils 13.6 10^3/uL (1.4-6.5); Hematocrit 21.6 % (37.0-47.0); Mean Corp Hgb Conc. 31.9 g/dL (33.0-37.0); Mean Corpuscular Hgb 28.8 pg (27.0-31.0); Mean Platelet Volume 9.1 fL (7.4-10.4); Nucleated Red Blood Cells % 0.1 %; Platelet Count 352 10^3/uL (130-400); Red Cell Dist. Width 15.6 % (11.5-14.5); White Blood Cell Count 18.3 10^3/uL (4.8-10.8)
[2023-06-26 07:37] LABS: Blood Urea Nitrogen 27 mg/dl (7-17); Calcium 7.5 mg/dl (8.4-10.2); Carbon Dioxide 24 mmol/L (22-30); Chloride 100 mmol/L (98-107); Estimated Creatinine Clearance 30 ml/min; Glucose 142 mg/dl (70-99); Potassium 4.2 mmol/L (3.5-5.1); Sodium 129 mmol/L (135-145); eGFR 33.63
[2023-06-26 08:02] LABS: Glucose - Point of Care 169 mg/dl (70-99)
[2023-06-26] MEDS: ROXICODONE 5 MG PO ×2 (08:03→16:34)
[2023-06-26] MEDS: NORVASC 2.5 MG PO (08:04)
[2023-06-26] MEDS: PROTONIX 40 MG PO (08:04)
[2023-06-26] MEDS: COLACE PO ×2 (08:04→22:08)
[2023-06-26] MEDS: NSS 1000 IV ×3 (08:04→20:34)
[2023-06-26] MEDS: NOVOLOG FLEXPEN-LOW RESISTANCE 1 UNITS SC ×2 (08:06→11:33)
[2023-06-26] MEDS: NOVOLOG FLEXPEN 5 UNITS SC ×3 (08:06→16:38)
--- NOTE | 2023-06-26 08:12 | W.PN.HOSP.TC ---
Today's Communication/Plan
-
Blood transfusion. IV fluids. Recheck renal function and hemoglobin tomorrow. Hold Eliquis and restart tomorrow. PT OT
Assessment / Plan
Assessment / Plan
Physical exam:
General: Acutely ill
HEENT: Normocephalic, Atraumatic and Moist Mucous Membranes
Respiratory: Clear to Auscultation; Negative Wheezes, Rales or Rhonchi
Cardiac: Regular Rhythm and S1/S2
GI: Soft, Nontender and Nondistended
Musculoskeletal: Left hip tenderness and wound VAC in place. No Clubbing, No Cyanosis and No Edema
Neuro: Awake, Alert and Oriented
Psych: Calm
A/P:
Assessment
Left hip infection
Acute postop anemia
STEPHANIE
Worsening hyponatremia
CKD 3
Cellulitis
Left finger paraesthesia
History of iron deficiency anemia
Type 2 diabetes
History of right lower extremity DVT
Morbid obesity
Plan
Left hip cellulitis:
-Status post left total hip arthroplasty I&D with bone head and liner exchange and femoral component revision and intraoperative femur fracture ORIF on 06/23 by orthopedic.
-Appreciated orthopedic follow-up and they are okay with resuming anticoagulant
-Continue IV antibiotics, IV cefepime. Discontinue vancomycin
-Cultures with Morganella morganii on 06/20, follow-up cultures pending.
-Blood cultures no growth
-Jump in WBC up to 27.4 but now trending down to 18.3 today; follow-up trend along with temp curve
-Appreciated ID follow-up
-Discussed with RN
Worsening anemia:
Acute blood loss postop anemia
-Hb 6.9 today
-Reviewed anemia workup discussed with surgeon yesterday there was significant blood loss during surgery.
-Transfuse 1 unit of blood today
-Recheck hemoglobin tomorrow
-Hold Eliquis today and restart tomorrow if hemoglobin stable
STEPHANIE on CKD III
-FENa 0.3 which points to likely prerenal but due to episodes of hypotension on review she could have an element of ATN.
-Reviewed urine lites
-Creatinine peaked at 1.8 but now coming down to 1.6 so we will continue to monitor.
-If worsens consider nephrology eval but currently suspect it will continue to improve/stabilize with IV fluids and blood transfusion. Avoid hypotension and bolus with fluids if needed.
-Avoid nephrotoxics
-Continue IV fluids, normal saline 100 ml/hour
-Reviewed ultrasound of the kidneys and bladder unremarkable
�- Marked STEPHANIE during prior admission with peak SCr = 5.2 requiring HD x a single session.
Hyponatremia
�- Na = 129
-Obtained urine sodium, urine osmolarity, serum osmolarity, TSH, Cortisol level--> urine osmolarity 324 from 529, urine sodium 26 from 144, serum osmolality 287, TSH 2.89,
�-Repeat sodium tomorrow
-Monitor BMP
DM-II with hyperglycemia
-Sugars are still elevated but much better than before--> blood sugars 169 and 188 today
-Continue 5 units of insulin before meals and continue insulin sliding scale, moderate resistance now.
-Continue home doses of long-acting insulin 10 units
�-Agreed to cont hold oral medications including sulfonylurea and Farxiga initially due to n.p.o. for now especially in the setting of renal failure.
�- Follow glucose and further recommendations based on her clinical course
�- A1C during 04/2023 admission was 6.2%.
RLE DVT
DVT Prophylaxis
�-Previously on heparin drip and Eliquis was restarted but held last evening due to anemia. Will restart if hemoglobin stable tomorrow.
Code Status:� Full
Total time spent on today's encounter was 52 minutes which included time spent in counseling the patient/family regarding diagnosis and treatment plan as listed above, goals of care, and symptom management. Case was discussed with nursing staff,
specialists, and care coordinators/case management. All labs and imaging personally reviewed by me. Remainder the time spent in detailed review of previous records, lab data, imaging, and other medical provider documentation.
Anticipated Discharge: > 48 hours
Subjective/Interval History
-
Date of Service: June 26, 2023
Patient very weak and tired today. No melena or hematemesis. No fever
Objective Data
-
Labs:
Laboratory Results
06/26/23
06:13
WBC Pending
Hgb Pending
Hct Pending
Plt Count Pending
Sodium 129 L
Potassium 4.2
Chloride 100
Carbon Dioxide 24
BUN 27 H
Creatinine 1.6 H
Glucose 142 H
Calcium 7.5 L
Vital Signs:
Vital Signs
Temp Pulse Resp BP Pulse Ox
98.3 F 101 16 124/56 94
06/26/23 03:00 06/26/23 03:00 06/26/23 03:00 06/26/23 08:04 06/26/23 03:00
I&O
06/25/23 06/26/23 06/27/23
06:59 06:59 06:59
Intake Total 1435 / 1435 2100 / 2100
Output Total 385 / 385 1085 / 1085
Balance 1050 / 1050 1015 / 1015
Review of Systems
-
All other systems: Reviewed and negative
[2023-06-26 08:21] LABS: Hemoglobin 6.9 g/dL (12.0-16.0)
--- NOTE | 2023-06-26 10:09 | W.PN.ID1 ---
Date of Service
Date of Service: June 26, 2023
Today's Communication
Continue antibiotics.
Assessment / Plan
Left hip cellulitis
Left hip SSTI
Left hip PJI
- Patient s/p left hip irrigation and debridement with ball head and liner exchange on 06/23/2023.
- Cultures with Morganella morganii
Elevated ESR and CRP
Osteoarthritis
Osteopenia
Obesity
DM
CKD stage III
Anemia
PAD
HTN
Dyslipidemia
IBS
Diverticulosis
Recommendations:
Continue cefepime.
Monitor white count and temperature curve.
����������������������������������������������������������
Chief Complaint
-: Cellulitis (left hip) and Other (Left hip PJI)
Subjective / Review of Systems
Review of Systems: No Fever and No Chills
Vital Signs / Physical Exam
Vital Signs
Vital Signs
Temp Pulse Resp BP Pulse Ox
99.1 F 102 14 124/56 91
06/26/23 07:36 06/26/23 07:36 06/26/23 07:36 06/26/23 08:04 06/26/23 07:36
Physical Exam
Constitutional: No Acute Distress, Comfortable and Non-toxic
Eyes: Sclera Anicteric
Pulmonary: Non Labored
Gastrointestinal: Non Distended
Musculoskeletal: Other (Hemovac remains in place to the left hip.)
Skin: Warm and Dry; Negative Rash or Jaundice
Neurological: Awake and Alert
Psychological: Calm
Objective Data
Lab Data
Lab Results
06/26/23 06:13
06/26/23 06:13
ESR 80 mm/hour (0-20) H 06/21/23 11:27
APTT 113.3 Sec (23.4-35.0) H 06/25/23 09:48
Estimated Creat Clear 30 ml/min 06/26/23 06:13
Total Bilirubin 0.4 mg/dl (0.2-1.3) 06/25/23 13:31
AST 37 U/L (14-36) H 06/25/23 13:31
ALT 22 U/L (0-35) 06/25/23 13:31
Alkaline Phosphatase 91 U/L (38-126) 06/25/23 13:31
C-Reactive Protein 211.20 mg/L (0.0-10.00) H 06/21/23 11:27
Most recent labs reviewed.
Micro Results:
06/21/23 00:41 Blood Culture - Final
Blood/Venous No Growth - Final Report
06/21/23 00:41 Blood Culture - Final
Blood/Venous No Growth - Final Report
06/24/23 13:32 Anaerobic Culture - Preliminary
Hip - Left Culture pending. Anaerobic cultures are examined after 3
days incubation. Additional information to follow.
06/24/23 11:59 Tissue Culture - Preliminary
Hip - Left Gram Stain - Preliminary
06/24/23 13:32 Anaerobic Culture - Preliminary
Hip - Left Culture pending. Anaerobic cultures are examined after 3
days incubation. Additional information to follow.
06/24/23 13:32 Wound Culture - Preliminary
Hip - Left No growth
Gram Stain - Preliminary
06/24/23 13:55 Anaerobic Culture - Preliminary
Hip - Left Culture pending. Anaerobic cultures are examined after 3
days incubation. Additional information to follow.
06/24/23 13:32 Tissue Culture - Preliminary
Hip - Left No Growth After 18-24 Hours
Gram Stain - Preliminary
06/24/23 13:58 Tissue Culture - Preliminary
Hip - Left No Growth After 18-24 Hours
Gram Stain - Preliminary
06/24/23 13:30 Tissue Culture - Preliminary
Hip - Left No Growth After 18-24 Hours
Gram Stain - Preliminary
06/24/23 13:53 Anaerobic Culture - Preliminary
Hip - Left Culture pending. Anaerobic cultures are examined after 3
days incubation. Additional information to follow.
06/21/23 18:00 Body Fluid Culture - Final
Fluid Morganella morganii
Gram Stain - Final
06/21/23 00:41 Wound Culture - Final
Skin Surface Morganella morganii
Diptheroids
Gram Stain - Final
06/21/23 23:31 Urine Culture - Final
Urine Yeast
06/21/23 15:26 MRSA Screen - Final
Nose No Methicillin Resistant Staphylococcus aureus isolated.
Wound/abscess/other Cult Final 06/19/2023
Many Morganella morganii
Many Diptheroids
Organism 1 Morganella morganii
1. Morganella morganii
M.I.C. RX
--------- ---
Amoxicillin/Potas. Clavulanate >16/8 R
Ampicillin >16 R
Ampicillin/Sulbactam >16/8 R
Cefazolin >16 R
Cefepime <=2 S
Ceftazidime >16 R
Ceftriaxone >2 R
Ertapenem <=0.5 S
Ciprofloxacin <=0.25 S
Gentamicin <=4 S
Levofloxacin <=0.5 S
Meropenem <=1 S
Piperacillin/Tazobactam <=16 S
Tobramycin <=4 S
Trimethoprim/Sulfamethoxazole <=2/38 S
[2023-06-26 11:24] LABS: Glucose - Point of Care 188 mg/dl (70-99)
--- NOTE | 2023-06-26 11:54 | W.PN.ORTHO ---
Today's Communication / Plan
-
73F POD2 left total hip arthroplasty I&D with ball head and liner exchange and femoral component revision and intraoperative femur fracture ORIF 06/24/2023.
- Continue abx per ID team, will need 6 weeks treatment for PJI
- Follow up cultures; ID on board
- Pain controlled with current regimen
- Dressings and Drain to remain in place for now, I&O
- Touch down weight bearing left lower extremity
- Resumed eliquis for DVT ppx
- Follow up in 2 weeks with xrays and for incision check
- Sutures to remain in place only to be removed by Dr. Velasquez, likely remain in place 4-6 weeks
- Orthopedic surgery will continue to follow while patient is in-house
Assessment
.
Distal Motor Intact: Yes
Dressing:
Clean, dry and intact.
Plan
.
Activity:
Out of bed.
PT/OT
Subjective
.
.:
Patient resting comfortably. Pt received 1 unit of blood.
Vital Signs and Labs
.
Vital Signs and Labs:
Lab Results
06/26/23 06:13
06/26/23 06:13
Temp Pulse Resp BP Pulse Ox
99.1 F 102 14 124/56 91
06/26/23 07:36 06/26/23 07:36 06/26/23 07:36 06/26/23 08:04 06/26/23 07:36
[2023-06-26] MEDS: TYLENOL 650 MG PO (12:52)
--- NOTE | 2023-06-26 15:12 | CM ---
Additional referral for SNF forwarded to [facility]. [facility]. [facility]
[2023-06-26] MEDS: LIPITOR 10 MG PO (16:34)
[2023-06-26] MEDS: NOVOLOG FLEXPEN-LOW RESISTANCE 236 UNITS SC (16:38)
[2023-06-26 16:41] LABS: Glucose - Point of Care 236 mg/dl (70-99)
[2023-06-26 21:49] LABS: Glucose - Point of Care 272 mg/dl (70-99)
[2023-06-26] MEDS: LANTUS 0.100000000000000006 UNITS SC (22:20)
[2023-06-27] MEDS: DILAUDID 0.5 MG IV ×3 (01:09→14:13)
[2023-06-27 03:42] VITALS: BP 142/57
[2023-06-27] MEDS: ROXICODONE 5 MG PO ×2 (04:39→17:03)
[2023-06-27] MEDS: MAXIPIME 1000 MG IV ×3 (04:39→20:24)
[2023-06-27] MEDS: STERILE WATER FOR INJECTION 10 ML IV ×3 (04:39→20:24)
[2023-06-27 05:08] VITALS: BMI 40.5
[2023-06-27 06:38] LABS: % Basophils 0.5 % (0-2); % Eosinophils 3.1 % (0-6); % Immature Granulocytes 2.7 % (0-0.5); % Lymphocytes 16.4 % (20.5-51.1); % Monocytes 8.1 % (1.7-9.3); % Neutrophils 69.2 % (42.2-75.2); Absolute Basophils 0.1 10^3/uL (0-0.2); Absolute Eosinophils 0.5 10^3/uL (0-0.7); Absolute Immature Granulocytes 0.4 10^3/uL (0-0.05); Absolute Lymphocytes 2.4 10^3/uL (1.2-3.4); Absolute Monocytes 1.2 10^3/uL (0.1-0.6); Absolute Neutrophils 10.1 10^3/uL (1.4-6.5); Hematocrit 25.6 % (37.0-47.0); Hemoglobin 7.9 g/dL (12.0-16.0); Mean Corp Hgb Conc. 30.9 g/dL (33.0-37.0); Mean Corpuscular Hgb 27.9 pg (27.0-31.0); Mean Corpuscular Volume 90.5 fL (81.0-99.0); Mean Platelet Volume 8.8 fL (7.4-10.4); Nucleated Red Blood Cells % 0.1 %; Platelet Count 305 10^3/uL (130-400); Red Blood Cell Count 2.83 10^6/uL (4.20-5.40); Red Cell Dist. Width 15.4 % (11.5-14.5); White Blood Cell Count 14.5 10^3/uL (4.8-10.8)
[2023-06-27 07:04] LABS: Blood Urea Nitrogen 19 mg/dl (7-17); Calcium 7.6 mg/dl (8.4-10.2); Carbon Dioxide 24 mmol/L (22-30); Chloride 103 mmol/L (98-107); Estimated Creatinine Clearance 40 ml/min; Glucose 157 mg/dl (70-99); Potassium 4.1 mmol/L (3.5-5.1); Sodium 132 mmol/L (135-145)
[2023-06-27 07:12] LABS: Glucose - Point of Care 291 mg/dl (70-99)
[2023-06-27 07:35] VITALS: BP 141/86
[2023-06-27] MEDS: NSS 1000 IV (08:13)
[2023-06-27] MEDS: COLACE PO ×2 (08:17→20:25)
[2023-06-27] MEDS: PROTONIX 40 MG PO (08:18)
[2023-06-27] MEDS: NORVASC 2.5 MG PO (08:18)
[2023-06-27] MEDS: NOVOLOG FLEXPEN 5 UNITS SC ×3 (08:26→17:05)
[2023-06-27] MEDS: NOVOLOG FLEXPEN-LOW RESISTANCE 3 UNITS SC (08:26)
[2023-06-27 08:54] LABS: Albumin 2.2 g/dl (3.5-5.0)
--- NOTE | 2023-06-27 09:42 | W.PN.ID1 ---
Date of Service
Date of Service: June 27, 2023
Today's Communication
Continue antibiotics.
Assessment / Plan
Left hip cellulitis
Left hip SSTI
Left hip PJI
- Patient s/p left hip irrigation and debridement with ball head and liner exchange on 06/23/2023.
- Cultures with Morganella morganii
Elevated ESR and CRP
Osteoarthritis
Osteopenia
Obesity
DM
CKD stage III
Anemia
PAD
HTN
Dyslipidemia
IBS
Diverticulosis
Recommendations:
Continue cefepime; with anticipated 6-week course of antibiotics (thorough 08/05/2023)
Monitor white count and temperature curve.
����������������������������������������������������������
Chief Complaint
-: Cellulitis (left hip) and Other (Left hip PJI)
Subjective / Review of Systems
Review of Systems: No Fever and No Chills
Vital Signs / Physical Exam
Vital Signs
Vital Signs
Temp Pulse Resp BP Pulse Ox
98.5 F 84 18 141/86 94
06/27/23 07:35 06/27/23 08:18 06/27/23 07:35 06/27/23 08:18 06/27/23 07:35
Physical Exam
Constitutional: No Acute Distress, Comfortable and Non-toxic
Eyes: No Conjunctival Hemorrhage and Sclera Anicteric
Cardiovascular: S1/S2; Negative S3/S4
Pulmonary: Non Labored
Gastrointestinal: Soft and Non Distended
Genito-Urinary: Marrufo and Clear Urine
Extremities: Other (Right hip dressing in place. No periwound erythema. Hemovac in place.)
Neurological: Awake and Alert
Psychological: Calm
Objective Data
Lab Data
Lab Results
06/27/23 05:09
06/27/23 05:09
ESR 80 mm/hour (0-20) H 06/21/23 11:27
APTT 113.3 Sec (23.4-35.0) H 06/25/23 09:48
Estimated Creat Clear 40 ml/min 06/27/23 05:09
Total Bilirubin 0.4 mg/dl (0.2-1.3) 06/25/23 13:31
AST 37 U/L (14-36) H 06/25/23 13:31
ALT 22 U/L (0-35) 06/25/23 13:31
Alkaline Phosphatase 91 U/L (38-126) 06/25/23 13:31
C-Reactive Protein 211.20 mg/L (0.0-10.00) H 06/21/23 11:27
Most recent labs reviewed.
Micro Results:
06/24/23 11:59 Tissue Culture - Preliminary
Hip - Left Gram negative bacilli
Gram Stain - Preliminary
06/24/23 13:30 Tissue Culture - Preliminary
Hip - Left Gram Stain - Preliminary
06/24/23 13:32 Tissue Culture - Preliminary
Hip - Left Gram Stain - Preliminary
06/24/23 13:53 Anaerobic Culture - Preliminary
Hip - Left Culture pending. Anaerobic cultures are examined after 3
days incubation. Additional information to follow.
06/24/23 13:58 Tissue Culture - Preliminary
Hip - Left No Growth After 48 Hours
Gram Stain - Preliminary
06/24/23 13:32 Anaerobic Culture - Preliminary
Hip - Left Culture pending. Anaerobic cultures are examined after 3
days incubation. Additional information to follow.
06/24/23 13:32 Wound Culture - Preliminary
Hip - Left No growth
Gram Stain - Preliminary
06/21/23 00:41 Blood Culture - Final
Blood/Venous No Growth - Final Report
06/21/23 00:41 Blood Culture - Final
Blood/Venous No Growth - Final Report
06/24/23 13:32 Anaerobic Culture - Preliminary
Hip - Left Culture pending. Anaerobic cultures are examined after 3
days incubation. Additional information to follow.
06/24/23 13:55 Anaerobic Culture - Preliminary
Hip - Left Culture pending. Anaerobic cultures are examined after 3
days incubation. Additional information to follow.
06/21/23 18:00 Body Fluid Culture - Final
Fluid Morganella morganii
Gram Stain - Final
06/21/23 00:41 Wound Culture - Final
Skin Surface Morganella morganii
Diptheroids
Gram Stain - Final
06/21/23 23:31 Urine Culture - Final
Urine Yeast
06/21/23 15:26 MRSA Screen - Final
Nose No Methicillin Resistant Staphylococcus aureus isolated.
Wound/abscess/other Cult Final 06/19/2023
Many Morganella morganii
Many Diptheroids
Organism 1 Morganella morganii
1. Morganella morganii
M.I.C. RX
--------- ---
Amoxicillin/Potas. Clavulanate >16/8 R
Ampicillin >16 R
Ampicillin/Sulbactam >16/8 R
Cefazolin >16 R
Cefepime <=2 S
Ceftazidime >16 R
Ceftriaxone >2 R
Ertapenem <=0.5 S
Ciprofloxacin <=0.25 S
Gentamicin <=4 S
Levofloxacin <=0.5 S
Meropenem <=1 S
Piperacillin/Tazobactam <=16 S
Tobramycin <=4 S
Trimethoprim/Sulfamethoxazole <=2/38 S
--- NOTE | 2023-06-27 10:10 | CM ---
Received blood transfusion.
PT OT indicated need for SNF at dc.
Referral for [facility].
Will need auth for SNF.
PLAN Located SNF obtained auth
--- NOTE | 2023-06-27 10:47 | W.PN.HOSP.TC ---
Addendum entered and electronically signed by Tio Mattson MD 06/27/23 15:19:
Attending Addendum-
I saw and evaluated the patient. I reviewed the resident�s note and agree with findings and plan as documented in the resident�s note. no complaints pain is well controlled. Full 12 point ROS reviewed and negative except as documented Exam: GEN NAD
heart irreg irreg lungs clear abd soft obese Ext- b/l no LE edema, left hip incision aquacell in place wound vac in place - no palomino. Plan:
# Sepsis secondary to Left Hip soft tissue infection- IR arthrocentesis [id number] to cefepime, cont cefepime IV abx x 6 weeks from 06/23. ID appreciated
# S/P Revision left total hip arthroplasty, Left hip I and D, Left femur shaft fracture open reduction and internal rotation on 06/23- cont TTWB LLE, IV ABX x6 weeks, resume eliquis in pm. Pain control, Sutures to remain in place until follow up,
Follow up xrays in 2 weeks, initial Left AMILCAR-05/13. PT OT.
# STEPHANIE on CKD- resolved with IVF DC IVF repeat BMP am
# Acute Anemia- s/p transfusion x 1 unit 06/15. no CBC stable, repact cbc in am , resume eliquis this pm
# DM- restart full BB dose insulin check accucheck q ac q hs- add meal time insulin, cont SSI, cont to hold metformin glipizide and farxiga
# [id number], improved, cont to monitor BMP in am cont fluid restrict
# H/O recent DVT- restart eliquis in pm, cbc in am
Time spent coordinating care, review of plan of care with resident, review of records, med rec, consults, op notes, labs, rads, d/w nursing� 55 mins
Original Note:
Today's Communication/Plan
-
Continue antibiotics
D/C IV fluids
Restart Eliquis as hemoglobin improved to 7.9
Monitor CBC
Monitor BMP
Continue on SSI
Assessment / Plan
Assessment / Plan
Assessment
Left hip infection
Acute postop anemia
STEPHANIE
Worsening hyponatremia
CKD 3
Cellulitis
Left finger paraesthesia
History of iron deficiency anemia
Type 2 diabetes
History of right lower extremity DVT
Morbid obesity
Plan
Left hip cellulitis:
-Status post left total hip arthroplasty I&D with bone head and liner exchange and femoral component revision and intraoperative femur fracture ORIF on 06/23 by orthopedic.
-Appreciated orthopedic follow-up and they are okay with resuming anticoagulant
-Continue IV antibiotics, IV cefepime. Discontinue vancomycin
-Cultures with Morganella morganii on 06/20, follow-up cultures pending.
-Blood cultures no growth
-Jump in WBC up to 27.4>> 18.3 but now trending down to 14.5 today; follow-up trend along with temp curve
-Appreciated ID follow-up
Worsening anemia:
Acute blood loss postop anemia
-Hb yesterday 6.9. Received 1 unit of blood. Hemoglobin today 7.9
-Recheck hemoglobin tomorrow
-Hold Eliquis for now, until hemoglobin stable.
STEPHANIE on CKD III
-FENa 0.3 which points to likely prerenal but due to episodes of hypotension on review she could have an element of ATN.
-Reviewed urine lites
-Creatinine peaked at 1.8, yesterday 1.6, today 1.2. So we will continue to monitor.
-Avoid nephrotoxics
-D/C IV fluids.
-Reviewed ultrasound of the kidneys and bladder unremarkable
�- Marked STEPHANIE during prior admission with peak SCr = 5.2 requiring HD x a single session.
Hyponatremia
�- Na = 132
-Obtained urine sodium, urine osmolarity, serum osmolarity, TSH, Cortisol level--> urine osmolarity 324 from 529, urine sodium 26 from 144, serum osmolality 287, TSH 2.89,
�-Repeat sodium tomorrow
-Monitor BMP
DM-II with hyperglycemia
-Sugars are still elevated but much better than before--> blood sugars 169, 157 today
-Continue 5 units of insulin before meals and continue insulin sliding scale, moderate resistance now.
-Continue home doses of long-acting insulin 10 units
�-Agreed to cont hold oral medications including sulfonylurea and Farxiga initially due to n.p.o. for now especially in the setting of renal failure.
�- Follow glucose and further recommendations based on her clinical course
�- A1C during 04/2023 admission was 6.2%.
RLE DVT
DVT Prophylaxis
�-Previously on heparin drip and Eliquis was restarted but held 2 nights ago, due to anemia. Will restart if hemoglobin stable.
Code Status:� Full
Anticipated Discharge: > 48 hours
Subjective/Interval History
-
Patient reports she is fatigued. Denies fever. Denies rash or reaction from transfusion
Objective Data
-
Labs:
Laboratory Results
06/27/23
05:09
WBC 14.5 H
Hgb 7.9 L
Hct 25.6 L
Plt Count 305
Sodium 132 L
Potassium 4.1
Chloride 103
Carbon Dioxide 24
BUN 19 H
Creatinine 1.2 H
Glucose 157 H
Calcium 7.6 L
Vital Signs:
Vital Signs
Temp Pulse Resp BP Pulse Ox
98.5 F 84 18 141/86 94
06/27/23 07:35 06/27/23 08:18 06/27/23 07:35 06/27/23 08:18 06/27/23 07:35
I&O
06/26/23 06/27/23 06/28/23
06:59 06:59 06:59
Intake Total 2099 / 2100 2040 / 2040
Output Total 1085 / 1085 2600 / 2600 800 / 800
Balance 1015 / 1015 -560 / -560 -800 / -800
Review of Systems
-
All other systems: Reviewed and negative (Except as documented)
Physical Exam
-
General: No Apparent Distress
HEENT: Normocephalic and Atraumatic
Respiratory: Clear to Auscultation; Negative Wheezes or Rales
Cardiac: S1/S2
GI: Soft, Nontender and Nondistended
Musculoskeletal: Other (Wound VAC in place, left hip with tenderness on palpation, dressings and suture presents)
Skin: Warm
Neuro: Awake, Alert, Oriented and AO x 3
Psych: Calm
Data Reviewed
-
Labs: Labs Reviewed by me and Discussed with Physician
--- NOTE | 2023-06-27 10:50 | W.PN.ORTHO ---
Today's Communication / Plan
-
Appreciate the primary team, continue Tx
Trend Hg, up to 7.9 today from 6.9
Dispo likely SNF, appreciate CM
Continue abx per ID team- Intra-op Cx negative @ 48 hours. Will need 6 weeks treatment for PJI
Pain controlled with current regimen
Dressings and Drain to remain in place for now, I&O please
Touch down weight bearing left lower extremity on walker, PT/OT
Resumed eliquis for DVT ppx per primary
Follow up in 2 weeks with xrays and for incision check
Sutures to remain in place only to be removed by Dr. Velasquez, likely remain in place 4-6 weeks
Orthopedic surgery will continue to follow while patient is in-house
Assessment
.
Distal Motor Intact: Yes
Dressing:
Clean, dry and intact. Mepilex in place left thigh. Drain in place
Assessment:
POD#3 Revision left AMILCAR with head/liner exchange, complicated by intra-op femur Fx
All things considered doing/feeling well
DNVI LLE
Plan
.
Surgery / Date: Left hip revision (head/liner) w/ femur Fx 29 May
DVT Prophylaxis: Other (Eliquis)
Activity:
Out of bed. TDWB LLE
PT/OT
Discharge Plan: SNF
Subjective
.
.:
Patient resting comfortably this AM. Feeling much better than yesterday
Vital Signs and Labs
.
Vital Signs and Labs:
Lab Results
06/27/23 05:09
06/27/23 05:09
Temp Pulse Resp BP Pulse Ox
98.5 F 84 18 141/86 94
06/27/23 07:35 06/27/23 08:18 06/27/23 07:35 06/27/23 08:18 06/27/23 07:35
[2023-06-27 11:37] LABS: Glucose - Point of Care 217 mg/dl (70-99)
[2023-06-27] MEDS: NOVOLOG FLEXPEN-LOW RESISTANCE 2 UNITS SC ×2 (12:48→17:02)
[2023-06-27] MEDS: FLUSH (NSS) 2 FLUSH IV (14:14)
[2023-06-27 15:26] VITALS: BP 116/70; BP 177/74
[2023-06-27 15:27] VITALS: BP 116/70; BP 177/74; PULSE 88; O2SAT 93
[2023-06-27 15:53] VITALS: BP 141/51
[2023-06-27 16:46] LABS: Glucose - Point of Care 244 mg/dl (70-99)
[2023-06-27] MEDS: LIPITOR 10 MG PO (17:03)
[2023-06-27] MEDS: TYLENOL 650 MG PO (20:23)
[2023-06-27] MEDS: ELIQUIS 5 MG PO (20:24)
[2023-06-27] MEDS: ROXICODONE 10 MG PO (20:58)
[2023-06-27 21:20] LABS: Glucose - Point of Care 252 mg/dl (70-99)
[2023-06-27] MEDS: LANTUS 0.100000000000000006 UNITS SC (23:14)
[2023-06-27 23:28] VITALS: BP 132/55
[2023-06-28] MEDS: ROXICODONE 10 MG PO ×5 (01:22→22:43)
[2023-06-28] MEDS: STERILE WATER FOR INJECTION 10 ML IV ×3 (03:55→20:08)
[2023-06-28] MEDS: MAXIPIME 1000 MG IV ×3 (03:55→20:07)
[2023-06-28 06:00] VITALS: BMI 40.5
[2023-06-28 06:45] LABS: % Basophils 0.5 % (0-2); % Eosinophils 5.1 % (0-6); % Immature Granulocytes 2.7 % (0-0.5); % Lymphocytes 18.4 % (20.5-51.1); % Monocytes 7.3 % (1.7-9.3); Absolute Basophils 0.1 10^3/uL (0-0.2); Absolute Eosinophils 0.6 10^3/uL (0-0.7); Absolute Immature Granulocytes 0.3 10^3/uL (0-0.05); Absolute Lymphocytes 2.3 10^3/uL (1.2-3.4); Absolute Monocytes 0.9 10^3/uL (0.1-0.6); Absolute Neutrophils 8.4 10^3/uL (1.4-6.5); Hematocrit 25.2 % (37.0-47.0); Mean Corp Hgb Conc. 31.7 g/dL (33.0-37.0); Mean Corpuscular Hgb 28.9 pg (27.0-31.0); Nucleated Red Blood Cells % 0 %; Platelet Count 318 10^3/uL (130-400); Red Blood Cell Count 2.77 10^6/uL (4.20-5.40); Red Cell Dist. Width 15.2 % (11.5-14.5); White Blood Cell Count 12.6 10^3/uL (4.8-10.8)
[2023-06-28 07:07] LABS: Blood Urea Nitrogen 17 mg/dl (7-17); Calcium 7.8 mg/dl (8.4-10.2); Carbon Dioxide 24 mmol/L (22-30); Chloride 104 mmol/L (98-107); Estimated Creatinine Clearance 37 ml/min; Glucose 174 mg/dl (70-99); Sodium 131 mmol/L (135-145); eGFR 43.15
[2023-06-28 07:45] LABS: Glucose - Point of Care 217 mg/dl (70-99)
[2023-06-28 08:02] VITALS: BP 146/63
[2023-06-28] MEDS: PROTONIX 40 MG PO (09:03)
[2023-06-28] MEDS: COLACE 100 MG PO ×2 (09:04→20:08)
[2023-06-28] MEDS: NORVASC 2.5 MG PO (09:04)
[2023-06-28] MEDS: ELIQUIS 5 MG PO ×2 (09:05→20:07)
[2023-06-28] MEDS: NOVOLOG FLEXPEN-LOW RESISTANCE 2 UNITS SC ×2 (09:06→12:55)
[2023-06-28] MEDS: NOVOLOG FLEXPEN 5 UNITS SC ×3 (09:06→17:05)
--- NOTE | 2023-06-28 09:32 | W.PN.HOSP.TC ---
Addendum entered and electronically signed by Felipe Carrasco MD 06/28/23 14:35:
Patient seen and examined
Discussed with resident
Impression:
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
Sepsis present on admission, currently resolved.
Cultures positive for Morganella.
Acute kidney injury secondary to prerenal causes
Anemia of acute blood loss.
Conditions prior to admission:
Osteoarthritis
Diabetes.
Hypertension
Chronic anemia.
PAD.
Obesity with BMI of 40.
Dyslipidemia.
Plan:*
Left hip cellulitis with prosthetic joint infection
Status post washout on 06/22.
Plan is to complete 6 weeks of antibiotics with cefepime.
Wound VAC in place.
PICC line in place.
Physical therapy and eventually intermediate facility with IV antibiotics
Acute kidney injury.
CKD stage IIIa baseline creatinine improved and back to baseline
Anemia of acute blood loss baseline hemoglobin at 6.9 improved with transfusion and currently at 8.
IDDM
Hemoglobin A1c 6.2
Continue current insulin regimen with basal bolus protocol. Serial blood glucose monitoring
Original Note:
Today's Communication/Plan
-
Continue antibiotics
Will need PICC line for IV antibiotics while in acute rehab
Monitor CBC
Assessment / Plan
Assessment / Plan
Assessment
Left hip infection
Acute postop anemia
STEPHANIE
Worsening hyponatremia
CKD 3
Cellulitis
Left finger paraesthesia
History of iron deficiency anemia
Type 2 diabetes
History of right lower extremity DVT
Morbid obesity
Plan
Left hip cellulitis:
-Status post left total hip arthroplasty I&D with bone head and liner exchange and femoral component revision and intraoperative femur fracture ORIF on 06/23 by orthopedic.
-Pain controlled, sutures to remain in place and to follow-up with Ortho. Follow-up x-rays in 2 weeks
-Continue IV antibiotics, IV cefepime x 6 weeks from 06/23
-Cultures with Morganella morganii on 06/20, follow-up cultures pending.
-Blood cultures no growth
-Improvement in WBC.
-Appreciated ID follow-up
Worsening anemia:
Acute blood loss postop anemia
-S/p transfusion x 1 units 06/15. CBC stable
-Monitor CBC
-Resume Eliquis
STEPHANIE on CKD III
-Resolved D/C IV fluids.
-FENa 0.3 which points to likely prerenal but due to episodes of hypotension on review she could have an element of ATN.
-Reviewed urine lites
-Creatinine peaked at 1.8, yesterday 1.6, today 1.2. So we will continue to monitor.
-Avoid nephrotoxics
-Reviewed ultrasound of the kidneys and bladder unremarkable
�- Marked STEPHANIE during prior admission with peak SCr = 5.2 requiring HD x a single session.
Hyponatremia
�-Stable, improved
-Obtained urine sodium, urine osmolarity, serum osmolarity, TSH, Cortisol level--> urine osmolarity 324 from 529, urine sodium 26 from 144, serum osmolality 287, TSH 2.89,
�-Continue fluid restrict
-Monitor BMP
DM-II with hyperglycemia
-Continue 5 units of insulin before meals and continue insulin sliding scale, moderate resistance now.
-Continue home doses of long-acting insulin 10 units
�-Agreed to cont hold oral medications including sulfonylurea and Farxiga initially due to n.p.o. for now especially in the setting of renal failure.
�- Follow glucose and further recommendations based on her clinical course
�- A1C during 04/2023 admission was 6.2%.
RLE DVT
DVT Prophylaxis
�-Restart Eliquis
Code Status:� Full
Anticipated Discharge: > 48 hours
Objective Data
-
Labs:
Laboratory Results
06/28/23
04:47
WBC 12.6 H
Hgb 8.0 L
Hct 25.2 L
Plt Count 318
Sodium 131 L
Potassium 4.0
Chloride 104
Carbon Dioxide 24
BUN 17
Creatinine 1.3 H
Glucose 174 H
Calcium 7.8 L
Vital Signs:
Vital Signs
Temp Pulse Resp BP Pulse Ox
98.6 F 86 16 146/63 98
06/28/23 08:02 06/28/23 08:02 06/28/23 08:02 06/28/23 08:02 06/28/23 08:02
I&O
06/27/23 06/28/23 06/29/23
06:59 06:59 06:59
Intake Total 2040 / 2040 960 / 960
Output Total 2600 / 2600 1050 / 1050
Balance -560 / -560 -90 / -90
Review of Systems
-
All other systems: Reviewed and negative (Except as documented)
Physical Exam
-
General: No Apparent Distress
HEENT: Normocephalic and Atraumatic
Respiratory: Clear to Auscultation; Negative Wheezes or Rales
Cardiac: S1/S2
GI: Soft, Nontender and Nondistended
Musculoskeletal: Other (left hip incision aquacell in place, wound vac in place)
Skin: Warm
Neuro: Awake, Alert, Oriented and AO x 3
Psych: Calm
Data Reviewed
-
Labs: Labs Reviewed by me and Discussed with Physician
--- NOTE | 2023-06-28 11:35 | W.PN.ID1 ---
Date of Service
Date of Service: June 28, 2023
Today's Communication
Continue antibiotics.
Assessment / Plan
Left hip cellulitis
Left hip SSTI
Left hip PJI
- Patient s/p left hip irrigation and debridement with ball head and liner exchange on 06/23/2023.
- Cultures with Morganella morganii
Elevated ESR and CRP
Osteoarthritis
Osteopenia
Obesity
DM
CKD stage III
Anemia
PAD
HTN
Dyslipidemia
IBS
Diverticulosis
Recommendations:
Continue cefepime; with anticipated 6-week course of antibiotics (thorough 08/05/2023)
- Will follow weekly BMP, CBC with differential, ESR and CRP.
Monitor white count and temperature curve.
����������������������������������������������������������
Chief Complaint
-: Cellulitis (left hip) and Other (Left hip PJI)
Subjective / Review of Systems
Patient seen and examined. Currently feels well. Hemovac remains in place. Denies any difficulties with antibiotics thus far.
Review of Systems: No Fever and No Chills
Vital Signs / Physical Exam
Vital Signs
Vital Signs
Temp Pulse Resp BP Pulse Ox
98.6 F 86 16 146/63 98
06/28/23 08:02 06/28/23 08:02 06/28/23 08:02 06/28/23 08:02 06/28/23 08:02
Physical Exam
Constitutional: No Acute Distress, Comfortable and Non-toxic
Eyes: Sclera Anicteric
Cardiovascular: S1/S2; Negative S3/S4
Pulmonary: Non Labored
Extremities: Edema; Negative Erythema
Musculoskeletal: Other (Left hip Hemovac in place)
Neurological: Awake and Alert
Psychological: Calm
Objective Data
Lab Data
Lab Results
06/28/23 04:47
06/28/23 04:47
ESR 80 mm/hour (0-20) H 06/21/23 11:27
APTT 113.3 Sec (23.4-35.0) H 06/25/23 09:48
Estimated Creat Clear 37 ml/min 06/28/23 04:47
Total Bilirubin 0.4 mg/dl (0.2-1.3) 06/25/23 13:31
AST 37 U/L (14-36) H 06/25/23 13:31
ALT 22 U/L (0-35) 06/25/23 13:31
Alkaline Phosphatase 91 U/L (38-126) 06/25/23 13:31
C-Reactive Protein 211.20 mg/L (0.0-10.00) H 06/21/23 11:27
Most recent labs reviewed.
Micro Results:
06/24/23 13:30 Tissue Culture - Preliminary
Hip - Left Coagulase neg. staphylococcus
Gram Stain - Preliminary
06/24/23 13:53 Anaerobic Culture - Preliminary
Hip - Left NO ANAEROBES ISOLATED
06/24/23 13:32 Anaerobic Culture - Preliminary
Hip - Left Culture pending. Anaerobic cultures are examined after 3
days incubation. Additional information to follow.
06/24/23 13:55 Anaerobic Culture - Preliminary
Hip - Left Culture pending. Anaerobic cultures are examined after 3
days incubation. Additional information to follow.
06/24/23 13:32 Anaerobic Culture - Preliminary
Hip - Left Culture pending. Anaerobic cultures are examined after 3
days incubation. Additional information to follow.
06/24/23 13:58 Tissue Culture - Preliminary
Hip - Left No Growth After 72 Hours
Gram Stain - Preliminary
06/24/23 13:32 Wound Culture - Preliminary
Hip - Left No growth
Gram Stain - Preliminary
06/24/23 13:32 Tissue Culture - Preliminary
Hip - Left Coagulase neg. staphylococcus
Gram Stain - Preliminary
06/24/23 11:59 Tissue Culture - Preliminary
Hip - Left Morganella morganii
Gram Stain - Preliminary
06/21/23 00:41 Blood Culture - Final
Blood/Venous No Growth - Final Report
06/21/23 00:41 Blood Culture - Final
Blood/Venous No Growth - Final Report
06/21/23 18:00 Body Fluid Culture - Final
Fluid Morganella morganii
Gram Stain - Final
06/21/23 00:41 Wound Culture - Final
Skin Surface Morganella morganii
Diptheroids
Gram Stain - Final
06/21/23 23:31 Urine Culture - Final
Urine Yeast
06/21/23 15:26 MRSA Screen - Final
Nose No Methicillin Resistant Staphylococcus aureus isolated.
Wound/abscess/other Cult Final 06/19/2023
Many Morganella morganii
Many Diptheroids
Organism 1 Morganella morganii
1. Morganella morganii
M.I.C. RX
--------- ---
Amoxicillin/Potas. Clavulanate >16/8 R
Ampicillin >16 R
Ampicillin/Sulbactam >16/8 R
Cefazolin >16 R
Cefepime <=2 S
Ceftazidime >16 R
Ceftriaxone >2 R
Ertapenem <=0.5 S
Ciprofloxacin <=0.25 S
Gentamicin <=4 S
Levofloxacin <=0.5 S
Meropenem <=1 S
Piperacillin/Tazobactam <=16 S
Tobramycin <=4 S
Trimethoprim/Sulfamethoxazole <=2/38 S
[2023-06-28 11:39] LABS: Glucose - Point of Care 248 mg/dl (70-99)
[2023-06-28 13:06] VITALS: BP 117/71; PULSE 76; O2SAT 95
[2023-06-28] MEDS: FLUSH (NSS) 2 FLUSH IV (13:21)
[2023-06-28 14:40] VITALS: BP 115/54
--- NOTE | 2023-06-28 15:56 | CM ---
Reviewed the chart notes. Referrals previously sent to [facility] and [facility]. [facility] interested based on bed availability at time of discharge. CM continues to be available to patient/family and is monitoring medical plan for needs at discharge.
Plan: Discharge to SNF/rehab once bed found and percert obtained.
[2023-06-28 16:19] LABS: Glucose - Point of Care 315 mg/dl (70-99)
[2023-06-28] MEDS: NOVOLOG FLEXPEN-LOW RESISTANCE 3 UNITS SC (17:03)
[2023-06-28] MEDS: LIPITOR 10 MG PO (17:05)
[2023-06-28 21:40] LABS: Glucose - Point of Care 262 mg/dl (70-99)
[2023-06-28] MEDS: LANTUS 0.100000000000000006 UNITS SC (22:43)
[2023-06-28 23:30] VITALS: BP 151/65
[2023-06-29] MEDS: ROXICODONE 10 MG PO ×4 (02:55→20:39)
[2023-06-29] MEDS: TYLENOL 650 MG PO ×2 (03:55→15:25)
[2023-06-29] MEDS: MAXIPIME 1000 MG IV ×2 (04:20→12:36)
[2023-06-29] MEDS: STERILE WATER FOR INJECTION 10 ML IV ×2 (04:20→12:36)
[2023-06-29 05:40] LABS: % Basophils 0.4 % (0-2); % Eosinophils 4.9 % (0-6); % Immature Granulocytes 2.8 % (0-0.5); % Lymphocytes 19.3 % (20.5-51.1); % Monocytes 7.8 % (1.7-9.3); % Neutrophils 64.8 % (42.2-75.2); Absolute Basophils 0.1 10^3/uL (0-0.2); Absolute Eosinophils 0.6 10^3/uL (0-0.7); Absolute Immature Granulocytes 0.3 10^3/uL (0-0.05); Absolute Lymphocytes 2.4 10^3/uL (1.2-3.4); Absolute Neutrophils 7.9 10^3/uL (1.4-6.5); Hematocrit 25.9 % (37.0-47.0); Hemoglobin 8.1 g/dL (12.0-16.0); Mean Corp Hgb Conc. 31.3 g/dL (33.0-37.0); Mean Corpuscular Hgb 28.6 pg (27.0-31.0); Mean Corpuscular Volume 91.5 fL (81.0-99.0); Mean Platelet Volume 8.8 fL (7.4-10.4); Nucleated Red Blood Cells % 0 %; Platelet Count 332 10^3/uL (130-400); Red Blood Cell Count 2.83 10^6/uL (4.20-5.40); Red Cell Dist. Width 15.2 % (11.5-14.5); White Blood Cell Count 12.2 10^3/uL (4.8-10.8)
[2023-06-29 06:12] LABS: Blood Urea Nitrogen 16 mg/dl (7-17); Calcium 8.1 mg/dl (8.4-10.2); Carbon Dioxide 25 mmol/L (22-30); Chloride 104 mmol/L (98-107); Estimated Creatinine Clearance 44 ml/min; Glucose 193 mg/dl (70-99); Potassium 3.8 mmol/L (3.5-5.1); Sodium 130 mmol/L (135-145); eGFR 52.73
[2023-06-29 07:40] VITALS: BP 134/61
[2023-06-29 07:41] LABS: Glucose - Point of Care 187 mg/dl (70-99)
--- NOTE | 2023-06-29 07:54 | W.PN.UPDATE ---
Update Note
Progress Note Update
Ms. Kinney is POD 3 following her left total hip arthroplasty I&D with ball head and liner exchange, femoral component revision and intraoperative femur fracture ORIF performed by Dr. Velasquez on 06/24/2023. She is resting comfortably in bed this
morning. She endorses mild aching pain about the hip, but otherwise reports she is doing well.
Directed exam of the left lower extremity reveals surgical dressings clean, dry and intact. Expected post-operative edema throughout the left lower extremity. Thigh soft and compressible. Calf soft and nontender. Patient able to wiggle toes, plantar
and dorsiflex ankle. Neurovascularly intact distally. VSS, afebrile.
Hgb 8.1 this AM.
Capsule and deep hip cultures with staph epi. Superficial hip culture with Morganella morganii.
60 cc emptied from hemovac this AM.
73F POD3 left total hip arthroplasty I&D with ball head and liner exchange and femoral component revision and intraoperative femur fracture ORIF 06/24/2023.
--Continue touch down weight bearing to left lower extremity. We appreciate the assistance of PT/OT.
--Resumed Eliquis for DVT ppx.
--Appreciate the assistance of medicine and ID in treatment of this patient. Continue antibiotics, currently cefepime.
--Dressings and drain to remain in place for now. Will plan for likely drain removal prior to discharge. Continue to monitor I&O.
--Pain controlled with current regimen.
--Follow up outpatient at 2 weeks post-op for repeat x-rays and incision check. Sutures to be removed by Dr. Velasquez only. Will likely remain in place until 4-6 weeks.
--Orthopedics will continue to follow along.
[2023-06-29] MEDS: NOVOLOG FLEXPEN 5 UNITS SC ×3 (08:17→17:16)
[2023-06-29] MEDS: NORVASC 2.5 MG PO (08:18)
[2023-06-29] MEDS: ELIQUIS 5 MG PO ×2 (08:18→20:36)
[2023-06-29] MEDS: NOVOLOG FLEXPEN-LOW RESISTANCE 1 UNITS SC (08:18)
[2023-06-29] MEDS: COLACE PO (08:19)
[2023-06-29] MEDS: PROTONIX 40 MG PO (08:19)
[2023-06-29 09:41] VITALS: BP 157/71; PULSE 87; O2SAT 96
--- NOTE | 2023-06-29 10:25 | W.PN.HOSP.TC ---
Addendum entered and electronically signed by Felipe Carrasco MD 06/29/23 16:37:
Patient seen and examined
Discussed with resident
Impression:
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
Sepsis present on admission, currently resolved.
Cultures positive for Morganella and coag negative staph
Acute kidney injury secondary to prerenal causes
Anemia of acute blood loss.
Conditions prior to admission:
Osteoarthritis
Diabetes.
Hypertension
Chronic anemia.
PAD.
Obesity with BMI of 40.
Dyslipidemia.
Plan:*
Left hip cellulitis with prosthetic joint infection
Status post washout on 06/22.
Plan is to complete 6 weeks of antibiotics with cefepime with addition of vancomycin
Wound VAC in place.
PICC line in place.
Physical therapy and eventually [facility] facility with IV antibiotics
Acute kidney injury.
CKD stage IIIa baseline creatinine improved and back to baseline
Anemia of acute blood loss baseline hemoglobin at 6.9 improved with transfusion and currently at 8.
IDDM
Hemoglobin A1c 6.2
Continue current insulin regimen with basal bolus protocol. Serial blood glucose monitoring
Original Note:
Today's Communication/Plan
-
Pain control as needed
Monitor BMP
Continue antibiotics, with vancomycin added
Assessment / Plan
Assessment / Plan
Assessment
Left hip infection
Acute postop anemia
STEPHANIE
Worsening hyponatremia
CKD 3
Cellulitis
Left finger paraesthesia
History of iron deficiency anemia
Type 2 diabetes
History of right lower extremity DVT
Morbid obesity
Plan
Left hip cellulitis:
-Status post left total hip arthroplasty I&D with bone head and liner exchange and femoral component revision and intraoperative femur fracture ORIF on 06/23 by orthopedic.
-Pain controlled, sutures to remain in place and to follow-up with Ortho. Follow-up x-rays in 2 weeks
-Continue IV antibiotics, IV cefepime x 6 weeks from 06/23
-Cultures with Morganella morganii on 06/20
-Deep hip cultures positive for staph epi 06/23
-Add Vancomycin
-Blood cultures no growth
-Improvement in WBC.
Worsening anemia:
Acute blood loss postop anemia
-S/p transfusion x 1 units 06/15. CBC stable
-Monitor CBC
-Eliquis resumed
STEPHANIE on CKD III
-Resolved D/C IV fluids.
-Improved and back to baseline
-Continue to monitor BMP
-Avoid nephrotoxics
-Reviewed ultrasound of the kidneys and bladder unremarkable
�- Marked STEPHANIE during prior admission with peak SCr = 5.2 requiring HD x a single session.
Hyponatremia
-Obtained urine sodium, urine osmolarity, serum osmolarity, TSH, Cortisol level--> urine osmolarity 324 from 529, urine sodium 26 from 144, serum osmolality 287, TSH 2.89,
�-Continue fluid restrict
-Monitor BMP
DM-II with hyperglycemia
-Continue 5 units of insulin before meals and continue insulin sliding scale, moderate resistance now.
-Continue home doses of long-acting insulin 10 units
�-Agreed to cont hold oral medications including sulfonylurea and Farxiga initially due to n.p.o. for now especially in the setting of renal failure.
�- Follow glucose and further recommendations based on her clinical course
�- A1C during 04/2023 admission was 6.2%.
RLE DVT
DVT Prophylaxis
�-Eliquis restarted
Code Status:� Full
Anticipated Discharge: > 48 hours
Objective Data
-
Labs:
Laboratory Results
06/29/23
05:03
WBC 12.2 H
Hgb 8.1 L
Hct 25.9 L
Plt Count 332
Sodium 130 L
Potassium 3.8
Chloride 104
Carbon Dioxide 25
BUN 16
Creatinine 1.1 H
Glucose 193 H
Calcium 8.1 L
Vital Signs:
Vital Signs
Temp Pulse Resp BP Pulse Ox
98.5 F 85 16 134/61 96
06/29/23 07:40 06/29/23 07:40 06/29/23 07:40 06/29/23 07:40 06/29/23 07:40
I&O
06/28/23 06/29/23 06/30/23
06:59 06:59 06:59
Intake Total 960 / 960 760 / 760
Output Total 1050 / 1050 270 / 270
Balance -90 / -90 490 / 490
Review of Systems
-
All other systems: Reviewed and negative (Except as documented)
Physical Exam
-
General: Well Developed and No Apparent Distress
HEENT: Normocephalic
Respiratory: Clear to Auscultation; Negative Wheezes, Rales or Rhonchi
Cardiac: S1/S2
GI: Soft, Nontender and Nondistended
Musculoskeletal: No Clubbing, No Cyanosis and No Edema
Skin: Warm
Neuro: Awake, Alert, Oriented and AO x 3
Psych: Calm
--- NOTE | 2023-06-29 10:47 | W.PN.ID1 ---
Date of Service
Date of Service: June 29, 2023
Today's Communication
Continue cefepime. Add vancomycin.
Assessment / Plan
Left hip cellulitis
Left hip SSTI
Left hip PJI
- Patient s/p left hip irrigation and debridement with ball head and liner exchange on 06/23/2023.
- Cultures with Morganella morganii, and now also with Coag neg Staph.
Elevated ESR and CRP
Osteoarthritis
Osteopenia
Obesity
DM
CKD stage III
Anemia
PAD
HTN
Dyslipidemia
IBS
Diverticulosis
Recommendations:
Continue cefepime; with anticipated 6-week course of antibiotics (thorough 08/05/2023)
Add vancomycin given recovery of coag negative staph from deep cultures.
Prescription for cefepime has been placed on paper chart. Will need to await dosing parameters for vancomycin before prescription goes on chart.
Will follow weekly BMP, CBC with differential, ESR and CRP.
Monitor white count and temperature curve.
����������������������������������������������������������
Chief Complaint
-: Cellulitis (left hip) and Other (Left hip PJI)
Subjective / Review of Systems
Review of Systems: No Fever and No Chills
Vital Signs / Physical Exam
Vital Signs
Vital Signs
Temp Pulse Resp BP Pulse Ox
98.5 F 85 16 134/61 96
06/29/23 07:40 06/29/23 07:40 06/29/23 07:40 06/29/23 07:40 06/29/23 07:40
Physical Exam
Constitutional: No Acute Distress, Comfortable and Non-toxic
Eyes: No Conjunctival Hemorrhage and Sclera Anicteric
Cardiovascular: S1/S2; Negative S3/S4
Pulmonary: Non Labored
Gastrointestinal: Soft
Musculoskeletal: Other (Left hip area dressed.)
Neurological: Awake and Alert
Psychological: Calm
Objective Data
Lab Data
Lab Results
06/29/23 05:03
06/29/23 05:03
ESR 80 mm/hour (0-20) H 06/21/23 11:27
APTT 113.3 Sec (23.4-35.0) H 06/25/23 09:48
Estimated Creat Clear 44 ml/min 06/29/23 05:03
Total Bilirubin 0.4 mg/dl (0.2-1.3) 06/25/23 13:31
AST 37 U/L (14-36) H 06/25/23 13:31
ALT 22 U/L (0-35) 06/25/23 13:31
Alkaline Phosphatase 91 U/L (38-126) 06/25/23 13:31
C-Reactive Protein 211.20 mg/L (0.0-10.00) H 06/21/23 11:27
Most recent labs reviewed.
Micro Results:
06/24/23 13:32 Anaerobic Culture - Preliminary
Hip - Left Culture pending. Anaerobic cultures are examined after 3
days incubation. Additional information to follow.
06/24/23 11:59 Tissue Culture - Preliminary
Hip - Left Morganella morganii
Gram Stain - Preliminary
06/24/23 13:32 Tissue Culture - Preliminary
Hip - Left Staphylococcus epidermidis
Gram Stain - Preliminary
06/24/23 13:30 Tissue Culture - Final
Hip - Left Staphylococcus epidermidis
Gram Stain - Final
06/24/23 13:53 Anaerobic Culture - Preliminary
Hip - Left NO ANAEROBES ISOLATED
06/24/23 13:32 Anaerobic Culture - Preliminary
Hip - Left Culture pending. Anaerobic cultures are examined after 3
days incubation. Additional information to follow.
06/24/23 13:55 Anaerobic Culture - Preliminary
Hip - Left Culture pending. Anaerobic cultures are examined after 3
days incubation. Additional information to follow.
06/24/23 13:58 Tissue Culture - Preliminary
Hip - Left No Growth After 72 Hours
Gram Stain - Preliminary
06/24/23 13:32 Wound Culture - Preliminary
Hip - Left No growth
Gram Stain - Preliminary
06/21/23 00:41 Blood Culture - Final
Blood/Venous No Growth - Final Report
06/21/23 00:41 Blood Culture - Final
Blood/Venous No Growth - Final Report
06/21/23 18:00 Body Fluid Culture - Final
Fluid Morganella morganii
Gram Stain - Final
06/21/23 00:41 Wound Culture - Final
Skin Surface Morganella morganii
Diptheroids
Gram Stain - Final
06/21/23 23:31 Urine Culture - Final
Urine Yeast
06/21/23 15:26 MRSA Screen - Final
Nose No Methicillin Resistant Staphylococcus aureus isolated.
Wound/abscess/other Cult Final 06/19/2023
Many Morganella morganii
Many Diptheroids
Organism 1 Morganella morganii
1. Morganella morganii
M.I.C. RX
--------- ---
Amoxicillin/Potas. Clavulanate >16/8 R
Ampicillin >16 R
Ampicillin/Sulbactam >16/8 R
Cefazolin >16 R
Cefepime <=2 S
Ceftazidime >16 R
Ceftriaxone >2 R
Ertapenem <=0.5 S
Ciprofloxacin <=0.25 S
Gentamicin <=4 S
Levofloxacin <=0.5 S
Meropenem <=1 S
Piperacillin/Tazobactam <=16 S
Tobramycin <=4 S
Trimethoprim/Sulfamethoxazole <=2/38 S
[2023-06-29 11:22] LABS: Glucose - Point of Care 246 mg/dl (70-99)
--- NOTE | 2023-06-29 11:31 | PHA.VAN.IN ---
Assessment
- Assessment
Renal Function: Appears elevated from baseline (SCR 1.1 vs low of 0.9 this admission)
Concomitant Antimicrobials: cefepime
Plan
- Plan
Initial / Loading Dose: 2000mg - administration pending
Maintenance Regimen: dosing by level
Monitoring: random 06/29 0600
Last dose of vancomycin given 330 AM (1000mg) - likely undetectable level, will re-load patient
Patient's renal function has been unstable throughout admission, previously receiving vancomycin dosing by level
Pharmacokinetics Vancomycin I
- -
Patient Age: 73
Patient Sex: Female
Vancomycin Day #: 1
Indication: Bone And Joint
Requesting Provider: Dr. Arciniega
Pertinent Antimicrobial Allergies:
ciprofloxacin / quinolones - rash
doxycycline / tetracyclines - rash
Height / Weight:
Height 4 ft 11 in
Actual Weight 90.809 kg
Pertinent Past Medical History: BMI ~40
- Vital Signs / Lab Results
Temp Pulse Resp BP Pulse Ox
98.5 F 85 16 134/61 96
06/29/23 07:40 06/29/23 07:40 06/29/23 07:40 06/29/23 07:40 06/29/23 07:40
Lab Results - Hematology
06/27/23 06/28/23 06/29/23
05:09 04:47 05:03
WBC 14.5 H 12.6 H 12.2 H
Lab Results - Chemistry
06/27/23 06/28/23 06/29/23
05:09 04:47 05:03
BUN 19 H 17 16
Creatinine 1.2 H 1.3 H 1.1 H
Estimated Creat Clear 40 37 44
Albumin 2.2 L
Microbiology Results
06/24/23 13:32 Anaerobic Culture - Preliminary
Hip - Left Culture pending. Anaerobic cultures are examined after 3
days incubation. Additional information to follow.
06/24/23 11:59 Tissue Culture - Preliminary
Hip - Left Morganella morganii
Gram Stain - Preliminary
06/24/23 13:32 Tissue Culture - Preliminary
Hip - Left Staphylococcus epidermidis
Gram Stain - Preliminary
06/24/23 13:30 Tissue Culture - Final
Hip - Left Staphylococcus epidermidis
Gram Stain - Final
06/24/23 13:53 Anaerobic Culture - Preliminary
Hip - Left NO ANAEROBES ISOLATED
06/24/23 13:32 Anaerobic Culture - Preliminary
Hip - Left Culture pending. Anaerobic cultures are examined after 3
days incubation. Additional information to follow.
06/24/23 13:55 Anaerobic Culture - Preliminary
Hip - Left Culture pending. Anaerobic cultures are examined after 3
days incubation. Additional information to follow.
06/24/23 13:58 Tissue Culture - Preliminary
Hip - Left No Growth After 72 Hours
Gram Stain - Preliminary
06/24/23 13:32 Wound Culture - Preliminary
Hip - Left No growth
Gram Stain - Preliminary
[2023-06-29] MEDS: VANCOCIN 540 MG IV (11:45)
[2023-06-29 12:12] VITALS: BP 109/67; BP 132/58; PULSE 87; O2SAT 95
[2023-06-29] MEDS: NOVOLOG FLEXPEN-LOW RESISTANCE 2 UNITS SC ×2 (12:31→17:17)
[2023-06-29] MEDS: ROXICODONE 5 MG PO (12:34)
[2023-06-29 15:10] VITALS: BP 136/59
--- NOTE | 2023-06-29 15:51 | CM ---
Reviewed the chart notes and spoke with the patient at the bedside. Discussed SNF/rehab. [facility] is reviewing for possible bed availability. Precert will be required. Patient is a [facility] patient. Pt will required 6 weeks of IV abx per notes. CM
continues to be available to patient/family and is monitoring medical plan for needs at discharge.
Plan: Discharge to SNF/rehab once medically stable and bed available. Precert required.
[2023-06-29 16:36] LABS: Glucose - Point of Care 220 mg/dl (70-99)
[2023-06-29] MEDS: ZOSYN 50 IV ×2 (17:16→23:52)
[2023-06-29] MEDS: LIPITOR 10 MG PO (17:16)
[2023-06-29] MEDS: COLACE 100 MG PO (20:36)
[2023-06-29 21:40] LABS: Glucose - Point of Care 180 mg/dl (70-99)
[2023-06-29] MEDS: LANTUS 0.100000000000000006 UNITS SC (21:48)
[2023-06-29 23:05] VITALS: BP 132/61
[2023-06-30] MEDS: ROXICODONE 5 MG PO (04:58)
[2023-06-30] MEDS: ZOSYN 50 IV ×4 (05:00→23:04)
[2023-06-30 06:35] LABS: Hematocrit 26.9 % (37.0-47.0); Hemoglobin 8.5 g/dL (12.0-16.0); Mean Corp Hgb Conc. 31.6 g/dL (33.0-37.0); Mean Corpuscular Hgb 28.6 pg (27.0-31.0); Mean Corpuscular Volume 90.6 fL (81.0-99.0); Mean Platelet Volume 8.9 fL (7.4-10.4); Platelet Count 414 10^3/uL (130-400); Red Blood Cell Count 2.97 10^6/uL (4.20-5.40); Red Cell Dist. Width 15.7 % (11.5-14.5); White Blood Cell Count 10.9 10^3/uL (4.8-10.8)
[2023-06-30 07:02] LABS: Vancomycin Random 16.3 ug/ml
[2023-06-30 07:05] LABS: Blood Urea Nitrogen 17 mg/dl (7-17); Calcium 8.7 mg/dl (8.4-10.2); Carbon Dioxide 26 mmol/L (22-30); Chloride 100 mmol/L (98-107); Estimated Creatinine Clearance 40 ml/min; Glucose 167 mg/dl (70-99); Potassium 4.1 mmol/L (3.5-5.1); Sodium 132 mmol/L (135-145)
[2023-06-30 07:10] VITALS: BP 106/60
[2023-06-30 07:20] LABS: Glucose - Point of Care 181 mg/dl (70-99)
--- NOTE | 2023-06-30 08:05 | W.PN.ORTHO ---
Today's Communication / Plan
-
PT/OT
Eliquis for DVT prophylaxis
Toe-touch weightbearing left lower extremity
Cefepime and and vancomycin per ID recommendations
Follow-up [address] Velasquez to check her progress
[facility] facility once medically stable
Assessment
.
Distal Motor Intact: Yes
Dressing:
Clean, dry and intact.
Plan
.
Surgery / Date: Left hip revision (head/liner) w/ femur Fx May
DVT Prophylaxis: Other (Eliquis)
Activity:
Out of bed.
PT/OT
Discharge Plan: SNF
Subjective
.
.:
Patient resting comfortably.
Vital Signs and Labs
.
Vital Signs and Labs:
Lab Results
06/30/23 05:26
06/30/23 05:26
Temp Pulse Resp BP Pulse Ox
98.5 F 88 16 132/61 96
06/29/23 23:05 06/29/23 23:05 06/29/23 23:05 06/29/23 23:05 06/29/23 23:05
Cultures grew manuela muñiz and Hiren
--- NOTE | 2023-06-30 08:07 | PHA.VAN.FU ---
Vancomycin Assessment / Plan
- Assessment
Renal Function: Stable
WBC's are: Trending Down
In the past 24 hrs, patient has been: Afebrile
Concomitant Antimicrobials: piperacillin/tazobactam
- Assessment - Therapeutic Drug Monitoring
Random Level: 16.3 - drawn ~17.5H after 2000mg loading dose
- Dosing Plan
Dosing by Level: Re-dose today (Vanc 1000mg)
- Monitoring Plan
Random Level: 06/30 0600 - if still admitted to trend levels
If discharged, would consider tentatively starting Vancomycin 1000mg Q24H based on prior experience by random levels this admission. Consider trough Monday 07/03 to re-assess regimen.
- Follow Up
Pharmacy will continue to follow.
Vancomycin Follow UP
- -
Patient Age: 73
Patient Sex: Female
Vancomycin Day #: 2
Indication: Bone And Joint
Requesting Provider: Dr. Arciniega
Pertinent Antimicrobial Allergies:
ciprofloxacin / quinolones - rash
doxycycline / tetracyclines - rash
Height / Weight:
Height 4 ft 11 in
Actual Weight 90.809 kg
Pertinent Past Medical History: BMI ~40
- Vital Signs / Lab Results
Temp Pulse Resp BP Pulse Ox
98.5 F 88 16 132/61 96
06/29/23 23:05 06/29/23 23:05 06/29/23 23:05 06/29/23 23:05 06/29/23 23:05
Lab Results - Hematology
06/28/23 06/29/23 06/30/23
04:47 05:03 05:26
WBC 12.6 H 12.2 H 10.9 H
Lab Results - Chemistry
06/27/23 06/28/23 06/29/23
05:09 04:47 05:03
BUN 17 16
Creatinine 1.3 H 1.1 H
Estimated Creat Clear 37 44
Albumin 2.2 L
06/30/23
05:26
BUN 17
Creatinine 1.2 H
Estimated Creat Clear 40
Albumin
Microbiology Results
06/24/23 13:58 Tissue Culture - Final
Hip - Left No Growth After 72 Hours
Gram Stain - Final
06/24/23 13:53 Anaerobic Culture - Final
Hip - Left NO ANAEROBES ISOLATED
06/24/23 13:32 Tissue Culture - Final
Hip - Left Staphylococcus epidermidis
Gram Stain - Final
06/24/23 13:55 Anaerobic Culture - Final
Hip - Left Bacteroides Caccae
06/24/23 11:59 Tissue Culture - Final
Hip - Left Morganella morganii
Gram Stain - Final
06/24/23 13:32 Anaerobic Culture - Final
Hip - Left Bacteroides Caccae
Peptostrep. asaccharolyticus
06/24/23 13:32 Wound Culture - Final
Hip - Left No growth
Gram Stain - Final
06/24/23 13:32 Anaerobic Culture - Final
Hip - Left Bacteroides Caccae
06/24/23 13:30 Tissue Culture - Final
Hip - Left Staphylococcus epidermidis
Gram Stain - Final
Therapeutic Drug Monitoring
Random Vancomycin 16.3 ug/ml 06/30/23 05:26
[2023-06-30] MEDS: NOVOLOG FLEXPEN-LOW RESISTANCE 1 UNITS SC (08:56)
[2023-06-30] MEDS: PROTONIX 40 MG PO (08:57)
[2023-06-30] MEDS: NOVOLOG FLEXPEN 5 UNITS SC ×3 (08:57→17:24)
[2023-06-30] MEDS: ELIQUIS 5 MG PO ×2 (08:58→19:44)
[2023-06-30] MEDS: NORVASC PO (08:58)
[2023-06-30] MEDS: VANCOCIN 200 IV (08:58)
[2023-06-30] MEDS: COLACE 100 MG PO (08:58)
[2023-06-30] MEDS: ROXICODONE 10 MG PO ×3 (09:08→23:05)
--- NOTE | 2023-06-30 10:04 | W.PN.HOSP.TC ---
Today's Communication/Plan
-
Physical therapy
long-term facility with IV antibiotics
Assessment / Plan
Assessment / Plan
Assessment
Left hip infection
Acute postop anemia
STEPHANIE
CKD 3
Cellulitis
Left finger paraesthesia
History of iron deficiency anemia
Type 2 diabetes
History of right lower extremity DVT
Morbid obesity
Plan
Left hip cellulitis:
-Status post left total hip arthroplasty I&D with bone head and liner exchange and femoral component revision and intraoperative femur fracture ORIF on 06/23 by orthopedic.
-Pain controlled, sutures to remain in place and to follow-up with Ortho. Follow-up x-rays in 2 weeks
-Continue IV antibiotics, vancomycin, IV cefepime x 6 weeks from 06/23
-PICC line in place
-Cultures with Morganella morganii on 06/20
-Deep hip cultures positive for staph epi 06/23
-Blood cultures no growth
-Improvement in WBC.
Worsening anemia:
Acute blood loss postop anemia
-S/p transfusion x 1 units 06/15. CBC stable
-Monitor CBC
-Eliquis resumed
STEPHANIE on CKD III
-Resolved D/C IV fluids.
-Improved and back to baseline
-Continue to monitor BMP
-Avoid nephrotoxics
-Reviewed ultrasound of the kidneys and bladder unremarkable
�- Marked STEPHANIE during prior admission with peak SCr = 5.2 requiring HD x a single session.
DM-II with hyperglycemia
-Continue current insulin regimen with basal bolus protocol
-Serial blood glucose monitoring
-A1C during 04/2023 admission was 6.2%.
RLE DVT
DVT Prophylaxis
�-Eliquis restarted
Code Status:� Full
Anticipated Discharge: Within 24 hours
Objective Data
-
Labs:
Laboratory Results
06/30/23
05:26
WBC 10.9 H
Hgb 8.5 L
Hct 26.9 L
Plt Count 414 H D
Sodium 132 L
Potassium 4.1
Chloride 100
Carbon Dioxide 26
BUN 17
Creatinine 1.2 H
Glucose 167 H
Calcium 8.7
Vital Signs:
Vital Signs
Temp Pulse Resp BP Pulse Ox
98.4 F 85 17 106/60 97
06/30/23 07:10 06/30/23 07:10 06/30/23 07:10 06/30/23 08:58 06/30/23 07:10
I&O
06/29/23 06/30/23 07/01/23
06:59 06:59 06:59
Intake Total 760 / 760 1610 / 1610
Output Total 270 / 270 415 / 415
Balance 490 / 490 1195 / 1195
Review of Systems
-
All other systems: Reviewed and negative (Except as documented)
Physical Exam
-
General: Well Developed and Well Nourished
HEENT: Normocephalic
Respiratory: Clear to Auscultation; Negative Wheezes, Rales or Rhonchi
Cardiac: S1/S2
GI: Soft, Nontender and Nondistended
Musculoskeletal: No Clubbing, No Cyanosis and No Edema
Skin: Warm
Neuro: Awake, Alert, Oriented and AO x 3
Psych: Calm
Data Reviewed
-
Labs: Labs Reviewed by me and Discussed with Physician
--- NOTE | 2023-06-30 10:08 | CM ---
Addendum entered by Svitlana Ledesma RN 06/30/23 15:27:
Auth obtained from [facility] starting Tuesday07/01/2023; [id number]; NRD 07/14/23; Sub Acute Level; Fax Clinicals to: [phone]; Questions [phone], option #5
Ambulance Auth with Acute Care [id number]
Original Note:
Reviewed the chart notes and spoke with the patient at the bedside. IMM signed and place on the chart. Patient per attending is ready for discharge. Spoke with [facility] at [facility]. Bed available tomorrow. Auth needed. Attending
updated. CM continues to be available to patient/family and is monitoring medical plan for needs at discharge.
Plan: Discharge to [facility] tomorrow once auth obtained.
Dr. Mattson NPI # [id number]
[facility] NPI # [id number]
[2023-06-30 11:38] VITALS: BP 112/69; PULSE 89; O2SAT 97
[2023-06-30 12:12] LABS: Glucose - Point of Care 227 mg/dl (70-99)
[2023-06-30] MEDS: NOVOLOG FLEXPEN-LOW RESISTANCE 2 UNITS SC ×2 (12:44→17:23)
--- NOTE | 2023-06-30 13:57 | W.PN.UPDATE ---
Update Note
Progress Note Update
Patient seen and examined
Discussed with resident
Impression:
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
Sepsis present on admission, currently resolved.
Cultures positive for Morganella and coag negative staph
Acute kidney injury secondary to prerenal causes
Anemia of acute blood loss.
Conditions prior to admission:
Osteoarthritis
Diabetes.
Hypertension
Chronic anemia.
PAD.
Right lower extremity DVT on Eliquis [employer]
Obesity with BMI of 40.
Dyslipidemia.
Plan:*
Left hip cellulitis with prosthetic joint infection
Status post washout on 06/22.
Plan is to complete 6 weeks of antibiotics with cefepime with addition of vancomycin
Wound VAC in place.
PICC line in place.
Physical therapy and eventually long-term facility with IV antibiotics
Acute kidney injury.
CKD stage IIIa baseline creatinine improved and back to baseline
Anemia of acute blood loss baseline hemoglobin at 6.9 improved with transfusion and currently at 8.
Right lower extremity DVT.
Eliquis resumed. Monitor hemoglobin.
IDDM
Hemoglobin A1c 6.2
Continue current insulin regimen with basal bolus protocol. Serial blood glucose monitoring
Disposition: Pending placement to long-term facility.
[2023-06-30 15:22] VITALS: BP 117/51
[2023-06-30 16:52] LABS: Glucose - Point of Care 217 mg/dl (70-99)
[2023-06-30] MEDS: LIPITOR 10 MG PO (17:23)
[2023-06-30] MEDS: FLUSH (NSS) 2 FLUSH IV (17:24)
[2023-06-30] MEDS: COLACE PO (20:06)
[2023-06-30] MEDS: LANTUS 0.100000000000000006 UNITS SC (21:29)
[2023-06-30 21:30] LABS: Glucose - Point of Care 292 mg/dl (70-99)
[2023-06-30 23:15] VITALS: BP 141/72
[2023-07-01 04:43] LABS: Hematocrit 25.6 % (37.0-47.0); Mean Corp Hgb Conc. 31.3 g/dL (33.0-37.0); Mean Corpuscular Hgb 28.6 pg (27.0-31.0); Mean Corpuscular Volume 91.4 fL (81.0-99.0); Mean Platelet Volume 8.9 fL (7.4-10.4); Platelet Count 398 10^3/uL (130-400); Red Cell Dist. Width 15.4 % (11.5-14.5); White Blood Cell Count 12.2 10^3/uL (4.8-10.8)
[2023-07-01] MEDS: ROXICODONE 10 MG PO ×2 (04:58→13:00)
[2023-07-01] MEDS: ZOSYN 50 IV (05:00)
[2023-07-01 05:04] LABS: Vancomycin Random 17.1 ug/ml
[2023-07-01 05:10] LABS: Blood Urea Nitrogen 16 mg/dl (7-17); Calcium 8.5 mg/dl (8.4-10.2); Carbon Dioxide 26 mmol/L (22-30); Chloride 103 mmol/L (98-107); Estimated Creatinine Clearance 35 ml/min; Glucose 136 mg/dl (70-99); Potassium 3.8 mmol/L (3.5-5.1); Sodium 131 mmol/L (135-145); eGFR 39.48
[2023-07-01 05:13] VITALS: BMI 39.7
--- NOTE | 2023-07-01 07:49 | PHA.VAN.FU ---
Vancomycin Assessment / Plan
- Assessment
Renal Function: SCR Increasing (1.1->1.2->1.4)
WBC's are: Trending Up
In the past 24 hrs, patient has been: Afebrile
Concomitant Antimicrobials: piperacillin/tazobactam
- Assessment - Therapeutic Drug Monitoring
Random Level: 17.1 ( drawn 19.5 hours post 1000 mg dose)
- Dosing Plan
Continue: dose by random level
Dosing by Level: Re-dose today (vanc 750 mg)
- Monitoring Plan
Random Level: / 0600
Monitoring Comments: continuing to dose by random level due to increasing SCr and random of 17.1
If random level tomorrow is appropriate, could tentatively start 750 mg q24h if discharged tomorrow. Will follow levels and SCr closely.
- Follow Up
Pharmacy will continue to follow.
Vancomycin Follow UP
- -
Patient Age: 73
Patient Sex: Female
Vancomycin Day #: 3
Indication: Bone And Joint
Requesting Provider: Dr. Arciniega
Pertinent Antimicrobial Allergies:
ciprofloxacin / quinolones - rash
doxycycline / tetracyclines - rash
Height / Weight:
Height 4 ft 11 in
Actual Weight 89.131 kg
Pertinent Past Medical History: BMI ~40
- Vital Signs / Lab Results
Temp Pulse Resp BP Pulse Ox
98.7 F 83 18 141/72 99
06/30/23 23:15 06/30/23 23:15 06/30/23 23:15 06/30/23 23:15 06/30/23 23:15
Lab Results - Hematology
06/29/23 06/30/23 07/01/23
05:03 05:26 04:27
WBC 12.2 H 10.9 H 12.2 H
Lab Results - Chemistry
06/29/23 06/30/23 07/01/23
05:03 05:26 04:27
BUN 16 17 16
Creatinine 1.1 H 1.2 H 1.4 H
Estimated Creat Clear 44 40 35
Microbiology Results
06/24/23 13:58 Tissue Culture - Final
Hip - Left No Growth After 72 Hours
Gram Stain - Final
06/24/23 13:53 Anaerobic Culture - Final
Hip - Left NO ANAEROBES ISOLATED
06/24/23 13:32 Tissue Culture - Final
Hip - Left Staphylococcus epidermidis
Gram Stain - Final
06/24/23 13:55 Anaerobic Culture - Final
Hip - Left Bacteroides Caccae
06/24/23 11:59 Tissue Culture - Final
Hip - Left Morganella morganii
Gram Stain - Final
06/24/23 13:32 Anaerobic Culture - Final
Hip - Left Bacteroides Caccae
Peptostrep. asaccharolyticus
06/24/23 13:32 Wound Culture - Final
Hip - Left No growth
Gram Stain - Final
06/24/23 13:32 Anaerobic Culture - Final
Hip - Left Bacteroides Caccae
Therapeutic Drug Monitoring
Random Vancomycin 17.1 ug/ml 07/01/23 04:27
[2023-07-01 07:55] VITALS: BP 130/56
[2023-07-01 08:06] LABS: Glucose - Point of Care 148 mg/dl (70-99)
[2023-07-01] MEDS: NOVOLOG FLEXPEN 5 UNITS SC ×2 (08:40→12:35)
[2023-07-01] MEDS: COLACE 100 MG PO (08:41)
[2023-07-01] MEDS: NORVASC 2.5 MG PO (08:41)
[2023-07-01] MEDS: PROTONIX 40 MG PO (08:43)
[2023-07-01] MEDS: ELIQUIS 5 MG PO (08:43)
[2023-07-01] MEDS: NOVOLOG FLEXPEN-LOW RESISTANCE SC ×2 (08:44→12:34)
[2023-07-01] MEDS: ROXICODONE 5 MG PO (08:58)
--- NOTE | 2023-07-01 09:07 | W.DCSUMMARY ---
Addendum entered and electronically signed by Felipe Carrasco MD 07/01/23 14:24:
Patient seen and examined
Discussed with resident
Discussed with infectious service.
Impression:
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
Sepsis present on admission, currently resolved.
Cultures positive for Morganella and coag negative staph
Acute kidney injury secondary to prerenal causes
Anemia of acute blood loss.
Conditions prior to admission:
Osteoarthritis
Diabetes.
Hypertension
Chronic anemia.
PAD.
Right lower extremity DVT on Eliquis [employer]
Obesity with BMI of 40.
Dyslipidemia.
Plan:*
Left hip cellulitis with prosthetic joint infection
Status post washout on 06/22.
Wound VAC and wound drain removed.
PICC line in place.
Physical therapy and eventually shelter facility with IV antibiotics
Cultures reviewed with ID, antibiotic regimen adjusted accordingly with vancomycin and ertapenem through 08/10/2023
Acute kidney injury.
CKD stage IIIa baseline creatinine improved and back to baseline
Anemia of acute blood loss baseline hemoglobin at 6.9 improved with transfusion and currently at 8.
Right lower extremity DVT.
Eliquis resumed. Monitor hemoglobin.
IDDM
Hemoglobin A1c 6.2
Continue current insulin regimen with basal bolus protocol. Serial blood glucose monitoring
Original Note:
Documented by User: Alexandria Cruz MD, Resident 07/01/23 13:49
Discharge Summary
Discharge Data
Date of Admission: 06/21/23
Date of Discharge: 07/01/23
-
Pending Results: No
Hospital Course
DISCHARGE DIAGNOSIS:
1. 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
2. Acute kidney injury secondary to prerenal causes
3. Type 2 diabetes mellitus
4. Chronic anemia
5. Dyslipidemia
BRIEF HOSPITAL COURSE: This is a 73-year-old female with past medical history significant for DM2, CKD who presents to ED complaining of drainage from left hip incision site. Patient notes drainage steadily increasing in frequency and volume.
Drainage was purulent appearing. She did experience pain and low-grade fever, hence she came to the emergency room for evaluation. Patient was previously hospitalized at from 05/13 to 05/25 for a left hip fracture she suffered on 01/2023
(underwent gamma nail placement at that time) and subsequently underwent revision of the area on 05/13. On presentation to the ED, patient was afebrile and normotensive. Evaluation with a left hip x-ray showed evidence of left lateral hip soft
tissue gas which may be on the basis of a soft tissue infection. Infectious disease was consulted, and she was started on antibiotics.
Orthopedic surgery was consulted. Recommendation by orthopedic surgery was to proceed with aspiration of the left hip with the assistance of interventional radiology and send fluid for analysis to include Gram stain and cell count culture and
sensitivity. Aspiration of fluid collection immediately deep to the incision yielded 10 mL of thin bloody nonpurulent fluid. No fluid could be aspirated from the left hip joint itself. Patient was continued on vancomycin and cefepime and plan was
for tentative left hip irrigation and debridement with ball and linear exchange by orthopedic surgery. Vancomycin was discontinued after preliminary results of the hip wound culture was positive for Morganella morganii. Post washout surgery was
completed 06/23 and the wound VAC was put in place. Postoperation hemoglobin level dropped down to 6.9 and she was transfused 1 unit of blood. Afterwards hemoglobin remained stable throughout the course of hospital stay.
Final follow-up left hip cultures positive for Staphylococcus epidermidis, Bacteroides, Peptostreptococcus. And vancomycin was re-added to antibiotic regimen. On the day of discharge, plan is to continue vancomycin 750 mg IV q24 through 08/10/2023.
Ertapenem 1g IV q24 through 08/10/2023. Follow weekly vancomycin trough level. follow weekly CBC, CMP, ESR, CRP. Adjust vancomycin dosing to target vancomycin trough level between 12-17. She will follow-up with orthopedics outpatient for removal
of sutures, incision check, and a follow-up x-ray.
Acute kidney injury secondary to prerenal causes: After conversion replacement, she needed ICU care after going into renal failure. Creatinine peaked at 1.8. Evaluation with ultrasound of the kidneys and bladder unremarkable. FENa 0.3 percent
which points to prerenal STEPHANIE due to episodes of hypotension. STEPHANIE episode resolved after initiation of IV fluids. Plan is to repeat BMP on 07/04/2023
Type 2 diabetes mellitus; glipizide, metformin will be held until 08/10/2023 with addition of AC insulin.
On day of discharge temperature 98.4, BP 130/56, pulse 78, O2 sat 96% on room air.
Physical examination; patient is awake in no acute distress, S1-S2 present with regular rate and regular rhythm. Lungs clear to auscultation. Abdomen soft, nontender, normal bowel sounds. Extremities show no peripheral edema bilaterally. Left
hip incision Aquacel in place.
Discharge Plan
-
Patient Disposition: Alf/SNF
Discharge Diagnosis/Procedures: Impression:
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
Sepsis present on admission, currently resolved.
Cultures positive for Morganella and coag negative staph
Acute kidney injury secondary to prerenal causes
Anemia of acute blood loss.
Conditions prior to admission:
Osteoarthritis
Diabetes.
Hypertension
Chronic anemia.
PAD.
Right lower extremity DVT on Eliquis [employer]
Obesity with BMI of 40.
Dyslipidemia.
Plan:*
Left hip cellulitis with prosthetic joint infection
Status post washout on 06/22.
Plan is to complete 6 weeks of antibiotics with cefepime with addition of vancomycin
PICC line in place.
Physical therapy and eventually shelter facility with IV antibiotics
Acute kidney injury.
CKD stage IIIa baseline creatinine improved and back to baseline
Anemia of acute blood loss baseline hemoglobin at 6.9 improved with transfusion and currently at 8.
Right lower extremity DVT.
Eliquis resumed. Monitor hemoglobin.
IDDM
Hemoglobin A1c 6.2
Continue current insulin regimen with basal bolus protocol. Serial blood glucose monitoring
Diet: Diabetic, Carb Controlled
Blood Work: Vancomycin Trough, BMP on 07/04/2023.
Activity Restrictions/Additional Instructions:
1. Ertapenem 1g IV q24 through 08/10/23
2. Vancomycin 750mg IV q24 through 08/10/23.
Next Vanco trough due 08/03/23
3. Follow weekly Vanco trough, CBC, CMP, ESR, CRP every Tuesday.
4. Adjust Vancomycin dosing to target Vanco trough between 12 to 17.
Referrals:
Jim Arciniega DO [Active] -
Gilda Celaya MD [Family Provider] - in one week
Prescriptions:
New
docusate sodium 100 mg Capsule
100 mg PO BID Qty: 30 0RF
insulin aspart U-100 100 unit/mL (3 mL) Insulin Pen
5 unit SC AC Qty: 3 0RF
pantoprazole 40 mg Tablet,Delayed Release (Dr/Ec)
40 mg PO DAILY Qty: 30 0RF
oxycodone 5 mg Tablet
5 mg PO Q4HPRN PRN (Reason: moderate pain) Qty: 20 0RF
vancomycin in 0.9 % sodium chl 750 mg/150 mL Piggyback
750 mg IV ONCE Qty: 42 0RF
Ertapenem [Invanz] 1000 MG
0.9% Sodium Chloride [Nss] 50 ML
120 mls/hr IV Q24H
Ordered By: Felipe Carrasco MD
Last Taken: 07/01/23 10:30 60 mls
Continued
amlodipine 2.5 mg Tablet
2.5 mg PO DAILY
dapagliflozin propanediol [Farxiga] 10 mg Tablet
10 mg PO DAILY
ferrous sulfate 325 mg (65 mg iron) Tablet
325 mg PO DAILY
cholecalciferol (vitamin D3) 25 mcg (1,000 unit) Tablet
25 mcg PO DAILY
Eliquis 5 mg Tablet
5 mg PO BID Qty: 60 0RF
Rx Instructions:
completed 7 day load in hospital
atorvastatin 10 mg Tablet
10 mg PO QPM Qty: 0 0RF
acetaminophen [Tylenol Extra Strength] 500 mg Tablet
1,000 mg PO TID
bisacodyl [Dulcolax (bisacodyl)] 10 mg Suppository
10 mg CA DAILYPRN PRN (Reason: constipation)
insulin glargine-yfgn 100 unit/mL (3 mL) Insulin Pen
10 unit SC HS
Held
metformin 500 mg Tablet
1,000 mg PO DAILY Qty: 60 0RF
Hold Instructions: Resume on 08/10/23.
glipizide 5 mg Tablet
2.5 mg PO DAILY Qty: 30 0RF
Hold Instructions: Resume on 08/10/23.
Discontinued
loperamide 2 mg Capsule
2 mg PO DAILYPRN PRN (Reason: diarrhea)
aspirin 81 mg Tablet,Delayed Release (Dr/Ec)
81 mg PO DAILY Qty: 30 0RF
ondansetron HCl [Zofran] 4 mg Tablet
4 mg PO Q8HPRN PRN (Reason: NAUSEA)
oxycodone 5 mg Tablet
5 mg PO Q8HPRN PRN (Reason: severe pain)
magnesium hydroxide [Milk of Magnesia] 400 mg/5 mL Suspension
2,400 mg PO DAILYPRN PRN (Reason: if no bm by 4th day)
Fleet Enema 19-7 gram/118 mL Enema
118 ml CA DAILYPRN PRN (Reason: constipation)
Discharge Orders:
Discharge Patient (As Directed); Ordered 07/01/23
Ordered By: Felipe Carrasco
Discharge Date and Time
Print Language: ARGENTINE

Documented by User: Felipe Carrasco MD 07/01/23 14:21
Discharge Summary
Discharge Data
Date of Admission: 06/21/23
Date of Discharge: 07/01/23
Discharge Plan
-
Patient Disposition: Alf/SNF
Discharge Diagnosis/Procedures: Impression:
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
Sepsis present on admission, currently resolved.
Cultures positive for Morganella and coag negative staph
Acute kidney injury secondary to prerenal causes
Anemia of acute blood loss.
Conditions prior to admission:
Osteoarthritis
Diabetes.
Hypertension
Chronic anemia.
PAD.
Right lower extremity DVT on Eliquis [employer]
Obesity with BMI of 40.
Dyslipidemia.
Plan:*
Left hip cellulitis with prosthetic joint infection
Status post washout on 06/22.
Plan is to complete 6 weeks of antibiotics with cefepime with addition of vancomycin
PICC line in place.
Physical therapy and eventually shelter facility with IV antibiotics
Acute kidney injury.
CKD stage IIIa baseline creatinine improved and back to baseline
Anemia of acute blood loss baseline hemoglobin at 6.9 improved with transfusion and currently at 8.
Right lower extremity DVT.
Eliquis resumed. Monitor hemoglobin.
IDDM
Hemoglobin A1c 6.2
Continue current insulin regimen with basal bolus protocol. Serial blood glucose monitoring
Diet: Diabetic, Carb Controlled
Blood Work: Vancomycin Trough, BMP on 07/04/2023.
Activity Restrictions/Additional Instructions:
1. Ertapenem 1g IV q24 through 08/10/23
2. Vancomycin 750mg IV q24 through 08/10/23.
Next Vanco trough due 08/03/23
3. Follow weekly Vanco trough, CBC, CMP, ESR, CRP every Tuesday.
4. Adjust Vancomycin dosing to target Vanco trough between 12 to 17.
Referrals:
Jim Arciniega DO [Active] -
Gilda Celaya MD [Family Provider] - in one week
Prescriptions:
New
docusate sodium 100 mg Capsule
100 mg PO BID Qty: 30 0RF
insulin aspart U-100 100 unit/mL (3 mL) Insulin Pen
5 unit SC AC Qty: 3 0RF
pantoprazole 40 mg Tablet,Delayed Release (Dr/Ec)
40 mg PO DAILY Qty: 30 0RF
oxycodone 5 mg Tablet
5 mg PO Q4HPRN PRN (Reason: moderate pain) Qty: 20 0RF
vancomycin in 0.9 % sodium chl 750 mg/150 mL Piggyback
750 mg IV ONCE Qty: 42 0RF
Ertapenem [Invanz] 1000 MG
0.9% Sodium Chloride [Nss] 50 ML
120 mls/hr IV Q24H
Ordered By: Felipe Carrasco MD
Last Taken: 07/01/23 10:30 60 mls
Continued
amlodipine 2.5 mg Tablet
2.5 mg PO DAILY
dapagliflozin propanediol [Farxiga] 10 mg Tablet
10 mg PO DAILY
ferrous sulfate 325 mg (65 mg iron) Tablet
325 mg PO DAILY
cholecalciferol (vitamin D3) 25 mcg (1,000 unit) Tablet
25 mcg PO DAILY
Eliquis 5 mg Tablet
5 mg PO BID Qty: 60 0RF
Rx Instructions:
completed 7 day load in hospital
atorvastatin 10 mg Tablet
10 mg PO QPM Qty: 0 0RF
acetaminophen [Tylenol Extra Strength] 500 mg Tablet
1,000 mg PO TID
bisacodyl [Dulcolax (bisacodyl)] 10 mg Suppository
10 mg CA DAILYPRN PRN (Reason: constipation)
insulin glargine-yfgn 100 unit/mL (3 mL) Insulin Pen
10 unit SC HS
Held
metformin 500 mg Tablet
1,000 mg PO DAILY Qty: 60 0RF
Hold Instructions: Resume on 08/10/23.
glipizide 5 mg Tablet
2.5 mg PO DAILY Qty: 30 0RF
Hold Instructions: Resume on 08/10/23.
Discontinued
loperamide 2 mg Capsule
2 mg PO DAILYPRN PRN (Reason: diarrhea)
aspirin 81 mg Tablet,Delayed Release (Dr/Ec)
81 mg PO DAILY Qty: 30 0RF
ondansetron HCl [Zofran] 4 mg Tablet
4 mg PO Q8HPRN PRN (Reason: NAUSEA)
oxycodone 5 mg Tablet
5 mg PO Q8HPRN PRN (Reason: severe pain)
magnesium hydroxide [Milk of Magnesia] 400 mg/5 mL Suspension
2,400 mg PO DAILYPRN PRN (Reason: if no bm by 4th day)
Fleet Enema 19-7 gram/118 mL Enema
118 ml CA DAILYPRN PRN (Reason: constipation)
Discharge Orders:
Discharge Patient (As Directed); Ordered 07/01/23
Ordered By: Felipe Carrasco
Discharge Date and Time
Print Language: ARGENTINE
--- NOTE | 2023-07-01 09:25 | W.PN.ID1 ---
Date of Service
Date of Service: July 01, 2023
Today's Communication
Place picc.
Simplify regimen to IV Vancomycin and Ertapenem x 6 weeks.
See below.
Assessment / Plan
Left hip cellulitis
Left hip SSTI
Left hip PJI
- Patient s/p left hip irrigation and debridement with ball head and liner exchange on 06/23/2023.
- Cultures with Morganella morganii, Coag neg Staph, bacteroides, peptostreptococcus
Elevated ESR and CRP
Osteoarthritis
Osteopenia
Obesity
DM
CKD stage III
Anemia
PAD
HTN
Dyslipidemia
IBS
Diverticulosis
Recommendations:
Currently on Zosyn and Vancomycin (d3)
Plan:
Dc Zosyn and simply to Ertapenem 1g IV q24 through 08/10/23
Continue Vancomycin 750mg IV q24 through 08/10/23.
Follow weekly Vanco trough, CBC, CMP, ESR, CRP.
Adjust Vancomycin dosing to target Vanco trough between 12 to 17.
Ordered PICC line.
To [facility] today.
����������������������������������������������������������
Chief Complaint
-: Cellulitis (left hip) and Other (Left hip PJI)
Subjective / Review of Systems
No new complaints.
Vital Signs / Physical Exam
Vital Signs
Vital Signs
Temp Pulse Resp BP Pulse Ox
98.9 F 78 18 130/56 96
07/01/23 07:55 07/01/23 07:55 07/01/23 07:55 07/01/23 08:41 07/01/23 07:55
Physical Exam
Constitutional: No Acute Distress
Cardiovascular: Regular Rate and S1/S2
Pulmonary: Clear
Gastrointestinal: Soft, Non Tender and Non Distended
Wound: Other (left hip long dressing dry. + hemvac)
Objective Data
Lab Data
Lab Results
07/01/23 04:27
07/01/23 04:27
ESR 80 mm/hour (0-20) H 06/21/23 11:27
APTT 113.3 Sec (23.4-35.0) H 06/25/23 09:48
Estimated Creat Clear 35 ml/min 07/01/23 04:27
Total Bilirubin 0.4 mg/dl (0.2-1.3) 06/25/23 13:31
AST 37 U/L (14-36) H 06/25/23 13:31
ALT 22 U/L (0-35) 06/25/23 13:31
Alkaline Phosphatase 91 U/L (38-126) 06/25/23 13:31
C-Reactive Protein 211.20 mg/L (0.0-10.00) H 06/21/23 11:27
Most recent labs reviewed.
Micro Results:
06/24/23 13:58 Tissue Culture - Final
Hip - Left No Growth After 72 Hours
Gram Stain - Final
06/24/23 13:53 Anaerobic Culture - Final
Hip - Left NO ANAEROBES ISOLATED
06/24/23 13:32 Tissue Culture - Final
Hip - Left Staphylococcus epidermidis
Gram Stain - Final
06/24/23 13:55 Anaerobic Culture - Final
Hip - Left Bacteroides Caccae
06/24/23 11:59 Tissue Culture - Final
Hip - Left Morganella morganii
Gram Stain - Final
06/24/23 13:32 Anaerobic Culture - Final
Hip - Left Bacteroides Caccae
Peptostrep. asaccharolyticus
06/24/23 13:32 Wound Culture - Final
Hip - Left No growth
Gram Stain - Final
06/24/23 13:32 Anaerobic Culture - Final
Hip - Left Bacteroides Caccae
06/24/23 13:30 Tissue Culture - Final
Hip - Left Staphylococcus epidermidis
Gram Stain - Final
06/21/23 00:41 Blood Culture - Final
Blood/Venous No Growth - Final Report
06/21/23 00:41 Blood Culture - Final
Blood/Venous No Growth - Final Report
06/21/23 18:00 Body Fluid Culture - Final
Fluid Morganella morganii
Gram Stain - Final
06/21/23 00:41 Wound Culture - Final
Skin Surface Morganella morganii
Diptheroids
Gram Stain - Final
06/21/23 23:31 Urine Culture - Final
Urine Yeast
06/21/23 15:26 MRSA Screen - Final
Nose No Methicillin Resistant Staphylococcus aureus isolated.
Wound/abscess/other Cult Final 06/19/2023
Many Morganella morganii
Many Diptheroids
Organism 1 Morganella morganii
1. Morganella morganii
M.I.C. RX
--------- ---
Amoxicillin/Potas. Clavulanate >16/8 R
Ampicillin >16 R
Ampicillin/Sulbactam >16/8 R
Cefazolin >16 R
Cefepime <=2 S
Ceftazidime >16 R
Ceftriaxone >2 R
Ertapenem <=0.5 S
Ciprofloxacin <=0.25 S
Gentamicin <=4 S
Levofloxacin <=0.5 S
Meropenem <=1 S
Piperacillin/Tazobactam <=16 S
Tobramycin <=4 S
Trimethoprim/Sulfamethoxazole <=2/38 S
Care Review
Plan reviewed with: Physician (Dr. Carrasco)
--- NOTE | 2023-07-01 09:30 | CM ---
CM following re: discharge planning.
Reviewed pt's chart, met with pt.
According to MD pt is medically stable to be discharged today. Pt is aware, expressed her agreement with discharge. IMM reviewed yesterday.
Per CM note from yesterday, a plan is for pt to go to [facility] and an auth is obtained from [facility] starting today 07/01/2023; [id number]; NRD 07/14/23; Sub Acute Level; Fax Clinicals to: [phone]; Questions [phone], option #5
CM spoke to [facility] director of education and she confirmed that they do have a bed available and pt is accepted for admission today. Auth information provided.
UC to arrange transportation with [facility] ambulance, S. Ambulance Auth with [facility] [id number].
[facility] for nursing report: [phone]
Discharge instructions fax: [phone].
D/C plan: [facility].
--- NOTE | 2023-07-01 09:31 | W.PN.ORTHO ---
Today's Communication / Plan
-
n/a
Assessment
.
Distal Motor Intact: Yes
Dressing:
Clean, dry and intact.
Assessment:
PT/OT to tolerance.
Eliquis for DVT prophylaxis.
Toe-touch weightbearing left lower extremity.
Cefepime and and vancomycin per ID recommendations.
Follow-up [address] Velasquez to check her progress.
longterm facility once medically stable.
Plan
.
Surgery / Date: Left hip revision (head/liner) w/ femur Fx May
Activity:
Out of bed.
PT/OT
Discharge Information:
PT/OT to tolerance.
Eliquis for DVT prophylaxis.
Toe-touch weightbearing left lower extremity.
Cefepime and and vancomycin per ID recommendations.
Follow-up [address] Velasquez to check her progress.
longterm facility once medically stable.
Subjective
.
.:
Patient resting comfortably in bed with no current complaints. Has some pain at nighttime still.
Vital Signs and Labs
.
Vital Signs and Labs:
Lab Results
07/01/23 04:27
07/01/23 04:27
Temp Pulse Resp BP Pulse Ox
98.9 F 78 18 130/56 96
07/01/23 07:55 07/01/23 07:55 07/01/23 07:55 07/01/23 08:41 07/01/23 07:55
Physical Exam
-
Dressing to right thigh is c/d/i. Hemovac drain in place with continued serosanguinous drainage. Mild swelling. No fluctuance. N/v intact distally.
--- NOTE | 2023-07-01 09:42 | W.DS.TRANS ---
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
-
Discharge Instructions:
Discharge Diagnosis/Procedures Impression:
Left hip cellulitis with left hip prosthetic
joint infection
Sepsis present on admission, currently resolved.
Cultures positive for Morganella and coag
negative staph
Acute kidney injury secondary to prerenal causes
Anemia of acute blood loss.
Conditions prior to admission:
Osteoarthritis
Diabetes.
Hypertension
Chronic anemia.
PAD.
Right lower extremity DVT on Eliquis [employer]
Obesity with BMI of 40.
Dyslipidemia.
Plan:*
Left hip cellulitis with prosthetic joint
infection
Status post washout on 06/22.
Plan is to complete 6 weeks of antibiotics with
cefepime with addition of vancomycin
Wound VAC in place.
PICC line in place.
Physical therapy and eventually intermediate
facility with IV antibiotics
Acute kidney injury.
CKD stage IIIa baseline creatinine improved and
back to baseline
Anemia of acute blood loss baseline hemoglobin
at 6.9 improved with transfusion and currently
at 8.
Right lower extremity DVT.
Eliquis resumed. Monitor hemoglobin.
IDDM
Hemoglobin A1c 6.2
Continue current insulin regimen with basal
bolus protocol. Serial blood glucose monitoring
Diet Diabetic, Carb Controlled
Blood Work Vancomycin Trough, BMP on 07/04/2023.
Instructions:
Stand-Alone Forms:
Changes to Home Medications: Yes
Discharge Medications:
DC Medications w/original date entered in [facility]
amlodipine 2.5 mg tablet 2.5 mg PO DAILY Blood Pressure 02/14/23
dapagliflozin propanediol 10 mg tablet (Farxiga) 10 mg PO DAILY Diabetes 02/14/23
cholecalciferol (vitamin D3) 25 mcg (1,000 unit) tablet 25 mcg PO DAILY Supplement 05/12/23
ferrous sulfate 325 mg (65 mg iron) tablet 325 mg PO DAILY Supplement 05/12/23
apixaban 5 mg tablet (Eliquis) 5 mg PO BID #60 tabs 05/25/23
atorvastatin 10 mg tablet 10 mg PO QPM High Cholesterol #0 tabs 05/25/23
glipizide 5 mg tablet 2.5 mg (1/2 x 5 mg) PO DAILY #30 tabs 05/25/23
metformin 500 mg tablet 1,000 mg (2 x 500 mg) PO DAILY #60 tabs 05/25/23
acetaminophen 500 mg tablet (Tylenol Extra Strength) 1,000 mg PO TID PAIN 06/21/23
bisacodyl 10 mg rectal suppository (Dulcolax (bisacodyl)) 10 mg IA DAILYPRN PRN constipation 06/21/23
insulin glargine-yfgn 100 unit/mL (3 mL) subcutaneous pen 10 unit SC HS diabetes 06/21/23
docusate sodium 100 mg capsule 100 mg PO BID #30 caps 07/01/23
insulin aspart U-100 100 unit/mL (3 mL) subcutaneous pen 5 unit (0.05 mL) SC AC #3 mL 07/01/23
oxycodone 5 mg tablet 5 mg PO Q4HPRN PRN moderate pain #20 tabs 07/01/23
pantoprazole 40 mg tablet,delayed release 40 mg PO DAILY #30 tabs 07/01/23
piperacillin-tazobactam 3.375 gram/50 mL dextrose(iso-os) IV piggyback (Zosyn) 3.375 g (56.25 mL) IV Q6H #168 mL 07/01/23
vancomycin 750 mg/150 mL in 0.9% sodium chloride intravenous piggyback 750 mg (150 mL) IV ONCE #42 mL 07/01/23
Home Medication Changes
Glipizide and metformin held with addition of AC insulin, following renal function.
Antibiotics through 08/10/2023.
Pending Results: No
--- NOTE | 2023-07-01 09:57 | W.DS.TRANS ---
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
-
Discharge Instructions:
Discharge Diagnosis/Procedures Impression:
Left hip cellulitis with left hip prosthetic
joint infection
Sepsis present on admission, currently resolved.
Cultures positive for Morganella and coag
negative staph
Acute kidney injury secondary to prerenal causes
Anemia of acute blood loss.
Conditions prior to admission:
Osteoarthritis
Diabetes.
Hypertension
Chronic anemia.
PAD.
Right lower extremity DVT on Eliquis [employer]
Obesity with BMI of 40.
Dyslipidemia.
Plan:*
Left hip cellulitis with prosthetic joint
infection
Status post washout on 06/22.
Plan is to complete 6 weeks of antibiotics with
cefepime with addition of vancomycin
Wound VAC in place.
PICC line in place.
Physical therapy and eventually nursing home
facility with IV antibiotics
Acute kidney injury.
CKD stage IIIa baseline creatinine improved and
back to baseline
Anemia of acute blood loss baseline hemoglobin
at 6.9 improved with transfusion and currently
at 8.
Right lower extremity DVT.
Eliquis resumed. Monitor hemoglobin.
IDDM
Hemoglobin A1c 6.2
Continue current insulin regimen with basal
bolus protocol. Serial blood glucose monitoring
Diet Diabetic, Carb Controlled
Blood Work Vancomycin Trough, BMP on 07/04/2023.
Instructions:
Stand-Alone Forms:
Changes to Home Medications: Yes
Discharge Medications:
DC Medications w/original date entered in [facility]
amlodipine 2.5 mg tablet 2.5 mg PO DAILY Blood Pressure 02/14/23
dapagliflozin propanediol 10 mg tablet (Farxiga) 10 mg PO DAILY Diabetes 02/14/23
cholecalciferol (vitamin D3) 25 mcg (1,000 unit) tablet 25 mcg PO DAILY Supplement 05/12/23
ferrous sulfate 325 mg (65 mg iron) tablet 325 mg PO DAILY Supplement 05/12/23
apixaban 5 mg tablet (Eliquis) 5 mg PO BID #60 tabs 05/25/23
atorvastatin 10 mg tablet 10 mg PO QPM High Cholesterol #0 tabs 05/25/23
glipizide 5 mg tablet 2.5 mg (1/2 x 5 mg) PO DAILY #30 tabs 05/25/23
metformin 500 mg tablet 1,000 mg (2 x 500 mg) PO DAILY #60 tabs 05/25/23
acetaminophen 500 mg tablet (Tylenol Extra Strength) 1,000 mg PO TID PAIN 06/21/23
bisacodyl 10 mg rectal suppository (Dulcolax (bisacodyl)) 10 mg [place] DAILYPRN PRN constipation 06/21/23
insulin glargine-yfgn 100 unit/mL (3 mL) subcutaneous pen 10 unit SC HS diabetes 06/21/23
Ertapenem [Invanz] 1,000 mg 120 mls/hr IV Q24H 07/01/23
docusate sodium 100 mg capsule 100 mg PO BID #30 caps 07/01/23
insulin aspart U-100 100 unit/mL (3 mL) subcutaneous pen 5 unit (0.05 mL) SC AC #3 mL 07/01/23
oxycodone 5 mg tablet 5 mg PO Q4HPRN PRN moderate pain #20 tabs 07/01/23
pantoprazole 40 mg tablet,delayed release 40 mg PO DAILY #30 tabs 07/01/23
vancomycin 750 mg/150 mL in 0.9% sodium chloride intravenous piggyback 750 mg (150 mL) IV ONCE #42 mL 07/01/23
Home Medication Changes
Glipizide and metformin held with addition of AC insulin, following renal function.
Antibiotics through 08/10/2023.
Pending Results: No
[2023-07-01] MEDS: INVANZ 60 MG IV (10:30)
[2023-07-01 11:47] VITALS: BP 140/59
--- NOTE | 2023-07-01 12:01 | W.PN.UPDATE ---
Update Note
Progress Note Update
Hemovac drain 50ml blood last 8 hours so drain removed. Sterile 4x4 and Adaptic applied over top.
[2023-07-01 12:11] LABS: Glucose - Point of Care 146 mg/dl (70-99)
[2023-07-01] MEDS: VANCOCIN 150 IV (12:35)
== END 2023-07-01 14:46 | DRG 466 ==
LOC: 2 SOUTH 03:54
PROVIDERS: Family Medicine; Hospitalist; Nurse Practitioner Family; Orthopaedic Surgery; Physician Assistant Medical; Physician Assistant Surgical; Radiology Diagnostic Radiology; Radiology Vascular & Interventional Radiology; Student in an Organized Health Care Education/Training Program; ADMITTING PHYSICIAN Hospitalist; ATTENDING PHYSICIAN Internal Medicine; CONSULT PHYSICIAN Internal Medicine Infectious Disease; CONSULT PHYSICIAN Specialist; EMERGENCY PHYSICIAN Emergency Medicine; FAMILY PHYSICIAN Family Medicine
PROC: BQ111ZZ Fluoroscopy of Left Hip using Low Osmolar Contrast (ICD-10-PCS; 2023-06-21)
PROC: 0S9B3ZX Drainage of Left Hip Joint, Percutaneous Approach, Diagnostic (ICD-10-PCS; 2023-06-21)
PROC: 0SPB0JZ Removal of Synthetic Substitute from Left Hip Joint, Open Approach (ICD-10-PCS; 2023-06-24)
PROC: 0SBB0ZZ Excision of Left Hip Joint, Open Approach (ICD-10-PCS; 2023-06-24)
PROC: 0QS704Z Reposition Left Upper Femur with Internal Fixation Device, Open Approach (ICD-10-PCS; 2023-06-24)
PROC: 0SRB02Z Replacement of Left Hip Joint with Metal on Polyethylene Synthetic Substitute, Open Approach (ICD-10-PCS; 2023-06-24)
PROC: 30233N1 Transfusion of Nonautologous Red Blood Cells into Peripheral Vein, Percutaneous Approach (ICD-10-PCS; 2023-06-24)
PROC: 02HV33Z Insertion of Infusion Device into Superior Vena Cava, Percutaneous Approach (ICD-10-PCS; 2023-07-01)
DX: T84.52XA Infection and inflammatory reaction due to internal left hip prosthesis, initial encounter (principal); A41.1 Sepsis due to other specified staphylococcus; S72.302A Unspecified fracture of shaft of left femur, initial encounter for closed fracture; E87.1 Hypo-osmolality and hyponatremia; N17.9 Acute kidney failure, unspecified; I82.401 Acute embolism and thrombosis of unspecified deep veins of right lower extremity; L03.116 Cellulitis of left lower limb; D62 Acute posthemorrhagic anemia; M00.052 Staphylococcal arthritis, left hip; Z68.41 Body mass index [BMI] 40.0-44.9, adult; E66.01 Morbid (severe) obesity due to excess calories; E11.22 Type 2 diabetes mellitus with diabetic chronic kidney disease; I12.9 Hypertensive chronic kidney disease with stage 1 through stage 4 chronic kidney disease, or unspecified chronic kidney disease; K58.9 Irritable bowel syndrome, unspecified; M19.90 Unspecified osteoarthritis, unspecified site; M85.80 Other specified disorders of bone density and structure, unspecified site; E78.5 Hyperlipidemia, unspecified; I73.9 Peripheral vascular disease, unspecified; E11.65 Type 2 diabetes mellitus with hyperglycemia; K57.30 Diverticulosis of large intestine without perforation or abscess without bleeding; N18.31 Chronic kidney disease, stage 3a; E86.1 Hypovolemia; R20.2 Paresthesia of skin; Y83.1 Surgical operation with implant of artificial internal device as the cause of abnormal reaction of the patient, or of later complication, without mention of misadventure at the time of the procedure; Y79.2 Prosthetic and other implants, materials and accessory orthopedic devices associated with adverse incidents; X58.XXXA Exposure to other specified factors, initial encounter; Z96.642 Presence of left artificial hip joint; Z79.4 Long term (current) use of insulin; Z79.890 Hormone replacement therapy; Z79.01 Long term (current) use of anticoagulants; Z79.891 Long term (current) use of opiate analgesic; Z88.1 Allergy status to other antibiotic agents; Z91.011 Allergy to milk products; Z79.84 Long term (current) use of oral hypoglycemic drugs; Z79.82 Long term (current) use of aspirin; Z86.718 Personal history of other venous thrombosis and embolism; Y92.9 Unspecified place or not applicable
CPT/HCPCS: 20610; 71045; 73502; 73551; 73560; 76000; 76770; 76942; 80048; 80053; 80202; 81003; 81015; 82040; 82248; 82570; 82607; 82728; 82746; 82962; 83540; 83930; 83935; 84300; 84443; 85014; 85018; 85025; 85027; 85045; 85652; 85730; 86140; 86850; 86900; 86901; 86920; 87015; 87040; 87070; 87075; 87076; 87077; 87086; 87147; 87176; 87185; 87186; 87205; 96365; 96375; 97163; 97167; 97530; 97535; 99285; J1335; P9016

== ENCOUNTER → 2023-07-03 13:56 | Outpatient (REF) | payer OTHER, SELFPAY | LOC: OLABP 13:56 | PROVIDERS: ATTENDING PHYSICIAN Family Medicine | DX: R19.7 Diarrhea, unspecified (principal) | CPT/HCPCS: 87324; 87449 ==

== ENCOUNTER → 2023-07-05 18:04 | Outpatient (REF) | payer OTHER, SELFPAY ==
[2023-07-05 18:22] LABS: % Basophils 0.4 % (0-2); % Eosinophils 4.9 % (0-6); % Immature Granulocytes 0.6 % (0-0.5); % Lymphocytes 16.5 % (20.5-51.1); % Monocytes 6.9 % (1.7-9.3); % Neutrophils 70.7 % (42.2-75.2); Absolute Eosinophils 0.5 10^3/uL (0-0.7); Absolute Immature Granulocytes 0.1 10^3/uL (0-0.05); Absolute Lymphocytes 1.6 10^3/uL (1.2-3.4); Absolute Monocytes 0.7 10^3/uL (0.1-0.6); Hemoglobin 8.3 g/dL (12.0-16.0); Mean Corp Hgb Conc. 31.9 g/dL (33.0-37.0); Mean Corpuscular Hgb 29.2 pg (27.0-31.0); Mean Corpuscular Volume 91.5 fL (81.0-99.0); Mean Platelet Volume 9.2 fL (7.4-10.4); Nucleated Red Blood Cells % 0 %; Platelet Count 481 10^3/uL (130-400); Red Blood Cell Count 2.84 10^6/uL (4.20-5.40); Red Cell Dist. Width 15.6 % (11.5-14.5); White Blood Cell Count 9.9 10^3/uL (4.8-10.8)
[2023-07-05 18:36] LABS: ALT (SGPT) 12 U/L (0-35); AST (SGOT) 16 U/L (14-36); Albumin 2.6 g/dl (3.5-5.0); Alkaline Phosphatase 115 U/L (38-126); Blood Urea Nitrogen 13 mg/dl (7-17); Carbon Dioxide 23 mmol/L (22-30); Chloride 103 mmol/L (98-107); Glucose 137 mg/dl (70-99); Potassium 3.7 mmol/L (3.5-5.1); Sodium 132 mmol/L (135-145); Total Bilirubin 0.5 mg/dl (0.2-1.3); eGFR 43.15
[2023-07-05 18:37] LABS: Vancomycin Trough 11.6 ug/ml (5-20)
[2023-07-05 19:11] LABS: Erythrocyte Sed Rate 67 mm/hour (0-20)
== END ==
LOC: OLABP 18:04
PROVIDERS: ATTENDING PHYSICIAN Family Medicine
DX: L03.116 Cellulitis of left lower limb (principal); A41.9 Sepsis, unspecified organism; R26.2 Difficulty in walking, not elsewhere classified; N17.9 Acute kidney failure, unspecified; E87.1 Hypo-osmolality and hyponatremia; D62 Acute posthemorrhagic anemia; K58.9 Irritable bowel syndrome, unspecified
CPT/HCPCS: 36415; 80053; 80202; 85025; 85652; 86140

== ENCOUNTER → 2023-07-11 18:02 | Outpatient (REF) | payer OTHER, SELFPAY ==
[2023-07-11 18:36] LABS: % Basophils 1.2 % (0-2); % Eosinophils 4.2 % (0-6); % Immature Granulocytes 0.3 % (0-0.5); % Lymphocytes 18.5 % (20.5-51.1); % Monocytes 7.1 % (1.7-9.3); % Neutrophils 68.7 % (42.2-75.2); Absolute Basophils 0.1 10^3/uL (0-0.2); Absolute Eosinophils 0.3 10^3/uL (0-0.7); Absolute Lymphocytes 1.4 10^3/uL (1.2-3.4); Absolute Monocytes 0.5 10^3/uL (0.1-0.6); Absolute Neutrophils 5.1 10^3/uL (1.4-6.5); Hematocrit 24.6 % (37.0-47.0); Hemoglobin 7.7 g/dL (12.0-16.0); Mean Corp Hgb Conc. 31.3 g/dL (33.0-37.0); Mean Corpuscular Hgb 28.6 pg (27.0-31.0); Mean Corpuscular Volume 91.4 fL (81.0-99.0); Mean Platelet Volume 9.1 fL (7.4-10.4); Nucleated Red Blood Cells % 0 %; Platelet Count 376 10^3/uL (130-400); Red Blood Cell Count 2.69 10^6/uL (4.20-5.40); White Blood Cell Count 7.4 10^3/uL (4.8-10.8)
[2023-07-11 18:42] LABS: ALT (SGPT) 12 U/L (0-35); AST (SGOT) 17 U/L (14-36); Albumin 2.5 g/dl (3.5-5.0); Alkaline Phosphatase 141 U/L (38-126); Blood Urea Nitrogen 15 mg/dl (7-17); Calcium 7.8 mg/dl (8.4-10.2); Carbon Dioxide 23 mmol/L (22-30); Chloride 108 mmol/L (98-107); Glucose 134 mg/dl (70-99); Potassium 4.3 mmol/L (3.5-5.1); Sodium 133 mmol/L (135-145); Total Bilirubin 0.2 mg/dl (0.2-1.3); eGFR 43.15
[2023-07-11 18:43] LABS: Erythrocyte Sed Rate 78 mm/hour (0-20)
== END ==
LOC: OLAB 18:02
PROVIDERS: ATTENDING PHYSICIAN Family Medicine
DX: R79.89 Other specified abnormal findings of blood chemistry (principal); R79.82 Elevated C-reactive protein (CRP); Z16.22 Resistance to vancomycin related antibiotics
CPT/HCPCS: 36415; 80053; 85025; 85652; 86140

== ENCOUNTER → 2023-07-13 15:45 | Outpatient (REF) | payer OTHER, SELFPAY ==
[2023-07-13 16:24] LABS: % Basophils 0.9 % (0-2); % Eosinophils 7.6 % (0-6); % Immature Granulocytes 0.3 % (0-0.5); % Lymphocytes 20.8 % (20.5-51.1); % Monocytes 8.3 % (1.7-9.3); % Neutrophils 62.1 % (42.2-75.2); Absolute Basophils 0.1 10^3/uL (0-0.2); Absolute Eosinophils 0.6 10^3/uL (0-0.7); Absolute Lymphocytes 1.7 10^3/uL (1.2-3.4); Absolute Monocytes 0.7 10^3/uL (0.1-0.6); Hemoglobin 8.2 g/dL (12.0-16.0); Mean Corp Hgb Conc. 31.5 g/dL (33.0-37.0); Mean Corpuscular Hgb 28.9 pg (27.0-31.0); Mean Corpuscular Volume 91.5 fL (81.0-99.0); Mean Platelet Volume 9.4 fL (7.4-10.4); Nucleated Red Blood Cells % 0 %; Platelet Count 420 10^3/uL (130-400); Red Blood Cell Count 2.84 10^6/uL (4.20-5.40); Red Cell Dist. Width 14.7 % (11.5-14.5)
[2023-07-13 16:36] LABS: ALT (SGPT) < 10 U/L (0-35); AST (SGOT) 20 U/L (14-36); Alkaline Phosphatase 153 U/L (38-126); Blood Urea Nitrogen 15 mg/dl (7-17); Calcium 8.7 mg/dl (8.4-10.2); Carbon Dioxide 21 mmol/L (22-30); Chloride 102 mmol/L (98-107); Glucose 67 mg/dl (70-99); Potassium 4.8 mmol/L (3.5-5.1); Sodium 134 mmol/L (135-145); Total Bilirubin 0.4 mg/dl (0.2-1.3); Total Protein 5.7 g/dl (6.3-8.2); eGFR 52.73
[2023-07-13 16:38] LABS: Vancomycin Trough 13.4 ug/ml (5-20)
== END ==
LOC: OLABP 15:45
PROVIDERS: ATTENDING PHYSICIAN Family Medicine
DX: I10 Essential (primary) hypertension (principal); D72.829 Elevated white blood cell count, unspecified; L03.116 Cellulitis of left lower limb; I73.9 Peripheral vascular disease, unspecified; B96.4 Proteus (mirabilis) (morganii) as the cause of diseases classified elsewhere; A41.9 Sepsis, unspecified organism; E11.21 Type 2 diabetes mellitus with diabetic nephropathy; N17.9 Acute kidney failure, unspecified; E87.5 Hyperkalemia; G92.8 Other toxic encephalopathy; D62 Acute posthemorrhagic anemia; I82.501 Chronic embolism and thrombosis of unspecified deep veins of right lower extremity; N18.4 Chronic kidney disease, stage 4 (severe)
CPT/HCPCS: 36415; 80053; 80202; 85025

== ENCOUNTER → 2023-07-18 19:18 | Outpatient (REF) | payer OTHER, SELFPAY ==
[2023-07-18 19:34] LABS: % Basophils 1.1 % (0-2); % Eosinophils 10.3 % (0-6); % Immature Granulocytes 0.2 % (0-0.5); % Lymphocytes 27.7 % (20.5-51.1); % Monocytes 11.7 % (1.7-9.3); Absolute Basophils 0.1 10^3/uL (0-0.2); Absolute Eosinophils 0.7 10^3/uL (0-0.7); Absolute Lymphocytes 1.8 10^3/uL (1.2-3.4); Absolute Monocytes 0.7 10^3/uL (0.1-0.6); Absolute Neutrophils 3.1 10^3/uL (1.4-6.5); Hematocrit 25.5 % (37.0-47.0); Hemoglobin 8.2 g/dL (12.0-16.0); Mean Corp Hgb Conc. 32.2 g/dL (33.0-37.0); Mean Corpuscular Hgb 28.4 pg (27.0-31.0); Mean Corpuscular Volume 88.2 fL (81.0-99.0); Mean Platelet Volume 9.1 fL (7.4-10.4); Nucleated Red Blood Cells % 0 %; Platelet Count 466 10^3/uL (130-400); Red Blood Cell Count 2.89 10^6/uL (4.20-5.40); Red Cell Dist. Width 15.2 % (11.5-14.5); White Blood Cell Count 6.3 10^3/uL (4.8-10.8)
[2023-07-18 19:41] LABS: Blood Urea Nitrogen 13 mg/dl (7-17); Calcium 8.6 mg/dl (8.4-10.2); Carbon Dioxide 25 mmol/L (22-30); Chloride 103 mmol/L (98-107); Glucose 134 mg/dl (70-99); Potassium 4.7 mmol/L (3.5-5.1); Sodium 134 mmol/L (135-145); eGFR 39.48
[2023-07-18 19:46] LABS: Depakane < 10.0 ug/ml (50.0-120.0)
[2023-07-18 19:51] LABS: Vancomycin Trough 16.4 ug/ml (5-20)
== END ==
LOC: OLABP 19:18
PROVIDERS: ATTENDING PHYSICIAN Family Medicine
DX: D62 Acute posthemorrhagic anemia (principal)
CPT/HCPCS: 80048; 80164; 80202; 85025

== ENCOUNTER → 2023-07-22 14:11 | Outpatient (REF) | payer OTHER, SELFPAY | LOC: RAD 14:11 | PROVIDERS: ATTENDING PHYSICIAN Orthopaedic Surgery; FAMILY PHYSICIAN Family Medicine | DX: Z96.649 Presence of unspecified artificial hip joint (principal) | CPT/HCPCS: 72170; 73552 ==

== ENCOUNTER → 2023-07-25 18:38 | Outpatient (REF) | payer OTHER, SELFPAY ==
[2023-07-25 18:58] LABS: % Basophils 0.9 % (0-2); % Eosinophils 8.1 % (0-6); % Immature Granulocytes 0.3 % (0-0.5); % Lymphocytes 24.1 % (20.5-51.1); % Monocytes 9.8 % (1.7-9.3); % Neutrophils 56.8 % (42.2-75.2); Absolute Basophils 0.1 10^3/uL (0-0.2); Absolute Eosinophils 0.5 10^3/uL (0-0.7); Absolute Lymphocytes 1.5 10^3/uL (1.2-3.4); Absolute Monocytes 0.6 10^3/uL (0.1-0.6); Absolute Neutrophils 3.6 10^3/uL (1.4-6.5); Hematocrit 24.8 % (37.0-47.0); Hemoglobin 7.9 g/dL (12.0-16.0); Mean Corp Hgb Conc. 31.9 g/dL (33.0-37.0); Mean Corpuscular Hgb 27.9 pg (27.0-31.0); Mean Corpuscular Volume 87.6 fL (81.0-99.0); Mean Platelet Volume 9.1 fL (7.4-10.4); Nucleated Red Blood Cells % 0 %; Platelet Count 429 10^3/uL (130-400); Red Blood Cell Count 2.83 10^6/uL (4.20-5.40); Red Cell Dist. Width 15.3 % (11.5-14.5); White Blood Cell Count 6.4 10^3/uL (4.8-10.8)
[2023-07-25 19:07] LABS: Erythrocyte Sed Rate 57 mm/hour (0-20)
[2023-07-25 19:17] LABS: ALT (SGPT) < 10 U/L (0-35); AST (SGOT) 19 U/L (14-36); Alkaline Phosphatase 151 U/L (38-126); Blood Urea Nitrogen 14 mg/dl (7-17); Calcium 8.6 mg/dl (8.4-10.2); Carbon Dioxide 26 mmol/L (22-30); Chloride 102 mmol/L (98-107); Glucose 119 mg/dl (70-99); Potassium 3.8 mmol/L (3.5-5.1); Sodium 135 mmol/L (135-145); Total Bilirubin 0.3 mg/dl (0.2-1.3); Total Protein 5.5 g/dl (6.3-8.2); eGFR 43.15
== END ==
LOC: OLABP 18:38
PROVIDERS: ATTENDING PHYSICIAN Family Medicine
DX: I10 Essential (primary) hypertension (principal); L03.116 Cellulitis of left lower limb; I73.9 Peripheral vascular disease, unspecified; B96.4 Proteus (mirabilis) (morganii) as the cause of diseases classified elsewhere; A41.9 Sepsis, unspecified organism; E11.21 Type 2 diabetes mellitus with diabetic nephropathy; N17.9 Acute kidney failure, unspecified; E87.1 Hypo-osmolality and hyponatremia; E87.5 Hyperkalemia; G92.8 Other toxic encephalopathy; N18.4 Chronic kidney disease, stage 4 (severe); I82.501 Chronic embolism and thrombosis of unspecified deep veins of right lower extremity; D72.829 Elevated white blood cell count, unspecified; D62 Acute posthemorrhagic anemia
CPT/HCPCS: 36415; 80053; 85025; 85652; 86140

== ENCOUNTER → 2023-08-01 09:26 | Outpatient (REF) | payer OTHER, SELFPAY ==
[2023-08-01 10:51] LABS: Hematocrit 27.7 % (37.0-47.0); Hemoglobin 8.7 g/dL (12.0-16.0); Mean Corp Hgb Conc. 31.4 g/dL (33.0-37.0); Mean Corpuscular Hgb 27.8 pg (27.0-31.0); Mean Corpuscular Volume 88.5 fL (81.0-99.0); Mean Platelet Volume 9.9 fL (7.4-10.4); Platelet Count 350 10^3/uL (130-400); Red Blood Cell Count 3.13 10^6/uL (4.20-5.40); Red Cell Dist. Width 15.1 % (11.5-14.5)
[2023-08-01 11:37] LABS: ALT (SGPT) < 10 U/L (0-35); AST (SGOT) 18 U/L (14-36); Alkaline Phosphatase 139 U/L (38-126); Blood Urea Nitrogen 16 mg/dl (7-17); Calcium 8.6 mg/dl (8.4-10.2); Carbon Dioxide 30 mmol/L (22-30); Chloride 101 mmol/L (98-107); Glucose 124 mg/dl (70-99); Potassium 4.5 mmol/L (3.5-5.1); Sodium 135 mmol/L (135-145); Total Bilirubin 0.4 mg/dl (0.2-1.3); Total Protein 5.5 g/dl (6.3-8.2); eGFR 43.15
[2023-08-01 12:12] LABS: Erythrocyte Sed Rate 23 mm/hour (0-20)
== END ==
LOC: OLABP 09:26
PROVIDERS: ATTENDING PHYSICIAN Family Medicine
DX: I10 Essential (primary) hypertension (principal); B96.4 Proteus (mirabilis) (morganii) as the cause of diseases classified elsewhere; A41.9 Sepsis, unspecified organism; E11.21 Type 2 diabetes mellitus with diabetic nephropathy; N17.9 Acute kidney failure, unspecified; E87.1 Hypo-osmolality and hyponatremia; I73.9 Peripheral vascular disease, unspecified; E87.5 Hyperkalemia; D72.829 Elevated white blood cell count, unspecified; L03.116 Cellulitis of left lower limb; G92.8 Other toxic encephalopathy; D62 Acute posthemorrhagic anemia; I82.501 Chronic embolism and thrombosis of unspecified deep veins of right lower extremity; N18.4 Chronic kidney disease, stage 4 (severe)
CPT/HCPCS: 36415; 80053; 85027; 85652; 86140

== ENCOUNTER → 2023-08-02 20:02 | Outpatient (REF) | payer OTHER, SELFPAY ==
[2023-08-02 20:45] LABS: Vancomycin Trough 7.4 ug/ml (5-20)
== END ==
LOC: CLAB 20:02
PROVIDERS: ATTENDING PHYSICIAN Family Medicine
DX: Z51.81 Encounter for therapeutic drug level monitoring (principal)
CPT/HCPCS: 80202

== ENCOUNTER → 2023-08-08 18:58 | Outpatient (REF) | payer OTHER, SELFPAY ==
[2023-08-08 19:32] LABS: % Basophils 0.5 % (0-2); % Eosinophils 8.2 % (0-6); % Immature Granulocytes 0.2 % (0-0.5); % Lymphocytes 22.3 % (20.5-51.1); % Monocytes 8.2 % (1.7-9.3); % Neutrophils 60.6 % (42.2-75.2); Absolute Eosinophils 0.7 10^3/uL (0-0.7); Absolute Lymphocytes 1.8 10^3/uL (1.2-3.4); Absolute Monocytes 0.7 10^3/uL (0.1-0.6); Absolute Neutrophils 4.9 10^3/uL (1.4-6.5); Hemoglobin 8.6 g/dL (12.0-16.0); Mean Corp Hgb Conc. 31.9 g/dL (33.0-37.0); Mean Corpuscular Hgb 27.7 pg (27.0-31.0); Mean Corpuscular Volume 87.1 fL (81.0-99.0); Nucleated Red Blood Cells % 0 %; Platelet Count 333 10^3/uL (130-400); Red Cell Dist. Width 15.6 % (11.5-14.5); White Blood Cell Count 8.2 10^3/uL (4.8-10.8)
[2023-08-08 19:52] LABS: ALT (SGPT) 11 U/L (0-35); AST (SGOT) 23 U/L (14-36); Albumin 3.4 g/dl (3.5-5.0); Alkaline Phosphatase 139 U/L (38-126); Blood Urea Nitrogen 17 mg/dl (7-17); Carbon Dioxide 29 mmol/L (22-30); Chloride 100 mmol/L (98-107); Glucose 120 mg/dl (70-99); Sodium 136 mmol/L (135-145); Total Bilirubin 0.5 mg/dl (0.2-1.3); Total Protein 6.1 g/dl (6.3-8.2)
[2023-08-08 19:55] LABS: Erythrocyte Sed Rate 27 mm/hour (0-20)
[2023-08-08 19:57] LABS: Vancomycin Trough 13.9 ug/ml (5-20)
== END ==
LOC: OLABP 18:58
PROVIDERS: ATTENDING PHYSICIAN Family Medicine
DX: L03.116 Cellulitis of left lower limb (principal); M01.X52 Direct infection of left hip in infectious and parasitic diseases classified elsewhere; B96.4 Proteus (mirabilis) (morganii) as the cause of diseases classified elsewhere; A41.9 Sepsis, unspecified organism; M25.552 Pain in left hip; R26.2 Difficulty in walking, not elsewhere classified; E11.21 Type 2 diabetes mellitus with diabetic nephropathy; N17.9 Acute kidney failure, unspecified; E87.1 Hypo-osmolality and hyponatremia; E87.5 Hyperkalemia; G92.8 Other toxic encephalopathy; D62 Acute posthemorrhagic anemia; I82.501 Chronic embolism and thrombosis of unspecified deep veins of right lower extremity; D72.829 Elevated white blood cell count, unspecified; I73.9 Peripheral vascular disease, unspecified; N18.4 Chronic kidney disease, stage 4 (severe); I10 Essential (primary) hypertension; E78.5 Hyperlipidemia, unspecified
CPT/HCPCS: 36415; 80053; 80202; 85025; 85652; 86140

== ENCOUNTER 2023-09-22 11:46 | Outpatient (RCR) | payer OTHER, SELFPAY | END 2023-09-22 23:59 | disposition home or self-care (01) | LOC: RPT 11:46 | PROVIDERS: ATTENDING PHYSICIAN Orthopaedic Surgery; FAMILY PHYSICIAN Physician Assistant | DX: Z47.1 Aftercare following joint replacement surgery (principal); Z96.642 Presence of left artificial hip joint; R26.89 Other abnormalities of gait and mobility; Z73.6 Limitation of activities due to disability | CPT/HCPCS: 97110; 97163; 97530 ==

== ENCOUNTER → 2023-09-23 09:28 | Outpatient (REF) | payer OTHER, SELFPAY ==
[2023-09-23 10:19] LABS: % Basophils 0.4 % (0-2); % Immature Granulocytes 0.4 % (0-0.5); % Lymphocytes 25.7 % (20.5-51.1); % Monocytes 7.3 % (1.7-9.3); % Neutrophils 62.2 % (42.2-75.2); Absolute Eosinophils 0.3 10^3/uL (0-0.7); Absolute Lymphocytes 1.7 10^3/uL (1.2-3.4); Absolute Monocytes 0.5 10^3/uL (0.1-0.6); Absolute Neutrophils 4.2 10^3/uL (1.4-6.5); Hematocrit 30.2 % (37.0-47.0); Hemoglobin 9.1 g/dL (12.0-16.0); Mean Corp Hgb Conc. 30.1 g/dL (33.0-37.0); Mean Corpuscular Hgb 27.1 pg (27.0-31.0); Mean Corpuscular Volume 89.9 fL (81.0-99.0); Mean Platelet Volume 9.4 fL (7.4-10.4); Nucleated Red Blood Cells % 0 %; Platelet Count 280 10^3/uL (130-400); Red Blood Cell Count 3.36 10^6/uL (4.20-5.40); Red Cell Dist. Width 15.9 % (11.5-14.5); White Blood Cell Count 6.7 10^3/uL (4.8-10.8)
[2023-09-23 10:31] LABS: ALT (SGPT) 20 U/L (0-35); AST (SGOT) 25 U/L (14-36); Albumin 4.3 g/dl (3.5-5.0); Alkaline Phosphatase 127 U/L (38-126); Blood Urea Nitrogen 33 mg/dl (7-17); Calcium 9.6 mg/dl (8.4-10.2); Carbon Dioxide 28 mmol/L (22-30); Chloride 103 mmol/L (98-107); Glucose 134 mg/dl (70-99); Potassium 5.3 mmol/L (3.5-5.1); Sodium 139 mmol/L (135-145); Total Bilirubin 0.6 mg/dl (0.2-1.3); Total Protein 6.8 g/dl (6.3-8.2); eGFR 27.37
== END ==
LOC: REG 09:28
PROVIDERS: ATTENDING PHYSICIAN Physician Assistant; FAMILY PHYSICIAN Family Medicine
DX: N18.4 Chronic kidney disease, stage 4 (severe) (principal); D64.9 Anemia, unspecified
CPT/HCPCS: 36415; 80053; 85025

== ENCOUNTER 2023-10-25 11:26 | Outpatient (RCR) | payer OTHER, SELFPAY | END 2023-10-25 23:59 | disposition home or self-care (01) | LOC: RPT 11:26 | PROVIDERS: ATTENDING PHYSICIAN Orthopaedic Surgery; FAMILY PHYSICIAN Physician Assistant | DX: Z47.1 Aftercare following joint replacement surgery (principal); R26.89 Other abnormalities of gait and mobility; Z73.6 Limitation of activities due to disability; Z96.642 Presence of left artificial hip joint | CPT/HCPCS: 97110; 97112; 97530 ==

== ENCOUNTER 2023-11-24 10:46 | Outpatient (RCR) | payer OTHER, SELFPAY | END 2023-11-24 23:59 | disposition home or self-care (01) | LOC: RPT 10:46 | PROVIDERS: ATTENDING PHYSICIAN Orthopaedic Surgery; FAMILY PHYSICIAN Physician Assistant | DX: Z47.1 Aftercare following joint replacement surgery (principal); Z96.642 Presence of left artificial hip joint | CPT/HCPCS: 97110; 97530 ==

== ENCOUNTER 2023-12-22 09:50 | Outpatient (RCR) | payer OTHER, SELFPAY | END 2023-12-22 23:59 | disposition home or self-care (01) | LOC: RPT 09:50 | PROVIDERS: ATTENDING PHYSICIAN Orthopaedic Surgery; FAMILY PHYSICIAN Physician Assistant | DX: Z47.1 Aftercare following joint replacement surgery (principal); R26.89 Other abnormalities of gait and mobility; Z73.6 Limitation of activities due to disability; M62.81 Muscle weakness (generalized); M25.552 Pain in left hip; Z96.642 Presence of left artificial hip joint | CPT/HCPCS: 97110; 97530 ==

== ENCOUNTER 2024-01-26 10:53 | Outpatient (RCR) | payer OTHER, SELFPAY | END 2024-01-26 23:59 | disposition home or self-care (01) | LOC: RPT 10:53 | PROVIDERS: ATTENDING PHYSICIAN Orthopaedic Surgery; FAMILY PHYSICIAN Physician Assistant | DX: Z47.1 Aftercare following joint replacement surgery (principal); Z96.642 Presence of left artificial hip joint; Z73.6 Limitation of activities due to disability | CPT/HCPCS: 97110; 97530 ==

== ENCOUNTER 2024-02-21 10:53 | Outpatient (RCR) | payer OTHER, SELFPAY | END 2024-02-21 23:59 | disposition home or self-care (01) | LOC: RPT 10:53 | PROVIDERS: ATTENDING PHYSICIAN Orthopaedic Surgery; FAMILY PHYSICIAN Physician Assistant | DX: Z47.1 Aftercare following joint replacement surgery (principal); R26.89 Other abnormalities of gait and mobility; Z73.6 Limitation of activities due to disability; Z96.642 Presence of left artificial hip joint | CPT/HCPCS: 97110; 97530 ==

== ENCOUNTER 2024-03-27 10:40 | Outpatient (RCR) | payer OTHER, SELFPAY | END 2024-03-27 23:59 | disposition home or self-care (01) | LOC: RPT 10:40 | PROVIDERS: ATTENDING PHYSICIAN Orthopaedic Surgery; FAMILY PHYSICIAN Physician Assistant | DX: Z47.1 Aftercare following joint replacement surgery (principal); Z96.642 Presence of left artificial hip joint; R26.89 Other abnormalities of gait and mobility; Z73.6 Limitation of activities due to disability | CPT/HCPCS: 97110; 97530 ==

== ENCOUNTER 2024-04-26 10:45 | Outpatient (RCR) | payer OTHER, SELFPAY | END 2024-04-26 23:59 | disposition home or self-care (01) | LOC: RPT 10:45 | PROVIDERS: ATTENDING PHYSICIAN Orthopaedic Surgery; FAMILY PHYSICIAN Physician Assistant | DX: Z47.1 Aftercare following joint replacement surgery (principal); Z96.642 Presence of left artificial hip joint; M75.01 Adhesive capsulitis of right shoulder; R26.89 Other abnormalities of gait and mobility; Z73.6 Limitation of activities due to disability | CPT/HCPCS: 97110; 97530 ==

== ENCOUNTER 2024-05-24 10:47 | Outpatient (RCR) | payer OTHER, SELFPAY | END 2024-05-24 23:59 | disposition home or self-care (01) | LOC: RPT 10:47 | PROVIDERS: ATTENDING PHYSICIAN Orthopaedic Surgery; FAMILY PHYSICIAN Physician Assistant | DX: Z47.1 Aftercare following joint replacement surgery (principal); Z96.642 Presence of left artificial hip joint; M75.01 Adhesive capsulitis of right shoulder; R26.89 Other abnormalities of gait and mobility; Z73.6 Limitation of activities due to disability | CPT/HCPCS: 97110; 97530 ==

== ENCOUNTER 2024-06-19 06:14 | Outpatient (RCR) | payer OTHER, SELFPAY | END 2024-06-19 23:59 | disposition home or self-care (01) | LOC: RPT 06:14 | PROVIDERS: ATTENDING PHYSICIAN Physician Assistant | DX: Z47.89 Encounter for other orthopedic aftercare (principal); M25.552 Pain in left hip; M25.511 Pain in right shoulder; Z73.6 Limitation of activities due to disability; R26.2 Difficulty in walking, not elsewhere classified; M62.81 Muscle weakness (generalized); R26.89 Other abnormalities of gait and mobility; Z96.642 Presence of left artificial hip joint | CPT/HCPCS: 97110; 97162 ==

== ENCOUNTER 2024-07-19 10:38 | Outpatient (RCR) | payer OTHER, SELFPAY | END 2024-07-19 23:59 | disposition home or self-care (01) | LOC: RPT 10:38 | PROVIDERS: ATTENDING PHYSICIAN Physician Assistant | DX: Z47.89 Encounter for other orthopedic aftercare (principal); M25.552 Pain in left hip; M25.511 Pain in right shoulder; Z73.6 Limitation of activities due to disability; Z96.642 Presence of left artificial hip joint; R26.2 Difficulty in walking, not elsewhere classified; M62.81 Muscle weakness (generalized); R26.89 Other abnormalities of gait and mobility | CPT/HCPCS: 97110; 97530 ==

== ENCOUNTER 2024-08-23 10:45 | Outpatient (RCR) | payer OTHER, SELFPAY | END 2024-08-23 23:59 | disposition home or self-care (01) | LOC: RPT 10:45 | PROVIDERS: ATTENDING PHYSICIAN Physician Assistant | DX: Z47.89 Encounter for other orthopedic aftercare (principal); M25.552 Pain in left hip; M25.511 Pain in right shoulder; R26.89 Other abnormalities of gait and mobility; M62.81 Muscle weakness (generalized); R26.2 Difficulty in walking, not elsewhere classified; Z96.642 Presence of left artificial hip joint; Z73.6 Limitation of activities due to disability; M25.522 Pain in left elbow | CPT/HCPCS: 97110; 97530 ==

== ENCOUNTER 2024-09-20 10:47 | Outpatient (RCR) | payer OTHER, SELFPAY | END 2024-09-20 23:59 | disposition home or self-care (01) | LOC: RPT 10:47 | PROVIDERS: ATTENDING PHYSICIAN Physician Assistant | DX: Z47.89 Encounter for other orthopedic aftercare (principal); M25.552 Pain in left hip; M25.511 Pain in right shoulder; Z96.642 Presence of left artificial hip joint; R26.89 Other abnormalities of gait and mobility; R26.2 Difficulty in walking, not elsewhere classified; M62.81 Muscle weakness (generalized); Z73.6 Limitation of activities due to disability | CPT/HCPCS: 97110; 97530 ==

== ENCOUNTER → 2024-10-03 14:10 | Outpatient (REF) | payer OTHER, SELFPAY | LOC: RAD 14:10 | PROVIDERS: ATTENDING PHYSICIAN Podiatrist Primary Podiatric Medicine; FAMILY PHYSICIAN Physician Assistant | DX: S91.302A Unspecified open wound, left foot, initial encounter (principal) | CPT/HCPCS: 93923 ==

== ENCOUNTER 2024-10-25 11:14 | Outpatient (RCR) | payer OTHER, SELFPAY | END 2024-10-25 23:59 | disposition home or self-care (01) | LOC: RPT 11:14 | PROVIDERS: ATTENDING PHYSICIAN Physician Assistant | DX: M25.552 Pain in left hip (principal); M25.511 Pain in right shoulder; Z47.89 Encounter for other orthopedic aftercare; R26.2 Difficulty in walking, not elsewhere classified; R26.89 Other abnormalities of gait and mobility; M62.81 Muscle weakness (generalized); Z96.642 Presence of left artificial hip joint; Z73.6 Limitation of activities due to disability | CPT/HCPCS: 97110; 97530 ==

== ENCOUNTER → 2024-11-02 13:49 | Outpatient (REF) | payer OTHER, SELFPAY | LOC: HWRAD 13:49 | PROVIDERS: ATTENDING PHYSICIAN Physician Assistant; FAMILY PHYSICIAN Physician Assistant | DX: M85.89 Other specified disorders of bone density and structure, multiple sites (principal); M85.80 Other specified disorders of bone density and structure, unspecified site | CPT/HCPCS: 77080; 77081 ==

== ENCOUNTER 2024-11-22 10:29 | Outpatient (RCR) | payer OTHER, SELFPAY | END 2024-11-22 23:59 | disposition home or self-care (01) | LOC: RPT 10:29 | PROVIDERS: ATTENDING PHYSICIAN Physician Assistant | DX: Z47.89 Encounter for other orthopedic aftercare (principal); M25.552 Pain in left hip (principal); M25.511 Pain in right shoulder; R26.89 Other abnormalities of gait and mobility; R26.2 Difficulty in walking, not elsewhere classified; M62.81 Muscle weakness (generalized); Z96.642 Presence of left artificial hip joint; Z73.6 Limitation of activities due to disability | CPT/HCPCS: 97110; 97530 ==

== ENCOUNTER 2024-11-29 09:35 | Outpatient (RCR) | payer OTHER, SELFPAY | END 2024-11-29 23:59 | disposition home or self-care (01) | LOC: RPT 09:35 | PROVIDERS: ATTENDING PHYSICIAN Physician Assistant | DX: Z47.89 Encounter for other orthopedic aftercare (principal); M25.552 Pain in left hip; M25.511 Pain in right shoulder; R26.89 Other abnormalities of gait and mobility; R26.2 Difficulty in walking, not elsewhere classified; M62.81 Muscle weakness (generalized); Z73.6 Limitation of activities due to disability; Z96.642 Presence of left artificial hip joint | CPT/HCPCS: 97110 ==